=== PATIENT | male | born 1940 | race Caucasian/White ===

== ENCOUNTER 2024-04-17 13:11 | Outpatient (AMB) | payer MEDICARE, SELFPAY ==
[2024-04-17 13:20] VITALS: BP 118/68; PULSE 78; O2SAT 97; BMI 22.2
--- NOTE | 2024-04-17 13:20 | MHC.OFFVIS ---
Vital Signs 04/17/24 13:20 Height 5 ft 9 in Weight 150 lb 9.211 oz BMI 22.2 BP 118/68 Blood Pressure Location Rt brachial Position Sitting Pulse 78 Pulse Source Pulse Oximeter Pulse Oximetry (%) 97 Oxygen Delivery Method Room Air Intake Visit Reasons: Pneumonia Torch Shearer Required: No Allergies No Known Allergies Allergy (Verified 04/17/24 13:23) HPI Comments Details: The patient is here for pulmonary evaluation. The patient is an 83-year-old gentleman with a known history of atrial fibrillation on anticoagulation. She has been complaining of worsening respiratory symptoms since the summer. Apparently per the family he has been coughing now for the last month. He has also had some weight loss. The summertime he is having issues with shortness of breath cough and he went to the ER. He was initially evaluated in March. He was initially diagnosed with whooping cough. He was treated with azithromycin. The patient is no better develop worsening respiratory symptoms he went back to the hospital on March 18. Then he had a CTA which ruled out PE but the patient did have underlying is airspace disease in the lower lung zones in addition to the right upper lobe. The patient also has some bronchiectatic looking airways. He was placed on amoxicillin and then subsequently the patient was no better and he was subsequently placed on doxycycline. He was also started on cough syrup which helped him settle down the cough some degree. The patient has not significantly improved. He does throat area. He had a repeat CT scan on April 09 as a follow-up scan. This was done at [facility]. It appeared that the airspace disease improved although now he has a 1.5 nodular density in the right lower lobe. Did not clear if this is related to residual from an infection or if this is concerning process. [facility] Medical History (Updated 04/19/24 @ 21:56 by Everardo Hendrickson MD) Pertussis pneumonia Cough due to TANYA inhibitor Vasomotor rhinitis Bronchopneumonia Social History (Updated 04/17/24 @ 13:27 by DANILO Morocho) Patient Tobacco Use Status: Former Tobacco user Tobacco use type: Cigarette Years Smoked: 20+ Years Review of Systems Const Reports weight loss Eyes Reports no additional complaints ENT Reports hearing loss, Reports post nasal drip and Reports throat swelling Card Denies chest pain Resp Reports chest congestion, Reports cough, Denies hemoptysis and Denies wheezing GI Reports no additional complaints Musc Reports no additional complaints Skin/Breast Denies rash Sebastian/Lymph Reports no additional complaints Aller/Immun Reports throat swelling and Denies wheezing Physical Exam Vital Signs: Last Vital Signs Pulse 78 04/17/24 13:20 BP 118/68 04/17/24 13:20 Pulse Ox 97 04/17/24 13:20 Oxygen Delivery Method Room Air 04/17/24 13:20 BMI result Body Mass Index 22.2 Const General: comfortable HEENT Head: Yes normocephalic Throat: No cobblestoning Neck Neck: Yes supple Chest Chest palpation & inspection: normal inspection of the chest Resp Auscultation: diminished lung sounds Skin General skin exam: no rashes or lesions noted Extrem General: Yes no clubbing, cyanosis or edema Assessment & Plan Assessment & Plan (1) Bronchopneumonia: Code(s): J18.0 - Bronchopneumonia, unspecified organism Category: Medical (2) 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 Category: Medical (3) Cough due to TANYA inhibitor: Code(s): R05.8 - Other specified cough; T46.4X5A - Adverse effect of hfhasueshrh-zxhqvefxlo-vrnykc inhibitors, initial encounter Category: Medical (4) Pertussis pneumonia: Code(s): A37.91 - Whooping cough, unspecified species with pneumonia Category: Medical Plan start Asmanex daily *rinse* to help with airway inflammation caused by pertusis ipratropium nasal spray as needed Sputum culture Need to review the images, particularly the irregular density in the RLL. May need a PET scan, otherwise plan to repeat the CT chest in a short interval change TANYA to ARB cough medicine holding on further antibiotics at this time F/U 4-6 weeke Orders: Orders Sputum Cult + Gram stain 04/17/24 J18.0 - Bronchopneumonia, unspecified organism Medications: New mometasone 200 mcg/actuation (Asmanex HFA) 2 puffs inhalation BID 30 days 13 grams 1RF ipratropium bromide administer into each nostril 2 sprays intranasal TID PRN 15 mL 6RF allergy symptoms codeine-guaifenesin 10-100 mg/5 mL 10 mL PO Q6H 10 days PRN 300 mL 0RF cough Coding Level of Care Code New Pt Level 4 (11745) Diagnoses Bronchopneumonia J18.0 Vasomotor rhinitis J30.0 Cough due to TANYA inhibitor R05.8; T46.4X5A Pertussis pneumonia A37.91 Time Spent (min) 45
== END 2024-04-17 14:17 | disposition home or self-care (01) ==
PROVIDERS: PCP Physician Assistant Medical; Referring Provider Physician Assistant Medical; Visit Provider Hospitalist
DX: J18.0 Bronchopneumonia, unspecified organism (principal); J30.0 Vasomotor rhinitis; R05.8 Other specified cough; T46.4X5A Adverse effect of angiotensin-converting-enzyme inhibitors, initial encounter; A37.91 Whooping cough, unspecified species with pneumonia
CPT/HCPCS: 99204

== ENCOUNTER → 2024-04-17 13:11 | Outpatient (BNVA) | payer MEDICARE, SELFPAY | PROVIDERS: PCP Physician Assistant Medical; Referring Provider Physician Assistant Medical; Visit Provider Hospitalist | DX: J18.0 Bronchopneumonia, unspecified organism (principal); A37.91 Whooping cough, unspecified species with pneumonia; T46.4X5A Adverse effect of angiotensin-converting-enzyme inhibitors, initial encounter; J30.0 Vasomotor rhinitis; R05.8 Other specified cough | CPT/HCPCS: 99202 ==

== ENCOUNTER 2024-04-20 13:01 | Outpatient (REF) | payer MEDICARE, SELFPAY | END 2024-04-20 13:02 | disposition home or self-care (01) | LOC: HO.LNP 13:01 | PROVIDERS: Visit Provider Hospitalist | DX: J18.0 Bronchopneumonia, unspecified organism (principal) | CPT/HCPCS: 87070; 87205 ==

== ENCOUNTER 2024-05-21 10:29 | Outpatient (AMB) | payer MEDICARE, SELFPAY ==
[2024-05-21 10:40] VITALS: BP 140/86; PULSE 93; O2SAT 98; BMI 22.9
--- NOTE | 2024-05-21 10:40 | A.OFFVIS_ITS ---
Vital Signs 05/21/24 10:40 Height 5 ft 9 in Weight 155 lb 6.814 oz BMI 22.9 BP 140/86 H Blood Pressure Location Rt brachial Position Sitting Pulse 93 Pulse Source Pulse Oximeter Pulse Oximetry (%) 98 Oxygen Delivery Method Room Air Intake Visit Reasons: Pneumonia Allergies No Known Allergies Allergy (Verified 05/21/24 10:43) HPI Comments Details: The patient is an 83-year-old gentleman with a known history of atrial fibrillation on anticoagulation. She has been complaining of worsening respiratory symptoms since the summer. Apparently per the family he has been coughing now for the last month. He has also had some weight loss. The summertime he is having issues with shortness of breath cough and he went to the ER. He was initially evaluated in March. He was initially diagnosed with whooping cough. He was treated with azithromycin. The patient is no better develop worsening respiratory symptoms he went back to the hospital on March 18. Then he had a CTA which ruled out PE but the patient did have underlying is airspace disease in the lower lung zones in addition to the right upper lobe. The patient also has some bronchiectatic looking airways. He was placed on amoxicillin and then subsequently the patient was no better and he was subsequently placed on doxycycline. He was also started on cough syrup which helped him settle down the cough some degree. The patient has not significantly improved. He does throat area. He had a repeat CT scan on April 09 as a follow-up scan. This was done at [facility]. It appeared that the airspace disease improved although now he has a 1.5 nodular density in the right lower lobe. Did not clear if this is related to residual from an infection or if this is concerning process. 05/21/2024 the patient is here for a pulmonary follow-up visit. Overall the patient has been doing okay. His cough is better. He stopped taking the Asmane x since he felt that he did not need it anymore. Also was feel like it was developing some irritation from it. In addition to that he does complaint about his postnasal drip and nasal congestion. He has been using the Atrovent nasal spray. I had sent him the higher dose and then he had some issues with epistaxis and therefore he got a lower dose minutes primary care which is perfectly fine. Although he still having issues. He is taking it 4 times a day. Will see about back in weight to 2 times a day will add Astelin to the regimen. Will avoid nasal steroids because of bleeding. The patient is CT scans were also reviewed by me. I did get a copy of them. I can appreciate the nodular densities in the lower lung areas. There is some degree of inflammation and likely related to his previous infectious lower respiratory process. Therefore plan to repeat the CT scan sometime in early 2024 and will follow-up with the results. She continues to have the nodular densities and at that point he may need additional imaging or semi-invasive diagnostic interventions. Will follow-up then. [facility] Medical History (Updated 05/21/24 @ 19:43 by Everardo Hendrickson MD) Pulmonary nodule 1 cm or greater in diameter Pertussis pneumonia Cough due to TANYA inhibitor Vasomotor rhinitis Bronchopneumonia Social History Patient Tobacco Use Status: Former Tobacco user Tobacco use type: Cigarette Years Smoked: 20+ Years Review of Systems Const Reports weight loss Eyes Reports no additional complaints ENT Reports hearing loss, Reports post nasal drip and Reports throat swelling Card Denies chest pain Resp Denies chest congestion, Reports cough, Denies hemoptysis and Denies wheezing GI Reports no additional complaints Musc Reports no additional complaints Skin/Breast Denies rash Sebastian/Lymph Reports no additional complaints Aller/Immun Reports throat swelling and Denies wheezing Physical Exam Vital Signs: Last Vital Signs Pulse 93 05/21/24 10:40 BP 140/86 H 05/21/24 10:40 Pulse Ox 98 05/21/24 10:40 Oxygen Delivery Method Room Air 05/21/24 10:40 BMI result Body Mass Index 22.9 Const General: comfortable HEENT Head: Yes normocephalic Throat: No cobblestoning Neck Neck: Yes supple Chest Chest palpation & inspection: normal inspection of the chest Resp Auscultation: diminished lung sounds Skin General skin exam: no rashes or lesions noted Extrem General: Yes no clubbing, cyanosis or edema Assessment & Plan Assessment & Plan (1) Bronchopneumonia: Comment: better Code(s): J18.0 - Bronchopneumonia, unspecified organism Category: Medical (2) 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 Category: Medical (3) Cough due to TANYA inhibitor: Code(s): R05.8 - Other specified cough; T46.4X5A - Adverse effect of nxmgvoojzpi-nethsmmbyh-akowbm inhibitors, initial encounter Category: Medical (4) Pertussis pneumonia: Code(s): A37.91 - Whooping cough, unspecified species with pneumonia Category: Medical (5) Pulmonary nodule 1 cm or greater in diameter: Code(s): R91.1 - Solitary pulmonary nodule Category: Medical Plan stop Asmanex daily *rinse* to help with airway inflammation caused by pertusis ipratropium nasal spray as needed start astelin nasal spray BID start kati med sinus rinse PM Repeat CT chest inJanuary 2024 cough medicine F/U 2-3 months Orders: Orders CT chest wo IV con 07/06/24 R91.1 - Solitary pulmonary nodule Medications: New azelastine administer into each nostril 2 sprays intranasal BID 30 days 30 mL 6RF Coding Level of Care Code Est Pt Level 4 (35579) Diagnoses Bronchopneumonia J18.0 Vasomotor rhinitis J30.0 Cough due to TANYA inhibitor R05.8; T46.4X5A Pertussis pneumonia A37.91 Pulmonary nodule 1 cm or greater in diameter R91.1 Time Spent (min) 17
== END 2024-05-21 11:51 | disposition home or self-care (01) ==
PROVIDERS: PCP Physician Assistant Medical; Visit Provider Hospitalist
DX: J18.0 Bronchopneumonia, unspecified organism (principal); J30.0 Vasomotor rhinitis; R05.8 Other specified cough; T46.4X5A Adverse effect of angiotensin-converting-enzyme inhibitors, initial encounter; A37.91 Whooping cough, unspecified species with pneumonia; R91.1 Solitary pulmonary nodule
CPT/HCPCS: 99214

== ENCOUNTER → 2024-05-21 10:29 | Outpatient (BNVA) | payer MEDICARE, SELFPAY | PROVIDERS: PCP Physician Assistant Medical; Visit Provider Hospitalist | DX: A37.91 Whooping cough, unspecified species with pneumonia (principal); J18.0 Bronchopneumonia, unspecified organism; J30.0 Vasomotor rhinitis; R91.1 Solitary pulmonary nodule; R05.8 Other specified cough; T46.4X5A Adverse effect of angiotensin-converting-enzyme inhibitors, initial encounter | CPT/HCPCS: 99212 ==

== ENCOUNTER 2024-07-08 09:34 | Outpatient (REF) | payer MEDICARE, SELFPAY ==
--- NOTE | ~2024-07-08 | CT_ITS ---
EXAMINATION: CT CHEST WITHOUT IV CONTRAST INDICATION: R91.1 - Solitary pulmonary nodule COMPARISON: Comparison is made with the prior outside examination dated 04/09/2024. TECHNIQUE: Helical CT scan of the chest was performed without intravenous contrast. Coronal and sagittal reformatted images were generated and reviewed. This CT exam was performed with one or more of the following dose reduction techniques: automated exposure control, adjustment of the mA and/or kV according to patient size, use of iterative reconstruction technique. DLP: 142 mGy-cm CHEST: THYROID: The thyroid is unremarkable. LUNGS:There has been near complete clearing of the previously seen nodular opacities in the right upper lobe (series 5, images 285-303). Minimal residual groundglass opacities remain. No new pulmonary nodules or airspace opacities are identified. MEDIASTINUM: Again seen is a 10 mm anterior mediastinal lymph node. DINH: Evaluation of the hilar regions is limited by lack of intravenous contrast material. CARDIOVASCULATURE: The heart is normal in size. There is no pericardial effusion. There is dilatation of the ascending thoracic aorta measuring 4.0 cm in diameter. DEGREE OF CORONARY CALCIFICATION: severe PLEURA: There is no pleural effusion. No pneumothorax. MAIN AIRWAYS: The mainstem bronchi and proximal branches are patent. AXILLA: There is no axillary lymphadenopathy. BONES AND SOFT TISSUES: Unremarkable UPPER ABDOMEN: The visualized portions of the liver, spleen, and adrenals have an unremarkable appearance. CT/CT chest wo IV con IMPRESSION: 1. Near complete clearing of the previously seen nodular opacities in the right upper lobe with minimal residual groundglass opacities remaining. 2. Dilatation of the ascending thoracic aorta measuring 4.0 cm in diameter. Electronically signed by: Roebrt More MD 07/10/2024 09:[address] [facility]
--- OUTSIDE RECORDS SUMMARY | 2024-07-08 09:37 | XMS_ITS ---
Author Organization [email or web address] [facility] Address [address] [place] [address] Care Team Providers Care Account Development Representative Name Role Phone MOSES ROJO Unavailable [phone] REASON FOR VISIT CCM Encounters Encounter Location Date Provider Diagnosis [address] [address] 06/03/2024 MOSES ROJO PLAN OF TREATMENT Next Appt Details Provider Name:MOSES ROJO, 08/25/2024 08:45:00 AM, [address], [facility] [place], [address], Progress Notes * Tae JARADOB: [birth year] (84 yo M)Acc No.[id number]:06/03/2024 Patient:??Tae JARA :1940?Age:83 Y?Sex:Winston crabtree Address:[address] [place] [address] * true * Date:??
--- OUTSIDE RECORDS SUMMARY | 2024-07-08 09:37 | XMS_ITS ---
Author Organization [facility] Address [address] [place] [address] Care Team Providers Care Overnight Houseperson Name Role Phone MOSES ROJO Unavailable [phone] CONYGABY Unavailable [phone] REASON FOR VISIT pos covid yesterday MEDICATIONS Medication SIG (Take, Route, Frequency, Duration) Notes Start Date End Date Status Losartan Potassium 25 MG TAKE 1 TABLET B Y MOUTH EVERY DAY FOR 30 DAYS for 90 Not-Taking Eliquis 5 MG TAKE 1 TABLET BY SHAZIA TH TWICE A DAY for 90 Active Ipratropium Cruger 0.03 % 1 spray in each nostril Nasally twice daily for 30 days 05/07/2024 Active Azelastine HCl 137 MCG/SPRAY Nasal for 30 Days Active Lisinopril 5 MG TAKE 1 TABLET BY SHAZIA TH EVERY DAY for 30 Active Lisinopril 30 MG TAKE 1 TABLET BY SHAZIA TH EVERY DAY for 90 days Active Qvar RediHaler 80 MCG/ACT Inhalation for 30 Days Active Ipratropium Cruger 0.06 % PLEASE SEE ATTACHED FOR DETAILED DIRECTIONS Nasal for 30 Days Active Multivitamin Adult - as directed Orally Active Metoprolol Succinate ER 25 MG TAKE 1 TABLET BY MOUTH EVERY DAY for 90 Active guaiFENesin ER 600 MG 1 tablet as needed Orally every 12 hrs for 20 days 05/26/2024 Active Atorvastatin Calcium 40 MG 1 tablet Orally Once a day Active Nirmatrelvir&Ritonavir 300/100 20 x 150 MG & 10 x 100MG 3 tablets Orally Twice a day for 5 days 06/18/2024 Active Calcium 600 MG 1 tablet with meals Orally Twice a day Active Encounters Encounter Location Date Provider Diagnosis [facility] [address] [place] [address] 06/18/2024 GABY DONNELLY Acute COVID-19 U07.1 ; Post-nasal drip R09.82 ; Chronic cough R05.3 ; Hyperlipidemia, unspecified E78.5 ; Essential hypertension I10 and Atrial fibrillation, unspecified type I48.91 ASSESSMENTS Encounter Date Diagnosis Assessment Notes Treatment Notes Treatment Clinical Notes Section Notes 06/18/2024 Acute COVID-19 (ICD-10 - U07.1) Tae is a pleasant 84-year-old male who presents via telehealth for an urgent visit. #Positive COVID-19: Paxlovid sent to the pharmacy today, patient educated on the side effects that include but not limited to metallic taste in the mouth and GI upset. Patient educated to eat on the medication. Patient is to call the office if he develops a cough, or feels worse. #Essential hypertension: Continue lisinopril 30 mg tablets, lisinopril 5 mg tablets #Hyperlipidemia: Continue atorvastatin 40 mg tablets #Chronic atrial fibrillation: Patient anticoagulated with Eliquis 5 mg tablets, on rate control with metoprolol 25 mg tablets. All questions have been answered to patient's satisfaction. Patient verbalized understanding of diagnosis and treatments explained. Advised to call sooner prior to next visit it any questions/concerns arise. Case discussed with Taylor SALEH who reviewed the assessment and plan. Chart, medications, labs, vital signs reviewed. Dictation was accomplished with the use of [employer] voice recognition software, which is prone to medical misidentifications and grammatical errors. This are unintentional and the practitioner does try to identify and correct these, but some could still be present. Please do not hesitate to contact practitioner for clarification. 06/18/2024 Post-nasal drip (ICD-10 - R09.82) Tae is a pleasant 84-year-old male who presents via telehealth for an urgent visit. #Positive COVID-19: Paxlovid sent to the pharmacy today, patient educated on the side effects that include but not limited to metallic taste in the mouth and GI upset. Patient educated to eat on the medication. Patient is to call the office if he develops a cough, or feels worse. #Essential hypertension: Continue lisinopril 30 mg tablets, lisinopril 5 mg tablets #Hyperlipidemia: Continue atorvastatin 40 mg tablets #Chronic atrial fibrillation: Patient anticoagulated with Eliquis 5 mg tablets, on rate control with metoprolol 25 mg tablets. All questions have been answered to patient's satisfaction. Patient verbalized understanding of diagnosis and treatments explained. Advised to call sooner prior to next visit it any questions/concerns arise. Case discussed with Taylor SALEH who reviewed the assessment and plan. Chart, medications, labs, vital signs reviewed. Dictation was accomplished with the use of [employer] voice recognition software, which is prone to medical misidentifications and grammatical errors. This are unintentional and the practitioner does try to identify and correct these, but some could still be present. Please do not hesitate to contact practitioner for clarification. 06/18/2024 Chronic cough (ICD-10 - R05.3) Tae is a pleasant 84-year-old male who presents via telehealth for an urgent visit. #Positive COVID-19: Paxlovid sent to the pharmacy today, patient educated on the side effects that include but not limited to metallic taste in the mouth and GI upset. Patient educated to eat on the medication. Patient is to call the office if he develops a cough, or feels worse. #Essential hypertension: Continue lisinopril 30 mg tablets, lisinopril 5 mg tablets #Hyperlipidemia: Continue atorvastatin 40 mg tablets #Chronic atrial fibrillation: Patient anticoagulated with Eliquis 5 mg tablets, on rate control with metoprolol 25 mg tablets. All questions have been answered to patient's satisfaction. Patient verbalized understanding of diagnosis and treatments explained. Advised to call sooner prior to next visit it any questions/concerns arise. Case discussed with Taylor SALEH who reviewed the assessment and plan. Chart, medications, labs, vital signs reviewed. Dictation was accomplished with the use of [employer] voice recognition software, which is prone to medical misidentifications and grammatical errors. This are unintentional and the practitioner does try to identify and correct these, but some could still be present. Please do not hesitate to contact practitioner for clarification. 06/18/2024 Hyperlipidemia, unspecified (ICD-10 - E78.5) Tae is a pleasant 84-year-old male who presents via telehealth for an urgent visit. #Positive COVID-19: Paxlovid sent to the pharmacy today, patient educated on the side effects that include but not limited to metallic taste in the mouth and GI upset. Patient educated to eat on the medication. Patient is to call the office if he develops a cough, or feels worse. #Essential hypertension: Continue lisinopril 30 mg tablets, lisinopril 5 mg tablets #Hyperlipidemia: Continue atorvastatin 40 mg tablets #Chronic atrial fibrillation: Patient anticoagulated with Eliquis 5 mg tablets, on rate control with metoprolol 25 mg tablets. All questions have been answered to patient's satisfaction. Patient verbalized understanding of diagnosis and treatments explained. Advised to call sooner prior to next visit it any questions/concerns arise. Case discussed with Taylor SALEH who reviewed the assessment and plan. Chart, medications, labs, vital signs reviewed. Dictation was accomplished with the use of [employer] voice recognition software, which is prone to medical misidentifications and grammatical errors. This are unintentional and the practitioner does try to identify and correct these, but some could still be present. Please do not hesitate to contact practitioner for clarification. 06/18/2024 Essential hypertension (ICD-10 - I10) Tae is a pleasant 84-year-old male who presents via telehealth for an urgent visit. #Positive COVID-19: Paxlovid sent to the pharmacy today, patient educated on the side effects that include but not limited to metallic taste in the mouth and GI upset. Patient educated to eat on the medication. Patient is to call the office if he develops a cough, or feels worse. #Essential hypertension: Continue lisinopril 30 mg tablets, lisinopril 5 mg tablets #Hyperlipidemia: Continue atorvastatin 40 mg tablets #Chronic atrial fibrillation: Patient anticoagulated with Eliquis 5 mg tablets, on rate control with metoprolol 25 mg tablets. All questions have been answered to patient's satisfaction. Patient verbalized understanding of diagnosis and treatments explained. Advised to call sooner prior to next visit it any questions/concerns arise. Case discussed with Taylor SALEH who reviewed the assessment and plan. Chart, medications, labs, vital signs reviewed. Dictation was accomplished with the use of [employer] voice recognition software, which is prone to medical misidentifications and grammatical errors. This are unintentional and the practitioner does try to identify and correct these, but some could still be present. Please do not hesitate to contact practitioner for clarification. 06/18/2024 Atrial fibrillation, unspecified type (ICD-10 - I48.91) Tae is a pleasant 84-year-old male who presents via telehealth for an urgent visit. #Positive COVID-19: Paxlovid sent to the pharmacy today, patient educated on the side effects that include but not limited to metallic taste in the mouth and GI upset. Patient educated to eat on the medication. Patient is to call the office if he develops a cough, or feels worse. #Essential hypertension: Continue lisinopril 30 mg tablets, lisinopril 5 mg tablets #Hyperlipidemia: Continue atorvastatin 40 mg tablets #Chronic atrial fibrillation: Patient anticoagulated with Eliquis 5 mg tablets, on rate control with metoprolol 25 mg tablets. All questions have been answered to patient's satisfaction. Patient verbalized understanding of diagnosis and treatments explained. Advised to call sooner prior to next visit it any questions/concerns arise. Case discussed with Taylor SALEH who reviewed the assessment and plan. Chart, medications, labs, vital signs reviewed. Dictation was accomplished with the use of [employer] voice recognition software, which is prone to medical misidentifications and grammatical errors. This are unintentional and the practitioner does try to identify and correct these, but some could still be present. Please do not hesitate to contact practitioner for clarification. PLAN OF TREATMENT Medication Medication Name Sig Start Date Stop Date Notes Nirmatrelvir&Ritonavir 300/1 00 20 x 150 MG & 10 x 100MG 3 tablets Orally Twice a day for 5 days 06/18/2024 Next Appt Details Provider Name:MOSES ROJO, 08/25/2024 08:45:00 AM, [address] [facility], [place], [address], Progress Notes * Tae JARADOB: [birth year] (84 yo M)Acc No.[id number]:06/18/2024 Patient:??Tae JARA Provider:??GABY DONNELLY PA-C :1940?Age:84 Y?Sex:Ma le Date:06/18/2024 Address:[address] [place] [address], [place], [id number] Subjective: * Chief Complaints: * ?1. Pos covid yesterday . * HPI: ?Constitutional:? Tae is a pleasant 84-year-old male with a past medical history significant for hypertension, iron deficiency anemia, hyperlipidemia, chronic A- fib, hematuria, history of CVA, chronic cough, postnasal drip and history of prostate cancer who presents via telehealth for an urgent visit. The patient states that he tested positive last night around 9 PM with a at home COVID test. The patient states that his symptoms include cold-like symptoms, sinus pressure and sore throat. Denies any shortness of breath, headaches, chest pain or coughing at this time. * ROS:?Constitutional: Patient denies any excessive fatigue with exercise, no weight loss, no fever and no night sweats ???Eyes: No eye discharge, no itching, no redness. Advised the significance of regular eye exams to screen for glaucoma and other eye problems ???Ear nose throat: +sore throat,+ postnasal drip, +runny nose, +sinus pressure, Sneezing ???Cardiovascular: No chest pain, no shortness of breath, no dyspnea on exertion, no PND, no orthopnea, no irregular pulse ???Respiratory: No chronic cough, no hemoptysis, no sputum, no wheezing ???GI, no diarrhea, no constipation no blood in the stools, no pain associated with eating, no indigestion ???Genitourinary: No painful urination no hesitancy no blood in the urine ???Musculoskeletal, no limitations to walking and running, no joint deformity, no joint stiffness, no chronic back pain, no noise with joint movement ???Integumentary, no new skin rash. No new changes in skin moles ???Neurological: No history of seizures, memory loss, No language dysfunction, No inability to concentrate, no localized weakness, no sensation loss, no confusion ???Psychiatric: No depression, no suicidal thoughts, no anxiety ???Endocrine: No polyuria no polyphagia or polydipsia, no heat intolerance no cold intolerance ???Hematological: No easy bruising or Lymph node swelling. * Medical History:??Essential (primary) hypertension, Iron deficiency anemia, unspecified, Hyperlipidemia, mild, Chronic atrial fibrillation, History of prostate cancer, Hematuria, gross, History of CVA (cerebrovascular accident), Chronic cough, Post-nasal drip. * Medications:??Taking guaiFEN esin ER 600 MG Tablet Extended Release 12 Hour 1 tablet as needed Orally every 12 hrs , Taking Atorvastatin Calcium 40 MG Tablet 1 tablet Orally Once a day , Taking Calcium 600 MG Tablet 1 tablet with meals Orally Twice a day , Taking Multivitamin Adult - Tablet as directed Orally , Taking Metoprolol Succinate ER 25 MG Tablet Extended Release 24 Hour TAKE 1 TABLET BY MOUTH EVERY DAY , Taking Lisinopril 30 MG Tablet TAKE 1 TABLET BY MOUTH EVERY DAY , Taking Qvar RediHaler 80 MCG/ACT Aerosol Breath Activated Inhalation , Taking Ipratropium Cruger 0.06 % Solution PLEASE SEE ATTACHED FOR DETAILED DIRECTIONS Nasal , Taking Ipratropium Cruger 0.03 % Solution 1 spray in each nostril Nasally twice daily , Taking Azelastine HCl 137 MCG/SPRAY Solution Nasal , Taking Eliquis 5 MG Tablet TAKE 1 TABLET BY MOUTH TWICE A DAY , Taking Lisinopril 5 MG Tablet TAKE 1 TABLET BY MOUTH EVERY DAY , Not-Taking Losartan Potassium 25 MG Tablet TAKE 1 TABLET BY MOUTH EVERY DAY FOR 30 DAYS Objective: * Examination: ?General Examination: ?Not able to obtain. Assessment: * Assessment: 1.??Acute COVID-19 - U07.1 ( Primary)??2.??Post-nasal drip - R09.82??3.??Chronic cough - R05.3??4.??Hyperlipidemia, unspecified - E78.5??5.??Essential hypertension - I10??6.??Atrial fibrillation, unspecified type - I48.91?? Tae is a pleasant 84-yea r-old male who presents via telehealth for an urgent visit. #Positive COVID-19: Paxlovid sent to the pharmacy today, patient educated on the side effects that include but not limited to metallic taste in the mouth and GI upset. Patient educated to eat on the medication. Patient is to call the office if he develops a cough, or feels worse. #Essential hypertension: Continue lisinopril 30 mg tablets, lisinopril 5 mg tablets #Hyperlipidemia: Continue atorvastatin 40 mg tablets #Chronic atrial fibrillation: Patient anticoagulated with Eliquis 5 mg tablets, on rate control with metoprolol 25 mg tablets. All questions have been answered to patient's satisfaction. Patient verbalized understanding of diagnosis and treatments explained. Advised to call sooner prior to next visit it any questions/concerns arise. Case discussed with Taylor SALEH who reviewed the assessment and plan. Chart, medications, labs, vital signs reviewed. Dictation was accomplished with the use of [employer] voice recognition software, which is prone to medical misidentifications and grammatical errors. This are unintentional and the practitioner does try to identify and correct these, but some could still be present. Please do not hesitate to contact practitioner for clarification. Plan: * Treatment: * Images: Billing Information: * Visit Code:?? 64601 Office Visit, Est Pt., Level 4. Modifiers: GT * Procedure Codes:?? * Sign off status: Completed true * Provider:??GABY DONNELLY PA-C Date:??06/18 History and Physical Notes * HPI (History of Present Illness) Category Sub-Category Detail Notes Category Not es Constitutional Tae is a pleasant 84-year-old male with a past medical history significant for hypertension, iron deficiency anemia, hyperlipidemia, chronic A-fib, hematuria, history of CVA, chronic cough, postnasal drip and history of prostate cancer who presents via telehealth for an urgent visit. The patient states that he tested positive last night around 9 PM with a at home COVID test. The patient states that his symptoms include cold-like symptoms, sinus pressure and sore throat. Denies any shortness of breath, headaches, chest pain or coughing at this time. Examination Category Sub-Category Detail Notes Category Not es General Examination Not able to obtain
--- OUTSIDE RECORDS SUMMARY | 2024-07-08 09:37 | XMS_ITS ---
Author Organization [facility] Address [address] [place] [address] Care Team Providers Care Doughnut Machine Operator Helper Name Role Phone MOSES ROJO Unavailable [phone] REASON FOR VISIT covid positive Encounters Encounter Location Date Provider Diagnosis [address] [address] 06/18/2024 MOSES ROJO PLAN OF TREATMENT Next Appt Details Provider Name:MOSES ROJO, 08/25/2024 08:45:00 AM, [address], [place], [address], Progress Notes * Tae JARADOB: [birth year] (84 yo M)Acc No.[id number]:06/18/2024 Patient:??ESTEFANI Tae :1940?Age:84 Y?Sex:Winston elyda Address:[address] [place] [address] * true * Date:??
--- OUTSIDE RECORDS SUMMARY | 2024-07-08 09:38 | XMS_ITS | Patient Health Record ---
Author Organization [facility] [facility] Address [address] [place] [address] Care Team Providers Care Green Chain Offbearer Name Role Phone ALIA, MOSES Unavailable [phone] ASHLYN FERNÁNDEZ Unavailable [phone] GHISLAINE FERNÁNDEZ Unavailable [phone] Angel Stephy Unavailable [phone] KELBY MCKEON Unavailable [phone] JAKE MARIN Unavailable [phone] GABY DONNELLY Unavailable [phone] ALLERGIES No Known Allergies RESULTS Component Value Reference Range Notes CBC (INCLUDES DIFF/PLT) Reviewed date:07/12/2023 08:31:13 AM Interpretation: Performing Lab:NL2, [facility] [address] Aria Stinson Notes/Report: 0 FASTING:YES FASTING: YES WHITE BLOOD CELL COUNT 6.6 3.8-10.8 Thousand/uL RED BLOOD CELL COUNT 4.07 4.20-5.80 Million/uL HEMOGLOBIN 12.2 13.2-17.1 g/dL HEMATOCRIT 36.8 38.5-50.0 % MCV 90.4 80.0-100.0 fL MCH 30.0 27.0-33.0 pg MCHC 33.2 32.0-36.0 g/dL RDW 12.3 11.0-15.0 % PLATELET COUNT 256 140-400 Thousand/uL MPV 10.6 7.5-12.5 fL ABSOLUTE NEUTROPHILS [phone] cells/uL ABSOLUTE LYMPHOCYTES 5118 469-6496 cells/uL ABSOLUTE MONOCYTES 455 200-950 cells/uL ABSOLUTE EOSINOPHILS 59 15-500 cells/uL ABSOLUTE BASOPHILS 59 0-200 cells/uL NEUTROPHILS 63.7 LYMPHOCYTES 27.6 MONOCYTES 6.9 EOSINOPHILS 0.9 BASOPHILS 0.9 COMPREHENSIVE METABOLIC PANE L Reviewed date:08/30/2023 11:18:27 AM Interpretation: Performing Lab:RAMBO2, [facility] Aria Stinson Notes/Report: GLUCOSE 101 65-99 mg/dL Fasting reference interval For someone without known diabetes, a glucose value between 100 and 125 mg/dL is consistent with prediabetes and should be confirmed with a follow-up test. UREA NITROGEN (BUN) 20 7-25 mg/dL CREATININE 1.09 0.70-1.22 mg/dL EGFR 68 > OR = 60 mL/min/1.73m2 BUN/CREATININE RATIO SEE NOTE: 6-22 (calc) Not Reported: BUN and Creatinine are within reference range. SODIUM 140 135-146 mmol/L POTASSIUM 5.2 3.5-5.3 mmol/L CHLORIDE 105 98-110 mmol/L CARBON DIOXIDE 27 20-32 mmol/L CALCIUM 9.5 8.6-10.3 mg/dL PROTEIN, TOTAL 7.3 6.1-8.1 g/dL ALBUMIN 4.1 3.6-5.1 g/dL GLOBULIN 3.2 1.9-3.7 g/dL (calc) ALBUMIN/GLOBULIN RATIO 1.3 1.0-2.5 (calc) BILIRUBIN, TOTAL 0.7 0.2-1.2 mg/dL ALKALINE PHOSPHATASE 72 35-144 U/L AST 23 10-35 U/L ALT 15 9-46 U/L CBC (INCLUDES DIFF/PLT) Reviewed date:08/30/2023 11:18:18 AM Interpretation: Performing Lab:RAMBO2, [facility] [address] Aria Stinson Notes/Report: WHITE BLOOD CELL COUNT 6.7 3.8-10.8 Thousand/uL RED BLOOD CELL COUNT 4.00 4.20-5.80 Million/uL HEMOGLOBIN 12.3 13.2-17.1 g/dL HEMATOCRIT 35.9 38.5-50.0 % MCV 89.8 80.0-100.0 fL MCH 30.8 27.0-33.0 pg MCHC 34.3 32.0-36.0 g/dL RDW 12.1 11.0-15.0 % PLATELET COUNT 205 140-400 Thousand/uL MPV 10.2 7.5-12.5 fL ABSOLUTE NEUTROPHILS 4167 1673-2734 cells/uL ABSOLUTE LYMPHOCYTES 5362 833-6429 cells/uL ABSOLUTE MONOCYTES 456 200-950 cells/uL ABSOLUTE EOSINOPHILS 34 15-500 cells/uL ABSOLUTE BASOPHILS 74 0-200 cells/uL NEUTROPHILS 62.2 LYMPHOCYTES 29.4 MONOCYTES 6.8 EOSINOPHILS 0.5 BASOPHILS 1.1 URINALYSIS, COMPLETE Reviewed date:09/02/2023 03:41:09 PM Interpretation: Performing Lab:Roe, [facility] [address] Aria Stinson Notes/Report: COLOR YELLOW YELLOW APPEARANCE CLEAR CLEAR SPECIFIC GRAVITY 1.011 1.001-1.035 PH 6.5 5.0-8.0 GLUCOSE NEGATIVE NEGATIVE BILIRUBIN NEGATIVE NEGATIVE KETONES NEGATIVE NEGATIVE OCCULT BLOOD 3+ NEGATIVE PROTEIN NEGATIVE NEGATIVE NITRITE NEGATIVE NEGATIVE LEUKOCYTE ESTERASE NEGATIVE NEGATIVE WBC NONE SEEN < OR = 5 /HPF RBC 3-10 < OR = 2 /HPF SQUAMOUS EPITHELIAL CELLS NONE SEEN < OR = 5 /HPF BACTERIA NONE SEEN NONE SEEN /HPF HYALINE CAST NONE SEEN NONE SEEN /LPF NOTE This urine was analyzed for the presence of WBC, RBC, bacteria, casts, and other formed elements. Only those elements seen were reported. PSA (FREE AND TOTAL) Reviewed date:09/02/2023 03:41:38 PM Interpretation: Performing Lab:JACKY, [facility] [address] Aria Stinson Notes/Report: PSA, TOTAL <0.1 < OR = 4.0 ng/mL PSA, FREE <0.1 PSA, % FREE UNABLE TO CALCULATE >25 % (calc) The free PSA level is below detectable limits. We are unable to calculate a % free PSA. PSA(ng/mL) Free PSA(%) Estimated(x) Probability of Cancer(as%) 0-2.5 (*) Approx. 1 2.6-4.0(1) 0-27(2) 24(3) 4.1-10(4) 0-10 56 11-15 28 16-20 20 21-25 16 >or =26 8 >10(+) N/A >50 References:(1)Warren et al.:Urology 60: 469-474 (2001) (2)Warren et al.:J.Urol 168: 922-925 (2001) Free PSA(%) Sensitivity(%) Specificity(%) < or = 25 85 19 < or = 30 93 9 (3)Catalona et al.:LUIS 277: 5988-6025 (1996) (4)Catalona et al.:LUIS 279: 9046-3108 (1997) (x)These estimates vary with age, ethnicity, family history and JOSE MARIA results. (*)The diagnostic usefulness of % Free PSA has not been established in patients with total PSA below 2.6 ng/mL (+)In men with PSA above 10 ng/mL, prostate cancer risk is determined by total PSA alone. The Total PSA value from this assay system is standardized against the equimolar PSA standard. The test result will be approximately 20% higher when compared to the WHO-standardized Total PSA (Siemens assay). Comparison of serial PSA results should be interpreted with this fact in mind. PSA was performed using the Bertram Toby Immunoassay method. Values obtained from different assay methods cannot be used interchangeably. PSA levels, regardless of value, should not be interpreted as absolute evidence of the presence or absence of disease. LIPID PANEL, STANDARD Reviewed date:01/16/2024 07:57:50 AM Interpretation: Performing Lab:NL2, [facility] [address] Aria Stinson Notes/Report: 0; 0; 0; 0; 0; 0; 0; 0 FASTING:YES FASTING: YES CHOLESTEROL, TOTAL 143 <200 mg/dL HDL CHOLESTEROL 65 > OR = 40 mg/dL TRIGLYCERIDES 78 <150 mg/dL LDL-CHOLESTEROL 62 Reference range: <100 Desirable range <100 mg/dL for primary prevention; <70 mg/dL for patients with CHD or diabetic patients with > or = 2 CHD risk factors. LDL-C is now calculated using the Adelso-Brooke calculation, which is a validated novel method providing better accuracy than the Friedewald equation in the estimation of LDL-C. Adelso RESENDEZ et al. LUIS. 2013;310(19): 6614-6643 (http://education.Ybrain.Field Nation/faq/JWN911) CHOL/HDLC RATIO 2.2 <5.0 (calc) NON HDL CHOLESTEROL 78 <130 mg/dL (calc) For patients with diabetes plus 1 major ASCVD risk factor, treating to a non-HDL-C goal of <100 mg/dL (LDL-C of <70 mg/dL) is considered a therapeutic option. COMPREHENSIVE METABOLIC PANE L Reviewed date:01/16/2024 07:57:50 AM Interpretation: Performing Lab:NL2, [facility] [address] Aria Stinson Notes/Report: 0; 0; 0; 0; 0; 0; 0; 0 FASTING:YES FASTING: YES GLUCOSE 106 65-99 mg/dL Fasting reference interval For someone without known diabetes, a glucose value between 100 and 125 mg/dL is consistent with prediabetes and should be confirmed with a follow-up test. UREA NITROGEN (BUN) 17 7-25 mg/dL CREATININE 1.08 0.70-1.22 mg/dL EGFR 69 > OR = 60 mL/min/1.73m2 BUN/CREATININE RATIO SEE NOTE: 6-22 (calc) Not Reported: BUN and Creatinine are within reference range. SODIUM 140 135-146 mmol/L POTASSIUM 4.9 3.5-5.3 mmol/L CHLORIDE 106 98-110 mmol/L CARBON DIOXIDE 28 20-32 mmol/L CALCIUM 9.4 8.6-10.3 mg/dL PROTEIN, TOTAL 7.1 6.1-8.1 g/dL ALBUMIN 3.5 3.6-5.1 g/dL GLOBULIN 3.6 1.9-3.7 g/dL (calc) ALBUMIN/GLOBULIN RATIO 1.0 1.0-2.5 (calc) BILIRUBIN, TOTAL 0.6 0.2-1.2 mg/dL ALKALINE PHOSPHATASE 65 35-144 U/L AST 20 10-35 U/L ALT 14 9-46 U/L CBC (INCLUDES DIFF/PLT) Reviewed date:01/16/2024 07:57:50 AM Interpretation: Performing Lab:NL2, [facility] [address] Aria Stinson Notes/Report: 0; 0; 0; 0; 0; 0; 0; 0 FASTING:YES FASTING: YES WHITE BLOOD CELL COUNT 6.2 3.8-10.8 Thousand/uL RED BLOOD CELL COUNT 3.95 4.20-5.80 Million/uL HEMOGLOBIN 11.9 13.2-17.1 g/dL HEMATOCRIT 37.3 38.5-50.0 % MCV 94.4 80.0-100.0 fL MCH 30.1 27.0-33.0 pg MCHC 31.9 32.0-36.0 g/dL RDW 12.3 11.0-15.0 % PLATELET COUNT 213 140-400 Thousand/uL MPV 10.2 7.5-12.5 fL ABSOLUTE NEUTROPHILS 3354 5558-2697 cells/uL ABSOLUTE LYMPHOCYTES 2089 850-3900 cells/uL ABSOLUTE MONOCYTES 515 200-950 cells/uL ABSOLUTE EOSINOPHILS 211 15-500 cells/uL ABSOLUTE BASOPHILS 31 0-200 cells/uL NEUTROPHILS 54.1 LYMPHOCYTES 33.7 MONOCYTES 8.3 EOSINOPHILS 3.4 BASOPHILS 0.5 URINALYSIS, COMPLETE Reviewed date:01/16/2024 08:12:48 AM Interpretation: Performing Lab:NL2, [facility] [address] Aria Stinson Notes/Report: 0; 0; 0; 0; 0; 0; 0; 0 FASTING:YES FASTING: YES COLOR DARK YELLOW YELLOW APPEARANCE CLEAR CLEAR SPECIFIC GRAVITY 1.018 1.001-1.035 PH 5.5 5.0-8.0 GLUCOSE NEGATIVE NEGATIVE BILIRUBIN NEGATIVE NEGATIVE KETONES NEGATIVE NEGATIVE OCCULT BLOOD NEGATIVE NEGATIVE PROTEIN NEGATIVE NEGATIVE NITRITE NEGATIVE NEGATIVE LEUKOCYTE ESTERASE NEGATIVE NEGATIVE WBC NONE SEEN < OR = 5 /HPF RBC 3-10 < OR = 2 /HPF SQUAMOUS EPITHELIAL CELLS NONE SEEN < OR = 5 /HPF BACTERIA NONE SEEN NONE SEEN /HPF CALCIUM OXALATE CRYSTALS FEW NONE OR FEW /HPF HYALINE CAST NONE SEEN NONE SEEN /LPF NOTE This urine was analyzed for the presence of WBC, RBC, bacteria, casts, and other formed elements. Only those elements seen were reported. VITAMIN B12 Reviewed date:01/16/2024 07:57:50 AM Interpretation: Performing Lab:NLGamzee, [facility] [address] [facility] Notes/Report: 0; 0; 0; 0; 0; 0; 0; 0 FASTING:YES FASTING: YES VITAMIN B12 613 947-0194 pg/mL Please Note: Although the reference range for vitamin B12 is 200-1100 pg/mL, it has been reported that between 5 and 10% of patients with values between 200 and 400 pg/mL may experience neuropsychiatric and hematologic abnormalities due to occult B12 deficiency; less than 1% of patients with values above 400 pg/mL will have symptoms. T4, FREE Reviewed date:01/16/2024 07:57:50 AM Interpretation: Performing Lab:RAMBOGamzee, [facility] [employer] [address] [facility] Notes/Report: 0; 0; 0; 0; 0; 0; 0; 0 FASTING:YES FASTING: YES T4, FREE 1.0 0.8-1.8 ng/dL TSH Reviewed date:01/16/2024 07:57:50 AM Interpretation: Performing Lab:RAMBOGamzee, [facility] [facility] Notes/Report: 0; 0; 0; 0; 0; 0; 0; 0 FASTING:YES FASTING: YES TSH 1.81 0.40-4.50 mIU/L T3, FREE Reviewed date:01/16/2024 07:57:50 AM Interpretation: Performing Lab:RAMBOGamzee, [place] [address] [facility] Notes/Report: 0; 0; 0; 0; 0; 0; 0; 0 FASTING:YES FASTING: YES T3, FREE 2.8 2.3-4.2 pg/mL VITAMIN D,25-OH,TOTAL,IA Reviewed date:01/16/2024 07:57:50 AM Interpretation: Performing Lab:RAMBO2, [place] [facility] [id number] [place] [address] [facility] Notes/Report: 0; 0; 0; 0; 0; 0; 0; 0 FASTING:YES FASTING: YES VITAMIN D,25-OH,TOTAL,IA 36 30-100 ng/mL Vitamin D Status 25-OH Vitamin D: Deficiency: <20 ng/mL Insufficiency: 20 - 29 ng/mL Optimal: > or = 30 ng/mL For 25-OH Vitamin D testing on patients on D2-supplementation and patients for whom quantitation of D2 and D3 fractions is required, the QuestAssureD(TM) 25-OH VIT D, (D2,D3), LC/MS/MS is recommended: order code [id number] (patients >2yrs). See Note 1 Note 1 For additional information, please refer to http://education.Coalfire/faq/BTB540 (This link is being provided for informational/ educational purposes only.) EKG (Not yet reviewed by pro vider) Interpretation: Performing Lab: Notes/Report: ECGDiastolicBP 98 ECGHr 68 ECGPRInterval 190 ECGPWaveAxis 90 ECGQRSDuration 89 ECGQrsWaveAxis 12 ECGQTcInterval 414 ECGQTInterval 400 ECGSystolicBP 142 ECGTWaveAxis -1 RR_DiastolicBP 0 RR_MaxRRInterval 0 RR_MeanHR 0 RR_MeanRRInterval 0 RR_MinRRInterval 0 RR_NumBeats 0 RR_NumNormalBeats 0 RR_SystolicBP 0 Chest Routine 2 Views Reviewed date:03/12/2024 10:26:34 AM Interpretation: Performing Lab: Notes/Report: Original Ordering Provider: GHISLAINE FERNÁNDEZ MD [facility] CBC Reviewed date:04/09/2024 04:18:44 PM Interpretation: Performing Lab: Notes/Report: Note Original Ordering Provider: KELBY [employer], [place] [address] [employer] [address] MD WBC 7.5 4.8-10.8 x10-3/uL RBC 3.9 4.5-5.5 x10-6/uL HEMOGLOBIN 11.6 13.5-17.5 g/dL HEMATOCRIT 35.9 42-54 % MCV 92.5 79-98 fL MCH 29.9 27-32 pg MCHC 32.3 32-37 g/dL RDW 12.5 11-15 % PLT COUNT 215 130-400 x10-3/uL MEAN PLATELET VOLUME 9.9 7-11 fL NRBC % AUTO 0.0 <1 % NRBC # AUTO 0.00 <0.1 x10-3/uL Note Original Ordering Provider: KELBY [employer], a member of [address] [address] [employer] - [address] MD COMPREHENSIVE METABOLIC PANE L Reviewed date:04/08/2024 04:07:47 PM Interpretation: Performing Lab: Notes/Report: Note Original Ordering Provider: KELBY [employer], a member of [address] [address] [employer] - [address] MD GLUCOSE 101 70-100 mg/dL Reference range applicable to fasting specimens only BUN 15 5-25 mg/dL CREAT 1.17 0.7-1.3 mg/dL GLOMERULAR FILTRATION RATE 63 >60 This eGFR result was calculated using the CKD-EPI 2020 Creatinine Equation SODIUM 139 135-145 mEq/L POTASSIUM 4.6 3.5-5.5 mmol/L CHLORIDE 107 96-110 mmol/L CO2 25 21-32 mmol/L ANION GAP 7 3-11 CALCIUM 9.7 8.5-10.5 mg/dL TOTAL PROTEIN 7.0 6.0-8.0 G/dL ALBUMIN 3.3 3.2-5.0 G/dL BILI,TOTAL 0.8 0.0-1.4 mg/dL SGOT 16 10-42 U/L SGPT 19 10-60 U/L ALK PHOS 75 42-121 U/L Note Original Ordering Provider: KELBY [employer], a member of [address] [address] Professional Model - MD DR Francheska Gillis Routine 2 Views Reviewed date:04/08/2024 01:11:33 PM Interpretation: Performing Lab: Notes/Report: Original Ordering Provider: [facility] CT Chest WO Reviewed date:04/10/2024 11:04:37 AM Interpretation: Performing Lab: Notes/Report: Original Ordering Provider: [facility] CBC With Differential/Platel et-[id number] Reviewed date:05/19/2024 08:00:44 AM Interpretation: Performing Lab:[facility], [address] [facility], Phone - [phone], Director - LARonald Notes/Report: WBC 7.4 3.4-10.8 x10E3/uL RBC 4.06 4.14-5.80 x10E6/uL Hemoglobin 12.6 13.0-17.7 g/dL Hematocrit 37.8 37.5-51.0 % MCV 93 79-97 fL MCH 31.0 26.6-33.0 pg MCHC 33.3 31.5-35.7 g/dL RDW 12.2 11.6-15.4 % Platelets 218 150-450 x10E3/uL Neutrophils 60 Not Estab. % Lymphs 29 Not Estab. % Monocytes 8 Not Estab. % Eos 2 Not Estab. % Basos 1 Not Estab. % Immature Cells Neutrophils (Absolute) 4.5 1.4-7.0 x10E3/uL Lymphs (Absolute) 2.1 0.7-3.1 x10E3/uL Monocytes(Absolute) 0.6 0.1-0.9 x10E3/uL Eos (Absolute) 0.1 0.0-0.4 x10E3/uL Baso (Absolute) 0.1 0.0-0.2 x10E3/uL Immature Granulocytes 0 Not Estab. % Immature Grans (Abs) 0.0 0.0-0.1 x10E3/uL NR Hematology Comments: Comp. Metabolic Panel ([phone] [id number] Reviewed date:05/19/2024 08:01:29 AM Interpretation: Performing Lab:[facility], [address] [facility], Phone - [phone], Director - Milly Notes/Report: Glucose 101 70-99 mg/dL BUN 14 8-27 mg/dL Creatinine 1.12 0.76-1.27 mg/dL eGFR 66 >59 mL/min/1.73 BUN/Creatinine Ratio 13 10-24 Sodium 140 134-144 mmol/L Potassium 4.8 3.5-5.2 mmol/L Chloride 103 96-106 mmol/L Carbon Dioxide, Total 24 20-29 mmol/L Calcium 9.6 8.6-10.2 mg/dL Protein, Total 7.0 6.0-8.5 g/dL Albumin 3.9 3.7-4.7 g/dL Globulin, Total 3.1 1.5-4.5 g/dL Bilirubin, Total 0.3 0.0-1.2 mg/dL Alkaline Phosphatase 91 44-121 IU/L AST (SGOT) 22 0-40 IU/L REASON FOR REFERRAL [facility] Diagnosis 1 Gross hematuria (R31 .0) Referral Organization [facility] Referring Provider First Name ASHLYN Referring Provider Last Name FERNÁNDEZ Referring Provider Speciality Internal edicine Referred Provider Specialty Urology General Notes Bertha Sullivan 2023 02:31:45 PM > faxed to [facility] urology with most recent office note [phone], Dustin Kapadia 01/22/2024 04:16:44 PM > The patient was seen on 10/18/2023 for his annual check up Referral Priority Routine Reason Dr broussard Diagnosis 1 Cough, unspecified t ype (R05.9) Diagnosis 2 SOB (shortness of br eath) (R06.02) Diagnosis 3 Pneumonia due to inf ectious organism, unspecified laterality, unspecified part of lung (J18.9) Referral Organization [facility] Referring Provider First Name MOSES Referring Provider Last Name ALIA Referring Provider Speciality Internal edicine Referred Provider Specialty Pulmonology General Notes RACHEL HORN 0 03/19/2024 03:25:11 PM >info sent over to dr berta broussard Clinical Notes Valeriy Diaz 08:15:38 AM > Rachel Crisostomo! Asking pls for the phone and fax number of the office so that I could make an update. Thank you!, RACHEL HORN 03/23/2024 08:36:41 AM > [phone], [phone], Valeriy Diaz 03/23/2024 08:49:07 AM > refaxedJoe Earl Adam 03/24/2024 09:57:01 AM > Confirmed receipt. Still under review and will call patient once all set. - Kang Parekh Dustin 03/24/2024 10:12:26 AM > They need the discharge summaries from [facility] and a copy of his chest xray, RACHEL HORN 03/25/2024 08:59:38 AM >faxed yesterday all discharge summaries and chest xrKang johns Redena 03/25/2024 01:08:49 PM > The patient is scheduled for an appointment on 04/28/2024 at 3 pm. Pt is aware Referral Priority Routine MEDICATIONS Medication SIG (Take, Route, Frequency, Duration) Notes Start Date End Date Status Ipratropium [place] 0.06 % PLEASE SEE ATTACHED FOR DETAILED DIRECTIONS Nasal for 30 Days Active Losartan Potassium 25 MG TAKE 1 TABLET B Y MOUTH EVERY DAY FOR 30 DAYS for 90 Not-Taking guaiFENesin ER 600 MG 1 tablet as needed Orally every 12 hrs for 20 days 05/26/2024 Active Eliquis 5 MG TAKE 1 TABLET BY SHAZIA TH TWICE A DAY for 90 Active Ipratropium [place] 0.03 % 1 spray in each nostril Nasally twice daily for 30 days 05/07/2024 Active Azelastine HCl 137 MCG/SPRAY Nasal for 30 Days Active Multivitamin Adult - as directed Orally Active Metoprolol Succinate ER 25 MG TAKE 1 TABLET BY MOUTH EVERY DAY for 90 Active Atorvastatin Calcium 40 MG 1 tablet Orally Once a day Active Nirmatrelvir&Ritonavir 300/100 20 x 150 MG & 10 x 100MG 3 tablets Orally Twice a day for 5 days 06/18/2024 Active Calcium 600 MG 1 tablet with meals Orally Twice a day Active Lisinopril 30 MG TAKE 1 TABLET BY SHAZIA TH EVERY DAY for 90 days Active Qvar RediHaler 80 MCG/ACT Inhalation for 30 Days Active Lisinopril 5 MG TAKE 1 TABLET BY SHAZIA TH EVERY DAY for 90 Active IMMUNIZATIONS Vaccine Route Administration Date Status Comme nts influenza IM Intramuscular 04/07/2019 Administered influenza IM Intramuscular 04/21/2021 Administered influenza IM Intramuscular 03/30/2022 Administered Influenza, high dose seasonal IM Intramuscular 03/21/2023 Administered Td (adult) preservative free IM Intramuscular 03/21/2023 Administered Zoster Unknown 01/25/2024 Administered SOCIAL HISTORY Tobacco Use: Social History Observation Description Date Details (start date - stop date) Former Smoker NA - NA Sex Assigned At : Social History Observation Description Sex Assigned At Unknown Tobacco Use/Smoking Question Answer Notes Are you a former smoker Section Notes: quit 45 years ago smoked for 20 years 1 pack 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 45 years ago smoked for 20 years 1 pack quit 45 years ago smoked for 20 years 1 pack quit 45 years ago smoked for 20 years 1 pack quit 45 years ago smoked for 20 years 1 pack quit 45 years ago smoked for 20 years 1 pack quit 45 years ago smoked for 20 years 1 pack quit 45 years ago smoked for 20 years 1 pack quit 45 years ago smoked for 20 years 1 pack quit 45 years ago smoked for 20 years 1 pack quit 45 years ago smoked for 20 years 1 pack quit 45 years ago smoked for 20 years 1 pack quit 45 years ago smoked for 20 years 1 pack quit 45 years ago smoked for 20 years 1 pack quit 45 years ago smoked for 20 years 1 pack quit 45 years ago smoked for 20 years 1 pack quit 45 years ago smoked for 20 years 1 pack quit 45 years ago smoked for 20 years 1 pack quit 45 years ago smoked for 20 years 1 pack quit 45 years ago smoked for 20 years 1 pack PROBLEMS Problem Type ICD Code Onset Dates Problem Status W/U Status Risk SNOMED Code Notes Problem Coagulation defect, unspecified (D68.9) Active confirmed 81970476 Problem Vitamin D deficiency, unspecified (E55.9) Active confirmed [id number] Problem Hyperlipidemia, unspecified (E78.5) Active confirmed Hyperlipidemia (85213784) Problem Postprocedural hypertension (I97.3) Active confirmed Postoperative hypertension (8301769378961) Problem Functional urinary incontinence (R39.81) Active confirmed Functional urinary incontinence (674413023) Problem Encounter for general adult medical examination without abnormal findings (Z00.00) Active confirmed 177533875 Problem Encounter for screening for malignant neoplasm of prostate (Z12.5) Active confirmed 760792903 Problem Essential hypertension (I10) Active confirmed Essential hypertension (64572761) Problem Unsteady gait (R26.81) Active confirmed Unsteady gait (59632501) Problem Other iron deficiency anemia (D50.8) Active confirmed 65194723 Problem Urinary tract infection without hematuria, site unspecified (N39.0) Active confirmed 45114972 Problem Hyperlipidemia, unspecified hyperlipidemia type (E78.5) Active confirmed 85101592 Problem Atrial fibrillation, unspecified type (I48.91) Active confirmed Atrial fibrillation (12120311) Problem Prostate cancer (C61) Active confirmed 621706534 Problem Sinusitis, unspecified chronicity, unspecified location (J32.9) Active confirmed Chronic sin usitis (30526906) Problem Vitamin D deficiency (E55.9) Active confirmed Vitamin D deficiency (39087921) Problem Pulmonary nodule (R91.1) Active confirmed 728862496 Problem Cerebrovascular accident (CVA), unspecified mechanism (I63.9) Active confirmed Cerebrovas cular accident (171121277) Problem Chronic anticoagulation (Z79.01) Active confirmed Use of anticoagulation (544473653) Problem History of CVA (cerebrovascular accident) (Z86.73) Active confirmed 017822259 Problem Frequency of urination (R35.0) Active confirmed Frequency of urination (345914818) Problem Chronic iron deficiency anemia (D50.9) Active confirmed Iron deficiency anemia (71337183) Problem History of prostate cancer (Z85.46) Active confirmed 239892070 Problem Advance care planning (Z71.89) Active confirmed 825935898 Problem Post-nasal drip (R09.82) Active confirmed Posterior rhinorrhea (92433684) Problem Chronic cough (R05.3) Active confirmed Chronic cough (53409503) Problem Anticoagulated (Z79.01) Active confirmed Long-term curre nt use of anticoagulant (003747530) Problem Pneumonia of right upper lobe due to infectious organism (J18.9) Active confirmed 987814742 Problem Elevated lipids (E78.5) Active confirmed Elevated fastin g lipid profile (873490094677) Problem Persistent cough (R05.3) Active confirmed 744067293 Problem 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) Active confirmed 76774861 Problem History of recent pneumonia (Z87.01) Active confirmed 663524846 VITAL SIGNS Heart Rate 90 /min 05/26/2024 Oximetry 98 % 05/26/2024 Blood pressure diastolic 98 mm Hg 05/26/2024 Height 69 in 05/26/2024 Blood pressure systolic 140 mm Hg 05/26/2024 Weight 155.4 lbs 05/26/2024 BMI 22.95 kg/m2 05/26/2024 Encounters Encounter Location Date Provider Diagnosis [facility] [address] [place] [address] 10/23/2023 ASHLYN FERNÁNDEZ [facility] [address] [place] [address] 03/20/2024 MOSES ROJO [facility] [address] [place] [address] 07/11/2023 MOSES MAJORA BRBPR (bright red bl ood per rectum) K62.5 ; Atrial fibrillation, unspecified type I48.91 and Anticoagulated Z79.01 [facility] [address] [place] [address] 07/18/2023 Stephy Ortiz BRBPR (bright red bl ood per rectum) K62.5 ; Atrial fibrillation, unspecified type I48.91 and Anticoagulated Z79.01 [facility] [address] [place] [address] 08/29/2023 TALALEJO FERNÁNDEZ Gross hematuria R31. 0 ; Anticoagulated Z79.01 ; History of prostate cancer Z85.46 ; Annual physical exam Z00.00 ; Prostate cancer C61 and Encounter for screening for malignant neoplasm of prostate Z12.5 [facility] [address] [place] [address] 09/04/2023 TALALEJO FERNÁNDEZ Gross hematuria R31. 0 ; Anticoagulated Z79.01 ; History of prostate cancer Z85.46 ; Hyperlipidemia, unspecified E78.5 and Cerebrovascular accident (CVA), unspecified mechanism I63.9 [facility] [address] [place] [address] 09/19/2023 MOSES ROJO Atrial fibrillation, unspecified type I48.91 ; Essential hypertension I10 ; Cerebrovascular accident (CVA), unspecified mechanism I63.9 ; Anemia D64.9 ; Elevated lipids E78.5 ; Vitamin D deficiency E55.9 ; Hypothyroid E03.9 ; Vitamin B12 deficiency anemia, unspecified D51.9 and Chronic anticoagulation Z79.01 [facility] [address] [place] [address] 10/25/2023 MOSES ROJO Atrial fibrillation, unspecified type I48.91 ; Essential hypertension I10 ; Cerebrovascular accident (CVA), unspecified mechanism I63.9 ; Anemia D64.9 ; Elevated lipids E78.5 ; Vitamin D deficiency E55.9 ; Hypothyroid E03.9 ; Vitamin B12 deficiency anemia, unspecified D51.9 and Chronic anticoagulation Z79.01 [facility] [address] [place] [address] 01/21/2024 MOSES ROJO Atrial fibrillation, unspecified type I48.91 ; Medicare annual wellness visit, subsequent Z00.00 ; Essential hypertension I10 ; Cerebrovascular accident (CVA), unspecified mechanism I63.9 ; Anemia D64.9 ; Elevated lipids E78.5 ; Vitamin B12 deficiency anemia, unspecified D51.9 ; Chronic anticoagulation Z79.01 ; Depression screening Z13.31 ; Encounter for screening for other disorder Z13.89 and Advanced care planning/counseling discussion Z71.89 [facility] [address] [place] [address] 03/05/2024 JAKE MARIN Close exposure to 2019-nCoV Z20.822 ; Cough R05.9 and Sore throat J02.9 [address] [address] 03/09/2024 JAKE MARIN Essential hypertensi on I10 and Acute cough R05.1 [facility] [address] [place] [address] 03/11/2024 JAKE MARIN SOB (shortness of breath) R06.02 and Acute cough R05.[address] [address] 03/25/2024 KELBY MCKEON Pneumonia of right upper lobe due to infectious organism J18.9 ; Bordetella pertussis A37.00 ; Pulmonary nodule R91.1 ; Atrial fibrillation, unspecified type I48.91 ; Essential hypertension I10 ; History of CVA (cerebrovascular accident) Z86.73 ; Other iron deficiency anemia D50.8 and Advance care planning Z71.89 [address] [address] 03/27/2024 KELBY MCKEON Bordetella pertussis A37.00 ; Pneumonia of right upper lobe due to infectious organism J18.9 ; Pulmonary nodule R91.1 ; Atrial fibrillation, unspecified type I48.91 ; Essential hypertension I10 ; History of CVA (cerebrovascular accident) Z86.73 and Other iron deficiency anemia D50.8 [address] [facility] [address] [address] 04/06/2024 KELBY MIKE Bordetella pertussis A37.00 ; Pneumonia of right upper lobe due to infectious organism J18.9 ; Persistent cough R05.3 ; Pulmonary nodule R91.1 ; Atrial fibrillation, unspecified type I48.91 ; Essential hypertension I10 ; History of CVA (cerebrovascular accident) Z86.73 and Other iron deficiency anemia D50.8 [address] [facility] [address] 05/07/2024 KELBY MIKE Persistent cough R05 .3 ; Post-nasal drip R09.82 ; History of recent pneumonia Z87.01 ; Pulmonary nodule R91.1 ; Atrial fibrillation, unspecified type I48.91 ; Essential hypertension I10 ; History of CVA (cerebrovascular accident) Z86.73 and Other iron deficiency anemia D50.8 [facility] [address] [place] [address] 05/26/2024 MOSES ROJO Atrial fibrillation, unspecified type I48.91 ; Hyperlipidemia, unspecified E78.5 ; Cough R05.9 and Postnasal discharge R09.82 [facility] [address] [place] [address] 06/18/2024 GABY CONY Acute COVID-19 U07.1 ; Post-nasal drip R09.82 ; Chronic cough R05.3 ; Hyperlipidemia, unspecified E78.5 ; Essential hypertension I10 and Atrial fibrillation, unspecified type I48.91 [facility] [address] [address] 07/10/2023 [facility] [address] [place] [address] 07/16/2023 MOSES ROJO [facility] [address] [address] 08/29/2023 GHISLAINE FERNÁNDEZ [facility] [address] [place] [address] 09/05/2023 [facility] [address] [address] 10/22/2023 MOSES ROJO [facility] [address] [address] 02/26/2024 MOSES ALIA [address] [facility] [address] [place] [address] 03/05/[address] [facility] [address] [facility] [address] [place] [address] 03/05/[address] [facility] [address] [facility] [address] [place] [address] 03/07/2024 BIPINLILA FERNÁNDEZ Cough R05 and Cough R05.[address] [facility] [address] [place] [address] 03/09/[address] [facility] [address] [place] [address] 03/10/[address] [facility] [address] [place] [address] 03/16/2024 BIPINAH FERNÁNDEZ [address] [facility] [address] [place], [place] 03/19/[address] [facility] [address] [place] [address] 03/19/2024 MOSES ALIA [address] [facility] [address] [place] [address] 03/23/2024 MOSES ALIA [address] [facility] [address] [place], [place] 03/23/[address] [facility] [address] [facility] [address] [place] [address] 03/24/2024 MOSES ALIA [address] [facility] [address] [place] [address] 03/24/[address] [facility] [address] [facility] [address] [place] [address] 03/24/2024 MOSES ALIA [address] [facility] [address] [place] [address] 03/24/[address] [facility] [address] [facility] [address] [place] [address] 03/25/2024 MOSES ALIA [address] [facility] [address] [place] [address] 03/25/[address] [facility] [address] [facility] [address] [place] [address] 03/27/2024 MOESS ROJO [address] [facility] [address] [place] [address] 04/02/2024 KELBY MCKEON [address] [facility] [address] [place] [address] 04/07/[address] [facility] [address] [facility] [address] [place] [address] 04/10/[address] [facility] [address] [facility] [address] [place] [address] 04/10/2024 KELBY IBARRAHAM [address] [facility] [address] [place] [address] 04/14/[address] [facility] [address] [facility] [address] [place] [address] 04/14/[address] [facility] [address] [facility] [address] [place] [address] 04/17/[address] [facility] [address] [facility] [address] [place] [address] 05/12/[address] [facility] [address] [facility] [address] [place] [address] 05/20/2024 MOSES ROJO [address] [facility] [address] [place] [address] 06/03/2024 MOSES ROJO [address] [facility] [address] [place] [address] 06/18/2024 MOSSE ROJO ASSESSMENTS Encounter Date Diagnosis Assessment Notes Treatment Notes Treatment Clinical Notes Section Notes 07/11/2023 Atrial fibrillation, unspecified type (ICD-10 - I48.91) #BRBPR- Patient with 2 days of bright red blood with bowel movement in the morning. He is currently on Eliquis. Normal exam in the office today including normal rectal exam. Symptoms are resolving. No obvious source of rectal bleeding however I do suspect this is local irritation at the rectum. Advised to hold Eliquis dose tonight and tomorrow. Will check CBC today. Discussed ED precautions. Advised to go to the ED with any increase or persistent symptoms of bright red blood per rectum or black dark stool as well as abdominal pain vomiting dizziness chest pain or shortness of breath. Will follow-up with patient pending lab results. He is comfortable with plan. #Atrial fibrillation- Currently on Eliquis and appears to be in normal sinus rhythm on exam today. Normal blood pressure and pulse. As above we are can have him hold Eliquis this evening and tomorrow. If symptoms have resolved may resume. Case discussed with collaborating physician Sourav Fernández who reviewed the assessment and plan. Chart, medications, labs, vital signs reviewed. Dictation was accomplished with the use of [employer] voice recognition software, prone to medical misidentifications and grammatical errors. This is unintentional and the practitioner does try to identify and correct these, but some could still be present. Please do not hesitate to contact practitioner for clarification. All questions answered to patients satisfaction. Patient verbalized understanding of diagnosis and treatments explained. To call sooner prior to next visit it any questions/concerns arise. 07/11/2023 BRBPR (bright red blood per rectum) (ICD-10 - K62.5) #BRBPR- Patient with 2 days of bright red blood with bowel movement in the morning. He is currently on Eliquis. Normal exam in the office today including normal rectal exam. Symptoms are resolving. No obvious source of rectal bleeding however I do suspect this is local irritation at the rectum. Advised to hold Eliquis dose tonight and tomorrow. Will check CBC today. Discussed ED precautions. Advised to go to the ED with any increase or persistent symptoms of bright red blood per rectum or black dark stool as well as abdominal pain vomiting dizziness chest pain or shortness of breath. Will follow-up with patient pending lab results. He is comfortable with plan. #Atrial fibrillation- Currently on Eliquis and appears to be in normal sinus rhythm on exam today. Normal blood pressure and pulse. As above we are can have him hold Eliquis this evening and tomorrow. If symptoms have resolved may resume. Case discussed with collaborating physician Sourav Fernández who reviewed the assessment and plan. Chart, medications, labs, vital signs reviewed. Dictation was accomplished with the use of [employer] voice recognition software, prone to medical misidentifications and grammatical errors. This is unintentional and the practitioner does try to identify and correct these, but some could still be present. Please do not hesitate to contact practitioner for clarification. All questions answered to patients satisfaction. Patient verbalized understanding of diagnosis and treatments explained. To call sooner prior to next visit it any questions/concerns arise. 07/18/2023 Atrial fibrillation, unspecified type (ICD-10 - I48.91) #BRBPR- Symptoms have resolved, however he has been off eliquis. Normal exam. Heme occult negative on exam and no visible or palpable hemorrhoids/fissures /masses. Case reviewed with Moses. Will restart eliquis today- discussed importance of being on full dose eliquis. If he notices any blood with BMs again, advised he needs to go to ED for work up. Patient is in agreement with plan. Follow up with any cocerns. #AFib- NSR on exam. Denies any symptoms. Discussed importance of restarting eliquis- will do so this morning. #Anticoagulated- As above, restart eliquis. Monitor for any bleeding. Case discussed with collaborating physician Sourav Fernández who reviewed the assessment and plan. Chart, medications, labs, vital signs reviewed. Dictation was accomplished with the use of [employer] voice recognition software, prone to medical misidentifications and grammatical errors. This is unintentional and the practitioner does try to identify and correct these, but some could still be present. Please do not hesitate to contact practitioner for clarification. All questions answered to patients satisfaction. Patient verbalized understanding of diagnosis and treatments explained. To call sooner prior to next visit it any questions/concerns arise. 07/18/2023 BRBPR (bright red blood per rectum) (ICD-10 - K62.5) #BRBPR- Symptoms have resolved, however he has been off eliquis. Normal exam. Heme occult negative on exam and no visible or palpable hemorrhoids/fissures /masses. Case reviewed with Moses. Will restart eliquis today- discussed importance of being on full dose eliquis. If he notices any blood with BMs again, advised he needs to go to ED for work up. Patient is in agreement with plan. Follow up with any cocerns. #AFib- NSR on exam. Denies any symptoms. Discussed importance of restarting eliquis- will do so this morning. #Anticoagulated- As above, restart eliquis. Monitor for any bleeding. Case discussed with collaborating physician Sourav Fernández who reviewed the assessment and plan. Chart, medications, labs, vital signs reviewed. Dictation was accomplished with the use of [employer] voice recognition software, prone to medical misidentifications and grammatical errors. This is unintentional and the practitioner does try to identify and correct these, but some could still be present. Please do not hesitate to contact practitioner for clarification. All questions answered to patients satisfaction. Patient verbalized understanding of diagnosis and treatments explained. To call sooner prior to next visit it any questions/concerns arise. 08/29/2023 Gross hematuria (ICD-10 - R31.0) Plan for hematuria: Obtain UA for anaylsis and culture to assess for urinary infection. Less likely UTI in the absence of fevers/chills/discom fort Obtain routine bloodwork today in the office. Discontinue Eliquis completely for one week. It is possible that his current Eliquis dose is too high for him. Follow-up in one week for reassessment of symptoms & to revisit plan for Eliquis. Place referral for urology for work-up in the setting of history of prostate cancer and smoking history. 08/29/2023 Anticoagulated (ICD-10 - Z79.01) Plan for hematuria: Obtain UA for anaylsis and culture to assess for urinary infection. Less likely UTI in the absence of fevers/chills/discom fort Obtain routine bloodwork today in the office. Discontinue Eliquis completely for one week. It is possible that his current Eliquis dose is too high for him. Follow-up in one week for reassessment of symptoms & to revisit plan for Eliquis. Place referral for urology for work-up in the setting of history of prostate cancer and smoking history. 09/04/2023 Gross hematuria (ICD-10 - R31.0) Hematuria has resolved since discontinuation of Eliquis one week ago. Reviewed blood work with Tae, noting that the UA had gross blood, and CBC showed normocytic anemia Tae will likely benefit better from Xarelto instead of Eliquis Teddy to start Xarelto once a day. He will let me know if insurance does not cover the medication Discussed in detail the risks of starting a new anticoagulating medication, which includes but is not limited to bleeding. He has urology appt on September 22 & I recommend he consult with them. Follow up with me in 1 month. 09/04/2023 Anticoagulated (ICD-10 - Z79.01) Hematuria has resolved since discontinuation of Eliquis one week ago. Reviewed blood work with Tae, noting that the UA had gross blood, and CBC showed normocytic anemia Tae will likely benefit better from Xarelto instead of Eliquis Teddy to start Xarelto once a day. He will let me know if insurance does not cover the medication Discussed in detail the risks of starting a new anticoagulating medication, which includes but is not limited to bleeding. He has urology appt on September 22 & I recommend he consult with them. Follow up with me in 1 month. 09/19/2023 Essential hypertension (ICD-10 - I10) # AFib. Followed by Dr. Hunter. Saw last Fall 2022. Sees yearly. No SOB/dizziness. Eliquis changed to Xarelto due to singular episode of BRBPR and hematuria # Hematuria, gross. Occured one time. Hx of prostate ca. PSA neg. Following up urology 09/23/23 # HTN. Increased Lisinopril from 20 mg to 30 mg po daily. Continue Metoprolol 25 mg po daily. # Rectal bleeding:Resolved. # CVA. Hx of. No residual deficits. On statin/ASA # Mild anemia. ? due to mild stool. Stool occult blood will be checked. Last colonscopy 2016- normal Case discussed with collaborating physician Sourav Fernández who reviewed the assessment and plan. Chart, medications, labs, vital signs reviewed. Dictation was accomplished with the use of [employer] voice recognition software, prone to medical misidentifications and grammatical errors. This is unintentional and the practitioner does try to identify and correct these, but some could still be present. Please do not hesitate to contact practitioner for clarification. All quetsions answered to patients satisfaction. Patient verbalized understanding of diagnosis and treatments explained. To call sooner prior to next visit it any questions/concerns arise. 09/19/2023 Atrial fibrillation, unspecified type (ICD-10 - I48.91) # AFib. Followed by Dr. Hunter. Saw last Fall 2022. Sees yearly. No SOB/dizziness. Eliquis changed to Xarelto due to singular episode of BRBPR and hematuria # Hematuria, gross. Occured one time. Hx of prostate ca. PSA neg. Following up urology 09/23/23 # HTN. Increased Lisinopril from 20 mg to 30 mg po daily. Continue Metoprolol 25 mg po daily. # Rectal bleeding:Resolved. # CVA. Hx of. No residual deficits. On statin/ASA # Mild anemia. ? due to mild stool. Stool occult blood will be checked. Last colonscopy 2017- normal Case discussed with collaborating physician Sourav Fernández who reviewed the assessment and plan. Chart, medications, labs, vital signs reviewed. Dictation was accomplished with the use of [employer] voice recognition software, prone to medical misidentifications and grammatical errors. This is unintentional and the practitioner does try to identify and correct these, but some could still be present. Please do not hesitate to contact practitioner for clarification. All quetsions answered to patients satisfaction. Patient verbalized understanding of diagnosis and treatments explained. To call sooner prior to next visit it any questions/concerns arise. 10/25/2023 Essential hypertension (ICD-10 - I10) # AFib. Followed by Dr. Hunter. Saw last Fall 2022. Sees yearly. No SOB/dizziness. Will change back to Eliquis, lower dose to 2.5 mg BID to decrease bleeding risk. # Hematuria, gross. Occured one time. Hx of prostate ca. PSA neg. Followed up urology 09/23/23 # HTN. Increased Lisinopril from 20 mg to 30 mg po daily. Continue Metoprolol 25 mg po daily. # Rectal bleeding:Resolved. # CVA. Hx of. No residual deficits. On statin/ASA # Mild anemia. ? due to mild stool. Stool occult blood will be checked. Last colonscopy 2017- normal Case discussed with collaborating physician Sourav Fernández who reviewed the assessment and plan. Chart, medications, labs, vital signs reviewed. Dictation was accomplished with the use of [employer] voice recognition software, prone to medical misidentifications and grammatical errors. This is unintentional and the practitioner does try to identify and correct these, but some could still be present. Please do not hesitate to contact practitioner for clarification. All quetsions answered to patients satisfaction. Patient verbalized understanding of diagnosis and treatments explained. To call sooner prior to next visit it any questions/concerns arise. 10/25/2023 Atrial fibrillation, unspecified type (ICD-10 - I48.91) # AFib. Followed by Dr. Hunter. Saw last Fall 2022. Sees yearly. No SOB/dizziness. Will change back to Eliquis, lower dose to 2.5 mg BID to decrease bleeding risk. # Hematuria, gross. Occured one time. Hx of prostate ca. PSA neg. Followed up urology 09/23/23 # HTN. Increased Lisinopril from 20 mg to 30 mg po daily. Continue Metoprolol 25 mg po daily. # Rectal bleeding:Resolved. # CVA. Hx of. No residual deficits. On statin/ASA # Mild anemia. ? due to mild stool. Stool occult blood will be checked. Last colonscopy 2016- normal Case discussed with collaborating physician Sourav Fernández who reviewed the assessment and plan. Chart, medications, labs, vital signs reviewed. Dictation was accomplished with the use of [employer] voice recognition software, prone to medical misidentifications and grammatical errors. This is unintentional and the practitioner does try to identify and correct these, but some could still be present. Please do not hesitate to contact practitioner for clarification. All quetsions answered to patients satisfaction. Patient verbalized understanding of diagnosis and treatments explained. To call sooner prior to next visit it any questions/concerns arise. 01/21/2024 Atrial fibrillation, unspecified type (ICD-10 - I48.91) # AFib. Followed by Dr. Hunter. Saw last Fall 2022. Sees yearly. No SOB/dizziness. Hx of prostate ca. PSA neg. Followed up urology 09/23/23 # HTN. Increased Lisinopril from 20 mg to 30 mg po daily. Continue Metoprolol 25 mg po daily. # Rectal bleeding:Resolved. # CVA. Hx of. No residual deficits. On statin/ASA # Mild anemia. ? due to mild stool. Stool occult blood will be checked. Last colonscopy 2017- normal # Vaccines: Getting second shingles Fall 2023 # Screenings: UTD Physical Men Patient seen and examined. Comprehensive discussion was done on the following. 1. Nutrition: It is important to follow a healthy diet based on lots of vegetables and legumes and good fat. Avoid processed food and processed carbohydrates. Learn to prepare your own meals. Learn to read labels and avoid high fructose corn syrup, processed chemicals added to increase shelf life and preprepared meals. Avoid fast foods. Learn to eat slowly and plan meals for a week. Try to count calories and be mindful off daily calorie intake. Get into the habit of keeping an eye on your weight by using an appropriate scale. Learn to log exercise and discussed fitness Apps like [employer] which can help keep log off calories taken versus calories burned. Local food should be preferred. Discussed Dirty Dozen Versus Clean Fifteen. Discussed healthy supplements like fish oil, Tumeric, Curcumin, Melatonin, Resveratrol, Probiotics, Vitamin-D, Alpha-Lipoic acid, Vitamin-D and coconut oil. 2. It is important to exercise regularly. Is a good habit to walk at least 30-45 minutes a day. Gentle weightlifting with standard precautions to protect the back. Finding activity like cycling or hiking and get into the habit of engaging in it. Stretching before and after the exercises important. It is also important to contact me if there are any problems like shortness of breath, chest pain, back pain and joint or muscle pain associated with the exercise. 3. Discussed age appropriate screening guidelines. Colonoscopy needs to start at age 50 with stool for occult blood as appropriate. There is a new test that can test for genetic abnormalities in the stool sample. This would not replace a colonoscopy but could be used as a screening tool for patients who do not want a colonoscopy. We discussed the importance of early detection of colon cancer. 4. Discussed current PSA screening. PSA screening can be done in most patients between age 50 and 65. However early detection of prostate cancer needs to carefully be balanced with complications with treatment. These include incontinence, impotence etc. Each patient should decide if they would like to have this test. 5. Discussed safe driving and no use of smart phone while driving 6. Age-appropriate immunizations were discussed. A tetanus booster is needed every 10 years. Flu vaccine is recommended every year just before the start of the flu season. Shingles vaccine is recommended after age 50 but not all insurances cover it. Pneumonia vaccine is given after age 65 unless there are certain comorbidities for which it is started earlier. 7. Diagnostic labs were discussed. These could include CBC CMP and lipids with fasting blood glucose and insulin levels. Vitamin D and hemoglobin A1c testing might be appropriate. Case discussed with collaborating physician Sourav Fernández who reviewed the assessment and plan. Chart, medications, labs, vital signs reviewed. Dictation was accomplished with the use of [employer] voice recognition software, prone to medical misidentifications and grammatical errors. This is unintentional and the practitioner does try to identify and correct these, but some could still be present. Please do not hesitate to contact practitioner for clarification. All quetsions answered to patients satisfaction. Patient verbalized understanding of diagnosis and treatments explained. To call sooner prior to next visit it any questions/concerns arise. 01/21/2024 Medicare annual wellness visit, subsequent (ICD-10 - Z00.00) # AFib. Followed by Dr. Hunter. Saw last Fall 2022. Sees yearly. No SOB/dizziness. Hx of prostate ca. PSA neg. Followed up urology 09/23/23 # HTN. Increased Lisinopril from 20 mg to 30 mg po daily. Continue Metoprolol 25 mg po daily. # Rectal bleeding:Resolved. # CVA. Hx of. No residual deficits. On statin/ASA # Mild anemia. ? due to mild stool. Stool occult blood will be checked. Last colonscopy 2016- normal # Vaccines: Getting second shingles Fall 2023 # Screenings: UTD Physical Men Patient seen and examined. Comprehensive discussion was done on the following. 1. Nutrition: It is important to follow a healthy diet based on lots of vegetables and legumes and good fat. Avoid processed food and processed carbohydrates. Learn to prepare your own meals. Learn to read labels and avoid high fructose corn syrup, processed chemicals added to increase shelf life and preprepared meals. Avoid fast foods. Learn to eat slowly and plan meals for a week. Try to count calories and be mindful off daily calorie intake. Get into the habit of keeping an eye on your weight by using an appropriate scale. Learn to log exercise and discussed fitness Apps like [employer] which can help keep log off calories taken versus calories burned. Local food should be preferred. Discussed Dirty Dozen Versus [employer] Fifteen. Discussed healthy supplements like fish oil, Tumeric, Curcumin, Melatonin, Resveratrol, Probiotics, Vitamin-D, Alpha-Lipoic acid, Vitamin-D and coconut oil. 2. It is important to exercise regularly. Is a good habit to walk at least 30-45 minutes a day. Gentle weightlifting with standard precautions to protect the back. Finding activity like cycling or hiking and get into the habit of engaging in it. Stretching before and after the exercises important. It is also important to contact me if there are any problems like shortness of breath, chest pain, back pain and joint or muscle pain associated with the exercise. 3. Discussed age appropriate screening guidelines. Colonoscopy needs to start at age 50 with stool for occult blood as appropriate. There is a new test that can test for genetic abnormalities in the stool sample. This would not replace a colonoscopy but could be used as a screening tool for patients who do not want a colonoscopy. We discussed the importance of early detection of colon cancer. 4. Discussed current PSA screening. PSA screening can be done in most patients between age 50 and 65. However early detection of prostate cancer needs to carefully be balanced with complications with treatment. These include incontinence, impotence etc. Each patient should decide if they would like to have this test. 5. Discussed safe driving and no use of smart phone while driving 6. Age-appropriate immunizations were discussed. A tetanus booster is needed every 10 years. Flu vaccine is recommended every year just before the start of the flu season. Shingles vaccine is recommended after age 50 but not all insurances cover it. Pneumonia vaccine is given after age 65 unless there are certain comorbidities for which it is started earlier. 7. Diagnostic labs were discussed. These could include CBC CMP and lipids with fasting blood glucose and insulin levels. Vitamin D and hemoglobin A1c testing might be appropriate. Case discussed with collaborating physician Sourav Fernández who reviewed the assessment and plan. Chart, medications, labs, vital signs reviewed. Dictation was accomplished with the use of [employer] voice recognition software, prone to medical misidentifications and grammatical errors. This is unintentional and the practitioner does try to identify and correct these, but some could still be present. Please do not hesitate to contact practitioner for clarification. All quetsions answered to patients satisfaction. Patient verbalized understanding of diagnosis and treatments explained. To call sooner prior to next visit it any questions/concerns arise. 03/05/2024 Cough (ICD-10 - R05.9) Tae is an 83-year-old male with a past medical history of hyperlipidemia, hypertension, and history of sinusitis present for cough x 10 days. #Cough: Patient has a productive cough and symptoms of head fullness. Patient reports similar cough in the past that responded well to prednisone. Vitals are stable and patient denies fever. On exam, patient lung sounds are clear but educated to call the office if cough worsens or has shortness of breath. Patient tested for covid and strep and results were negative. Plan to begin prednisone 20 mg 2 tablets once a day x 5 days for symptom management. Patient verbalized understanding of diagnosis and treatments explained. To call sooner prior to next visit it any questions/concerns arise. Case discussed with collaborating physician Dr. Fernández who reviewed the assessment and plan. Chart, medications, labs, vital signs reviewed. Dictation was accomplished with the use of [employer] voice recognition software, prone to medical misidentifications and grammatical errors. This is unintentional and the practitioner does try to identify and correct these, but some could still be present. Please do not hesitate to contact practitioner for clarification. 03/05/2024 Close exposure to 2019-nCoV (ICD-10 - Z20.822) Tae is an 83-year-old male with a past medical history of hyperlipidemia, hypertension, and history of sinusitis present for cough x 10 days. #Cough: Patient has a productive cough and symptoms of head fullness. Patient reports similar cough in the past that responded well to prednisone. Vitals are stable and patient denies fever. On exam, patient lung sounds are clear but educated to call the office if cough worsens or has shortness of breath. Patient tested for covid and strep and results were negative. Plan to begin prednisone 20 mg 2 tablets once a day x 5 days for symptom management. Patient verbalized understanding of diagnosis and treatments explained. To call sooner prior to next visit it any questions/concerns arise. Case discussed with collaborating physician Dr. Fernández who reviewed the assessment and plan. Chart, medications, labs, vital signs reviewed. Dictation was accomplished with the use of [employer] voice recognition software, prone to medical misidentifications and grammatical errors. This is unintentional and the practitioner does try to identify and correct these, but some could still be present. Please do not hesitate to contact practitioner for clarification. 03/07/2024 Cough (ICD-10 - R05) 03/09/2024 Essential hypertension (ICD-10 - I10) #Cough: Patient's cough has not improved since last urgent visit 4 days prior. Patient reports prednisone has not provided. Cough has not worsened but also has not improved. Patient is afebrile, without tachycardia or breathless at rest. Plan to send patient for chest x-ray at this time due to duration of symptoms.. Will consider antibiotic after receiving xray report. Will also consider prescribing guaifenesin for cough. #Hypertension: Systolic blood pressure elevated at 180 on arrival. Patient took daily medication prior to arrival including blood pressure medication of Lisinopril 30 mg p.o. daily and metoprolol extended release 25 mg p.o. daily. Blood pressure was reassessed at the end of the visit and was 142/98. EKG was obtained which showed normal sinus rhythm with occasional ectopic ventricular beat within normal limits. Heart rate: 68, regular rate and ischemic changes noted. All questions answered to patients satisfaction. Patient verbalized understanding of diagnosis and treatments explained. To call sooner prior to next visit it any questions/concerns arise. Case discussed with collaborating physician Dr. Fernández who reviewed the assessment and plan. Chart, medications, labs, vital signs reviewed. Dictation was accomplished with the use of [employer] voice recognition software, prone to medical misidentifications and grammatical errors. This is unintentional and the practitioner does try to identify and correct these, but some could still be present. Please do not hesitate to contact practitioner for clarification. 03/09/2024 Acute cough (ICD-10 - R05.1) #Cough: Patient's cough has not improved since last urgent visit 4 days prior. Patient reports prednisone has not provided. Cough has not worsened but also has not improved. Patient is afebrile, without tachycardia or breathless at rest. Plan to send patient for chest x-ray at this time due to duration of symptoms.. Will consider antibiotic after receiving xray report. Will also consider prescribing guaifenesin for cough. #Hypertension: Systolic blood pressure elevated at 180 on arrival. Patient took daily medication prior to arrival including blood pressure medication of Lisinopril 30 mg p.o. daily and metoprolol extended release 25 mg p.o. daily. Blood pressure was reassessed at the end of the visit and was 142/98. EKG was obtained which showed normal sinus rhythm with occasional ectopic ventricular beat within normal limits. Heart rate: 68, regular rate and ischemic changes noted. All questions answered to patients satisfaction. Patient verbalized understanding of diagnosis and treatments explained. To call sooner prior to next visit it any questions/concerns arise. Case discussed with collaborating physician Dr. Fernández who reviewed the assessment and plan. Chart, medications, labs, vital signs reviewed. Dictation was accomplished with the use of [employer] voice recognition software, prone to medical misidentifications and grammatical errors. This is unintentional and the practitioner does try to identify and correct these, but some could still be present. Please do not hesitate to contact practitioner for clarification. 03/11/2024 SOB (shortness of breath) (ICD-10 - R06.02) Tae is an 83-year-old male with past medical history of hyperlipidemia, hypertension, atrial fibrillation on history of sinuses presents for urgent visit for cough with large production of plegm. #Cough #Shortness of breath: Patient first presented on 03/05 for cough x 10 days, negative for COVID, RSV, flu and strep, and prescribed prednisone 40 mg po x 5 days with supportive care. I called patient on 03/09 to see how he was doing and reports cough and a raspy voice. Patient was seen same day - vitals were unremarkable, oxygen saturation at 97%, and lungs clear to auscultation. Sent patient for chest x-ray, which was clear besides evidence of COPD (no acute pulmonary disease no change since 10/03/2020). Patient prescribed azithromycin, Robitussin, albuterol. Today patient's cough has improved but still has production of phlegm and some airway compromise due to laryngeal spasms. Patient has clear signs of dehydration and admits to lack of appetite. Plan to perform albuterol nebulizer treatment in office to look for signs of improvement. Plan to send patient to the ER or further management, recommending IV antibiotics and IV fluids. Time spent with patient is 60 minutes with greater than 50% on patient education and care cordination. All questions answered to patients satisfaction. Patient verbalized understanding of diagnosis and treatments explained. To call sooner prior to next visit it any questions/concerns arise. Case discussed with collaborating physician Dr. Fernández who reviewed the assessment and plan. Chart, medications, labs, vital signs reviewed. Dictation was accomplished with the use of [employer] voice recognition software, prone to medical misidentifications and grammatical errors. This is unintentional and the practitioner does try to identify and correct these, but some could still be present. Please do not hesitate to contact practitioner for clarification. 03/11/2024 Acute cough (ICD-10 - R05.1) Tae is an 83-year-old male with past medical history of hyperlipidemia, hypertension, atrial fibrillation on history of sinuses presents for urgent visit for cough with large production of plegm. #Cough #Shortness of breath: Patient first presented on 03/05 for cough x 10 days, negative for COVID, RSV, flu and strep, and prescribed prednisone 40 mg po x 5 days with supportive care. I called patient on 03/09 to see how he was doing and reports cough and a raspy voice. Patient was seen same day - vitals were unremarkable, oxygen saturation at 97%, and lungs clear to auscultation. Sent patient for chest x-ray, which was clear besides evidence of COPD (no acute pulmonary disease no change since 10/03/2020). Patient prescribed azithromycin, Robitussin, albuterol. Today patient's cough has improved but still has production of phlegm and some airway compromise due to laryngeal spasms. Patient has clear signs of dehydration and admits to lack of appetite. Plan to perform albuterol nebulizer treatment in office to look for signs of improvement. Plan to send patient to the ER or further management, recommending IV antibiotics and IV fluids. Time spent with patient is 60 minutes with greater than 50% on patient education and care cordination. All questions answered to patients satisfaction. Patient verbalized understanding of diagnosis and treatments explained. To call sooner prior to next visit it any questions/concerns arise. Case discussed with collaborating physician Dr. Fernández who reviewed the assessment and plan. Chart, medications, labs, vital signs reviewed. Dictation was accomplished with the use of [employer] voice recognition software, prone to medical misidentifications and grammatical errors. This is unintentional and the practitioner does try to identify and correct these, but some could still be present. Please do not hesitate to contact practitioner for clarification. 03/25/2024 Pneumonia of right upper lobe due to infectious organism (ICD-10 - J18.9) Tae is an 83-year-old male with a PMH of A-fib on Eliquis, CVA, HTN, HLD that presents accompanied by his daughter Crystal for hospital follow-up. Patient struggling with productive cough over the last month or so. Presented to the emergency department 03/11 at which time PCR was positive for Bordetella pertussis and lab work was significant for mild leukocytosis and SAUL. The patient was admitted treated with azithromycin and IV fluids with resultant discharge 03/13. The patient again presented to [facility] ED 03/18 for worsening of symptoms. At which time he was found to have right upper lobe pneumonia. #Right upper lobe pneumonia: Patient with [facility] admission 03/11 to 03/13 at which time he was found to have infection with Bordetella pertussis and mild SAUL. Treated with IV fluids and azithromycin. Patient presented again to [facility] ED for worsening symptoms at which time CT revealed minimal pulmonary nodule or infiltrate at the base of the right upper lobe suggesting infectious process. The patient was discharged with a 10-day course of Augmentin and Tessalon Perles as needed for cough. The patient presents today with continued symptoms, although improved. He continues to cough frequently which is making sleep difficult. His most bothersome symptom is mucus production. The patient is educated to finish complete course of antibiotics. Will send burst of prednisone with goal of helping suppress cough. Will also send guaifenesin 600 mg twice daily. Patient is educated on proper use and side effects of medications. Reviewed return to office/ED protocol. #Pulmonary nodule CT scan obtained 03/18 reveals 5 mm pulmonary nodule at the posterior RLL. Recommending repeat imaging in 6 months to ensure stability. Patient's daughter Crystal accompanied him to visit today reports they are working to establish with operating room tech Dr. Hendrickson. #A-fib: Taking Eliquis 5 mg twice daily with compliance. Follows with Dr. Hunter annually. #HTN: Taking lisinopril 30 mg and metoprolol 25 mg daily with compliance. #History of CVA: No residual deficits. Continue atorvastatin 40 mg daily. #Mild anemia: Patient with history of mild anemia blood work obtained at time of ED visit 03/18/2024 reveals RBC 3.7, Hgb 11.1, Hct 33.8 - consistent with patient's baseline. #HCP: Reviewed healthcare proxy form, which is on file. The patient's daughter Crystal is the designated healthcare proxy and the preferred phone number for which she can be reached is [phone]. All questions answered to the patients satisfaction. Patient demonstrates understanding of diagnosis and treatments discussed. Follow-up at next scheduled appointment, sooner should any questions/concerns arise. Case discussed with collaborating physician Taylor Fernández who has reviewed the assessment/plan. Chart, medications, labs, and vital signs reviewed. Dictation completed with the use of [employer] voice recognition software, prone to medical misidentifications and grammatical errors. All errors are unintentional. Although the practitioner does try to identify and correct errors, some may be present. Please do not hesitate to contact the practitioner for clarification. 03/25/2024 Bordetella pertussis (ICD-10 - A37.00) Tae is an 83-year-old male with a PMH of A-fib on Eliquis, CVA, HTN, HLD that presents accompanied by his daughter Crystal for hospital follow-up. Patient struggling with productive cough over the last month or so. Presented to the emergency department 03/11 at which time PCR was positive for Bordetella pertussis and lab work was significant for mild leukocytosis and SAUL. The patient was admitted treated with azithromycin and IV fluids with resultant discharge 03/13. The patient again presented to [facility] ED 03/18 for worsening of symptoms. At which time he was found to have right upper lobe pneumonia. #Right upper lobe pneumonia: Patient with [facility] admission 03/11 to 03/13 at which time he was found to have infection with Bordetella pertussis and mild SAUL. Treated with IV fluids and azithromycin. Patient presented again to [facility] ED for worsening symptoms at which time CT revealed minimal pulmonary nodule or infiltrate at the base of the right upper lobe suggesting infectious process. The patient was discharged with a 10-day course of Augmentin and Tessalon Perles as needed for cough. The patient presents today with continued symptoms, although improved. He continues to cough frequently which is making sleep difficult. His most bothersome symptom is mucus production. The patient is educated to finish complete course of antibiotics. Will send burst of prednisone with goal of helping suppress cough. Will also send guaifenesin 600 mg twice daily. Patient is educated on proper use and side effects of medications. Reviewed return to office/ED protocol. #Pulmonary nodule CT scan obtained 03/18 reveals 5 mm pulmonary nodule at the posterior RLL. Recommending repeat imaging in 6 months to ensure stability. Patient's daughter Crystal accompanied him to visit today reports they are working to establish with operating room tech Dr. Hendrickson. #A-fib: Taking Eliquis 5 mg twice daily with compliance. Follows with Dr. Hunter annually. #HTN: Taking lisinopril 30 mg and metoprolol 25 mg daily with compliance. #History of CVA: No residual deficits. Continue atorvastatin 40 mg daily. #Mild anemia: Patient with history of mild anemia blood work obtained at time of ED visit 03/18/2024 reveals RBC 3.7, Hgb 11.1, Hct 33.8 - consistent with patient's baseline. #HCP: Reviewed healthcare proxy form, which is on file. The patient's daughter Crystal is the designated healthcare proxy and the preferred phone number for which she can be reached is [phone]. All questions answered to the patients satisfaction. Patient demonstrates understanding of diagnosis and treatments discussed. Follow-up at next scheduled appointment, sooner should any questions/concerns arise. Case discussed with collaborating physician Taylor Fernández who has reviewed the assessment/plan. Chart, medications, labs, and vital signs reviewed. Dictation completed with the use of [employer] voice recognition software, prone to medical misidentifications and grammatical errors. All errors are unintentional. Although the practitioner does try to identify and correct errors, some may be present. Please do not hesitate to contact the practitioner for clarification. 03/27/2024 Bordetella pertussis (ICD-10 - A37.00) Tae is an 83-year-old male with a PMH of A-fib on Eliquis, CVA, HTN, HLD that presents for new rash. Patient with recent admission for Bordetella pertussis 03/11-03/13 with subsequent hospitalization at which time he was found to have right upper lobe pneumonia - discharged with 10-day course of Augmentin. #RUL PNA: Patient seen in office 03/25/2024 at which time he continued to struggle with symptoms of cough and mucus production. At that time, 6-day burst of prednisone and guaifenesin ER twice daily was added to the patient's regimen. The patient presents today having taking his first dose of prednisone yesterday with subsequent development of bright red rash on bilateral cheeks. On exam there is erythema of the bilateral cheeks. No edema of the face, lips, or mouth noted. Respiratory rate is normal and there is no visible increased work of breathing. Exam/vitals otherwise WNL. Recommended discontinuation of prednisone, patient is agreeable. Will also discontinue oral guaifenesin. Instead will try guaifenesin with codeine. Patient is educated on proper use/dosage and side effects including but not limited to respiratory depression, hypotension, and dizziness. As the patient's RUL pneumonia was not initially seen on XR and was isntead visible on CT -plan to repeat CT in 2 weeks to ensure resolution of pneumonia. Reviewed return to office/ED protocol. #Pulmonary nodule CT scan obtained 03/18 reveals 5 mm pulmonary nodule at the posterior RLL. Recommending repeat imaging in 6 months to ensure stability. #A-fib: Taking Eliquis 5 mg twice daily with compliance. Follows with Dr. Hunter annually. #HTN: Taking lisinopril 30 mg and metoprolol 25 mg daily with compliance. #History of CVA: No residual deficits. Continue atorvastatin 40 mg daily. #Mild anemia: Patient with history of mild anemia blood work obtained at time of ED visit 03/18/2024 reveals RBC 3.7, Hgb 11.1, Hct 33.8 - consistent with patient's baseline. All questions answered to the patient's satisfaction. Patient demonstrates understanding of diagnosis and treatments discussed. Follow-up at next scheduled appointment, sooner should any questions/concerns arise. Case discussed with collaborating physician Taylor Fernández who has reviewed the assessment/plan. Chart, medications, labs, and vital signs reviewed. Dictation completed with the use of [employer] voice recognition software, prone to medical misidentifications and grammatical errors. All errors are unintentional. Although the practitioner does try to identify and correct errors, some may be present. Please do not hesitate to contact the practitioner for clarification. 04/06/2024 Bordetella pertussis (ICD-10 - A37.00) Tae is an 83-year-old male with a PMH of A-fib on Eliquis, CVA, HTN, HLD that presents for continued cough. Patient with recent admission for Bordetella pertussis 03/11-03/13 with subsequent hospitalization at which time he was found to have right upper lobe pneumonia - discharged with 10-day course of Augmentin. #RUL PNA: Patient seen in office 03/25/2024 at which time he continued to struggle with symptoms of cough and mucus production. At that time, 6-day burst of prednisone and guaifenesin ER twice daily was added to the patient's regimen. The patient presents today having taking his first dose of prednisone yesterday with subsequent development of bright red rash on bilateral cheeks. At that time prednisone was discontinued and an Rx for guaifenesin with codeine was sent. Patient states he took this as prescribed x5 days and felt his symptoms were improving. Upon discontinuation of the medication he felt symptoms of productive cough and congestion worsened. Continues to experience persistent, intermittent cough productive of clear sputum. Also experiencing fatigue and loss of appetite. Weight down 6 pounds since time of hospital follow-up 03/25. On exam the patient is afebrile, O2 sat 97%. Patient coughs occasionally throughout exam. Lungs CTA bilaterally, no visible increased work of breathing. Plan to proceed with CMP, CBC, and chest x-ray for continued evaluation. Patient scheduled for CT of the chest to ensure resolution of pneumonia, however has not yet set an appointment. Will also send for guaifenesin with codeine 5 mL every 6 hours as needed for cough. Patient is educated on importance of proper dosing and side effects including but not limited to respiratory depression, hypotension, and dizziness. Considered alternative inhaler for persistent cough such as Trelegy, Spiriva, or Anoro Patient recently tried albuterol inhaler after which he developed an uncomfortable sensation in his throat. Patient hesitant to try alternative inhaler as he is concerned he may have an allergy. Per his daughter, scheduled to see pulmonology 04/17 for continued evaluation. Called and spoke with patient's HCP Crystal (daughter) recommending the patient go for chest x-ray and blood work. Given recent weight loss and decreased appetite recommending that the patient go to the emergency room for continued evaluation should he not be able to tolerate any food or water. #Pulmonary nodule CT scan obtained 03/18 reveals 5 mm pulmonary nodule at the posterior RLL. Recommending repeat imaging in 6 months to ensure stability. Patient establishing with pulmonology 04/17. #A-fib: Taking Eliquis 5 mg twice daily with compliance. Follows with Dr. Hunter annually. #HTN: Taking lisinopril 30 mg and metoprolol 25 mg daily with compliance. #History of CVA: No residual deficits. Continue atorvastatin 40 mg daily. #Mild anemia: Patient with history of mild anemia blood work obtained at time of ED visit 03/18/2024 reveals RBC 3.7, Hgb 11.1, Hct 33.8 - consistent with patient's baseline. Repeat CBC ordered. All questions answered to the patient's satisfaction. Patient demonstrates understanding of diagnosis and treatments discussed. Follow-up at next scheduled appointment, sooner should any questions/concerns arise. Case discussed with collaborating physician Taylor Fernández who has reviewed the assessment/plan. Chart, medications, labs, and vital signs reviewed. Dictation completed with the use of [employer] voice recognition software, prone to medical misidentifications and grammatical errors. All errors are unintentional. Although the practitioner does try to identify and correct errors, some may be present. Please do not hesitate to contact the practitioner for clarification. 05/26/2024 Hyperlipidemia, unspecified (ICD-10 - E78.5) Tae is an 83-year-old male with a past medical history of recent bordetella pertussis with subseuqent hospitalization (03/2024) for right upper lobe pneumonia with resultant chronic cough, atrial fibrillation, on Eliquis, Cerebrovascular accident, hypertension, and hyperlipidemia presenting to the clinic for follow-up. #Recent RUL PNA/Chronic Cough: Patient admitted in March for Bordetella pertussis with subsequent hospitalization for RUL pneumonia. The patient was initially treated with azithromycin followed by a 10-day course of Augmentin without resolution of cough/symptoms. The patient tried and failed additional symptomatic treatments for persistent cough including benzonatate as needed, steroid burst, inhalers, and cough syrup with codeine. As his initial pneumonia could only be visualized on a CT, a repeat CT chest was ordered 04/09/24 which revealed persistent irregular densities that could represent persistent infection. The patient was started on a 10-day course of doxycycline 100 mg twice daily at that time with moderate improvement. Furthermore the patient was seen by pulmonology 04/17 at which time it was recommended that his lisinopril be switched to losartan due to concern for TANYA induced cough. Pulmonology also initiated therapy with ipratropium nasal spray and a Qvar RediHaler to treat symptoms of cough/postnasal drip. The patient used ipratropium nasal spray twice before throwing it away due to a nosebleed. He uses the inhaler as prescribed with resolution of SOB. Will send additional Rx for ipratropium nasal spray. Recommending use in conjunction saline nasal spray, additionally recommending a mist humidifier to prevent nasal dryness. Patient due to follow-up with pulmonology in the next week, next office visit 05/26. On 05/26/2024, the patient continues to use ipratropium nasal spray, isalastine nasal spray, and Qvar RediHaler, but endorses continued sputum production, described as clear. Discussed trialing guaifenesin 600 mg to help with symptom of sputum production. Patient agreed trialing medication. Also discussed the idea of trialing allergy medications as on physical exam, it appears that he is experiencing post-nasal drip and sputum being clear. Will follow up in 3 months. #Pulmonary nodule CT scan obtained 03/18 reveals 5 mm pulmonary nodule at the posterior RLL. Recommending repeat imaging in 6 months to ensure stability. Patient establishing with pulmonology 04/17. #A-fib: Taking Eliquis 5 mg twice daily with compliance. Follows with Dr. Hunter annually. Endorses that he has had episode of a-fib, lasting about 8 hours, about 1 week ago. 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 #HTN: Patient recently switched from lisinopril to losartan due to concern for TANYA induced cough. BP controlled at 140/70. Continue losartan 25 mg daily and metoprolol 25 mg daily. #History of CVA: No residual deficits. Continue atorvastatin 40 mg daily. #Mild anemia: Patient with history of mild anemia blood work obtained at time of ED visit 03/18/2024 reveals RBC 3.7, Hgb 11.1, Hct 33.8 - consistent with patient's baseline. Repeat CBC shows mild improvement with RBC at 3.9, hemoglobin/hematocri t 11.6/35.9. All questions answered to the patient's satisfaction. Patient demonstrates understanding of diagnosis and treatments discussed. Follow-up at next scheduled appointment, sooner should any questions/concerns arise. Case discussed with collaborating physician Leilani Fernández who has reviewed the assessment/plan. Chart, medications, labs, and vital signs reviewed. Dictation completed with the use of [employer] voice recognition software, prone to medical misidentifications and grammatical errors. All errors are unintentional. Although the practitioner does try to identify and correct errors, some may be present. Please do not hesitate to contact the practitioner for clarification. 05/26/2024 Atrial fibrillation, unspecified type (ICD-10 - I48.91Gustavo Strong is an 83-year-old male with a past medical history of recent bordetella pertussis with subseuqent hospitalization (03/2024) for right upper lobe pneumonia with resultant chronic cough, atrial fibrillation, on Eliquis, Cerebrovascular accident, hypertension, and hyperlipidemia presenting to the clinic for follow-up. #Recent RUL PNA/Chronic Cough: Patient admitted in March for Bordetella pertussis with subsequent hospitalization for RUL pneumonia. The patient was initially treated with azithromycin followed by a 10-day course of Augmentin without resolution of cough/symptoms. The patient tried and failed additional symptomatic treatments for persistent cough including benzonatate as needed, steroid burst, inhalers, and cough syrup with codeine. As his initial pneumonia could only be visualized on a CT, a repeat CT chest was ordered 04/09/24 which revealed persistent irregular densities that could represent persistent infection. The patient was started on a 10-day course of doxycycline 100 mg twice daily at that time with moderate improvement. Furthermore the patient was seen by pulmonology 04/17 at which time it was recommended that his lisinopril be switched to losartan due to concern for TANYA induced cough. Pulmonology also initiated therapy with ipratropium nasal spray and a Qvar RediHaler to treat symptoms of cough/postnasal drip. The patient used ipratropium nasal spray twice before throwing it away due to a nosebleed. He uses the inhaler as prescribed with resolution of SOB. Will send additional Rx for ipratropium nasal spray. Recommending use in conjunction saline nasal spray, additionally recommending a mist humidifier to prevent nasal dryness. Patient due to follow-up with pulmonology in the next week, next office visit 05/26. On 05/26/2024, the patient continues to use ipratropium nasal spray, isalastine nasal spray, and Qvar RediHaler, but endorses continued sputum production, described as clear. Discussed trialing guaifenesin 600 mg to help with symptom of sputum production. Patient agreed trialing medication. Also discussed the idea of trialing allergy medications as on physical exam, it appears that he is experiencing post-nasal drip and sputum being clear. Will follow up in 3 months. #Pulmonary nodule CT scan obtained 03/18 reveals 5 mm pulmonary nodule at the posterior RLL. Recommending repeat imaging in 6 months to ensure stability. Patient establishing with pulmonology 04/17. #A-fib: Taking Eliquis 5 mg twice daily with compliance. Follows with Dr. Hunter annually. Endorses that he has had episode of a-fib, lasting about 8 hours, about 1 week ago. 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 #HTN: Patient recently switched from lisinopril to losartan due to concern for TANYA induced cough. BP controlled at 140/70. Continue losartan 25 mg daily and metoprolol 25 mg daily. #History of CVA: No residual deficits. Continue atorvastatin 40 mg daily. #Mild anemia: Patient with history of mild anemia blood work obtained at time of ED visit 03/18/2024 reveals RBC 3.7, Hgb 11.1, Hct 33.8 - consistent with patient's baseline. Repeat CBC shows mild improvement with RBC at 3.9, hemoglobin/hematocri t 11.6/35.9. All questions answered to the patient's satisfaction. Patient demonstrates understanding of diagnosis and treatments discussed. Follow-up at next scheduled appointment, sooner should any questions/concerns arise. Case discussed with collaborating physician Leilani Fernández who has reviewed the assessment/plan. Chart, medications, labs, and vital signs reviewed. Dictation completed with the use of [employer] voice recognition software, prone to medical misidentifications and grammatical errors. All errors are unintentional. Although the practitioner does try to identify and correct errors, some may be present. Please do not hesitate to contact the practitioner for clarification. 05/07/2024 Post-nasal drip (ICD-10 - R09.82) Tae is an 83-year-old male with a PMH of A-fib on Eliquis, CVA, HTN, HLD that presents for follow-up. Patient with history of recent Bordetella pneumonia with resultant chronic cough. #Recent RUL PNA/Chronic Cough: Patient admitted in March for Bordetella pertussis with subsequent hospitalization for RUL pneumonia. The patient was initially treated with azithromycin followed by a 10-day course of Augmentin without resolution of cough/symptoms. The patient tried and failed additional symptomatic treatments for persistent cough including benzonatate as needed, steroid burst, inhalers, and cough syrup with codeine. As his initial pneumonia could only be visualized on a CT, a repeat CT chest was ordered 04/09/24 which revealed persistent irregular densities that could represent persistent infection. The patient was started on a 10-day course of doxycycline 100 mg twice daily at that time with moderate improvement. Furthermore the patient was seen by pulmonology 04/17 at which time it was recommended that his lisinopril be switched to losartan due to concern for TANYA induced cough. Pulmonology also initiated therapy with ipratropium nasal spray and a Qvar RediHaler to treat symptoms of cough/postnasal drip. The patient used ipratropium nasal spray twice before throwing it away due to a nosebleed. He uses the inhaler as prescribed with resolution of SOB. Will send additional Rx for ipratropium nasal spray. Recommending use in conjunction saline nasal spray, additionally recommending a mist humidifier to prevent nasal dryness. Patient due to follow-up with pulmonology in the next week, next office visit 05/26. #Pulmonary nodule CT scan obtained 03/18 reveals 5 mm pulmonary nodule at the posterior RLL. Recommending repeat imaging in 6 months to ensure stability. Patient establishing with pulmonology 04/17. #A-fib: Taking Eliquis 5 mg twice daily with compliance. Follows with Dr. Hunter annually. #HTN: Patient recently switched from lisinopril to losartan due to concern for TANYA induced cough. BP controlled at 140/70. Continue losartan 25 mg daily and metoprolol 25 mg daily. #History of CVA: No residual deficits. Continue atorvastatin 40 mg daily. #Mild anemia: Patient with history of mild anemia blood work obtained at time of ED visit 03/18/2024 reveals RBC 3.7, Hgb 11.1, Hct 33.8 - consistent with patient's baseline. Repeat CBC shows mild improvement with RBC at 3.9, hemoglobin/hematocri t 11.6/35.9. All questions answered to the patient's satisfaction. Patient demonstrates understanding of diagnosis and treatments discussed. Follow-up at next scheduled appointment, sooner should any questions/concerns arise. Case discussed with collaborating physician Leilani Fernández who has reviewed the assessment/plan. Chart, medications, labs, and vital signs reviewed. Dictation completed with the use of [employer] voice recognition software, prone to medical misidentifications and grammatical errors. All errors are unintentional. Although the practitioner does try to identify and correct errors, some may be present. Please do not hesitate to contact the practitioner for clarification. 05/07/2024 Persistent cough (ICD-10 - R05.3) Tae is an 83-year-old male with a PMH of A-fib on Eliquis, CVA, HTN, HLD that presents for follow-up. Patient with history of recent Bordetella pneumonia with resultant chronic cough. #Recent RUL PNA/Chronic Cough: Patient admitted in March for Bordetella pertussis with subsequent hospitalization for RUL pneumonia. The patient was initially treated with azithromycin followed by a 10-day course of Augmentin without resolution of cough/symptoms. The patient tried and failed additional symptomatic treatments for persistent cough including benzonatate as needed, steroid burst, inhalers, and cough syrup with codeine. As his initial pneumonia could only be visualized on a CT, a repeat CT chest was ordered 04/09/24 which revealed persistent irregular densities that could represent persistent infection. The patient was started on a 10-day course of doxycycline 100 mg twice daily at that time with moderate improvement. Furthermore the patient was seen by pulmonology 04/17 at which time it was recommended that his lisinopril be switched to losartan due to concern for TANYA induced cough. Pulmonology also initiated therapy with ipratropium nasal spray and a Qvar RediHaler to treat symptoms of cough/postnasal drip. The patient used ipratropium nasal spray twice before throwing it away due to a nosebleed. He uses the inhaler as prescribed with resolution of SOB. Will send additional Rx for ipratropium nasal spray. Recommending use in conjunction saline nasal spray, additionally recommending a mist humidifier to prevent nasal dryness. Patient due to follow-up with pulmonology in the next week, next office visit 05/26. #Pulmonary nodule CT scan obtained 03/18 reveals 5 mm pulmonary nodule at the posterior RLL. Recommending repeat imaging in 6 months to ensure stability. Patient establishing with pulmonology 04/17. #A-fib: Taking Eliquis 5 mg twice daily with compliance. Follows with Dr. Hunter annually. #HTN: Patient recently switched from lisinopril to losartan due to concern for TANYA induced cough. BP controlled at 140/70. Continue losartan 25 mg daily and metoprolol 25 mg daily. #History of CVA: No residual deficits. Continue atorvastatin 40 mg daily. #Mild anemia: Patient with history of mild anemia blood work obtained at time of ED visit 03/18/2024 reveals RBC 3.7, Hgb 11.1, Hct 33.8 - consistent with patient's baseline. Repeat CBC shows mild improvement with RBC at 3.9, hemoglobin/hematocri t 11.6/35.9. All questions answered to the patient's satisfaction. Patient demonstrates understanding of diagnosis and treatments discussed. Follow-up at next scheduled appointment, sooner should any questions/concerns arise. Case discussed with collaborating physician Leilani Fernández who has reviewed the assessment/plan. Chart, medications, labs, and vital signs reviewed. Dictation completed with the use of [employer] voice recognition software, prone to medical misidentifications and grammatical errors. All errors are unintentional. Although the practitioner does try to identify and correct errors, some may be present. Please do not hesitate to contact the practitioner for clarification. 06/18/2024 Post-nasal drip (ICD-10 [...] Dictation was accomplished with the use of [employer] voice recognition software, which is prone to medical misidentifications and grammatical errors. This are unintentional and the practitioner does try to identify and correct these, but some could still be present. Please do not hesitate to contact practitioner for clarification. 06/18/2024 Acute COVID-19 (ICD-10 - U07.1) Tae [...] Dictation was accomplished with the use of [employer] voice recognition software, which is prone to [...] Dictation was accomplished with the use of [employer] voice recognition software, which is prone to medical misidentifications and grammatical errors. This are unintentional and the practitioner does try to identify and correct these, but some could still be present. Please do not hesitate to contact practitioner for clarification. 05/07/2024 History of recent pneumonia (ICD-10 - Z87.01) Tae is an 83-year-old male with a PMH of A-fib on Eliquis, CVA, HTN, HLD that presents for follow-up. Patient with history of recent Bordetella pneumonia with resultant chronic cough. #Recent RUL PNA/Chronic Cough: Patient admitted in March for Bordetella pertussis with subsequent hospitalization for RUL pneumonia. The patient was initially treated with azithromycin followed by a 10-day course of Augmentin without resolution of cough/symptoms. The patient tried and failed additional symptomatic treatments for persistent cough including benzonatate as needed, steroid burst, inhalers, and cough syrup with codeine. As his initial pneumonia could only be visualized on a CT, a repeat CT chest was ordered 04/09/24 which revealed persistent irregular densities that could represent persistent infection. The patient was started on a 10-day course of doxycycline 100 mg twice daily at that time with moderate improvement. Furthermore the patient was seen by pulmonology 04/17 at which time it was recommended that his lisinopril be switched to losartan due to concern for TANYA induced cough. Pulmonology also initiated therapy with ipratropium nasal spray and a Qvar RediHaler to treat symptoms of cough/postnasal drip. The patient used ipratropium nasal spray twice before throwing it away due to a nosebleed. He uses the inhaler as prescribed with resolution of SOB. Will send additional Rx for ipratropium nasal spray. Recommending use in conjunction saline nasal spray, additionally recommending a mist humidifier to prevent nasal dryness. Patient due to follow-up with pulmonology in the next week, next office visit 05/26. #Pulmonary nodule CT scan obtained 03/18 reveals 5 mm pulmonary nodule at the posterior RLL. Recommending repeat imaging in 6 months to ensure stability. Patient establishing with pulmonology 04/17. #A-fib: Taking Eliquis 5 mg twice daily with compliance. Follows with Dr. Hunter annually. #HTN: Patient recently switched from lisinopril to losartan due to concern for TANYA induced cough. BP controlled at 140/70. Continue losartan 25 mg daily and metoprolol 25 mg daily. #History of CVA: No residual deficits. Continue atorvastatin 40 mg daily. #Mild anemia: Patient with history of mild anemia blood work obtained at time of ED visit 03/18/2024 reveals RBC 3.7, Hgb 11.1, Hct 33.8 - consistent with patient's baseline. Repeat CBC shows mild improvement with RBC at 3.9, hemoglobin/hematocri t 11.6/35.9. All questions answered to the patient's satisfaction. Patient demonstrates understanding of diagnosis and treatments discussed. Follow-up at next scheduled appointment, sooner should any questions/concerns arise. Case discussed with collaborating physician Leilani Fernández who has reviewed the assessment/plan. Chart, medications, labs, and vital signs reviewed. Dictation completed with the use of [employer] voice recognition software, prone to medical misidentifications and grammatical errors. All errors are unintentional. Although the practitioner does try to identify and correct errors, some may be present. Please do not hesitate to contact the practitioner for clarification. 05/26/2024 Cough (ICD-10 - R05.9) Tae is an 83-year-old male with a past medical history of recent bordetella pertussis with subseuqent hospitalization (03/2024) for right upper lobe pneumonia with resultant chronic cough, atrial fibrillation, on Eliquis, Cerebrovascular accident, hypertension, and hyperlipidemia presenting to the clinic for follow-up. #Recent RUL PNA/Chronic Cough: Patient admitted in March for Bordetella pertussis with subsequent hospitalization for RUL pneumonia. The patient was initially treated with azithromycin followed by a 10-day course of Augmentin without resolution of cough/symptoms. The patient tried and failed additional symptomatic treatments for persistent cough including benzonatate as needed, steroid burst, inhalers, and cough syrup with codeine. As his initial pneumonia could only be visualized on a CT, a repeat CT chest was ordered 04/09/24 which revealed persistent irregular densities that could represent persistent infection. The patient was started on a 10-day course of doxycycline 100 mg twice daily at that time with moderate improvement. Furthermore the patient was seen by pulmonology 04/17 at which time it was recommended that his lisinopril be switched to losartan due to concern for TANYA induced cough. Pulmonology also initiated therapy with ipratropium nasal spray and a Qvar RediHaler to treat symptoms of cough/postnasal drip. The patient used ipratropium nasal spray twice before throwing it away due to a nosebleed. He uses the inhaler as prescribed with resolution of SOB. Will send additional Rx for ipratropium nasal spray. Recommending use in conjunction saline nasal spray, additionally recommending a mist humidifier to prevent nasal dryness. Patient due to follow-up with pulmonology in the next week, next office visit 05/26. On 05/26/2024, the patient continues to use ipratropium nasal spray, isalastine nasal spray, and Qvar RediHaler, but endorses continued sputum production, described as clear. Discussed trialing guaifenesin 600 mg to help with symptom of sputum production. Patient agreed trialing medication. Also discussed the idea of trialing allergy medications as on physical exam, it appears that he is experiencing post-nasal drip and sputum being clear. Will follow up in 3 months. #Pulmonary nodule CT scan obtained 03/18 reveals 5 mm pulmonary nodule at the posterior RLL. Recommending repeat imaging in 6 months to ensure stability. Patient establishing with pulmonology 04/17. #A-fib: Taking Eliquis 5 mg twice daily with compliance. Follows with Dr. Hunter annually. Endorses that he has had episode of a-fib, lasting about 8 hours, about 1 week ago. 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 #HTN: Patient recently switched from lisinopril to losartan due to concern for TANYA induced cough. BP controlled at 140/70. Continue losartan 25 mg daily and metoprolol 25 mg daily. #History of CVA: No residual deficits. Continue atorvastatin 40 mg daily. #Mild anemia: Patient with history of mild anemia blood work obtained at time of ED visit 03/18/2024 reveals RBC 3.7, Hgb 11.1, Hct 33.8 - consistent with patient's baseline. Repeat CBC shows mild improvement with RBC at 3.9, hemoglobin/hematocri t 11.6/35.9. All questions answered to the patient's satisfaction. Patient demonstrates understanding of diagnosis and treatments discussed. Follow-up at next scheduled appointment, sooner should any questions/concerns arise. Case discussed with collaborating physician Leilani Fernández who has reviewed the assessment/plan. Chart, medications, labs, and vital signs reviewed. Dictation completed with the use of [employer] voice recognition software, prone to medical misidentifications and grammatical errors. All errors are unintentional. Although the practitioner does try to identify and correct errors, some may be present. Please do not hesitate to contact the practitioner for clarification. 03/27/2024 Pneumonia of right upper lobe due to infectious organism (ICD-10 - J18.9) Tae is an 83-year-old male with a PMH of A-fib on Eliquis, CVA, HTN, HLD that presents for new rash. Patient with recent admission for Bordetella pertussis 03/11-03/13 with subsequent hospitalization at which time he was found to have right upper lobe pneumonia - discharged with 10-day course of Augmentin. #RUL PNA: Patient seen in office 03/25/2024 at which time he continued to struggle with symptoms of cough and mucus production. At that time, 6-day burst of prednisone and guaifenesin ER twice daily was added to the patient's regimen. The patient presents today having taking his first dose of prednisone yesterday with subsequent development of bright red rash on bilateral cheeks. On exam there is erythema of the bilateral cheeks. No edema of the face, lips, or mouth noted. Respiratory rate is normal and there is no visible increased work of breathing. Exam/vitals otherwise WNL. Recommended discontinuation of prednisone, patient is agreeable. Will also discontinue oral guaifenesin. Instead will try guaifenesin with codeine. Patient is educated on proper use/dosage and side effects including but not limited to respiratory depression, hypotension, and dizziness. As the patient's RUL pneumonia was not initially seen on XR and was isntead visible on CT -plan to repeat CT in 2 weeks to ensure resolution of pneumonia. Reviewed return to office/ED protocol. #Pulmonary nodule CT scan obtained 03/18 reveals 5 mm pulmonary nodule at the posterior RLL. Recommending repeat imaging in 6 months to ensure stability. #A-fib: Taking Eliquis 5 mg twice daily with compliance. Follows with Dr. Hunter annually. #HTN: Taking lisinopril 30 mg and metoprolol 25 mg daily with compliance. #History of CVA: No residual deficits. Continue atorvastatin 40 mg daily. #Mild anemia: Patient with history of mild anemia blood work obtained at time of ED visit 03/18/2024 reveals RBC 3.7, Hgb 11.1, Hct 33.8 - consistent with patient's baseline. All questions answered to the patient's satisfaction. Patient demonstrates understanding of diagnosis and treatments discussed. Follow-up at next scheduled appointment, sooner should any questions/concerns arise. Case discussed with collaborating physician Taylor Fernández who has reviewed the assessment/plan. Chart, medications, labs, and vital signs reviewed. Dictation completed with the use of [employer] voice recognition software, prone to medical misidentifications and grammatical errors. All errors are unintentional. Although the practitioner does try to identify and correct errors, some may be present. Please do not hesitate to contact the practitioner for clarification. 04/06/2024 Pneumonia of right upper lobe due to infectious organism (ICD-10 - J18.9) Tae is an 83-year-old male with a PMH of A-fib on Eliquis, CVA, HTN, HLD that presents for continued cough. Patient with recent admission for Bordetella pertussis 03/11-03/13 with subsequent hospitalization at which time he was found to have right upper lobe pneumonia - discharged with 10-day course of Augmentin. #RUL PNA: Patient seen in office 03/25/2024 at which time he continued to struggle with symptoms of cough and mucus production. At that time, 6-day burst of prednisone and guaifenesin ER twice daily was added to the patient's regimen. The patient presents today having taking his first dose of prednisone yesterday with subsequent development of bright red rash on bilateral cheeks. At that time prednisone was discontinued and an Rx for guaifenesin with codeine was sent. Patient states he took this as prescribed x5 days and felt his symptoms were improving. Upon discontinuation of the medication he felt symptoms of productive cough and congestion worsened. Continues to experience persistent, intermittent cough productive of clear sputum. Also experiencing fatigue and loss of appetite. Weight down 6 pounds since time of hospital follow-up 03/25. On exam the patient is afebrile, O2 sat 97%. Patient coughs occasionally throughout exam. Lungs CTA bilaterally, no visible increased work of breathing. Plan to proceed with CMP, CBC, and chest x-ray for continued evaluation. Patient scheduled for CT of the chest to ensure resolution of pneumonia, however has not yet set an appointment. Will also send for guaifenesin with codeine 5 mL every 6 hours as needed for cough. Patient is educated on importance of proper dosing and side effects including but not limited to respiratory depression, hypotension, and dizziness. Considered alternative inhaler for persistent cough such as Trelegy, Spiriva, or Anoro Patient recently tried albuterol inhaler after which he developed an uncomfortable sensation in his throat. Patient hesitant to try alternative inhaler as he is concerned he may have an allergy. Per his daughter, scheduled to see pulmonology 04/17 for continued evaluation. Called and spoke with patient's HCP Crystal (daughter) recommending the patient go for chest x-ray and blood work. Given recent weight loss and decreased appetite recommending that the patient go to the emergency room for continued evaluation should he not be able to tolerate any food or water. #Pulmonary nodule CT scan obtained 03/18 reveals 5 mm pulmonary nodule at the posterior RLL. Recommending repeat imaging in 6 months to ensure stability. Patient establishing with pulmonology 04/17. #A-fib: Taking Eliquis 5 mg twice daily with compliance. Follows with Dr. Hunter annually. #HTN: Taking lisinopril 30 mg and metoprolol 25 mg daily with compliance. #History of CVA: No residual deficits. Continue atorvastatin 40 mg daily. #Mild anemia: Patient with history of mild anemia blood work obtained at time of ED visit 03/18/2024 reveals RBC 3.7, Hgb 11.1, Hct 33.8 - consistent with patient's baseline. Repeat CBC ordered. All questions answered to the patient's satisfaction. Patient demonstrates understanding of diagnosis and treatments discussed. Follow-up at next scheduled appointment, sooner should any questions/concerns arise. Case discussed with collaborating physician Taylor Fernández who has reviewed the assessment/plan. Chart, medications, labs, and vital signs reviewed. Dictation completed with the use of [employer] voice recognition software, prone to medical misidentifications and grammatical errors. All errors are unintentional. Although the practitioner does try to identify and correct errors, some may be present. Please do not hesitate to contact the practitioner for clarification. 04/06/2024 Persistent cough (ICD-10 - R05.3) Tae is an 83-year-old male with a PMH of A-fib on Eliquis, CVA, HTN, HLD that presents for continued cough. Patient with recent admission for Bordetella pertussis 03/11-03/13 with subsequent hospitalization at which time he was found to have right upper lobe pneumonia - discharged with 10-day course of Augmentin. #RUL PNA: Patient seen in office 03/25/2024 at which time he continued to struggle with symptoms of cough and mucus production. At that time, 6-day burst of prednisone and guaifenesin ER twice daily was added to the patient's regimen. The patient presents today having taking his first dose of prednisone yesterday with subsequent development of bright red rash on bilateral cheeks. At that time prednisone was discontinued and an Rx for guaifenesin with codeine was sent. Patient states he took this as prescribed x5 days and felt his symptoms were improving. Upon discontinuation of the medication he felt symptoms of productive cough and congestion worsened. Continues to experience persistent, intermittent cough productive of clear sputum. Also experiencing fatigue and loss of appetite. Weight down 6 pounds since time of hospital follow-up 03/25. On exam the patient is afebrile, O2 sat 97%. Patient coughs occasionally throughout exam. Lungs CTA bilaterally, no visible increased work of breathing. Plan to proceed with CMP, CBC, and chest x-ray for continued evaluation. Patient scheduled for CT of the chest to ensure resolution of pneumonia, however has not yet set an appointment. Will also send for guaifenesin with codeine 5 mL every 6 hours as needed for cough. Patient is educated on importance of proper dosing and side effects including but not limited to respiratory depression, hypotension, and dizziness. Considered alternative inhaler for persistent cough such as Trelegy, Spiriva, or Anoro Patient recently tried albuterol inhaler after which he developed an uncomfortable sensation in his throat. Patient hesitant to try alternative inhaler as he is concerned he may have an allergy. Per his daughter, scheduled to see pulmonology 04/17 for continued evaluation. Called and spoke with patient's HCP Crystal (daughter) recommending the patient go for chest x-ray and blood work. Given recent weight loss and decreased appetite recommending that the patient go to the emergency room for continued evaluation should he not be able to tolerate any food or water. #Pulmonary nodule CT scan obtained 03/18 reveals 5 mm pulmonary nodule at the posterior RLL. Recommending repeat imaging in 6 months to ensure stability. Patient establishing with pulmonology 04/17. #A-fib: Taking Eliquis 5 mg twice daily with compliance. Follows with Dr. Hunter annually. #HTN: Taking lisinopril 30 mg and metoprolol 25 mg daily with compliance. #History of CVA: No residual deficits. Continue atorvastatin 40 mg daily. #Mild anemia: Patient with history of mild anemia blood work obtained at time of ED visit 03/18/2024 reveals RBC 3.7, Hgb 11.1, Hct 33.8 - consistent with patient's baseline. Repeat CBC ordered. All questions answered to the patient's satisfaction. Patient demonstrates understanding of diagnosis and treatments discussed. Follow-up at next scheduled appointment, sooner should any questions/concerns arise. Case discussed with collaborating physician Taylor Fernández who has reviewed the assessment/plan. Chart, medications, labs, and vital signs reviewed. Dictation completed with the use of [employer] voice recognition software, prone to medical misidentifications and grammatical errors. All errors are unintentional. Although the practitioner does try to identify and correct errors, some may be present. Please do not hesitate to contact the practitioner for clarification. 03/25/2024 Pulmonary nodule (ICD-10 - R91.1) Tae is an 83-year-old male with a PMH of A-fib on Eliquis, CVA, HTN, HLD that presents accompanied by his daughter Crystal for hospital follow-up. Patient struggling with productive cough over the last month or so. Presented to the emergency department 03/11 at which time PCR was positive for Bordetella pertussis and lab work was significant for mild leukocytosis and SAUL. The patient was admitted treated with azithromycin and IV fluids with resultant discharge 03/13. The patient again presented to [facility] ED 03/18 for worsening of symptoms. At which time he was found to have right upper lobe pneumonia. #Right upper lobe pneumonia: Patient with [facility] admission 03/11 to 03/13 at which time he was found to have infection with Bordetella pertussis and mild SAUL. Treated with IV fluids and azithromycin. Patient presented again to [facility] ED for worsening symptoms at which time CT revealed minimal pulmonary nodule or infiltrate at the base of the right upper lobe suggesting infectious process. The patient was discharged with a 10-day course of Augmentin and Tessalon Perles as needed for cough. The patient presents today with continued symptoms, although improved. He continues to cough frequently which is making sleep difficult. His most bothersome symptom is mucus production. The patient is educated to finish complete course of antibiotics. Will send burst of prednisone with goal of helping suppress cough. Will also send guaifenesin 600 mg twice daily. Patient is educated on proper use and side effects of medications. Reviewed return to office/ED protocol. #Pulmonary nodule CT scan obtained 03/18 reveals 5 mm pulmonary nodule at the posterior RLL. Recommending repeat imaging in 6 months to ensure stability. Patient's daughter Crystal accompanied him to visit today reports they are working to establish with operating room tech Dr. Hendrickson. #A-fib: Taking Eliquis 5 mg twice daily with compliance. Follows with Dr. Hunter annually. #HTN: Taking lisinopril 30 mg and metoprolol 25 mg daily with compliance. #History of CVA: No residual deficits. Continue atorvastatin 40 mg daily. #Mild anemia: Patient with history of mild anemia blood work obtained at time of ED visit 03/18/2024 reveals RBC 3.7, Hgb 11.1, Hct 33.8 - consistent with patient's baseline. #HCP: Reviewed healthcare proxy form, which is on file. The patient's daughter Crystal is the designated healthcare proxy and the preferred phone number for which she can be reached is [phone]. All questions answered to the patients satisfaction. Patient demonstrates understanding of diagnosis and treatments discussed. Follow-up at next scheduled appointment, sooner should any questions/concerns arise. Case discussed with collaborating physician Taylor Fernández who has reviewed the assessment/plan. Chart, medications, labs, and vital signs reviewed. Dictation completed with the use of [employer] voice recognition software, prone to medical misidentifications and grammatical errors. All errors are unintentional. Although the practitioner does try to identify and correct errors, some may be present. Please do not hesitate to contact the practitioner for clarification. 03/27/2024 Pulmonary nodule (ICD-10 - R91.1) Tae is an 83-year-old male with a PMH of A-fib on Eliquis, CVA, HTN, HLD that presents for new rash. Patient with recent admission for Bordetella pertussis 03/11-03/13 with subsequent hospitalization at which time he was found to have right upper lobe pneumonia - discharged with 10-day course of Augmentin. #RUL PNA: Patient seen in office 03/25/2024 at which time he continued to struggle with symptoms of cough and mucus production. At that time, 6-day burst of prednisone and guaifenesin ER twice daily was added to the patient's regimen. The patient presents today having taking his first dose of prednisone yesterday with subsequent development of bright red rash on bilateral cheeks. On exam there is erythema of the bilateral cheeks. No edema of the face, lips, or mouth noted. Respiratory rate is normal and there is no visible increased work of breathing. Exam/vitals otherwise WNL. Recommended discontinuation of prednisone, patient is agreeable. Will also discontinue oral guaifenesin. Instead will try guaifenesin with codeine. Patient is educated on proper use/dosage and side effects including but not limited to respiratory depression, hypotension, and dizziness. As the patient's RUL pneumonia was not initially seen on XR and was isntead visible on CT -plan to repeat CT in 2 weeks to ensure resolution of pneumonia. Reviewed return to office/ED protocol. #Pulmonary nodule CT scan obtained 03/18 reveals 5 mm pulmonary nodule at the posterior RLL. Recommending repeat imaging in 6 months to ensure stability. #A-fib: Taking Eliquis 5 mg twice daily with compliance. Follows with Dr. Hunter annually. #HTN: Taking lisinopril 30 mg and metoprolol 25 mg daily with compliance. #History of CVA: No residual deficits. Continue atorvastatin 40 mg daily. #Mild anemia: Patient with history of mild anemia blood work obtained at time of ED visit 03/18/2024 reveals RBC 3.7, Hgb 11.1, Hct 33.8 - consistent with patient's baseline. All questions answered to the patient's satisfaction. Patient demonstrates understanding of diagnosis and treatments discussed. Follow-up at next scheduled appointment, sooner should any questions/concerns arise. Case discussed with collaborating physician Taylor Fernández who has reviewed the assessment/plan. Chart, medications, labs, and vital signs reviewed. Dictation completed with the use of [employer] voice recognition software, prone to medical misidentifications and grammatical errors. All errors are unintentional. Although the practitioner does try to identify and correct errors, some may be present. Please do not hesitate to contact the practitioner for clarification. 01/21/2024 Essential hypertension (ICD-10 - I10) # AFib. Followed by Dr. Hunter. Saw last Fall 2022. Sees yearly. No SOB/dizziness. Hx of prostate ca. PSA neg. Followed up urology 09/23/23 # HTN. Increased Lisinopril from 20 mg to 30 mg po daily. Continue Metoprolol 25 mg po daily. # Rectal bleeding:Resolved. # CVA. Hx of. No residual deficits. On statin/ASA # Mild anemia. ? due to mild stool. Stool occult blood will be checked. Last colonscopy 2016- normal # Vaccines: Getting second shingles Fall 2023 # Screenings: UTD Physical Men Patient seen and examined. Comprehensive discussion was done on the following. 1. Nutrition: It is important to follow a healthy diet based on lots of vegetables and legumes and good fat. Avoid processed food and processed carbohydrates. Learn to prepare your own meals. Learn to read labels and avoid high fructose corn syrup, processed chemicals added to increase shelf life and preprepared meals. Avoid fast foods. Learn to eat slowly and plan meals for a week. Try to count calories and be mindful off daily calorie intake. Get into the habit of keeping an eye on your weight by using an appropriate scale. Learn to log exercise and discussed fitness Apps like [employer] which can help keep log off calories taken versus calories burned. Local food should be preferred. Discussed [employer] Versus [employer] Fifteen. Discussed healthy supplements like fish oil, Tumeric, Curcumin, Melatonin, Resveratrol, Probiotics, Vitamin-D, Alpha-Lipoic acid, Vitamin-D and coconut oil. 2. It is important to exercise regularly. Is a good habit to walk at least 30-45 minutes a day. Gentle weightlifting with standard precautions to protect the back. Finding activity like cycling or hiking and get into the habit of engaging in it. Stretching before and after the exercises important. It is also important to contact me if there are any problems like shortness of breath, chest pain, back pain and joint or muscle pain associated with the exercise. 3. Discussed age appropriate screening guidelines. Colonoscopy needs to start at age 50 with stool for occult blood as appropriate. There is a new test that can test for genetic abnormalities in the stool sample. This would not replace a colonoscopy but could be used as a screening tool for patients who do not want a colonoscopy. We discussed the importance of early detection of colon cancer. 4. Discussed current PSA screening. PSA screening can be done in most patients between age 50 and 65. However early detection of prostate cancer needs to carefully be balanced with complications with treatment. These include incontinence, impotence etc. Each patient should decide if they would like to have this test. 5. Discussed safe driving and no use of smart phone while driving 6. Age-appropriate immunizations were discussed. A tetanus booster is needed every 10 years. Flu vaccine is recommended every year just before the start of the flu season. Shingles vaccine is recommended after age 50 but not all insurances cover it. Pneumonia vaccine is given after age 65 unless there are certain comorbidities for which it is started earlier. 7. Diagnostic labs were discussed. These could include CBC CMP and lipids with fasting blood glucose and insulin levels. Vitamin D and hemoglobin A1c testing might be appropriate. Case discussed with collaborating physician Sourav Fernández who reviewed the assessment and plan. Chart, medications, labs, vital signs reviewed. Dictation was accomplished with the use of [employer] voice recognition software, prone to medical misidentifications and grammatical errors. This is unintentional and the practitioner does try to identify and correct these, but some could still be present. Please do not hesitate to contact practitioner for clarification. All quetsions answered to patients satisfaction. Patient verbalized understanding of diagnosis and treatments explained. To call sooner prior to next visit it any questions/concerns arise. 03/05/2024 Sore throat (ICD-10 - J02.9) Tae is an 83-year-old male with a past medical history of hyperlipidemia, hypertension, and history of sinusitis present for cough x 10 days. #Cough: Patient has a productive cough and symptoms of head fullness. Patient reports similar cough in the past that responded well to prednisone. Vitals are stable and patient denies fever. On exam, patient lung sounds are clear but educated to call the office if cough worsens or has shortness of breath. Patient tested for covid and strep and results were negative. Plan to begin prednisone 20 mg 2 tablets once a day x 5 days for symptom management. Patient verbalized understanding of diagnosis and treatments explained. To call sooner prior to next visit it any questions/concerns arise. Case discussed with collaborating physician Dr. Fernández who reviewed the assessment and plan. Chart, medications, labs, vital signs reviewed. Dictation was accomplished with the use of [employer] voice recognition software, prone to medical misidentifications and grammatical errors. This is unintentional and the practitioner does try to identify and correct these, but some could still be present. Please do not hesitate to contact practitioner for clarification. 03/07/2024 Cough (ICD-10 - R05.9) 10/25/2023 Cerebrovascular accident (CVA), unspecified mechanism (ICD-10 - I63.9) # AFib. Followed by Dr. Hunter. Saw last Fall 2022. Sees yearly. No SOB/dizziness. Will change back to Eliquis, lower dose to 2.5 mg BID to decrease bleeding risk. # Hematuria, gross. Occured one time. Hx of prostate ca. PSA neg. Followed up urology 09/23/23 # HTN. Increased Lisinopril from 20 mg to 30 mg po daily. Continue Metoprolol 25 mg po daily. # Rectal bleeding:Resolved. # CVA. Hx of. No residual deficits. On statin/ASA # Mild anemia. ? due to mild stool. Stool occult blood will be checked. Last colonscopy 2016- normal Case discussed with collaborating physician Sourav Fernández who reviewed the assessment and plan. Chart, medications, labs, vital signs reviewed. Dictation was accomplished with the use of [employer] voice recognition software, prone to medical misidentifications and grammatical errors. This is unintentional and the practitioner does try to identify and correct these, but some could still be present. Please do not hesitate to contact practitioner for clarification. All quetsions answered to patients satisfaction. Patient verbalized understanding of diagnosis and treatments explained. To call sooner prior to next visit it any questions/concerns arise. 09/19/2023 Cerebrovascular accident (CVA), unspecified mechanism (ICD-10 - I63.9) # AFib. Followed by Dr. Hunter. Saw last Fall 2022. Sees yearly. No SOB/dizziness. Eliquis changed to Xarelto due to singular episode of BRBPR and hematuria # Hematuria, gross. Occured one time. Hx of prostate ca. PSA neg. Following up urology 09/23/23 # HTN. Increased Lisinopril from 20 mg to 30 mg po daily. Continue Metoprolol 25 mg po daily. # Rectal bleeding:Resolved. # CVA. Hx of. No residual deficits. On statin/ASA # Mild anemia. ? due to mild stool. Stool occult blood will be checked. Last colonscopy 2016- normal Case discussed with collaborating physician Sourav Fernández who reviewed the assessment and plan. Chart, medications, labs, vital signs reviewed. Dictation was accomplished with the use of [employer] voice recognition software, prone to medical misidentifications and grammatical errors. This is unintentional and the practitioner does try to identify and correct these, but some could still be present. Please do not hesitate to contact practitioner for clarification. All quetsions answered to patients satisfaction. Patient verbalized understanding of diagnosis and treatments explained. To call sooner prior to next visit it any questions/concerns arise. 08/29/2023 History of prostate cancer (ICD-10 - Z85.46) Plan for hematuria: Obtain UA for anaylsis and culture to assess for urinary infection. Less likely UTI in the absence of fevers/chills/discom fort Obtain routine bloodwork today in the office. Discontinue Eliquis completely for one week. It is possible that his current Eliquis dose is too high for him. Follow-up in one week for reassessment of symptoms & to revisit plan for Eliquis. Place referral for urology for work-up in the setting of history of prostate cancer and smoking history. 09/04/2023 History of prostate cancer (ICD-10 - Z85.46) Hematuria has resolved since discontinuation of Eliquis one week ago. Reviewed blood work with Tae, noting that the UA had gross blood, and CBC showed normocytic anemia Tae will likely benefit better from Xarelto instead of Eliquis Plam to start Xarelto once a day. He will let me know if insurance does not cover the medication Discussed in detail the risks of starting a new anticoagulating medication, which includes but is not limited to bleeding. He has urology appt on September 22 & I recommend he consult with them. Follow up with me in 1 month. 07/18/2023 Anticoagulated (ICD-10 - Z79.01) #BRBPR- Symptoms have resolved, however he has been off eliquis. Normal exam. Heme occult negative on exam and no visible or palpable hemorrhoids/fissures /masses. Case reviewed with Moses. Will restart eliquis today- discussed importance of being on full dose eliquis. If he notices any blood with BMs again, advised he needs to go to ED for work up. Patient is in agreement with plan. Follow up with any cocerns. #AFib- NSR on exam. Denies any symptoms. Discussed importance of restarting eliquis- will do so this morning. #Anticoagulated- As above, restart eliquis. Monitor for any bleeding. Case discussed with collaborating physician Sourav Fernández who reviewed the assessment and plan. Chart, medications, labs, vital signs reviewed. Dictation was accomplished with the use of [employer] voice recognition software, prone to medical misidentifications and grammatical errors. This is unintentional and the practitioner does try to identify and correct these, but some could still be present. Please do not hesitate to contact practitioner for clarification. All questions answered to patients satisfaction. Patient verbalized understanding of diagnosis and treatments explained. To call sooner prior to next visit it any questions/concerns arise. 07/11/2023 Anticoagulated (ICD-10 - Z79.01) #BRBPR- Patient with 2 days of bright red blood with bowel movement in the morning. He is currently on Eliquis. Normal exam in the office today including normal rectal exam. Symptoms are resolving. No obvious source of rectal bleeding however I do suspect this is local irritation at the rectum. Advised to hold Eliquis dose tonight and tomorrow. Will check CBC today. Discussed ED precautions. Advised to go to the ED with any increase or persistent symptoms of bright red blood per rectum or black dark stool as well as abdominal pain vomiting dizziness chest pain or shortness of breath. Will follow-up with patient pending lab results. He is comfortable with plan. #Atrial fibrillation- Currently on Eliquis and appears to be in normal sinus rhythm on exam today. Normal blood pressure and pulse. As above we are can have him hold Eliquis this evening and tomorrow. If symptoms have resolved may resume. Case discussed with collaborating physician Sourav Fernández who reviewed the assessment and plan. Chart, medications, labs, vital signs reviewed. Dictation was accomplished with the use of [employer] voice recognition software, prone to medical misidentifications and grammatical errors. This is unintentional and the practitioner does try to identify and correct these, but some could still be present. Please do not hesitate to contact practitioner for clarification. All questions answered to patients satisfaction. Patient verbalized understanding of diagnosis and treatments explained. To call sooner prior to next visit it any questions/concerns arise. 09/04/2023 Hyperlipidemia, unspecified (ICD-10 - E78.5) Hematuria has resolved since discontinuation of Eliquis one week ago. Reviewed blood work with Tae, noting that the UA had gross blood, and CBC showed normocytic anemia Tae will likely benefit better from Xarelto instead of Eliquis Plam to start Xarelto once a day. He will let me know if insurance does not cover the medication Discussed in detail the risks of starting a new anticoagulating medication, which includes but is not limited to bleeding. He has urology appt on September 22 & I recommend he consult with them. Follow up with me in 1 month. 09/19/2023 Anemia (ICD-10 - D64.9) # AFib. Followed by Dr. Hunter. Saw last Fall 2022. Sees yearly. No SOB/dizziness. Eliquis changed to Xarelto due to singular episode of BRBPR and hematuria # Hematuria, gross. Occured one time. Hx of prostate ca. PSA neg. Following up urology 09/23/23 # HTN. Increased Lisinopril from 20 mg to 30 mg po daily. Continue Metoprolol 25 mg po daily. # Rectal bleeding:Resolved. # CVA. Hx of. No residual deficits. On statin/ASA # Mild anemia. ? due to mild stool. Stool occult blood will be checked. Last colonscopy 2016- normal Case discussed with collaborating physician Sourav Fernández who reviewed the assessment and plan. Chart, medications, labs, vital signs reviewed. Dictation was accomplished with the use of [employer] voice recognition software, prone to medical misidentifications and grammatical errors. This is unintentional and the practitioner does try to identify and correct these, but some could still be present. Please do not hesitate to contact practitioner for clarification. All quetsions answered to patients satisfaction. Patient verbalized understanding of diagnosis and treatments explained. To call sooner prior to next visit it any questions/concerns arise. 01/21/2024 Cerebrovascular accident (CVA), unspecified mechanism (ICD-10 - I63.9) # AFib. Followed by Dr. Hunter. Saw last Fall 2022. Sees yearly. No SOB/dizziness. Hx of prostate ca. PSA neg. Followed up urology 09/23/23 # HTN. Increased Lisinopril from 20 mg to 30 mg po daily. Continue Metoprolol 25 mg po daily. # Rectal bleeding:Resolved. # CVA. Hx of. No residual deficits. On statin/ASA # Mild anemia. ? due to mild stool. Stool occult blood will be checked. Last colonscopy 2016- normal # Vaccines: Getting second shingles Fall 2023 # Screenings: UTD Physical Men Patient seen and examined. Comprehensive discussion was done on the following. 1. Nutrition: It is important to follow a healthy diet based on lots of vegetables and legumes and good fat. Avoid processed food and processed carbohydrates. Learn to prepare your own meals. Learn to read labels and avoid high fructose corn syrup, processed chemicals added to increase shelf life and preprepared meals. Avoid fast foods. Learn to eat slowly and plan meals for a week. Try to count calories and be mindful off daily calorie intake. Get into the habit of keeping an eye on your weight by using an appropriate scale. Learn to log exercise and discussed fitness Apps like [employer] which can help keep log off calories taken versus calories burned. Local food should be preferred. Discussed [employer] Versus [employer] Fifteen. Discussed healthy supplements like fish oil, Tumeric, Curcumin, Melatonin, Resveratrol, Probiotics, Vitamin-D, Alpha-Lipoic acid, Vitamin-D and coconut oil. 2. It is important to exercise regularly. Is a good habit to walk at least 30-45 minutes a day. Gentle weightlifting with standard precautions to protect the back. Finding activity like cycling or hiking and get into the habit of engaging in it. Stretching before and after the exercises important. It is also important to contact me if there are any problems like shortness of breath, chest pain, back pain and joint or muscle pain associated with the exercise. 3. Discussed age appropriate screening guidelines. Colonoscopy needs to start at age 50 with stool for occult blood as appropriate. There is a new test that can test for genetic abnormalities in the stool sample. This would not replace a colonoscopy but could be used as a screening tool for patients who do not want a colonoscopy. We discussed the importance of early detection of colon cancer. 4. Discussed current PSA screening. PSA screening can be done in most patients between age 50 and 65. However early detection of prostate cancer needs to carefully be balanced with complications with treatment. These include incontinence, impotence etc. Each patient should decide if they would like to have this test. 5. Discussed safe driving and no use of smart phone while driving 6. Age-appropriate immunizations were discussed. A tetanus booster is needed every 10 years. Flu vaccine is recommended every year just before the start of the flu season. Shingles vaccine is recommended after age 50 but not all insurances cover it. Pneumonia vaccine is given after age 65 unless there are certain comorbidities for which it is started earlier. 7. Diagnostic labs were discussed. These could include CBC CMP and lipids with fasting blood glucose and insulin levels. Vitamin D and hemoglobin A1c testing might be appropriate. Case discussed with collaborating physician Sourav Fernández who reviewed the assessment and plan. Chart, medications, labs, vital signs reviewed. Dictation was accomplished with the use of [employer] voice recognition software, prone to medical misidentifications and grammatical errors. This is unintentional and the practitioner does try to identify and correct these, but some could still be present. Please do not hesitate to contact practitioner for clarification. All quetsions answered to patients satisfaction. Patient verbalized understanding of diagnosis and treatments explained. To call sooner prior to next visit it any questions/concerns arise. 10/25/2023 Anemia (ICD-10 - D64.9) # AFib. Followed by Dr. Hunter. Saw last Fall 2022. Sees yearly. No SOB/dizziness. Will change back to Eliquis, lower dose to 2.5 mg BID to decrease bleeding risk. # Hematuria, gross. Occured one time. Hx of prostate ca. PSA neg. Followed up urology 09/23/23 # HTN. Increased Lisinopril from 20 mg to 30 mg po daily. Continue Metoprolol 25 mg po daily. # Rectal bleeding:Resolved. # CVA. Hx of. No residual deficits. On statin/ASA # Mild anemia. ? due to mild stool. Stool occult blood will be checked. Last colonscopy 2017- normal Case discussed with collaborating physician Sourav Fernández who reviewed the assessment and plan. Chart, medications, labs, vital signs reviewed. Dictation was accomplished with the use of [employer] voice recognition software, prone to medical misidentifications and grammatical errors. This is unintentional and the practitioner does try to identify and correct these, but some could still be present. Please do not hesitate to contact practitioner for clarification. All quetsions answered to patients satisfaction. Patient verbalized understanding of diagnosis and treatments explained. To call sooner prior to next visit it any questions/concerns arise. 03/25/2024 Atrial fibrillation, unspecified type (ICD-10 - I48.91) Tae is an 83-year-old male with a PMH of A-fib on Eliquis, CVA, HTN, HLD that presents accompanied by his daughter Crystal for hospital follow-up. Patient struggling with productive cough over the last month or so. Presented to the emergency department 03/11 at which time PCR was positive for Bordetella pertussis and lab work was significant for mild leukocytosis and SAUL. The patient was admitted treated with azithromycin and IV fluids with resultant discharge 03/13. The patient again presented to [facility] ED 03/18 for worsening of symptoms. At which time he was found to have right upper lobe pneumonia. #Right upper lobe pneumonia: Patient with [facility] admission 03/11 to 03/13 at which time he was found to have infection with Bordetella pertussis and mild SAUL. Treated with IV fluids and azithromycin. Patient presented again to [facility] ED for worsening symptoms at which time CT revealed minimal pulmonary nodule or infiltrate at the base of the right upper lobe suggesting infectious process. The patient was discharged with a 10-day course of Augmentin and Tessalon Perles as needed for cough. The patient presents today with continued symptoms, although improved. He continues to cough frequently which is making sleep difficult. His most bothersome symptom is mucus production. The patient is educated to finish complete course of antibiotics. Will send burst of prednisone with goal of helping suppress cough. Will also send guaifenesin 600 mg twice daily. Patient is educated on proper use and side effects of medications. Reviewed return to office/ED protocol. #Pulmonary nodule CT scan obtained 03/18 reveals 5 mm pulmonary nodule at the posterior RLL. Recommending repeat imaging in 6 months to ensure stability. Patient's daughter Crystal accompanied him to visit today reports they are working to establish with operating room tech Dr. Hendrickson. #A-fib: Taking Eliquis 5 mg twice daily with compliance. Follows with Dr. Hunter annually. #HTN: Taking lisinopril 30 mg and metoprolol 25 mg daily with compliance. #History of CVA: No residual deficits. Continue atorvastatin 40 mg daily. #Mild anemia: Patient with history of mild anemia blood work obtained at time of ED visit 03/18/2024 reveals RBC 3.7, Hgb 11.1, Hct 33.8 - consistent with patient's baseline. #HCP: Reviewed healthcare proxy form, which is on file. The patient's daughter Crystal is the designated healthcare proxy and the preferred phone number for which she can be reached is [phone]. All questions answered to the patients satisfaction. Patient demonstrates understanding of diagnosis and treatments discussed. Follow-up at next scheduled appointment, sooner should any questions/concerns arise. Case discussed with collaborating physician Taylor Fernández who has reviewed the assessment/plan. Chart, medications, labs, and vital signs reviewed. Dictation completed with the use of [employer] voice recognition software, prone to medical misidentifications and grammatical errors. All errors are unintentional. Although the practitioner does try to identify and correct errors, some may be present. Please do not hesitate to contact the practitioner for clarification. 04/06/2024 Pulmonary nodule (ICD-10 - R91.1) Tae is an 83-year-old male with a PMH of A-fib on Eliquis, CVA, HTN, HLD that presents for continued cough. Patient with recent admission for Bordetella pertussis 03/11-03/13 with subsequent hospitalization at which time he was found to have right upper lobe pneumonia - discharged with 10-day course of Augmentin. #RUL PNA: Patient seen in office 03/25/2024 at which time he continued to struggle with symptoms of cough and mucus production. At that time, 6-day burst of prednisone and guaifenesin ER twice daily was added to the patient's regimen. The patient presents today having taking his first dose of prednisone yesterday with subsequent development of bright red rash on bilateral cheeks. At that time prednisone was discontinued and an Rx for guaifenesin with codeine was sent. Patient states he took this as prescribed x5 days and felt his symptoms were improving. Upon discontinuation of the medication he felt symptoms of productive cough and congestion worsened. Continues to experience persistent, intermittent cough productive of clear sputum. Also experiencing fatigue and loss of appetite. Weight down 6 pounds since time of hospital follow-up 03/25. On exam the patient is afebrile, O2 sat 97%. Patient coughs occasionally throughout exam. Lungs CTA bilaterally, no visible increased work of breathing. Plan to proceed with CMP, CBC, and chest x-ray for continued evaluation. Patient scheduled for CT of the chest to ensure resolution of pneumonia, however has not yet set an appointment. Will also send for guaifenesin with codeine 5 mL every 6 hours as needed for cough. Patient is educated on importance of proper dosing and side effects including but not limited to respiratory depression, hypotension, and dizziness. Considered alternative inhaler for persistent cough such as Trelegy, Spiriva, or Anoro Patient recently tried albuterol inhaler after which he developed an uncomfortable sensation in his throat. Patient hesitant to try alternative inhaler as he is concerned he may have an allergy. Per his daughter, scheduled to see pulmonology 04/17 for continued evaluation. Called and spoke with patient's HCP Crystal (daughter) recommending the patient go for chest x-ray and blood work. Given recent weight loss and decreased appetite recommending that the patient go to the emergency room for continued evaluation should he not be able to tolerate any food or water. #Pulmonary nodule CT scan obtained 03/18 reveals 5 mm pulmonary nodule at the posterior RLL. Recommending repeat imaging in 6 months to ensure stability. Patient establishing with pulmonology 04/17. #A-fib: Taking Eliquis 5 mg twice daily with compliance. Follows with Dr. Hunter annually. #HTN: Taking lisinopril 30 mg and metoprolol 25 mg daily with compliance. #History of CVA: No residual deficits. Continue atorvastatin 40 mg daily. #Mild anemia: Patient with history of mild anemia blood work obtained at time of ED visit 03/18/2024 reveals RBC 3.7, Hgb 11.1, Hct 33.8 - consistent with patient's baseline. Repeat CBC ordered. All questions answered to the patient's satisfaction. Patient demonstrates understanding of diagnosis and treatments discussed. Follow-up at next scheduled appointment, sooner should any questions/concerns arise. Case discussed with collaborating physician Taylor Fernández who has reviewed the assessment/plan. Chart, medications, labs, and vital signs reviewed. Dictation completed with the use of [employer] voice recognition software, prone to medical misidentifications and grammatical errors. All errors are unintentional. Although the practitioner does try to identify and correct errors, some may be present. Please do not hesitate to contact the practitioner for clarification. 03/27/2024 Atrial fibrillation, unspecified type (ICD-10 - I48.91) Tae is an 83-year-old male with a PMH of A-fib on Eliquis, CVA, HTN, HLD that presents for new rash. Patient with recent admission for Bordetella pertussis 03/11-03/13 with subsequent hospitalization at which time he was found to have right upper lobe pneumonia - discharged with 10-day course of Augmentin. #RUL PNA: Patient seen in office 03/25/2024 at which time he continued to struggle with symptoms of cough and mucus production. At that time, 6-day burst of prednisone and guaifenesin ER twice daily was added to the patient's regimen. The patient presents today having taking his first dose of prednisone yesterday with subsequent development of bright red rash on bilateral cheeks. On exam there is erythema of the bilateral cheeks. No edema of the face, lips, or mouth noted. Respiratory rate is normal and there is no visible increased work of breathing. Exam/vitals otherwise WNL. Recommended discontinuation of prednisone, patient is agreeable. Will also discontinue oral guaifenesin. Instead will try guaifenesin with codeine. Patient is educated on proper use/dosage and side effects including but not limited to respiratory depression, hypotension, and dizziness. As the patient's RUL pneumonia was not initially seen on XR and was isntead visible on CT -plan to repeat CT in 2 weeks to ensure resolution of pneumonia. Reviewed return to office/ED protocol. #Pulmonary nodule CT scan obtained 03/18 reveals 5 mm pulmonary nodule at the posterior RLL. Recommending repeat imaging in 6 months to ensure stability. #A-fib: Taking Eliquis 5 mg twice daily with compliance. Follows with Dr. Hunter annually. #HTN: Taking lisinopril 30 mg and metoprolol 25 mg daily with compliance. #History of CVA: No residual deficits. Continue atorvastatin 40 mg daily. #Mild anemia: Patient with history of mild anemia blood work obtained at time of ED visit 03/18/2024 reveals RBC 3.7, Hgb 11.1, Hct 33.8 - consistent with patient's baseline. All questions answered to the patient's satisfaction. Patient demonstrates understanding of diagnosis and treatments discussed. Follow-up at next scheduled appointment, sooner should any questions/concerns arise. Case discussed with collaborating physician Taylor Fernández who has reviewed the assessment/plan. Chart, medications, labs, and vital signs reviewed. Dictation completed with the use of [employer] voice recognition software, prone to medical misidentifications and grammatical errors. All errors are unintentional. Although the practitioner does try to identify and correct errors, some may be present. Please do not hesitate to contact the practitioner for clarification. 05/26/2024 Postnasal discharge (ICD-10 - R09.82) Tae is an 83-year-old male with a past medical history of recent bordetella pertussis with subseuqent hospitalization (03/2024) for right upper lobe pneumonia with resultant chronic cough, atrial fibrillation, on Eliquis, Cerebrovascular accident, hypertension, and hyperlipidemia presenting to the clinic for follow-up. #Recent RUL PNA/Chronic Cough: Patient admitted in March for Bordetella pertussis with subsequent hospitalization for RUL pneumonia. The patient was initially treated with azithromycin followed by a 10-day course of Augmentin without resolution of cough/symptoms. The patient tried and failed additional symptomatic treatments for persistent cough including benzonatate as needed, steroid burst, inhalers, and cough syrup with codeine. As his initial pneumonia could only be visualized on a CT, a repeat CT chest was ordered 04/09/24 which revealed persistent irregular densities that could represent persistent infection. The patient was started on a 10-day course of doxycycline 100 mg twice daily at that time with moderate improvement. Furthermore the patient was seen by pulmonology 04/17 at which time it was recommended that his lisinopril be switched to losartan due to concern for TANYA induced cough. Pulmonology also initiated therapy with ipratropium nasal spray and a Qvar RediHaler to treat symptoms of cough/postnasal drip. The patient used ipratropium nasal spray twice before throwing it away due to a nosebleed. He uses the inhaler as prescribed with resolution of SOB. Will send additional Rx for ipratropium nasal spray. Recommending use in conjunction saline nasal spray, additionally recommending a mist humidifier to prevent nasal dryness. Patient due to follow-up with pulmonology in the next week, next office visit 05/26. On 05/26/2024, the patient continues to use ipratropium nasal spray, isalastine nasal spray, and Qvar RediHaler, but endorses continued sputum production, described as clear. Discussed trialing guaifenesin 600 mg to help with symptom of sputum production. Patient agreed trialing medication. Also discussed the idea of trialing allergy medications as on physical exam, it appears that he is experiencing post-nasal drip and sputum being clear. Will follow up in 3 months. #Pulmonary nodule CT scan obtained 03/18 reveals 5 mm pulmonary nodule at the posterior RLL. Recommending repeat imaging in 6 months to ensure stability. Patient establishing with pulmonology 04/17. #A-fib: Taking Eliquis 5 mg twice daily with compliance. Follows with Dr. Hunter annually. Endorses that he has had episode of a-fib, lasting about 8 hours, about 1 week ago. 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 #HTN: Patient recently switched from lisinopril to losartan due to concern for TANYA induced cough. BP controlled at 140/70. Continue losartan 25 mg daily and metoprolol 25 mg daily. #History of CVA: No residual deficits. Continue atorvastatin 40 mg daily. #Mild anemia: Patient with history of mild anemia blood work obtained at time of ED visit 03/18/2024 reveals RBC 3.7, Hgb 11.1, Hct 33.8 - consistent with patient's baseline. Repeat CBC shows mild improvement with RBC at 3.9, hemoglobin/hematocri t 11.6/35.9. All questions answered to the patient's satisfaction. Patient demonstrates understanding of diagnosis and treatments discussed. Follow-up at next scheduled appointment, sooner should any questions/concerns arise. Case discussed with collaborating physician Leilani Fernández who has reviewed the assessment/plan. Chart, medications, labs, and vital signs reviewed. Dictation completed with the use of [employer] voice recognition software, prone to medical misidentifications and grammatical errors. All errors are unintentional. Although the practitioner does try to identify and correct errors, some may be present. Please do not hesitate to contact the practitioner for clarification. 06/18/2024 Hyperlipidemia, unspecified (ICD-10 [...] Dictation was accomplished with the use of [employer] voice recognition software, which is prone to medical misidentifications and grammatical errors. This are unintentional and the practitioner does try to identify and correct these, but some could still be present. Please do not hesitate to contact practitioner for clarification. 05/07/2024 Pulmonary nodule (ICD-10 - R91.1) Tae is an 83-year-old male with a PMH of A-fib on Eliquis, CVA, HTN, HLD that presents for follow-up. Patient with history of recent Bordetella pneumonia with resultant chronic cough. #Recent RUL PNA/Chronic Cough: Patient admitted in March for Bordetella pertussis with subsequent hospitalization for RUL pneumonia. The patient was initially treated with azithromycin followed by a 10-day course of Augmentin without resolution of cough/symptoms. The patient tried and failed additional symptomatic treatments for persistent cough including benzonatate as needed, steroid burst, inhalers, and cough syrup with codeine. As his initial pneumonia could only be visualized on a CT, a repeat CT chest was ordered 04/09/24 which revealed persistent irregular densities that could represent persistent infection. The patient was started on a 10-day course of doxycycline 100 mg twice daily at that time with moderate improvement. Furthermore the patient was seen by pulmonology 04/17 at which time it was recommended that his lisinopril be switched to losartan due to concern for TANYA induced cough. Pulmonology also initiated therapy with ipratropium nasal spray and a Qvar RediHaler to treat symptoms of cough/postnasal drip. The patient used ipratropium nasal spray twice before throwing it away due to a nosebleed. He uses the inhaler as prescribed with resolution of SOB. Will send additional Rx for ipratropium nasal spray. Recommending use in conjunction saline nasal spray, additionally recommending a mist humidifier to prevent nasal dryness. Patient due to follow-up with pulmonology in the next week, next office visit 05/26. #Pulmonary nodule CT scan obtained 03/18 reveals 5 mm pulmonary nodule at the posterior RLL. Recommending repeat imaging in 6 months to ensure stability. Patient establishing with pulmonology 04/17. #A-fib: Taking Eliquis 5 mg twice daily with compliance. Follows with Dr. Hunter annually. #HTN: Patient recently switched from lisinopril to losartan due to concern for TANYA induced cough. BP controlled at 140/70. Continue losartan 25 mg daily and metoprolol 25 mg daily. #History of CVA: No residual deficits. Continue atorvastatin 40 mg daily. #Mild anemia: Patient with history of mild anemia blood work obtained at time of ED visit 03/18/2024 reveals RBC 3.7, Hgb 11.1, Hct 33.8 - consistent with patient's baseline. Repeat CBC shows mild improvement with RBC at 3.9, hemoglobin/hematocri t 11.6/35.9. All questions answered to the patient's satisfaction. Patient demonstrates understanding of diagnosis and treatments discussed. Follow-up at next scheduled appointment, sooner should any questions/concerns arise. Case discussed with collaborating physician Leilani Fernández who has reviewed the assessment/plan. Chart, medications, labs, and vital signs reviewed. Dictation completed with the use of [employer] voice recognition software, prone to medical misidentifications and grammatical errors. All errors are unintentional. Although the practitioner does try to identify and correct errors, some may be present. Please do not hesitate to contact the practitioner for clarification. 06/18/2024 Essential hypertension (ICD-10 [...] Dictation was accomplished with the use of [employer] voice recognition software, which is prone to medical misidentifications and grammatical errors. This are unintentional and the practitioner does try to identify and correct these, but some could still be present. Please do not hesitate to contact practitioner for clarification. 05/07/2024 Atrial fibrillation, unspecified type (ICD-10 - I48.91) Tae is an 83-year-old male with a PMH of A-fib on Eliquis, CVA, HTN, HLD that presents for follow-up. Patient with history of recent Bordetella pneumonia with resultant chronic cough. #Recent RUL PNA/Chronic Cough: Patient admitted in March for Bordetella pertussis with subsequent hospitalization for RUL pneumonia. The patient was initially treated with azithromycin followed by a 10-day course of Augmentin without resolution of cough/symptoms. The patient tried and failed additional symptomatic treatments for persistent cough including benzonatate as needed, steroid burst, inhalers, and cough syrup with codeine. As his initial pneumonia could only be visualized on a CT, a repeat CT chest was ordered 04/09/24 which revealed persistent irregular densities that could represent persistent infection. The patient was started on a 10-day course of doxycycline 100 mg twice daily at that time with moderate improvement. Furthermore the patient was seen by pulmonology 04/17 at which time it was recommended that his lisinopril be switched to losartan due to concern for TANYA induced cough. Pulmonology also initiated therapy with ipratropium nasal spray and a Qvar RediHaler to treat symptoms of cough/postnasal drip. The patient used ipratropium nasal spray twice before throwing it away due to a nosebleed. He uses the inhaler as prescribed with resolution of SOB. Will send additional Rx for ipratropium nasal spray. Recommending use in conjunction saline nasal spray, additionally recommending a mist humidifier to prevent nasal dryness. Patient due to follow-up with pulmonology in the next week, next office visit 05/26. #Pulmonary nodule CT scan obtained 03/18 reveals 5 mm pulmonary nodule at the posterior RLL. Recommending repeat imaging in 6 months to ensure stability. Patient establishing with pulmonology 04/17. #A-fib: Taking Eliquis 5 mg twice daily with compliance. Follows with Dr. Hunter annually. #HTN: Patient recently switched from lisinopril to losartan due to concern for TANYA induced cough. BP controlled at 140/70. Continue losartan 25 mg daily and metoprolol 25 mg daily. #History of CVA: No residual deficits. Continue atorvastatin 40 mg daily. #Mild anemia: Patient with history of mild anemia blood work obtained at time of ED visit 03/18/2024 reveals RBC 3.7, Hgb 11.1, Hct 33.8 - consistent with patient's baseline. Repeat CBC shows mild improvement with RBC at 3.9, hemoglobin/hematocri t 11.6/35.9. All questions answered to the patient's satisfaction. Patient demonstrates understanding of diagnosis and treatments discussed. Follow-up at next scheduled appointment, sooner should any questions/concerns arise. Case discussed with collaborating physician Leilani Fernández who has reviewed the assessment/plan. Chart, medications, labs, and vital signs reviewed. Dictation completed with the use of [employer] voice recognition software, prone to medical misidentifications and grammatical errors. All errors are unintentional. Although the practitioner does try to identify and correct errors, some may be present. Please do not hesitate to contact the practitioner for clarification. 04/06/2024 Atrial fibrillation, unspecified type (ICD-10 - I48.91) Tae is an 83-year-old male with a PMH of A-fib on Eliquis, CVA, HTN, HLD that presents for continued cough. Patient with recent admission for Bordetella pertussis 03/11-03/13 with subsequent hospitalization at which time he was found to have right upper lobe pneumonia - discharged with 10-day course of Augmentin. #RUL PNA: Patient seen in office 03/25/2024 at which time he continued to struggle with symptoms of cough and mucus production. At that time, 6-day burst of prednisone and guaifenesin ER twice daily was added to the patient's regimen. The patient presents today having taking his first dose of prednisone yesterday with subsequent development of bright red rash on bilateral cheeks. At that time prednisone was discontinued and an Rx for guaifenesin with codeine was sent. Patient states he took this as prescribed x5 days and felt his symptoms were improving. Upon discontinuation of the medication he felt symptoms of productive cough and congestion worsened. Continues to experience persistent, intermittent cough productive of clear sputum. Also experiencing fatigue and loss of appetite. Weight down 6 pounds since time of hospital follow-up 03/25. On exam the patient is afebrile, O2 sat 97%. Patient coughs occasionally throughout exam. Lungs CTA bilaterally, no visible increased work of breathing. Plan to proceed with CMP, CBC, and chest x-ray for continued evaluation. Patient scheduled for CT of the chest to ensure resolution of pneumonia, however has not yet set an appointment. Will also send for guaifenesin with codeine 5 mL every 6 hours as needed for cough. Patient is educated on importance of proper dosing and side effects including but not limited to respiratory depression, hypotension, and dizziness. Considered alternative inhaler for persistent cough such as Trelegy, Spiriva, or Anoro Patient recently tried albuterol inhaler after which he developed an uncomfortable sensation in his throat. Patient hesitant to try alternative inhaler as he is concerned he may have an allergy. Per his daughter, scheduled to see pulmonology 04/17 for continued evaluation. Called and spoke with patient's HCP Crystal (daughter) recommending the patient go for chest x-ray and blood work. Given recent weight loss and decreased appetite recommending that the patient go to the emergency room for continued evaluation should he not be able to tolerate any food or water. #Pulmonary nodule CT scan obtained 03/18 reveals 5 mm pulmonary nodule at the posterior RLL. Recommending repeat imaging in 6 months to ensure stability. Patient establishing with pulmonology 04/17. #A-fib: Taking Eliquis 5 mg twice daily with compliance. Follows with Dr. Hunter annually. #HTN: Taking lisinopril 30 mg and metoprolol 25 mg daily with compliance. #History of CVA: No residual deficits. Continue atorvastatin 40 mg daily. #Mild anemia: Patient with history of mild anemia blood work obtained at time of ED visit 03/18/2024 reveals RBC 3.7, Hgb 11.1, Hct 33.8 - consistent with patient's baseline. Repeat CBC ordered. All questions answered to the patient's satisfaction. Patient demonstrates understanding of diagnosis and treatments discussed. Follow-up at next scheduled appointment, sooner should any questions/concerns arise. Case discussed with collaborating physician Taylor Fernández who has reviewed the assessment/plan. Chart, medications, labs, and vital signs reviewed. Dictation completed with the use of [employer] voice recognition software, prone to medical misidentifications and grammatical errors. All errors are unintentional. Although the practitioner does try to identify and correct errors, some may be present. Please do not hesitate to contact the practitioner for clarification. 03/27/2024 Essential hypertension (ICD-10 - I10) Tae is an 83-year-old male with a PMH of A-fib on Eliquis, CVA, HTN, HLD that presents for new rash. Patient with recent admission for Bordetella pertussis 03/11-03/13 with subsequent hospitalization at which time he was found to have right upper lobe pneumonia - discharged with 10-day course of Augmentin. #RUL PNA: Patient seen in office 03/25/2024 at which time he continued to struggle with symptoms of cough and mucus production. At that time, 6-day burst of prednisone and guaifenesin ER twice daily was added to the patient's regimen. The patient presents today having taking his first dose of prednisone yesterday with subsequent development of bright red rash on bilateral cheeks. On exam there is erythema of the bilateral cheeks. No edema of the face, lips, or mouth noted. Respiratory rate is normal and there is no visible increased work of breathing. Exam/vitals otherwise WNL. Recommended discontinuation of prednisone, patient is agreeable. Will also discontinue oral guaifenesin. Instead will try guaifenesin with codeine. Patient is educated on proper use/dosage and side effects including but not limited to respiratory depression, hypotension, and dizziness. As the patient's RUL pneumonia was not initially seen on XR and was isntead visible on CT -plan to repeat CT in 2 weeks to ensure resolution of pneumonia. Reviewed return to office/ED protocol. #Pulmonary nodule CT scan obtained 03/18 reveals 5 mm pulmonary nodule at the posterior RLL. Recommending repeat imaging in 6 months to ensure stability. #A-fib: Taking Eliquis 5 mg twice daily with compliance. Follows with Dr. Hunter annually. #HTN: Taking lisinopril 30 mg and metoprolol 25 mg daily with compliance. #History of CVA: No residual deficits. Continue atorvastatin 40 mg daily. #Mild anemia: Patient with history of mild anemia blood work obtained at time of ED visit 03/18/2024 reveals RBC 3.7, Hgb 11.1, Hct 33.8 - consistent with patient's baseline. All questions answered to the patient's satisfaction. Patient demonstrates understanding of diagnosis and treatments discussed. Follow-up at next scheduled appointment, sooner should any questions/concerns arise. Case discussed with collaborating physician Taylor Fernández who has reviewed the assessment/plan. Chart, medications, labs, and vital signs reviewed. Dictation completed with the use of [employer] voice recognition software, prone to medical misidentifications and grammatical errors. All errors are unintentional. Although the practitioner does try to identify and correct errors, some may be present. Please do not hesitate to contact the practitioner for clarification. 01/21/2024 Anemia (ICD-10 - D64.9) # AFib. Followed by Dr. Hunter. Saw last Fall 2022. Sees yearly. No SOB/dizziness. Hx of prostate ca. PSA neg. Followed up urology 09/23/23 # HTN. Increased Lisinopril from 20 mg to 30 mg po daily. Continue Metoprolol 25 mg po daily. # Rectal bleeding:Resolved. # CVA. Hx of. No residual deficits. On statin/ASA # Mild anemia. ? due to mild stool. Stool occult blood will be checked. Last colonscopy 2017- normal # Vaccines: Getting second shingles Fall 2023 # Screenings: UTD Physical Men Patient seen and examined. Comprehensive discussion was done on the following. 1. Nutrition: It is important to follow a healthy diet based on lots of vegetables and legumes and good fat. Avoid processed food and processed carbohydrates. Learn to prepare your own meals. Learn to read labels and avoid high fructose corn syrup, processed chemicals added to increase shelf life and preprepared meals. Avoid fast foods. Learn to eat slowly and plan meals for a week. Try to count calories and be mindful off daily calorie intake. Get into the habit of keeping an eye on your weight by using an appropriate scale. Learn to log exercise and discussed fitness Apps like [employer] which can help keep log off calories taken versus calories burned. Local food should be preferred. Discussed [employer] Vers[employer]. Discussed healthy supplements like fish oil, Tumeric, Curcumin, Melatonin, Resveratrol, Probiotics, Vitamin-D, Alpha-Lipoic acid, Vitamin-D and coconut oil. 2. It is important to exercise regularly. Is a good habit to walk at least 30-45 minutes a day. Gentle weightlifting with standard precautions to protect the back. Finding activity like cycling or hiking and get into the habit of engaging in it. Stretching before and after the exercises important. It is also important to contact me if there are any problems like shortness of breath, chest pain, back pain and joint or muscle pain associated with the exercise. 3. Discussed age appropriate screening guidelines. Colonoscopy needs to start at age 50 with stool for occult blood as appropriate. There is a new test that can test for genetic abnormalities in the stool sample. This would not replace a colonoscopy but could be used as a screening tool for patients who do not want a colonoscopy. We discussed the importance of early detection of colon cancer. 4. Discussed current PSA screening. PSA screening can be done in most patients between age 50 and 65. However early detection of prostate cancer needs to carefully be balanced with complications with treatment. These include incontinence, impotence etc. Each patient should decide if they would like to have this test. 5. Discussed safe driving and no use of smart phone while driving 6. Age-appropriate immunizations were discussed. A tetanus booster is needed every 10 years. Flu vaccine is recommended every year just before the start of the flu season. Shingles vaccine is recommended after age 50 but not all insurances cover it. Pneumonia vaccine is given after age 65 unless there are certain comorbidities for which it is started earlier. 7. Diagnostic labs were discussed. These could include CBC CMP and lipids with fasting blood glucose and insulin levels. Vitamin D and hemoglobin A1c testing might be appropriate. Case discussed with collaborating physician Sourav Fernández who reviewed the assessment and plan. Chart, medications, labs, vital signs reviewed. Dictation was accomplished with the use of [employer] voice recognition software, prone to medical misidentifications and grammatical errors. This is unintentional and the practitioner does try to identify and correct these, but some could still be present. Please do not hesitate to contact practitioner for clarification. All quetsions answered to patients satisfaction. Patient verbalized understanding of diagnosis and treatments explained. To call sooner prior to next visit it any questions/concerns arise. 03/25/2024 Essential hypertension (ICD-10 - I10) Tae is an 83-year-old male with a PMH of A-fib on Eliquis, CVA, HTN, HLD that presents accompanied by his daughter Crystal for hospital follow-up. Patient struggling with productive cough over the last month or so. Presented to the emergency department 03/11 at which time PCR was positive for Bordetella pertussis and lab work was significant for mild leukocytosis and SAUL. The patient was admitted treated with azithromycin and IV fluids with resultant discharge 03/13. The patient again presented to [facility] ED 03/18 for worsening of symptoms. At which time he was found to have right upper lobe pneumonia. #Right upper lobe pneumonia: Patient with [facility] admission 03/11 to 03/13 at which time he was found to have infection with Bordetella pertussis and mild SAUL. Treated with IV fluids and azithromycin. Patient presented again to [facility] ED for worsening symptoms at which time CT revealed minimal pulmonary nodule or infiltrate at the base of the right upper lobe suggesting infectious process. The patient was discharged with a 10-day course of Augmentin and Tessalon Perles as needed for cough. The patient presents today with continued symptoms, although improved. He continues to cough frequently which is making sleep difficult. His most bothersome symptom is mucus production. The patient is educated to finish complete course of antibiotics. Will send burst of prednisone with goal of helping suppress cough. Will also send guaifenesin 600 mg twice daily. Patient is educated on proper use and side effects of medications. Reviewed return to office/ED protocol. #Pulmonary nodule CT scan obtained 03/18 reveals 5 mm pulmonary nodule at the posterior RLL. Recommending repeat imaging in 6 months to ensure stability. Patient's daughter Crystal accompanied him to visit today reports they are working to establish with operating room tech Dr. Hendrickson. #A-fib: Taking Eliquis 5 mg twice daily with compliance. Follows with Dr. Hunter annually. #HTN: Taking lisinopril 30 mg and metoprolol 25 mg daily with compliance. #History of CVA: No residual deficits. Continue atorvastatin 40 mg daily. #Mild anemia: Patient with history of mild anemia blood work obtained at time of ED visit 03/18/2024 reveals RBC 3.7, Hgb 11.1, Hct 33.8 - consistent with patient's baseline. #HCP: Reviewed healthcare proxy form, which is on file. The patient's daughter Crystal is the designated healthcare proxy and the preferred phone number for which she can be reached is [phone]. All questions answered to the patients satisfaction. Patient demonstrates understanding of diagnosis and treatments discussed. Follow-up at next scheduled appointment, sooner should any questions/concerns arise. Case discussed with collaborating physician Taylor Fernández who has reviewed the assessment/plan. Chart, medications, labs, and vital signs reviewed. Dictation completed with the use of [employer] voice recognition software, prone to medical misidentifications and grammatical errors. All errors are unintentional. Although the practitioner does try to identify and correct errors, some may be present. Please do not hesitate to contact the practitioner for clarification. 09/19/2023 Elevated lipids (ICD-10 - E78.5) # AFib. Followed by Dr. Hunter. Saw last Fall 2022. Sees yearly. No SOB/dizziness. Eliquis changed to Xarelto due to singular episode of BRBPR and hematuria # Hematuria, gross. Occured one time. Hx of prostate ca. PSA neg. Following up urology 09/23/23 # HTN. Increased Lisinopril from 20 mg to 30 mg po daily. Continue Metoprolol 25 mg po daily. # Rectal bleeding:Resolved. # CVA. Hx of. No residual deficits. On statin/ASA # Mild anemia. ? due to mild stool. Stool occult blood will be checked. Last colonscopy 2017- normal Case discussed with collaborating physician Sourav Fernández who reviewed the assessment and plan. Chart, medications, labs, vital signs reviewed. Dictation was accomplished with the use of [employer] voice recognition software, prone to medical misidentifications and grammatical errors. This is unintentional and the practitioner does try to identify and correct these, but some could still be present. Please do not hesitate to contact practitioner for clarification. All quetsions answered to patients satisfaction. Patient verbalized understanding of diagnosis and treatments explained. To call sooner prior to next visit it any questions/concerns arise. 10/25/2023 Elevated lipids (ICD-10 - E78.5) # AFib. Followed by Dr. Hunter. Saw last Fall 2022. Sees yearly. No SOB/dizziness. Will change back to Eliquis, lower dose to 2.5 mg BID to decrease bleeding risk. # Hematuria, gross. Occured one time. Hx of prostate ca. PSA neg. Followed up urology 09/23/23 # HTN. Increased Lisinopril from 20 mg to 30 mg po daily. Continue Metoprolol 25 mg po daily. # Rectal bleeding:Resolved. # CVA. Hx of. No residual deficits. On statin/ASA # Mild anemia. ? due to mild stool. Stool occult blood will be checked. Last colonscopy 2017- normal Case discussed with collaborating physician Sourav Fernández who reviewed the assessment and plan. Chart, medications, labs, vital signs reviewed. Dictation was accomplished with the use of [employer] voice recognition software, prone to medical misidentifications and grammatical errors. This is unintentional and the practitioner does try to identify and correct these, but some could still be present. Please do not hesitate to contact practitioner for clarification. All quetsions answered to patients satisfaction. Patient verbalized understanding of diagnosis and treatments explained. To call sooner prior to next visit it any questions/concerns arise. 08/29/2023 Annual physical exam (ICD-10 - Z00.00) Plan for hematuria: Obtain UA for anaylsis and culture to assess for urinary infection. Less likely UTI in the absence of fevers/chills/discom fort Obtain routine bloodwork today in the office. Discontinue Eliquis completely for one week. It is possible that his current Eliquis dose is too high for him. Follow-up in one week for reassessment of symptoms & to revisit plan for Eliquis. Place referral for urology for work-up in the setting of history of prostate cancer and smoking history. 09/04/2023 Cerebrovascular accident (CVA), unspecified mechanism (ICD-10 - I63.9) Hematuria has resolved since discontinuation of Eliquis one week ago. Reviewed blood work with Tae, noting that the UA had gross blood, and CBC showed normocytic anemia Tae will likely benefit better from Xarelto instead of Eliquis Plam to start Xarelto once a day. He will let me know if insurance does not cover the medication Discussed in detail the risks of starting a new anticoagulating medication, which includes but is not limited to bleeding. He has urology appt on September 22 & I recommend he consult with them. Follow up with me in 1 month. 09/19/2023 Vitamin D deficiency (ICD-10 - E55.9) # AFib. Followed by Dr. Hunter. Saw last Fall 2022. Sees yearly. No SOB/dizziness. Eliquis changed to Xarelto due to singular episode of BRBPR and hematuria # Hematuria, gross. Occured one time. Hx of prostate ca. PSA neg. Following up urology 09/23/23 # HTN. Increased Lisinopril from 20 mg to 30 mg po daily. Continue Metoprolol 25 mg po daily. # Rectal bleeding:Resolved. # CVA. Hx of. No residual deficits. On statin/ASA # Mild anemia. ? due to mild stool. Stool occult blood will be checked. Last colonscopy 2017- normal Case discussed with collaborating physician Sourav Fernández who reviewed the assessment and plan. Chart, medications, labs, vital signs reviewed. Dictation was accomplished with the use of [employer] voice recognition software, prone to medical misidentifications and grammatical errors. This is unintentional and the practitioner does try to identify and correct these, but some could still be present. Please do not hesitate to contact practitioner for clarification. All quetsions answered to patients satisfaction. Patient verbalized understanding of diagnosis and treatments explained. To call sooner prior to next visit it any questions/concerns arise. 08/29/2023 Prostate cancer (ICD-10 - C61) Plan for hematuria: Obtain UA for anaylsis and culture to assess for urinary infection. Less likely UTI in the absence of fevers/chills/discom fort Obtain routine bloodwork today in the office. Discontinue Eliquis completely for one week. It is possible that his current Eliquis dose is too high for him. Follow-up in one week for reassessment of symptoms & to revisit plan for Eliquis. Place referral for urology for work-up in the setting of history of prostate cancer and smoking history. 10/25/2023 Vitamin D deficiency (ICD-10 - E55.9) # AFib. Followed by Dr. Hunter. Saw last Fall 2022. Sees yearly. No SOB/dizziness. Will change back to Eliquis, lower dose to 2.5 mg BID to decrease bleeding risk. # Hematuria, gross. Occured one time. Hx of prostate ca. PSA neg. Followed up urology 09/23/23 # HTN. Increased Lisinopril from 20 mg to 30 mg po daily. Continue Metoprolol 25 mg po daily. # Rectal bleeding:Resolved. # CVA. Hx of. No residual deficits. On statin/ASA # Mild anemia. ? due to mild stool. Stool occult blood will be checked. Last colonscopy 2016- normal Case discussed with collaborating physician Sourav Fernández who reviewed the assessment and plan. Chart, medications, labs, vital signs reviewed. Dictation was accomplished with the use of [employer] voice recognition software, prone to medical misidentifications and grammatical errors. This is unintentional and the practitioner does try to identify and correct these, but some could still be present. Please do not hesitate to contact practitioner for clarification. All quetsions answered to patients satisfaction. Patient verbalized understanding of diagnosis and treatments explained. To call sooner prior to next visit it any questions/concerns arise. 01/21/2024 Elevated lipids (ICD-10 - E78.5) # AFib. Followed by Dr. Hunter. Saw last Fall 2022. Sees yearly. No SOB/dizziness. Hx of prostate ca. PSA neg. Followed up urology 09/23/23 # HTN. Increased Lisinopril from 20 mg to 30 mg po daily. Continue Metoprolol 25 mg po daily. # Rectal bleeding:Resolved. # CVA. Hx of. No residual deficits. On statin/ASA # Mild anemia. ? due to mild stool. Stool occult blood will be checked. Last colonscopy 2017- normal # Vaccines: Getting second shingles Fall 2023 # Screenings: UTD Physical Men Patient seen and examined. Comprehensive discussion was done on the following. 1. Nutrition: It is important to follow a healthy diet based on lots of vegetables and legumes and good fat. Avoid processed food and processed carbohydrates. Learn to prepare your own meals. Learn to read labels and avoid high fructose corn syrup, processed chemicals added to increase shelf life and preprepared meals. Avoid fast foods. Learn to eat slowly and plan meals for a week. Try to count calories and be mindful off daily calorie intake. Get into the habit of keeping an eye on your weight by using an appropriate scale. Learn to log exercise and discussed fitness Apps like [employer] which can help keep log off calories taken versus calories burned. Local food should be preferred. Discussed [employer] Versus [employer] Fifteen. Discussed healthy supplements like fish oil, Tumeric, Curcumin, Melatonin, Resveratrol, Probiotics, Vitamin-D, Alpha-Lipoic acid, Vitamin-D and coconut oil. 2. It is important to exercise regularly. Is a good habit to walk at least 30-45 minutes a day. Gentle weightlifting with standard precautions to protect the back. Finding activity like cycling or hiking and get into the habit of engaging in it. Stretching before and after the exercises important. It is also important to contact me if there are any problems like shortness of breath, chest pain, back pain and joint or muscle pain associated with the exercise. 3. Discussed age appropriate screening guidelines. Colonoscopy needs to start at age 50 with stool for occult blood as appropriate. There is a new test that can test for genetic abnormalities in the stool sample. This would not replace a colonoscopy but could be used as a screening tool for patients who do not want a colonoscopy. We discussed the importance of early detection of colon cancer. 4. Discussed current PSA screening. PSA screening can be done in most patients between age 50 and 65. However early detection of prostate cancer needs to carefully be balanced with complications with treatment. These include incontinence, impotence etc. Each patient should decide if they would like to have this test. 5. Discussed safe driving and no use of smart phone while driving 6. Age-appropriate immunizations were discussed. A tetanus booster is needed every 10 years. Flu vaccine is recommended every year just before the start of the flu season. Shingles vaccine is recommended after age 50 but not all insurances cover it. Pneumonia vaccine is given after age 65 unless there are certain comorbidities for which it is started earlier. 7. Diagnostic labs were discussed. These could include CBC CMP and lipids with fasting blood glucose and insulin levels. Vitamin D and hemoglobin A1c testing might be appropriate. Case discussed with collaborating physician Sourav Fernández who reviewed the assessment and plan. Chart, medications, labs, vital signs reviewed. Dictation was accomplished with the use of [employer] voice recognition software, prone to medical misidentifications and grammatical errors. This is unintentional and the practitioner does try to identify and correct these, but some could still be present. Please do not hesitate to contact practitioner for clarification. All quetsions answered to patients satisfaction. Patient verbalized understanding of diagnosis and treatments explained. To call sooner prior to next visit it any questions/concerns arise. 03/27/2024 History of CVA (cerebrovascular accident) (ICD-10 - Z86.73) Tae is an 83-year-old male with a PMH of A-fib on Eliquis, CVA, HTN, HLD that presents for new rash. Patient with recent admission for Bordetella pertussis 03/11-03/13 with subsequent hospitalization at which time he was found to have right upper lobe pneumonia - discharged with 10-day course of Augmentin. #RUL PNA: Patient seen in office 03/25/2024 at which time he continued to struggle with symptoms of cough and mucus production. At that time, 6-day burst of prednisone and guaifenesin ER twice daily was added to the patient's regimen. The patient presents today having taking his first dose of prednisone yesterday with subsequent development of bright red rash on bilateral cheeks. On exam there is erythema of the bilateral cheeks. No edema of the face, lips, or mouth noted. Respiratory rate is normal and there is no visible increased work of breathing. Exam/vitals otherwise WNL. Recommended discontinuation of prednisone, patient is agreeable. Will also discontinue oral guaifenesin. Instead will try guaifenesin with codeine. Patient is educated on proper use/dosage and side effects including but not limited to respiratory depression, hypotension, and dizziness. As the patient's RUL pneumonia was not initially seen on XR and was isntead visible on CT -plan to repeat CT in 2 weeks to ensure resolution of pneumonia. Reviewed return to office/ED protocol. #Pulmonary nodule CT scan obtained 03/18 reveals 5 mm pulmonary nodule at the posterior RLL. Recommending repeat imaging in 6 months to ensure stability. #A-fib: Taking Eliquis 5 mg twice daily with compliance. Follows with Dr. Hunter annually. #HTN: Taking lisinopril 30 mg and metoprolol 25 mg daily with compliance. #History of CVA: No residual deficits. Continue atorvastatin 40 mg daily. #Mild anemia: Patient with history of mild anemia blood work obtained at time of ED visit 03/18/2024 reveals RBC 3.7, Hgb 11.1, Hct 33.8 - consistent with patient's baseline. All questions answered to the patient's satisfaction. Patient demonstrates understanding of diagnosis and treatments discussed. Follow-up at next scheduled appointment, sooner should any questions/concerns arise. Case discussed with collaborating physician Taylor Fernández who has reviewed the assessment/plan. Chart, medications, labs, and vital signs reviewed. Dictation completed with the use of [employer] voice recognition software, prone to medical misidentifications and grammatical errors. All errors are unintentional. Although the practitioner does try to identify and correct errors, some may be present. Please do not hesitate to contact the practitioner for clarification. 03/25/2024 History of CVA (cerebrovascular accident) (ICD-10 - Z86.73) Tae is an 83-year-old male with a PMH of A-fib on Eliquis, CVA, HTN, HLD that presents accompanied by his daughter Crystal for hospital follow-up. Patient struggling with productive cough over the last month or so. Presented to the emergency department 03/11 at which time PCR was positive for Bordetella pertussis and lab work was significant for mild leukocytosis and SAUL. The patient was admitted treated with azithromycin and IV fluids with resultant discharge 03/13. The patient again presented to [facility] ED 03/18 for worsening of symptoms. At which time he was found to have right upper lobe pneumonia. #Right upper lobe pneumonia: Patient with [facility] admission 03/11 to 03/13 at which time he was found to have infection with Bordetella pertussis and mild SAUL. Treated with IV fluids and azithromycin. Patient presented again to [facility] ED for worsening symptoms at which time CT revealed minimal pulmonary nodule or infiltrate at the base of the right upper lobe suggesting infectious process. The patient was discharged with a 10-day course of Augmentin and Tessalon Perles as needed for cough. The patient presents today with continued symptoms, although improved. He continues to cough frequently which is making sleep difficult. His most bothersome symptom is mucus production. The patient is educated to finish complete course of antibiotics. Will send burst of prednisone with goal of helping suppress cough. Will also send guaifenesin 600 mg twice daily. Patient is educated on proper use and side effects of medications. Reviewed return to office/ED protocol. #Pulmonary nodule CT scan obtained 03/18 reveals 5 mm pulmonary nodule at the posterior RLL. Recommending repeat imaging in 6 months to ensure stability. Patient's daughter Crystal accompanied him to visit today reports they are working to establish with operating room tech Dr. Hendrickson. #A-fib: Taking Eliquis 5 mg twice daily with compliance. Follows with Dr. Hunter annually. #HTN: Taking lisinopril 30 mg and metoprolol 25 mg daily with compliance. #History of CVA: No residual deficits. Continue atorvastatin 40 mg daily. #Mild anemia: Patient with history of mild anemia blood work obtained at time of ED visit 03/18/2024 reveals RBC 3.7, Hgb 11.1, Hct 33.8 - consistent with patient's baseline. #HCP: Reviewed healthcare proxy form, which is on file. The patient's daughter Crystal is the designated healthcare proxy and the preferred phone number for which she can be reached is [phone]. All questions answered to the patients satisfaction. Patient demonstrates understanding of diagnosis and treatments discussed. Follow-up at next scheduled appointment, sooner should any questions/concerns arise. Case discussed with collaborating physician Taylor Fernández who has reviewed the assessment/plan. Chart, medications, labs, and vital signs reviewed. Dictation completed with the use of [employer] voice recognition software, prone to medical misidentifications and grammatical errors. All errors are unintentional. Although the practitioner does try to identify and correct errors, some may be present. Please do not hesitate to contact the practitioner for clarification. 04/06/2024 Essential hypertension (ICD-10 - I10) Tae is an 83-year-old male with a PMH of A-fib on Eliquis, CVA, HTN, HLD that presents for continued cough. Patient with recent admission for Bordetella pertussis 03/11-03/13 with subsequent hospitalization at which time he was found to have right upper lobe pneumonia - discharged with 10-day course of Augmentin. #RUL PNA: Patient seen in office 03/25/2024 at which time he continued to struggle with symptoms of cough and mucus production. At that time, 6-day burst of prednisone and guaifenesin ER twice daily was added to the patient's regimen. The patient presents today having taking his first dose of prednisone yesterday with subsequent development of bright red rash on bilateral cheeks. At that time prednisone was discontinued and an Rx for guaifenesin with codeine was sent. Patient states he took this as prescribed x5 days and felt his symptoms were improving. Upon discontinuation of the medication he felt symptoms of productive cough and congestion worsened. Continues to experience persistent, intermittent cough productive of clear sputum. Also experiencing fatigue and loss of appetite. Weight down 6 pounds since time of hospital follow-up 03/25. On exam the patient is afebrile, O2 sat 97%. Patient coughs occasionally throughout exam. Lungs CTA bilaterally, no visible increased work of breathing. Plan to proceed with CMP, CBC, and chest x-ray for continued evaluation. Patient scheduled for CT of the chest to ensure resolution of pneumonia, however has not yet set an appointment. Will also send for guaifenesin with codeine 5 mL every 6 hours as needed for cough. Patient is educated on importance of proper dosing and side effects including but not limited to respiratory depression, hypotension, and dizziness. Considered alternative inhaler for persistent cough such as Trelegy, Spiriva, or Anoro Patient recently tried albuterol inhaler after which he developed an uncomfortable sensation in his throat. Patient hesitant to try alternative inhaler as he is concerned he may have an allergy. Per his daughter, scheduled to see pulmonology 04/17 for continued evaluation. Called and spoke with patient's HCP Crystal (daughter) recommending the patient go for chest x-ray and blood work. Given recent weight loss and decreased appetite recommending that the patient go to the emergency room for continued evaluation should he not be able to tolerate any food or water. #Pulmonary nodule CT scan obtained 03/18 reveals 5 mm pulmonary nodule at the posterior RLL. Recommending repeat imaging in 6 months to ensure stability. Patient establishing with pulmonology 04/17. #A-fib: Taking Eliquis 5 mg twice daily with compliance. Follows with Dr. Hunter annually. #HTN: Taking lisinopril 30 mg and metoprolol 25 mg daily with compliance. #History of CVA: No residual deficits. Continue atorvastatin 40 mg daily. #Mild anemia: Patient with history of mild anemia blood work obtained at time of ED visit 03/18/2024 reveals RBC 3.7, Hgb 11.1, Hct 33.8 - consistent with patient's baseline. Repeat CBC ordered. All questions answered to the patient's satisfaction. Patient demonstrates understanding of diagnosis and treatments discussed. Follow-up at next scheduled appointment, sooner should any questions/concerns arise. Case discussed with collaborating physician Taylor Fernández who has reviewed the assessment/plan. Chart, medications, labs, and vital signs reviewed. Dictation completed with the use of [employer] voice recognition software, prone to medical misidentifications and grammatical errors. All errors are unintentional. Although the practitioner does try to identify and correct errors, some may be present. Please do not hesitate to contact the practitioner for clarification. 06/18/2024 Atrial fibrillation, unspecified [...] Dictation was accomplished with the use of [employer] voice recognition software, which is prone to medical misidentifications and grammatical errors. This are unintentional and the practitioner does try to identify and correct these, but some could still be present. Please do not hesitate to contact practitioner for clarification. 05/07/2024 Essential hypertension (ICD-10 - I10) Tae is an 83-year-old male with a PMH of A-fib on Eliquis, CVA, HTN, HLD that presents for follow-up. Patient with history of recent Bordetella pneumonia with resultant chronic cough. #Recent RUL PNA/Chronic Cough: Patient admitted in March for Bordetella pertussis with subsequent hospitalization for RUL pneumonia. The patient was initially treated with azithromycin followed by a 10-day course of Augmentin without resolution of cough/symptoms. The patient tried and failed additional symptomatic treatments for persistent cough including benzonatate as needed, steroid burst, inhalers, and cough syrup with codeine. As his initial pneumonia could only be visualized on a CT, a repeat CT chest was ordered 04/09/24 which revealed persistent irregular densities that could represent persistent infection. The patient was started on a 10-day course of doxycycline 100 mg twice daily at that time with moderate improvement. Furthermore the patient was seen by pulmonology 04/17 at which time it was recommended that his lisinopril be switched to losartan due to concern for TANYA induced cough. Pulmonology also initiated therapy with ipratropium nasal spray and a Qvar RediHaler to treat symptoms of cough/postnasal drip. The patient used ipratropium nasal spray twice before throwing it away due to a nosebleed. He uses the inhaler as prescribed with resolution of SOB. Will send additional Rx for ipratropium nasal spray. Recommending use in conjunction saline nasal spray, additionally recommending a mist humidifier to prevent nasal dryness. Patient due to follow-up with pulmonology in the next week, next office visit 05/26. #Pulmonary nodule CT scan obtained 03/18 reveals 5 mm pulmonary nodule at the posterior RLL. Recommending repeat imaging in 6 months to ensure stability. Patient establishing with pulmonology 04/17. #A-fib: Taking Eliquis 5 mg twice daily with compliance. Follows with Dr. Hunter annually. #HTN: Patient recently switched from lisinopril to losartan due to concern for TANYA induced cough. BP controlled at 140/70. Continue losartan 25 mg daily and metoprolol 25 mg daily. #History of CVA: No residual deficits. Continue atorvastatin 40 mg daily. #Mild anemia: Patient with history of mild anemia blood work obtained at time of ED visit 03/18/2024 reveals RBC 3.7, Hgb 11.1, Hct 33.8 - consistent with patient's baseline. Repeat CBC shows mild improvement with RBC at 3.9, hemoglobin/hematocri t 11.6/35.9. All questions answered to the patient's satisfaction. Patient demonstrates understanding of diagnosis and treatments discussed. Follow-up at next scheduled appointment, sooner should any questions/concerns arise. Case discussed with collaborating physician Leilani Fernández who has reviewed the assessment/plan. Chart, medications, labs, and vital signs reviewed. Dictation completed with the use of [employer] voice recognition software, prone to medical misidentifications and grammatical errors. All errors are unintentional. Although the practitioner does try to identify and correct errors, some may be present. Please do not hesitate to contact the practitioner for clarification. 05/07/2024 History of CVA (cerebrovascular accident) (ICD-10 - Z86.73) Tae is an 83-year-old male with a PMH of A-fib on Eliquis, CVA, HTN, HLD that presents for follow-up. Patient with history of recent Bordetella pneumonia with resultant chronic cough. #Recent RUL PNA/Chronic Cough: Patient admitted in March for Bordetella pertussis with subsequent hospitalization for RUL pneumonia. The patient was initially treated with azithromycin followed by a 10-day course of Augmentin without resolution of cough/symptoms. The patient tried and failed additional symptomatic treatments for persistent cough including benzonatate as needed, steroid burst, inhalers, and cough syrup with codeine. As his initial pneumonia could only be visualized on a CT, a repeat CT chest was ordered 04/09/24 which revealed persistent irregular densities that could represent persistent infection. The patient was started on a 10-day course of doxycycline 100 mg twice daily at that time with moderate improvement. Furthermore the patient was seen by pulmonology 04/17 at which time it was recommended that his lisinopril be switched to losartan due to concern for TANYA induced cough. Pulmonology also initiated therapy with ipratropium nasal spray and a Qvar RediHaler to treat symptoms of cough/postnasal drip. The patient used ipratropium nasal spray twice before throwing it away due to a nosebleed. He uses the inhaler as prescribed with resolution of SOB. Will send additional Rx for ipratropium nasal spray. Recommending use in conjunction saline nasal spray, additionally recommending a mist humidifier to prevent nasal dryness. Patient due to follow-up with pulmonology in the next week, next office visit 05/26. #Pulmonary nodule CT scan obtained 03/18 reveals 5 mm pulmonary nodule at the posterior RLL. Recommending repeat imaging in 6 months to ensure stability. Patient establishing with pulmonology 04/17. #A-fib: Taking Eliquis 5 mg twice daily with compliance. Follows with Dr. Hunter annually. #HTN: Patient recently switched from lisinopril to losartan due to concern for TANYA induced cough. BP controlled at 140/70. Continue losartan 25 mg daily and metoprolol 25 mg daily. #History of CVA: No residual deficits. Continue atorvastatin 40 mg daily. #Mild anemia: Patient with history of mild anemia blood work obtained at time of ED visit 03/18/2024 reveals RBC 3.7, Hgb 11.1, Hct 33.8 - consistent with patient's baseline. Repeat CBC shows mild improvement with RBC at 3.9, hemoglobin/hematocri t 11.6/35.9. All questions answered to the patient's satisfaction. Patient demonstrates understanding of diagnosis and treatments discussed. Follow-up at next scheduled appointment, sooner should any questions/concerns arise. Case discussed with collaborating physician Leilani Fernández who has reviewed the assessment/plan. Chart, medications, labs, and vital signs reviewed. Dictation completed with the use of [employer] voice recognition software, prone to medical misidentifications and grammatical errors. All errors are unintentional. Although the practitioner does try to identify and correct errors, some may be present. Please do not hesitate to contact the practitioner for clarification. 04/06/2024 History of CVA (cerebrovascular accident) (ICD-10 - Z86.73) Tae is an 83-year-old male with a PMH of A-fib on Eliquis, CVA, HTN, HLD that presents for continued cough. Patient with recent admission for Bordetella pertussis 03/11-03/13 with subsequent hospitalization at which time he was found to have right upper lobe pneumonia - discharged with 10-day course of Augmentin. #RUL PNA: Patient seen in office 03/25/2024 at which time he continued to struggle with symptoms of cough and mucus production. At that time, 6-day burst of prednisone and guaifenesin ER twice daily was added to the patient's regimen. The patient presents today having taking his first dose of prednisone yesterday with subsequent development of bright red rash on bilateral cheeks. At that time prednisone was discontinued and an Rx for guaifenesin with codeine was sent. Patient states he took this as prescribed x5 days and felt his symptoms were improving. Upon discontinuation of the medication he felt symptoms of productive cough and congestion worsened. Continues to experience persistent, intermittent cough productive of clear sputum. Also experiencing fatigue and loss of appetite. Weight down 6 pounds since time of hospital follow-up 03/25. On exam the patient is afebrile, O2 sat 97%. Patient coughs occasionally throughout exam. Lungs CTA bilaterally, no visible increased work of breathing. Plan to proceed with CMP, CBC, and chest x-ray for continued evaluation. Patient scheduled for CT of the chest to ensure resolution of pneumonia, however has not yet set an appointment. Will also send for guaifenesin with codeine 5 mL every 6 hours as needed for cough. Patient is educated on importance of proper dosing and side effects including but not limited to respiratory depression, hypotension, and dizziness. Considered alternative inhaler for persistent cough such as Trelegy, Spiriva, or Anoro Patient recently tried albuterol inhaler after which he developed an uncomfortable sensation in his throat. Patient hesitant to try alternative inhaler as he is concerned he may have an allergy. Per his daughter, scheduled to see pulmonology 04/17 for continued evaluation. Called and spoke with patient's HCP Crystal (daughter) recommending the patient go for chest x-ray and blood work. Given recent weight loss and decreased appetite recommending that the patient go to the emergency room for continued evaluation should he not be able to tolerate any food or water. #Pulmonary nodule CT scan obtained 03/18 reveals 5 mm pulmonary nodule at the posterior RLL. Recommending repeat imaging in 6 months to ensure stability. Patient establishing with pulmonology 04/17. #A-fib: Taking Eliquis 5 mg twice daily with compliance. Follows with Dr. Hunter annually. #HTN: Taking lisinopril 30 mg and metoprolol 25 mg daily with compliance. #History of CVA: No residual deficits. Continue atorvastatin 40 mg daily. #Mild anemia: Patient with history of mild anemia blood work obtained at time of ED visit 03/18/2024 reveals RBC 3.7, Hgb 11.1, Hct 33.8 - consistent with patient's baseline. Repeat CBC ordered. All questions answered to the patient's satisfaction. Patient demonstrates understanding of diagnosis and treatments discussed. Follow-up at next scheduled appointment, sooner should any questions/concerns arise. Case discussed with collaborating physician Taylor Fernández who has reviewed the assessment/plan. Chart, medications, labs, and vital signs reviewed. Dictation completed with the use of [employer] voice recognition software, prone to medical misidentifications and grammatical errors. All errors are unintentional. Although the practitioner does try to identify and correct errors, some may be present. Please do not hesitate to contact the practitioner for clarification. 03/27/2024 Other iron deficiency anemia (ICD-10 - D50.8) Tae is an 83-year-old male with a PMH of A-fib on Eliquis, CVA, HTN, HLD that presents for new rash. Patient with recent admission for Bordetella pertussis 03/11-03/13 with subsequent hospitalization at which time he was found to have right upper lobe pneumonia - discharged with 10-day course of Augmentin. #RUL PNA: Patient seen in office 03/25/2024 at which time he continued to struggle with symptoms of cough and mucus production. At that time, 6-day burst of prednisone and guaifenesin ER twice daily was added to the patient's regimen. The patient presents today having taking his first dose of prednisone yesterday with subsequent development of bright red rash on bilateral cheeks. On exam there is erythema of the bilateral cheeks. No edema of the face, lips, or mouth noted. Respiratory rate is normal and there is no visible increased work of breathing. Exam/vitals otherwise WNL. Recommended discontinuation of prednisone, patient is agreeable. Will also discontinue oral guaifenesin. Instead will try guaifenesin with codeine. Patient is educated on proper use/dosage and side effects including but not limited to respiratory depression, hypotension, and dizziness. As the patient's RUL pneumonia was not initially seen on XR and was isntead visible on CT -plan to repeat CT in 2 weeks to ensure resolution of pneumonia. Reviewed return to office/ED protocol. #Pulmonary nodule CT scan obtained 03/18 reveals 5 mm pulmonary nodule at the posterior RLL. Recommending repeat imaging in 6 months to ensure stability. #A-fib: Taking Eliquis 5 mg twice daily with compliance. Follows with Dr. Hunter annually. #HTN: Taking lisinopril 30 mg and metoprolol 25 mg daily with compliance. #History of CVA: No residual deficits. Continue atorvastatin 40 mg daily. #Mild anemia: Patient with history of mild anemia blood work obtained at time of ED visit 03/18/2024 reveals RBC 3.7, Hgb 11.1, Hct 33.8 - consistent with patient's baseline. All questions answered to the patient's satisfaction. Patient demonstrates understanding of diagnosis and treatments discussed. Follow-up at next scheduled appointment, sooner should any questions/concerns arise. Case discussed with collaborating physician Taylor Fernández who has reviewed the assessment/plan. Chart, medications, labs, and vital signs reviewed. Dictation completed with the use of [employer] voice recognition software, prone to medical misidentifications and grammatical errors. All errors are unintentional. Although the practitioner does try to identify and correct errors, some may be present. Please do not hesitate to contact the practitioner for clarification. 03/25/2024 Other iron deficiency anemia (ICD-10 - D50.8) Tae is an 83-year-old male with a PMH of A-fib on Eliquis, CVA, HTN, HLD that presents accompanied by his daughter Crystal for hospital follow-up. Patient struggling with productive cough over the last month or so. Presented to the emergency department 03/11 at which time PCR was positive for Bordetella pertussis and lab work was significant for mild leukocytosis and SAUL. The patient was admitted treated with azithromycin and IV fluids with resultant discharge 03/13. The patient again presented to [facility] ED 03/18 for worsening of symptoms. At which time he was found to have right upper lobe pneumonia. #Right upper lobe pneumonia: Patient with [facility] admission 03/11 to 03/13 at which time he was found to have infection with Bordetella pertussis and mild SAUL. Treated with IV fluids and azithromycin. Patient presented again to [facility] ED for worsening symptoms at which time CT revealed minimal pulmonary nodule or infiltrate at the base of the right upper lobe suggesting infectious process. The patient was discharged with a 10-day course of Augmentin and Tessalon Perles as needed for cough. The patient presents today with continued symptoms, although improved. He continues to cough frequently which is making sleep difficult. His most bothersome symptom is mucus production. The patient is educated to finish complete course of antibiotics. Will send burst of prednisone with goal of helping suppress cough. Will also send guaifenesin 600 mg twice daily. Patient is educated on proper use and side effects of medications. Reviewed return to office/ED protocol. #Pulmonary nodule CT scan obtained 03/18 reveals 5 mm pulmonary nodule at the posterior RLL. Recommending repeat imaging in 6 months to ensure stability. Patient's daughter Crystal accompanied him to visit today reports they are working to establish with operating room tech Dr. Hendrickson. #A-fib: Taking Eliquis 5 mg twice daily with compliance. Follows with Dr. Hunter annually. #HTN: Taking lisinopril 30 mg and metoprolol 25 mg daily with compliance. #History of CVA: No residual deficits. Continue atorvastatin 40 mg daily. #Mild anemia: Patient with history of mild anemia blood work obtained at time of ED visit 03/18/2024 reveals RBC 3.7, Hgb 11.1, Hct 33.8 - consistent with patient's baseline. #HCP: Reviewed healthcare proxy form, which is on file. The patient's daughter Crystal is the designated healthcare proxy and the preferred phone number for which she can be reached is [phone]. All questions answered to the patients satisfaction. Patient demonstrates understanding of diagnosis and treatments discussed. Follow-up at next scheduled appointment, sooner should any questions/concerns arise. Case discussed with collaborating physician Taylor Fernández who has reviewed the assessment/plan. Chart, medications, labs, and vital signs reviewed. Dictation completed with the use of [employer] voice recognition software, prone to medical misidentifications and grammatical errors. All errors are unintentional. Although the practitioner does try to identify and correct errors, some may be present. Please do not hesitate to contact the practitioner for clarification. 09/19/2023 Hypothyroid (ICD-10 - E03.9) # AFib. Followed by Dr. Hunter. Saw last Fall 2022. Sees yearly. No SOB/dizziness. Eliquis changed to Xarelto due to singular episode of BRBPR and hematuria # Hematuria, gross. Occured one time. Hx of prostate ca. PSA neg. Following up urology 09/23/23 # HTN. Increased Lisinopril from 20 mg to 30 mg po daily. Continue Metoprolol 25 mg po daily. # Rectal bleeding:Resolved. # CVA. Hx of. No residual deficits. On statin/ASA # Mild anemia. ? due to mild stool. Stool occult blood will be checked. Last colonscopy 2016- normal Case discussed with collaborating physician Sourav Fernández who reviewed the assessment and plan. Chart, medications, labs, vital signs reviewed. Dictation was accomplished with the use of [employer] voice recognition software, prone to medical misidentifications and grammatical errors. This is unintentional and the practitioner does try to identify and correct these, but some could still be present. Please do not hesitate to contact practitioner for clarification. All quetsions answered to patients satisfaction. Patient verbalized understanding of diagnosis and treatments explained. To call sooner prior to next visit it any questions/concerns arise. 10/25/2023 Hypothyroid (ICD-10 - E03.9) # AFib. Followed by Dr. Hunter. Saw last Fall 2022. Sees yearly. No SOB/dizziness. Will change back to Eliquis, lower dose to 2.5 mg BID to decrease bleeding risk. # Hematuria, gross. Occured one time. Hx of prostate ca. PSA neg. Followed up urology 09/23/23 # HTN. Increased Lisinopril from 20 mg to 30 mg po daily. Continue Metoprolol 25 mg po daily. # Rectal bleeding:Resolved. # CVA. Hx of. No residual deficits. On statin/ASA # Mild anemia. ? due to mild stool. Stool occult blood will be checked. Last colonscopy 2016- normal Case discussed with collaborating physician Sourav Fernández who reviewed the assessment and plan. Chart, medications, labs, vital signs reviewed. Dictation was accomplished with the use of [employer] voice recognition software, prone to medical misidentifications and grammatical errors. This is unintentional and the practitioner does try to identify and correct these, but some could still be present. Please do not hesitate to contact practitioner for clarification. All quetsions answered to patients satisfaction. Patient verbalized understanding of diagnosis and treatments explained. To call sooner prior to next visit it any questions/concerns arise. 01/21/2024 Vitamin B12 deficiency anemia, unspecified (ICD-10 - D51.9) # AFib. Followed by Dr. Hunter. Saw last Fall 2022. Sees yearly. No SOB/dizziness. Hx of prostate ca. PSA neg. Followed up urology 09/23/23 # HTN. Increased Lisinopril from 20 mg to 30 mg po daily. Continue Metoprolol 25 mg po daily. # Rectal bleeding:Resolved. # CVA. Hx of. No residual deficits. On statin/ASA # Mild anemia. ? due to mild stool. Stool occult blood will be checked. Last colonscopy 2017- normal # Vaccines: Getting second shingles Fall 2023 # Screenings: UTD Physical Men Patient seen and examined. Comprehensive discussion was done on the following. 1. Nutrition: It is important to follow a healthy diet based on lots of vegetables and legumes and good fat. Avoid processed food and processed carbohydrates. Learn to prepare your own meals. Learn to read labels and avoid high fructose corn syrup, processed chemicals added to increase shelf life and preprepared meals. Avoid fast foods. Learn to eat slowly and plan meals for a week. Try to count calories and be mindful off daily calorie intake. Get into the habit of keeping an eye on your weight by using an appropriate scale. Learn to log exercise and discussed fitness Apps like [employer] which can help keep log off calories taken versus calories burned. Local food should be preferred. Discussed [employer] Versus [employer] Fifteen. Discussed healthy supplements like fish oil, Tumeric, Curcumin, Melatonin, Resveratrol, Probiotics, Vitamin-D, Alpha-Lipoic acid, Vitamin-D and coconut oil. 2. It is important to exercise regularly. Is a good habit to walk at least 30-45 minutes a day. Gentle weightlifting with standard precautions to protect the back. Finding activity like cycling or hiking and get into the habit of engaging in it. Stretching before and after the exercises important. It is also important to contact me if there are any problems like shortness of breath, chest pain, back pain and joint or muscle pain associated with the exercise. 3. Discussed age appropriate screening guidelines. Colonoscopy needs to start at age 50 with stool for occult blood as appropriate. There is a new test that can test for genetic abnormalities in the stool sample. This would not replace a colonoscopy but could be used as a screening tool for patients who do not want a colonoscopy. We discussed the importance of early detection of colon cancer. 4. Discussed current PSA screening. PSA screening can be done in most patients between age 50 and 65. However early detection of prostate cancer needs to carefully be balanced with complications with treatment. These include incontinence, impotence etc. Each patient should decide if they would like to have this test. 5. Discussed safe driving and no use of smart phone while driving 6. Age-appropriate immunizations were discussed. A tetanus booster is needed every 10 years. Flu vaccine is recommended every year just before the start of the flu season. Shingles vaccine is recommended after age 50 but not all insurances cover it. Pneumonia vaccine is given after age 65 unless there are certain comorbidities for which it is started earlier. 7. Diagnostic labs were discussed. These could include CBC CMP and lipids with fasting blood glucose and insulin levels. Vitamin D and hemoglobin A1c testing might be appropriate. Case discussed with collaborating physician Sourav Fernández who reviewed the assessment and plan. Chart, medications, labs, vital signs reviewed. Dictation was accomplished with the use of [employer] voice recognition software, prone to medical misidentifications and grammatical errors. This is unintentional and the practitioner does try to identify and correct these, but some could still be present. Please do not hesitate to contact practitioner for clarification. All quetsions answered to patients satisfaction. Patient verbalized understanding of diagnosis and treatments explained. To call sooner prior to next visit it any questions/concerns arise. 08/29/2023 Encounter for screening for malignant neoplasm of prostate (ICD-10 - Z12.5) Plan for hematuria: Obtain UA for anaylsis and culture to assess for urinary infection. Less likely UTI in the absence of fevers/chills/discom fort Obtain routine bloodwork today in the office. Discontinue Eliquis completely for one week. It is possible that his current Eliquis dose is too high for him. Follow-up in one week for reassessment of symptoms & to revisit plan for Eliquis. Place referral for urology for work-up in the setting of history of prostate cancer and smoking history. 09/19/2023 Vitamin B12 deficiency anemia, unspecified (ICD-10 - D51.9) # AFib. Followed by Dr. Hunter. Saw last Fall 2022. Sees yearly. No SOB/dizziness. Eliquis changed to Xarelto due to singular episode of BRBPR and hematuria # Hematuria, gross. Occured one time. Hx of prostate ca. PSA neg. Following up urology 09/23/23 # HTN. Increased Lisinopril from 20 mg to 30 mg po daily. Continue Metoprolol 25 mg po daily. # Rectal bleeding:Resolved. # CVA. Hx of. No residual deficits. On statin/ASA # Mild anemia. ? due to mild stool. Stool occult blood will be checked. Last colonscopy 2016- normal Case discussed with collaborating physician Sourav Fernández who reviewed the assessment and plan. Chart, medications, labs, vital signs reviewed. Dictation was accomplished with the use of [employer] voice recognition software, prone to medical misidentifications and grammatical errors. This is unintentional and the practitioner does try to identify and correct these, but some could still be present. Please do not hesitate to contact practitioner for clarification. All quetsions answered to patients satisfaction. Patient verbalized understanding of diagnosis and treatments explained. To call sooner prior to next visit it any questions/concerns arise. 01/21/2024 Chronic anticoagulation (ICD-10 - Z79.01) # AFib. Followed by Dr. Hunter. Saw last Fall 2022. Sees yearly. No SOB/dizziness. Hx of prostate ca. PSA neg. Followed up urology 09/23/23 # HTN. Increased Lisinopril from 20 mg to 30 mg po daily. Continue Metoprolol 25 mg po daily. # Rectal bleeding:Resolved. # CVA. Hx of. No residual deficits. On statin/ASA # Mild anemia. ? due to mild stool. Stool occult blood will be checked. Last colonscopy 2017- normal # Vaccines: Getting second shingles Fall 2023 # Screenings: UTD Physical Men Patient seen and examined. Comprehensive discussion was done on the following. 1. Nutrition: It is important to follow a healthy diet based on lots of vegetables and legumes and good fat. Avoid processed food and processed carbohydrates. Learn to prepare your own meals. Learn to read labels and avoid high fructose corn syrup, processed chemicals added to increase shelf life and preprepared meals. Avoid fast foods. Learn to eat slowly and plan meals for a week. Try to count calories and be mindful off daily calorie intake. Get into the habit of keeping an eye on your weight by using an appropriate scale. Learn to log exercise and discussed fitness Apps like [employer] which can help keep log off calories taken versus calories burned. Local food should be preferred. Discussed Dirty Dozen Versus Clean Fifteen. Discussed healthy supplements like fish oil, Tumeric, Curcumin, Melatonin, Resveratrol, Probiotics, Vitamin-D, Alpha-Lipoic acid, Vitamin-D and coconut oil. 2. It is important to exercise regularly. Is a good habit to walk at least 30-45 minutes a day. Gentle weightlifting with standard precautions to protect the back. Finding activity like cycling or hiking and get into the habit of engaging in it. Stretching before and after the exercises important. It is also important to contact me if there are any problems like shortness of breath, chest pain, back pain and joint or muscle pain associated with the exercise. 3. Discussed age appropriate screening guidelines. Colonoscopy needs to start at age 50 with stool for occult blood as appropriate. There is a new test that can test for genetic abnormalities in the stool sample. This would not replace a colonoscopy but could be used as a screening tool for patients who do not want a colonoscopy. We discussed the importance of early detection of colon cancer. 4. Discussed current PSA screening. PSA screening can be done in most patients between age 50 and 65. However early detection of prostate cancer needs to carefully be balanced with complications with treatment. These include incontinence, impotence etc. Each patient should decide if they would like to have this test. 5. Discussed safe driving and no use of smart phone while driving 6. Age-appropriate immunizations were discussed. A tetanus booster is needed every 10 years. Flu vaccine is recommended every year just before the start of the flu season. Shingles vaccine is recommended after age 50 but not all insurances cover it. Pneumonia vaccine is given after age 65 unless there are certain comorbidities for which it is started earlier. 7. Diagnostic labs were discussed. These could include CBC CMP and lipids with fasting blood glucose and insulin levels. Vitamin D and hemoglobin A1c testing might be appropriate. Case discussed with collaborating physician Sourav Fernández who reviewed the assessment and plan. Chart, medications, labs, vital signs reviewed. Dictation was accomplished with the use of [employer] voice recognition software, prone to medical misidentifications and grammatical errors. This is unintentional and the practitioner does try to identify and correct these, but some could still be present. Please do not hesitate to contact practitioner for clarification. All quetsions answered to patients satisfaction. Patient verbalized understanding of diagnosis and treatments explained. To call sooner prior to next visit it any questions/concerns arise. 10/25/2023 Vitamin B12 deficiency anemia, unspecified (ICD-10 - D51.9) # AFib. Followed by Dr. Hunter. Saw last Fall 2022. Sees yearly. No SOB/dizziness. Will change back to Eliquis, lower dose to 2.5 mg BID to decrease bleeding risk. # Hematuria, gross. Occured one time. Hx of prostate ca. PSA neg. Followed up urology 09/23/23 # HTN. Increased Lisinopril from 20 mg to 30 mg po daily. Continue Metoprolol 25 mg po daily. # Rectal bleeding:Resolved. # CVA. Hx of. No residual deficits. On statin/ASA # Mild anemia. ? due to mild stool. Stool occult blood will be checked. Last colonscopy 2016- normal Case discussed with collaborating physician Sourav Fernández who reviewed the assessment and plan. Chart, medications, labs, vital signs reviewed. Dictation was accomplished with the use of [employer] voice recognition software, prone to medical misidentifications and grammatical errors. This is unintentional and the practitioner does try to identify and correct these, but some could still be present. Please do not hesitate to contact practitioner for clarification. All quetsions answered to patients satisfaction. Patient verbalized understanding of diagnosis and treatments explained. To call sooner prior to next visit it any questions/concerns arise. 03/25/2024 Advance care planning (ICD-10 - Z71.89) Tae is an 83-year-old male with a PMH of A-fib on Eliquis, CVA, HTN, HLD that presents accompanied by his daughter Crystal for hospital follow-up. Patient struggling with productive cough over the last month or so. Presented to the emergency department 03/11 at which time PCR was positive for Bordetella pertussis and lab work was significant for mild leukocytosis and SAUL. The patient was admitted treated with azithromycin and IV fluids with resultant discharge 03/13. The patient again presented to [facility] ED 03/18 for worsening of symptoms. At which time he was found to have right upper lobe pneumonia. #Right upper lobe pneumonia: Patient with [facility] admission 03/11 to 03/13 at which time he was found to have infection with Bordetella pertussis and mild SAUL. Treated with IV fluids and azithromycin. Patient presented again to [facility] ED for worsening symptoms at which time CT revealed minimal pulmonary nodule or infiltrate at the base of the right upper lobe suggesting infectious process. The patient was discharged with a 10-day course of Augmentin and Tessalon Perles as needed for cough. The patient presents today with continued symptoms, although improved. He continues to cough frequently which is making sleep difficult. His most bothersome symptom is mucus production. The patient is educated to finish complete course of antibiotics. Will send burst of prednisone with goal of helping suppress cough. Will also send guaifenesin 600 mg twice daily. Patient is educated on proper use and side effects of medications. Reviewed return to office/ED protocol. #Pulmonary nodule CT scan obtained 03/18 reveals 5 mm pulmonary nodule at the posterior RLL. Recommending repeat imaging in 6 months to ensure stability. Patient's daughter Crystal accompanied him to visit today reports they are working to establish with operating room tech Dr. Hendrickson. #A-fib: Taking Eliquis 5 mg twice daily with compliance. Follows with Dr. Hunter annually. #HTN: Taking lisinopril 30 mg and metoprolol 25 mg daily with compliance. #History of CVA: No residual deficits. Continue atorvastatin 40 mg daily. #Mild anemia: Patient with history of mild anemia blood work obtained at time of ED visit 03/18/2024 reveals RBC 3.7, Hgb 11.1, Hct 33.8 - consistent with patient's baseline. #HCP: Reviewed healthcare proxy form, which is on file. The patient's daughter Crystal is the designated healthcare proxy and the preferred phone number for which she can be reached is [phone]. All questions answered to the patients satisfaction. Patient demonstrates understanding of diagnosis and treatments discussed. Follow-up at next scheduled appointment, sooner should any questions/concerns arise. Case discussed with collaborating physician Taylor Fernández who has reviewed the assessment/plan. Chart, medications, labs, and vital signs reviewed. Dictation completed with the use of [employer] voice recognition software, prone to medical misidentifications and grammatical errors. All errors are unintentional. Although the practitioner does try to identify and correct errors, some may be present. Please do not hesitate to contact the practitioner for clarification. 04/06/2024 Other iron deficiency anemia (ICD-10 - D50.8) Tae is an 83-year-old male with a PMH of A-fib on Eliquis, CVA, HTN, HLD that presents for continued cough. Patient with recent admission for Bordetella pertussis 03/11-03/13 with subsequent hospitalization at which time he was found to have right upper lobe pneumonia - discharged with 10-day course of Augmentin. #RUL PNA: Patient seen in office 03/25/2024 at which time he continued to struggle with symptoms of cough and mucus production. At that time, 6-day burst of prednisone and guaifenesin ER twice daily was added to the patient's regimen. The patient presents today having taking his first dose of prednisone yesterday with subsequent development of bright red rash on bilateral cheeks. At that time prednisone was discontinued and an Rx for guaifenesin with codeine was sent. Patient states he took this as prescribed x5 days and felt his symptoms were improving. Upon discontinuation of the medication he felt symptoms of productive cough and congestion worsened. Continues to experience persistent, intermittent cough productive of clear sputum. Also experiencing fatigue and loss of appetite. Weight down 6 pounds since time of hospital follow-up 03/25. On exam the patient is afebrile, O2 sat 97%. Patient coughs occasionally throughout exam. Lungs CTA bilaterally, no visible increased work of breathing. Plan to proceed with CMP, CBC, and chest x-ray for continued evaluation. Patient scheduled for CT of the chest to ensure resolution of pneumonia, however has not yet set an appointment. Will also send for guaifenesin with codeine 5 mL every 6 hours as needed for cough. Patient is educated on importance of proper dosing and side effects including but not limited to respiratory depression, hypotension, and dizziness. Considered alternative inhaler for persistent cough such as Trelegy, Spiriva, or Anoro Patient recently tried albuterol inhaler after which he developed an uncomfortable sensation in his throat. Patient hesitant to try alternative inhaler as he is concerned he may have an allergy. Per his daughter, scheduled to see pulmonology 04/17 for continued evaluation. Called and spoke with patient's HCP Crystal (daughter) recommending the patient go for chest x-ray and blood work. Given recent weight loss and decreased appetite recommending that the patient go to the emergency room for continued evaluation should he not be able to tolerate any food or water. #Pulmonary nodule CT scan obtained 03/18 reveals 5 mm pulmonary nodule at the posterior RLL. Recommending repeat imaging in 6 months to ensure stability. Patient establishing with pulmonology 04/17. #A-fib: Taking Eliquis 5 mg twice daily with compliance. Follows with Dr. Hunter annually. #HTN: Taking lisinopril 30 mg and metoprolol 25 mg daily with compliance. #History of CVA: No residual deficits. Continue atorvastatin 40 mg daily. #Mild anemia: Patient with history of mild anemia blood work obtained at time of ED visit 03/18/2024 reveals RBC 3.7, Hgb 11.1, Hct 33.8 - consistent with patient's baseline. Repeat CBC ordered. All questions answered to the patient's satisfaction. Patient demonstrates understanding of diagnosis and treatments discussed. Follow-up at next scheduled appointment, sooner should any questions/concerns arise. Case discussed with collaborating physician Taylor Fernández who has reviewed the assessment/plan. Chart, medications, labs, and vital signs reviewed. Dictation completed with the use of [employer] voice recognition software, prone to medical misidentifications and grammatical errors. All errors are unintentional. Although the practitioner does try to identify and correct errors, some may be present. Please do not hesitate to contact the practitioner for clarification. 05/07/2024 Other iron deficiency anemia (ICD-10 - D50.8) Tae is an 83-year-old male with a PMH of A-fib on Eliquis, CVA, HTN, HLD that presents for follow-up. Patient with history of recent Bordetella pneumonia with resultant chronic cough. #Recent RUL PNA/Chronic Cough: Patient admitted in March for Bordetella pertussis with subsequent hospitalization for RUL pneumonia. The patient was initially treated with azithromycin followed by a 10-day course of Augmentin without resolution of cough/symptoms. The patient tried and failed additional symptomatic treatments for persistent cough including benzonatate as needed, steroid burst, inhalers, and cough syrup with codeine. As his initial pneumonia could only be visualized on a CT, a repeat CT chest was ordered 04/09/24 which revealed persistent irregular densities that could represent persistent infection. The patient was started on a 10-day course of doxycycline 100 mg twice daily at that time with moderate improvement. Furthermore the patient was seen by pulmonology 04/17 at which time it was recommended that his lisinopril be switched to losartan due to concern for TANYA induced cough. Pulmonology also initiated therapy with ipratropium nasal spray and a Qvar RediHaler to treat symptoms of cough/postnasal drip. The patient used ipratropium nasal spray twice before throwing it away due to a nosebleed. He uses the inhaler as prescribed with resolution of SOB. Will send additional Rx for ipratropium nasal spray. Recommending use in conjunction saline nasal spray, additionally recommending a mist humidifier to prevent nasal dryness. Patient due to follow-up with pulmonology in the next week, next office visit 05/26. #Pulmonary nodule CT scan obtained 03/18 reveals 5 mm pulmonary nodule at the posterior RLL. Recommending repeat imaging in 6 months to ensure stability. Patient establishing with pulmonology 04/17. #A-fib: Taking Eliquis 5 mg twice daily with compliance. Follows with Dr. Hunter annually. #HTN: Patient recently switched from lisinopril to losartan due to concern for TANYA induced cough. BP controlled at 140/70. Continue losartan 25 mg daily and metoprolol 25 mg daily. #History of CVA: No residual deficits. Continue atorvastatin 40 mg daily. #Mild anemia: Patient with history of mild anemia blood work obtained at time of ED visit 03/18/2024 reveals RBC 3.7, Hgb 11.1, Hct 33.8 - consistent with patient's baseline. Repeat CBC shows mild improvement with RBC at 3.9, hemoglobin/hematocri t 11.6/35.9. All questions answered to the patient's satisfaction. Patient demonstrates understanding of diagnosis and treatments discussed. Follow-up at next scheduled appointment, sooner should any questions/concerns arise. Case discussed with collaborating physician Leilani Fernández who has reviewed the assessment/plan. Chart, medications, labs, and vital signs reviewed. Dictation completed with the use of [employer] voice recognition software, prone to medical misidentifications and grammatical errors. All errors are unintentional. Although the practitioner does try to identify and correct errors, some may be present. Please do not hesitate to contact the practitioner for clarification. 01/21/2024 Depression screening (ICD-10 - Z13.31) # AFib. Followed by Dr. Hunter. Saw last Fall 2022. Sees yearly. No SOB/dizziness. Hx of prostate ca. PSA neg. Followed up urology 09/23/23 # HTN. Increased Lisinopril from 20 mg to 30 mg po daily. Continue Metoprolol 25 mg po daily. # Rectal bleeding:Resolved. # CVA. Hx of. No residual deficits. On statin/ASA # Mild anemia. ? due to mild stool. Stool occult blood will be checked. Last colonscopy 2016- normal # Vaccines: Getting second shingles Fall 2023 # Screenings: UTD Physical Men Patient seen and examined. Comprehensive discussion was done on the following. 1. Nutrition: It is important to follow a healthy diet based on lots of vegetables and legumes and good fat. Avoid processed food and processed carbohydrates. Learn to prepare your own meals. Learn to read labels and avoid high fructose corn syrup, processed chemicals added to increase shelf life and preprepared meals. Avoid fast foods. Learn to eat slowly and plan meals for a week. Try to count calories and be mindful off daily calorie intake. Get into the habit of keeping an eye on your weight by using an appropriate scale. Learn to log exercise and discussed fitness Apps like [employer] which can help keep log off calories taken versus calories burned. Local food should be preferred. Discussed Dirty Dozen Versus Clean Fifteen. Discussed healthy supplements like fish oil, Tumeric, Curcumin, Melatonin, Resveratrol, Probiotics, Vitamin-D, Alpha-Lipoic acid, Vitamin-D and coconut oil. 2. It is important to exercise regularly. Is a good habit to walk at least 30-45 minutes a day. Gentle weightlifting with standard precautions to protect the back. Finding activity like cycling or hiking and get into the habit of engaging in it. Stretching before and after the exercises important. It is also important to contact me if there are any problems like shortness of breath, chest pain, back pain and joint or muscle pain associated with the exercise. 3. Discussed age appropriate screening guidelines. Colonoscopy needs to start at age 50 with stool for occult blood as appropriate. There is a new test that can test for genetic abnormalities in the stool sample. This would not replace a colonoscopy but could be used as a screening tool for patients who do not want a colonoscopy. We discussed the importance of early detection of colon cancer. 4. Discussed current PSA screening. PSA screening can be done in most patients between age 50 and 65. However early detection of prostate cancer needs to carefully be balanced with complications with treatment. These include incontinence, impotence etc. Each patient should decide if they would like to have this test. 5. Discussed safe driving and no use of smart phone while driving 6. Age-appropriate immunizations were discussed. A tetanus booster is needed every 10 years. Flu vaccine is recommended every year just before the start of the flu season. Shingles vaccine is recommended after age 50 but not all insurances cover it. Pneumonia vaccine is given after age 65 unless there are certain comorbidities for which it is started earlier. 7. Diagnostic labs were discussed. These could include CBC CMP and lipids with fasting blood glucose and insulin levels. Vitamin D and hemoglobin A1c testing might be appropriate. Case discussed with collaborating physician Sourav Fernández who reviewed the assessment and plan. Chart, medications, labs, vital signs reviewed. Dictation was accomplished with the use of [employer] voice recognition software, prone to medical misidentifications and grammatical errors. This is unintentional and the practitioner does try to identify and correct these, but some could still be present. Please do not hesitate to contact practitioner for clarification. All quetsions answered to patients satisfaction. Patient verbalized understanding of diagnosis and treatments explained. To call sooner prior to next visit it any questions/concerns arise. 09/19/2023 Chronic anticoagulation (ICD-10 - Z79.01) # AFib. Followed by Dr. Hunter. Saw last Fall 2022. Sees yearly. No SOB/dizziness. Eliquis changed to Xarelto due to singular episode of BRBPR and hematuria # Hematuria, gross. Occured one time. Hx of prostate ca. PSA neg. Following up urology 09/23/23 # HTN. Increased Lisinopril from 20 mg to 30 mg po daily. Continue Metoprolol 25 mg po daily. # Rectal bleeding:Resolved. # CVA. Hx of. No residual deficits. On statin/ASA # Mild anemia. ? due to mild stool. Stool occult blood will be checked. Last colonscopy 2016- normal Case discussed with collaborating physician Sourav Fernández who reviewed the assessment and plan. Chart, medications, labs, vital signs reviewed. Dictation was accomplished with the use of [employer] voice recognition software, prone to medical misidentifications and grammatical errors. This is unintentional and the practitioner does try to identify and correct these, but some could still be present. Please do not hesitate to contact practitioner for clarification. All quetsions answered to patients satisfaction. Patient verbalized understanding of diagnosis and treatments explained. To call sooner prior to next visit it any questions/concerns arise. 10/25/2023 Chronic anticoagulation (ICD-10 - Z79.01) # AFib. Followed by Dr. Hunter. Saw last Fall 2022. Sees yearly. No SOB/dizziness. Will change back to Eliquis, lower dose to 2.5 mg BID to decrease bleeding risk. # Hematuria, gross. Occured one time. Hx of prostate ca. PSA neg. Followed up urology 09/23/23 # HTN. Increased Lisinopril from 20 mg to 30 mg po daily. Continue Metoprolol 25 mg po daily. # Rectal bleeding:Resolved. # CVA. Hx of. No residual deficits. On statin/ASA # Mild anemia. ? due to mild stool. Stool occult blood will be checked. Last colonscopy 2016- normal Case discussed with collaborating physician Sourav Fernández who reviewed the assessment and plan. Chart, medications, labs, vital signs reviewed. Dictation was accomplished with the use of [employer] voice recognition software, prone to medical misidentifications and grammatical errors. This is unintentional and the practitioner does try to identify and correct these, but some could still be present. Please do not hesitate to contact practitioner for clarification. All quetsions answered to patients satisfaction. Patient verbalized understanding of diagnosis and treatments explained. To call sooner prior to next visit it any questions/concerns arise. 01/21/2024 Encounter for screening for other disorder (ICD-10 - Z13.89) # AFib. Followed by Dr. Hunter. Saw last Fall 2022. Sees yearly. No SOB/dizziness. Hx of prostate ca. PSA neg. Followed up urology 09/23/23 # HTN. Increased Lisinopril from 20 mg to 30 mg po daily. Continue Metoprolol 25 mg po daily. # Rectal bleeding:Resolved. # CVA. Hx of. No residual deficits. On statin/ASA # Mild anemia. ? due to mild stool. Stool occult blood will be checked. Last colonscopy 2016- normal # Vaccines: Getting second shingles Fall 2023 # Screenings: UTD Physical Men Patient seen and examined. Comprehensive discussion was done on the following. 1. Nutrition: It is important to follow a healthy diet based on lots of vegetables and legumes and good fat. Avoid processed food and processed carbohydrates. Learn to prepare your own meals. Learn to read labels and avoid high fructose corn syrup, processed chemicals added to increase shelf life and preprepared meals. Avoid fast foods. Learn to eat slowly and plan meals for a week. Try to count calories and be mindful off daily calorie intake. Get into the habit of keeping an eye on your weight by using an appropriate scale. Learn to log exercise and discussed fitness Apps like [employer] which can help keep log off calories taken versus calories burned. Local food should be preferred. Discussed Dirty Dozen Versus Clean Fifteen. Discussed healthy supplements like fish oil, Tumeric, Curcumin, Melatonin, Resveratrol, Probiotics, Vitamin-D, Alpha-Lipoic acid, Vitamin-D and coconut oil. 2. It is important to exercise regularly. Is a good habit to walk at least 30-45 minutes a day. Gentle weightlifting with standard precautions to protect the back. Finding activity like cycling or hiking and get into the habit of engaging in it. Stretching before and after the exercises important. It is also important to contact me if there are any problems like shortness of breath, chest pain, back pain and joint or muscle pain associated with the exercise. 3. Discussed age appropriate screening guidelines. Colonoscopy needs to start at age 50 with stool for occult blood as appropriate. There is a new test that can test for genetic abnormalities in the stool sample. This would not replace a colonoscopy but could be used as a screening tool for patients who do not want a colonoscopy. We discussed the importance of early detection of colon cancer. 4. Discussed current PSA screening. PSA screening can be done in most patients between age 50 and 65. However early detection of prostate cancer needs to carefully be balanced with complications with treatment. These include incontinence, impotence etc. Each patient should decide if they would like to have this test. 5. Discussed safe driving and no use of smart phone while driving 6. Age-appropriate immunizations were discussed. A tetanus booster is needed every 10 years. Flu vaccine is recommended every year just before the start of the flu season. Shingles vaccine is recommended after age 50 but not all insurances cover it. Pneumonia vaccine is given after age 65 unless there are certain comorbidities for which it is started earlier. 7. Diagnostic labs were discussed. These could include CBC CMP and lipids with fasting blood glucose and insulin levels. Vitamin D and hemoglobin A1c testing might be appropriate. Case discussed with collaborating physician Sourav Fernández who reviewed the assessment and plan. Chart, medications, labs, vital signs reviewed. Dictation was accomplished with the use of [employer] voice recognition software, prone to medical misidentifications and grammatical errors. This is unintentional and the practitioner does try to identify and correct these, but some could still be present. Please do not hesitate to contact practitioner for clarification. All quetsions answered to patients satisfaction. Patient verbalized understanding of diagnosis and treatments explained. To call sooner prior to next visit it any questions/concerns arise. 01/21/2024 Advanced care planning/counselin g discussion (ICD-10 - Z71.89) # AFib. Followed by Dr. Hunter. Saw last Fall 2022. Sees yearly. No SOB/dizziness. Hx of prostate ca. PSA neg. Followed up urology 09/23/23 # HTN. Increased Lisinopril from 20 mg to 30 mg po daily. Continue Metoprolol 25 mg po daily. # Rectal bleeding:Resolved. # CVA. Hx of. No residual deficits. On statin/ASA # Mild anemia. ? due to mild stool. Stool occult blood will be checked. Last colonscopy 2016- normal # Vaccines: Getting second shingles Fall 2023 # Screenings: UTD Physical Men Patient seen and examined. Comprehensive discussion was done on the following. 1. Nutrition: It is important to follow a healthy diet based on lots of vegetables and legumes and good fat. Avoid processed food and processed carbohydrates. Learn to prepare your own meals. Learn to read labels and avoid high fructose corn syrup, processed chemicals added to increase shelf life and preprepared meals. Avoid fast foods. Learn to eat slowly and plan meals for a week. Try to count calories and be mindful off daily calorie intake. Get into the habit of keeping an eye on your weight by using an appropriate scale. Learn to log exercise and discussed fitness Apps like [employer] which can help keep log off calories taken versus calories burned. Local food should be preferred. Discussed Dirty Dozen Versus Clean Fifteen. Discussed healthy supplements like fish oil, Tumeric, Curcumin, Melatonin, Resveratrol, Probiotics, Vitamin-D, Alpha-Lipoic acid, Vitamin-D and coconut oil. 2. It is important to exercise regularly. Is a good habit to walk at least 30-45 minutes a day. Gentle weightlifting with standard precautions to protect the back. Finding activity like cycling or hiking and get into the habit of engaging in it. Stretching before and after the exercises important. It is also important to contact me if there are any problems like shortness of breath, chest pain, back pain and joint or muscle pain associated with the exercise. 3. Discussed age appropriate screening guidelines. Colonoscopy needs to start at age 50 with stool for occult blood as appropriate. There is a new test that can test for genetic abnormalities in the stool sample. This would not replace a colonoscopy but could be used as a screening tool for patients who do not want a colonoscopy. We discussed the importance of early detection of colon cancer. 4. Discussed current PSA screening. PSA screening can be done in most patients between age 50 and 65. However early detection of prostate cancer needs to carefully be balanced with complications with treatment. These include incontinence, impotence etc. Each patient should decide if they would like to have this test. 5. Discussed safe driving and no use of smart phone while driving 6. Age-appropriate immunizations were discussed. A tetanus booster is needed every 10 years. Flu vaccine is recommended every year just before the start of the flu season. Shingles vaccine is recommended after age 50 but not all insurances cover it. Pneumonia vaccine is given after age 65 unless there are certain comorbidities for which it is started earlier. 7. Diagnostic labs were discussed. These could include CBC CMP and lipids with fasting blood glucose and insulin levels. Vitamin D and hemoglobin A1c testing might be appropriate. Case discussed with collaborating physician Sourav Fernández who reviewed the assessment and plan. Chart, medications, labs, vital signs reviewed. Dictation was accomplished with the use of [employer] voice recognition software, prone to medical misidentifications and grammatical errors. This is unintentional and the practitioner does try to identify and correct these, but some could still be present. Please do not hesitate to contact practitioner for clarification. All quetsions answered to patients satisfaction. Patient verbalized understanding of diagnosis and treatments explained. To call sooner prior to next visit it any questions/concerns arise. PLAN OF TREATMENT Pending Test Test Name Order Date Hematocrit 04/21/2021 Lipid Panel 07/26/2020 Comp. Metabolic Panel (14) 09/12/2020 Basic Metabolic Panel (8) 07/26/2020 CBC 07/26/2020 Urine Culture and Sensitivity 10/17/2020 EKG 03/09/2024 ALBUMIN 06/26/2022 BASIC METABOLIC PANEL 07/10/2018 CBC (COMPLETE BLOOD COUNT) 07/10/2018 CBC (COMPLETE BLOOD COUNT) 04/06/2024 COMPREHENSIVE METABOLIC PANEL 04/06/2024 FECAL OCCULT BLOOD, IMMUNOCHEMICAL 04/21 LIPID PANEL 07/10/2018 LYME DISEASE WESTERN BLOT 12/28/2021 PSA, SCREEN 07/10/2018 TRANSFERRIN 11/12/2022 URINALYSIS, COMPLETE 01/20/2019 Chest 2 Views Frontal and Lat 04/06/2024 Magnesium Level 04/25/2020 Culture Urine 10/21/2020 CT Chest w/o Contrast 03/27/2024 XR Chest 2 Views 03/07/2024 XR Chest 2 Views 07/25/2018 PT/INR 03/21/2023 LIPID PANEL, STANDARD 03/21/2023 LIPID PANEL, STANDARD 11/17/2021 COMPREHENSIVE METABOLIC PANEL 11/17/2021 COMPREHENSIVE METABOLIC PANEL 06/16/2021 COMPREHENSIVE METABOLIC PANEL 01/21/2024 COMPREHENSIVE METABOLIC PANEL 03/21/2023 BUN/CREATININE RATIO 06/26/2022 CBC (INCLUDES DIFF/PLT) 01/21/2024 CBC (INCLUDES DIFF/PLT) 06/16/2021 CBC (INCLUDES DIFF/PLT) 03/21/2023 CBC (INCLUDES DIFF/PLT) 11/17/2021 HEMOGLOBIN 04/21/2021 URINALYSIS, COMPLETE 03/21/2023 HEMOGLOBIN A1c 03/21/2023 PSA, TOTAL 03/21/2023 TSH 03/21/2023 VITAMIN D,25-OH,TOTAL,IA 03/21/2023 VITAMIN D,25-OH,TOTAL,IA 06/16/2021 Next Appt Details Provider Name:MOSES ROJO, 08/25/2024 08:45:00 AM, [address], [place], [address], Insurance Providers Payer Name Payer Address Payer Phone Subscriber Number Group Number Insured Name Patient Relationship to Insured Coverage Start Date Coverage End Date [employer] Preferred [id number] [place] [address] [id number] Tae Jara Self - patient is the insured 8 MEDICAL (GENERAL) HISTORY Medical History History ICD Code Essential (primary) hypertension I10 Iron deficiency anemia, unspecified D50. 9 Hyperlipidemia, mild E78.5 Chronic atrial fibrillation I48.2 History of prostate cancer Z85.46 Hematuria, gross R31.0 History of CVA (cerebrovascular accident ) Z86.73 Chronic cough R05.3 Post-nasal drip R09.82 Surgical History Surgery Date(Month/Year) Prostate surgery colonoscopy 3 years (2023) Cardiac Ablation (endorses this was done a few years ago Hospitalization History Reason Date(Month/Year) right upper lobe pneumonia 03/18/2024 Bordetella pertussis 03/11/2024
== END 2024-07-08 09:35 | disposition home or self-care (01) ==
LOC: HO.CT 09:34
PROVIDERS: PCP Physician Assistant Medical; Visit Provider Hospitalist
DX: R91.1 Solitary pulmonary nodule (principal)
CPT/HCPCS: 71250

== ENCOUNTER → 2024-07-08 09:36 | Outpatient (BNV) | payer MEDICARE, SELFPAY | PROVIDERS: PCP Physician Assistant Medical; Visit Provider Radiology Diagnostic Radiology | DX: R91.1 Solitary pulmonary nodule (principal) | CPT/HCPCS: 71250 ==

== ENCOUNTER 2024-07-20 10:08 | Outpatient (AMB) | payer MEDICARE, SELFPAY ==
[2024-07-20 10:17] VITALS: BP 132/80; PULSE 69; O2SAT 98; BMI 23.6
--- NOTE | 2024-07-20 10:17 | A.OFFVIS_ITS ---
Vital Signs 07/20/24 10:17 Height 5 ft 9 in Weight 159 lb 13.362 oz BMI 23.6 BP 132/80 Blood Pressure Location Rt brachial Position Sitting Pulse 69 Pulse Source Pulse Oximeter Pulse Oximetry (%) 98 Oxygen Delivery Method Room Air Intake Visit Reasons: Pneumonia Allergies No Known Allergies Allergy (Verified 07/20/24 10:20) HPI Comments Details: The patient is an 84-year-old gentleman with a known history of atrial fibrillation on anticoagulation. She has been complaining of worsening respiratory symptoms since the summer. Apparently per the family he has been coughing now for the last month. He has also had some weight loss. The summertime he is having issues with shortness of breath cough and he went to the ER. He was initially evaluated in March. He was initially diagnosed with whooping cough. He was treated with azithromycin. The patient is no better develop worsening respiratory symptoms he went back to the hospital on March 18. Then he had a CTA which ruled out PE but the patient did have underlying is airspace disease in the lower lung zones in addition to the right upper lobe. The patient also has some bronchiectatic looking airways. He was placed on amoxicillin and then subsequently the patient was no better and he was subsequently placed on doxycycline. He was also started on cough syrup which helped him settle down the cough some degree. The patient has not significantly improved. He does throat area. He had a repeat CT scan on April 09 as a follow-up scan. This was done at [facility]. It appeared that the airspace disease improved although now he has a 1.5 nodular density in the right lower lobe. Did not clear if this is related to residual from an infection or if this is concerning process. 05/21/2024 the patient is here for a pulmonary follow-up visit. Overall the patient has been doing okay. His cough is better. He stopped taking the Asmanex since he felt that he did not need it anymore. Also was feel like it was developing some irritation from it. In addition to that he does complaint about his postnasal drip and nasal congestion. He has been using the Atrovent nasal spray. I had sent him the higher dose and then he had some issues with epistaxis and therefore he got a lower dose minutes primary care which is perfectly fine. Although he still having issues. He is taking it 4 times a day. Will see about back in weight to 2 times a day will add Astelin to the regimen. Will avoid nasal steroids because of bleeding. The patient is CT scans were also reviewed by me. I did get a copy of them. I can appreciate the nodular densities in the lower lung areas. There is some degree of inflammation and likely related to his previous infectious lower respiratory process. Therefore plan to repeat the CT scan sometime in early 2024 and will follow-up with the results. She continues to have the nodular densities and at that point he may need additional imaging or semi-invasive diagnostic interventions. Will follow-up then. 07/20/2024 the patient is here for a pulmonary follow-up visit. Overall he is better from the cough standpoint. After he recovered from pertussis and pneumonia he did develop COVID. The COVID fortunately did not affect his lungs. He denies any significant coughing although he does have still a postnasal drip and nasal congestion that bothers him regularly. On a daily basis. He is using the nasal rinse on a nightly basis with some partial improvement and does have the Astelin nasal spray. He also has a ipratropium nasal spray but does not use it as regularly. The patient did have a CT scan of the chest which we personally reviewed. Seems like the pulmonary nodules have completely subsided except for slight remnant likely some microscopic residual changes from the inflammatory effect. The consolidations have resolved. Otherwise no evidence of any parenchymal lung disease. Does have some chronic rhinitis issues and postnasal drip therefore will going to focus on treating that. Breathing das he is doing well no significant wheezing or rhonchi. He did have a reaction to the inhalers will hold off at this time. Will have him come back in around 6 months with PFTs. If he has any issues prior to that he will call for an earlier assessment. REPLACED BY [facility] Medical History (Updated 07/20/24 @ 14:21 by Everardo Hendrickson MD) Chronic cough Pulmonary nodule 1 cm or greater in diameter Pertussis pneumonia Cough due to TANYA inhibitor Vasomotor rhinitis Bronchopneumonia Social History Patient Tobacco Use Status: Former Tobacco user Tobacco use type: Cigarette Years Smoked: 20+ Years Review of Systems Const Reports weight loss Eyes Reports no additional complaints ENT Reports hearing loss, Reports post nasal drip and Denies throat swelling Card Denies chest pain Resp Denies chest congestion, Reports cough, Denies hemoptysis and Denies wheezing GI Reports no additional complaints Musc Reports no additional complaints Skin/Breast Denies rash Sebastian/Lymph Reports no additional complaints Aller/Immun Denies throat swelling and Denies wheezing Physical Exam Vital Signs: Last Vital Signs Pulse 69 07/20/24 10:17 BP 132/80 07/20/24 10:17 Pulse Ox 98 07/20/24 10:17 Oxygen Delivery Method Room Air 07/20/24 10:17 BMI result Body Mass Index 23.6 Const General: comfortable HEENT General nose exam: Abnormal mucous membranes and turbinates present erythematous Throat: Yes cobblestoning Neck Neck: Yes supple Chest Chest palpation & inspection: normal inspection of the chest Resp Effort & Inspection: normal respiratory effort Auscultation: clear to auscultation bilaterally Skin General skin exam: no rashes or lesions noted Extrem General: Yes no clubbing, cyanosis or edema Assessment & Plan Assessment & Plan (1) 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 Category: Medical (2) Pertussis pneumonia: Comment: resolved Code(s): A37.91 - Whooping cough, unspecified species with pneumonia Category: Medical (3) Pulmonary nodule 1 cm or greater in diameter: Code(s): R91.1 - Solitary pulmonary nodule Category: Medical (4) Chronic cough: Code(s): R05.3 - Chronic cough Category: Medical Plan ipratropium nasal spray BID stop astelin nasal spray BID start Dymista BID Graeme med sinus rinse PM PFTs cough medicine F/U 6 months Orders: Orders PFT pulmonary function test Today R05.3 - Chronic cough Medications: New azelastine-fluticasone 137-50 mcg/spray (Dymista) administer into each nostril 1 spray intranasal BID 23 grams 6RF Coding Level of Care Code Est Pt Level 4 (15201) Diagnoses Vasomotor rhinitis J30.0 Pertussis pneumonia A37.91 Pulmonary nodule 1 cm or greater in diameter R91.1 Chronic cough R05.3 Time Spent (min) 17
== END 2024-07-20 10:47 | disposition home or self-care (01) ==
PROVIDERS: PCP Physician Assistant Medical; Visit Provider Hospitalist
DX: J30.0 Vasomotor rhinitis (principal); A37.91 Whooping cough, unspecified species with pneumonia; R91.1 Solitary pulmonary nodule; R05.3 Chronic cough
CPT/HCPCS: 99214

== ENCOUNTER → 2024-07-20 10:08 | Outpatient (BNVA) | payer MEDICARE, SELFPAY | PROVIDERS: PCP Physician Assistant Medical; Visit Provider Hospitalist | DX: J30.0 Vasomotor rhinitis (principal); A37.91 Whooping cough, unspecified species with pneumonia; R91.1 Solitary pulmonary nodule; R05.3 Chronic cough; Z87.891 Personal history of nicotine dependence | CPT/HCPCS: 99212 ==

== ENCOUNTER 2024-07-29 09:50 | Emergency (ER) | payer MEDICARE, SELFPAY ==
--- NOTE | ~2024-07-29 | XR_ITS ---
EXAMINATION: XR CHEST CLINICAL INFORMATION: SOB, cough COMPARISON: None available. TECHNIQUE: 2 views of the chest were obtained. FINDINGS: The cardiac, hilar, and mediastinal contours are normal. Cardiac monitoring device overlying the left mid mediastinum. Lungs appear zone hyperaerated and hyperlucent. There is linear scarring or atelectasis in the left base. Lungs otherwise clear There is no pneumothorax or pleural effusion. There is no focal osseous or soft tissue abnormality. XR/XR chest 2V IMPRESSION: No active pulmonary disease. Electronically signed by: Shamar Wright MD 07/29/2024 10:59 AM ELLEN
[2024-07-29 10:17] VITALS: BP 123/78; PULSE 95; O2SAT 95; BMI 19.9
--- NOTE | 2024-07-29 10:25 | PC.NURSE ---
Pt comes to ED today, BIBA, with c/o diarrhea, weakness, and cold like sxs since 07/24/24. Denies any sick contacts. A&Ox3 Skin is warm and dry Breaths and speech are unlabored. Facial symmetry noted. 18g by EMS Blood draw pending. Awaiting provider.
[2024-07-29 10:31] LABS: MANUAL DIFF FLAG NO
[2024-07-29 10:32] LABS: Basophils Percent Auto 0.3 % (0-2); Hematocrit 32.9 % (42.0-52.0); Hemoglobin 11.3 g/dl (14.0-18.0); Imm Gran Abs Auto 0.01 X10*3/uL (0.00-0.03); Imm Gran Pct Auto 0.3 % (0.0-0.4); Lymphocytes Absolute Auto 1.2 X10*3/uL (1.2-4.9); Lymphocytes Percent Auto 32.8 % (20-40); Mean Corpuscular HGB Conc 34.3 g/dl (31.0-36.0); Mean Corpuscular Hemoglobin 30.2 pg (27.0-33.0); Mean Platelet Volume 9.7 fL (9.4-12.4); Monocytes Absolute Auto 0.4 X10*3/uL (0.1-1.2); Monocytes Percent Auto 9.9 % (2-11); Neutrophils Percent Auto 56.7 % (45-73); Platelet Count 154 X10*3/uL (160-400); Red Blood Count 3.74 X10*6/uL (4.60-5.80); Red Cell Distribution Width 12.8 % (11.0-16.0); White Blood Count 3.5 X10*3/uL (4.8-10.8)
[2024-07-29 10:57] LABS: Alanine Aminotransferase 22 U/L (0-40); Albumin Level 3.1 g/dL (3.5-5.0); Anion Gap 12 (12-20); Aspartate Amino Transferase 48 U/L (5-37); Bilirubin Total 0.4 mg/dL (0.0-1.0); Blood Urea Nitrogen 15 mg/dL (9-16); Calcium 8.5 mg/dL (8.4-10.2); Carbon Dioxide 23 mmol/L (22-29); Chloride 107 mmol/L (96-108); Creatinine Clr Calc Pharmacy 53.9; Estimated Glomerular Filt Rate > 60; Glucose Random 101 mg/dL (60-115); Potassium 3.6 mmol/L (3.3-5.1); Sodium 138 mmol/L (135-145); Total Protein 6.9 g/dL (6.5-8.0)
[2024-07-29 11:01] LABS: Alkaline Phosphatase 48 U/L (39-117)
[2024-07-29 11:45] VITALS: BP 117/71; PULSE 113; RESP 16; TEMP 36.7; O2SAT 93
--- NOTE | 2024-07-29 12:03 | ED.GENADULT ---
[facility] - General Adult General Chief complaint: Weakness Stated complaint: DIARRHEA SINCE SATURDAY Time Seen by Provider: 07/29/24 09:56 Source: patient Mode of arrival: ambulatory History of Present Illness ED Provider: Juliocesar JACKSON narrative: 84-year-old male who presents with multiple episodes of diarrhea since Saturday and states that over the past 24 hours that has gradually improved and that he has started to feel better, he denies any recent travel, denies any use of antibiotics within the past 3 months, he denies any changes in medications or changes in doses. Patient states he was feeling well but then took a nap this morning and when he got up felt very sweaty, denies any abdominal pain and does report 1 episode of diarrhea that was nonbloody. Reports that he has been on blood thinners for occasional atrial fibrillation. Related Data Home Medications ?Medication ?Instructions ?Recorded ?Confirmed apixaban 5 mg tablet (Eliquis) 5 mg PO BID 04/17/24 atorvastatin 20 mg tablet 20 mg PO BEDTIME 04/17/24 doxycycline monohydrate 50 mg 50 mg PO BID 04/17/24 capsule Previous Rx's ?Medication ?Instructions ?Recorded codeine 10 mg-guaifenesin 100 mg/5 10 ml PO Q6H PRN cough 10 days 04/17/24 mL oral liquid #300 mL mometasone 200 mcg/actuation HFA 2 puff inhalation BID 30 days #13 04/17/24 aerosol inhaler (Asmanex HFA) grams beclomethasone dipropionate 80 2 inh inhalation BID 30 days #10.6 04/21/24 mcg/actuation HFA breath activated grams aerosol (Qvar RediHaler) lisinopril 5 mg tablet 5 mg PO DAILY 30 days #30 tabs 05/14/24 fluticasone propionate 50 2 spray intranasal DAILY 30 days 07/21/24 mcg/actuation nasal #15.8 mL spray,suspension ipratropium bromide 42 mcg (0.06 2 spray intranasal TID PRN allergy 07/23/24 %) nasal spray symptoms #15 mL Allergies Allergy/AdvReac Type Severity Reaction Status Date / Time No Known Allergies Allergy Verified 07/29/24 10:21 Review of Systems Review of Systems: Pertinent positives and negatives as stated in [facility] Past Medical History Source: nursing notes reviewed Medical History Chronic cough Pulmonary nodule 1 cm or greater in diameter Pertussis pneumonia Cough due to TANYA inhibitor Vasomotor rhinitis Bronchopneumonia Social History Social History Patient Tobacco Use Status: Former Tobacco user Tobacco use type: Cigarette Years Smoked: 20+ Years Smoked in Last 30 Days: No Use of substances other than those prescribed or required for medical reasons: No Advance Directives: No Advance Directives Information Provided: Yes Do you have a plan to hurt others: No Plan Physical Exam ED Vital Signs: Vital Signs - 24 hr 07/29/24 11:45 Temperature 98.0 F Pulse Rate 113 H Respiratory Rate 16 Blood Pressure 117/71 Pulse Oximetry 93 Oxygen Delivery Method Room Air BMI result Body Mass Index 19.9 VITAL SIGNS: Reviewed. GENERAL: Well developed, well nourished, in no acute distress. HEAD: Normocephalic/atraumatic EYES: PERRLA, EOMI EARS: Ext canals without abnormality NOSE: Nares patent bilateral OROPHARYNX: no oral lesions noted, posterior pharynx clear NECK: Supple, no adenopathy LUNGS: Normal breath sounds. No adventitious sounds or accessory muscle use. SpO2<93> CARDIOVASCULAR: Regular rate and rhythm without noted murmurs ABDOMEN: Soft, non-tender, non-distended with bowel sounds. MUSCULOSKELETAL: No tenderness, deformities, or effusions noted on gross inspection. EXTREMITIES: No cyanosis, clubbing or edema. SKIN: Inspection of the skin reveals no rashes NEUROLOGIC: Alert and oriented x 4. Strength and sensation to light touch were grossly intact x 4. Medications Administered Generic Name Dose Route Start Last Admin Trade Name Freq PRN Reason Stop Dose Admin Sodium Chloride 1,000 mls @ 999 mls/hr 07/29/24 12:15 07/29/24 12:29 Ns IV 07/29/24 13:15 999 mls/hr .Q1H1M ORALIA Administration Discontinued Medications Generic Name Dose Route Start Last Admin Trade Name Freq PRN Reason Stop Dose Admin Acetaminophen 1,000 mg in 100 mls @ 400 mls/hr 07/29/24 12:04 07/29/24 12:29 Ofirmev IV 07/29/24 12:18 400 mls/hr ONCE ONE Administration Medical Decision Making Medical Decision Making MDM Narrative: 84-year-old male with history and clinical presentation, DD DX: Gastroenteritis, there is no intra-abdominal pain or discomfort, no reports of rectal bleeding, will rule out pneumonia as well. EKG: Sinus rhythm, HR-89, no STEMI, MS/QRS/QTC/QTC are within normal limits. INTERVENTION: IVF, IV Tylenol I reviewed and interpreted all investigations and there is no evidence of infectious leukocytosis, stable anemia and thrombocytopenia. There is no demonstrated SAUL/electrolyte or liver enzyme derangements. Chest x-ray on my interpretation is negative for infiltrate or interstitial edema and otherwise in agreement with radiology's impression. High sensitivity troponin although detectable is not associated with any ischemic changes. Viral testing is positive for influenza A He has had no further diarrheal symptoms since arrival, after rehydrating will ambulate and then discharged home. He is outside the window for treatment with Tamiflu and is strongly encouraged to follow-up with his primary care doctor. Differential Diagnosis Differential Diagnoses: The differential diagnosis associated with the presentation includes See above Admission/Observation Consideration of admission/observation: Escalation of care including admission/observation considered See above, does not meet inpatient level of care. Lab Data MDM Lab Attestation statement: I reviewed the patient's lab results. See above 07/29/24 10:25 07/29/24 10:25 Labs: Lab Results 07/29/24 07/29/24 Range/Units 10:25 11:24 WBC 3.5 L (4.8-10.8) X10*3/uL RBC 3.74 L (4.60-5.80) X10*6/uL Hgb 11.3 L (14.0-18.0) g/dl Hct 32.9 L (42.0-52.0) % MCV 88.0 (80.0-98.0) fL MCH 30.2 (27.0-33.0) pg MCHC 34.3 (31.0-36.0) g/dl RDW 12.8 (11.0-16.0) % Plt Count 154 L (160-400) X10*3/uL MPV 9.7 (9.4-12.4) fL Immature Gran % (Auto) 0.3 (0.0-0.4) % Neut % (Auto) 56.7 (45-73) % Lymph % (Auto) 32.8 (20-40) % Travis % (Auto) 9.9 (2-11) % Eos % (Auto) 0.0 (0-4) % Baso % (Auto) 0.3 (0-2) % Lymph # (Auto) 1.2 (1.2-4.9) X10*3/uL Travis # (Auto) 0.4 (0.1-1.2) X10*3/uL Eos # (Auto) 0.0 (0.0-0.4) X10*3/uL Baso # (Auto) 0.0 (0.0-0.2) X10*3/uL Abs Immat Gran (auto) 0.01 (0.00-0.03) X10*3/uL Absolute Neuts (auto) 2.0 (2.0-8.3) x10*3/uL Absolute Nucleated RBC 0.000 (0.0-0.012) X10*3/uL Nucleated RBC % (auto) 0.0 (0.0-0.2) /100WBC Sodium 138 (135-145) mmol/L Potassium 3.6 (3.3-5.1) mmol/L Chloride 107 (96-108) mmol/L Carbon Dioxide 23 (22-29) mmol/L Anion Gap 12 (12-20) BUN 15 (9-16) mg/dL Creatinine 1.05 (0.5-1.4) mg/dL Estim Creat Clear Calc 53.9 Estimated GFR > 60 Random Glucose 101 (60-115) mg/dL Calcium 8.5 (8.4-10.2) mg/dL Total Bilirubin 0.4 (0.0-1.0) mg/dL AST 48 H (5-37) U/L ALT 22 (0-40) U/L Alkaline Phosphatase 48 (39-117) U/L Troponin I High Sens 26.4 (<3.5-35.0) ng/L Total Protein 6.9 (6.5-8.0) g/dL Albumin 3.1 L (3.5-5.0) g/dL Influenza Type A (PCR) POSITIVE A (Negative) Influenza Type B (PCR) NEGATIVE (Negative) RSV RNA Qual (PCR) NEGATIVE (Negative) SARS-CoV-2 RNA (RT-PCR) NEGATIVE (Negative) Independent Interpretation I performed an independent interpretation of an: EKG and Plain X-Ray Interpretation: See above Radiology Impression Discussion of test interpretation with radiology: I have reviewed the radiologist's reading. Radiologist Impression: See above External Record Review External record reviewed: Prior outpatient labs and Prior outpatient radiology Chronic Conditions Patient?s care impacted by: Hypertension Critical Care Time Critical Care Time Critical Care Time: Yes Total Critical Care Time: 30 Attestation: I personally attest to this time spent taking care of the patient. Discharge Plan Discharge Clinical Impression: Viral syndrome, Dehydration, Influenza A Patient Disposition: Home, Self-Care Instructions: Dehydration (ED), Influenza (ED), Viral Syndrome (ED), Nutrition Tips for Relief of Diarrhea (ED) Additional Instructions: Continue to rehydrate with Pedialyte and water, review the dietary recommendations for diarrhea relief. Unfortunately, your outside the window to treat with Tamiflu for your influenza diagnosis. Follow-up with your primary care doctor within the next week for re-evaluation and do not hesitate to return to the emergency room for any acute worsening of your symptoms. Prescriptions: No Action Qvar RediHaler 80 mcg/actuation HFA aerosol breath activated 2 inh inhalation BID 30 Days Qty: 10.6 11RF lisinopril 5 mg tablet 5 mg PO DAILY 30 Days Qty: 30 0RF fluticasone propionate 50 mcg/actuation spray,suspension 2 spray intranasal DAILY 30 Days Qty: 15.8 11RF ipratropium bromide 42 mcg (0.06 %) spray,non-aerosol 2 spray intranasal TID PRN (Reason: allergy symptoms) Qty: 15 6RF Rx Instructions: administer into each nostril doxycycline monohydrate 50 mg capsule 50 mg PO BID Eliquis 5 mg tablet 5 mg PO BID atorvastatin 20 mg tablet 20 mg PO BEDTIME Asmanex HFA 200 mcg/actuation HFA aerosol inhaler 2 puff inhalation BID 30 Days Qty: 13 1RF codeine-guaifenesin 10-100 mg/5 mL liquid 10 ml PO Q6H PRN (Reason: cough) 10 Days Qty: 300 0RF Referrals: Radha Fernández MD [Primary Care Provider] - Print Language: Mohawk
--- NOTE | 2024-07-29 12:07 | ECG_ITS ---
Test Reason : WEAKNESS Blood Pressure : */* mmHG Vent. Rate : 89 BPM Atrial Rate : 89 BPM P-R Int : 176 ms QRS Dur : 80 ms QT Int : 380 ms P-R-T Axes : 100 -11 22 degrees QTcB Int : 462 ms Sinus rhythm with Premature supraventricular complexes Otherwise normal ECG No previous ECGs available Referred By: Gretta Gandara Electronically Signed By: JENNIFER SHER
[2024-07-29 12:08] LABS: Influenza A PCR POSITIVE (Negative); Influenza B PCR NEGATIVE (Negative); Resp Syncy Virus RNA Qual PCR NEGATIVE (Negative); SARS COV2 PCR INHOUSE NEGATIVE (Negative)
[2024-07-29] MEDS: 0.9 % Sodium Chloride 1,000 ML 999 ML IV (12:29)
[2024-07-29] MEDS: Acetaminophen 1,000 MG/100 ML PIGGYBACK 400 MG IV (12:29)
[2024-07-29 12:31] LABS: Troponin-I High Sensitivity 26.4 ng/L (<3.5-35.0)
--- OUTSIDE RECORDS SUMMARY | 2024-07-29 12:36 | XMS_ITS ---
Author Organization [facility] Address [address] [place] [address] Care Team Providers Care Customer Service Leader Name Role Phone MOSES ROJO Unavailable [phone] REASON FOR VISIT covid positive Encounters Encounter Location Date Provider Diagnosis [address] [address] 06/18/2024 MOSES ROJO PLAN OF TREATMENT Next Appt Details Provider Name:MOSES ROJO, 08/25/2024 08:45:00 AM, [address], [place], [address], Progress Notes * Tae JARADOB: [birth year] (84 yo M)Acc No.[id number]:06/18/2024 Patient:??ESTEFANI Tae :1940?Age:84 Y?Sex:Winston leyda Address:[address] [place] [address] * true * Date:??
--- OUTSIDE RECORDS SUMMARY | 2024-07-29 12:36 | XMS_ITS ---
Author Organization [facility] Address [address] [address] Care Team Providers Care Donor Support Technician Name Role Phone MOSES ROJO Unavailable [phone] REASON FOR VISIT Refill - Metoprolol MEDICATIONS Medication SIG (Take, Route, Frequency, Duration) Notes Start Date End Date Status Metoprolol Succinate ER 25 MG 1 tablet Orally Once a day for 90 days Active Encounters Encounter Location Date Provider Diagnosis [facility] [address] [place] [phone] 07/15/2024 MOSES ROJO PLAN OF TREATMENT Medication Medication Name Sig Start Date Stop Date Notes Metoprolol Succinate ER 25 MG 1 tablet O rally Once a day for 90 days Next Appt Details Provider Name:MOSES ROJO, 08/25/2024 08:45:00 AM, [address], [place], [address], Progress Notes * Tae JARADOB: [birth year] (84 yo M)Acc No.[id number]:07/15/2024 Patient:??ESTEFANI Tae :1940?Age:84 Y?Sex:Winston leyda Address[address] [place] [address] * Refills?? Refill Metoprolol Succinate ER Tablet Extended Release 24 Hour, 25 MG, Orally, 90 Tablet, 1 tablet, Once a day, 90 days, Refills=0 * true * Date:??
--- OUTSIDE RECORDS SUMMARY | 2024-07-29 12:36 | XMS_ITS | Encounter Summary ---
Author Organization [facility] Address [address] [place] [address] Care Team Providers Care Head Of Housekeeping Name Role Phone Sam Fernández MD Primary Care Provider [phone] Encounter Details Date Type Department Care Team (Latest Contact Info) Description 04/08/2024 11:33 AM EDT Hospital Encounter TH HISTORIC ENCOUNTERS [facility] ONLY Kelby Hurst PA [address] [place] [phone] Chronic obstructive pulmonary disease, unspecified (CMS/HCC) Social History Tobacco Use Types Packs/Day Years Used Date Smoking Tobacco: Former Cigarettes Q uit: 08/24/1970 Smokeless Tobacco: Never Alcohol Use Standard Drinks/Week Comments No 0 (1 standard drink = 0.6 oz pur e alcohol) Sex and Gender Information Value Date Recorded Sex Assigned at Not on file Gender Identity Not on file Sexual Orientation Not on file documented as of this encounter Plan of Treatment Not on file documented as of this encounter Procedures Procedure Name Priority Date/Time Associated Diagnosis Comments CHEST ROUTINE 2 VIEWS Routine 04/08/2024 12:12 PM EDT Chronic obstructive pulmonary disease, unspecified (CMS/HCC) documented in this encounter Results * DR WHITTEN ROUTINE 2 VIEWS (04/08/2024 12:12 PM EDT) Anatomical Region Laterality Modality Radiographic Alexandra ging 04/08/2024 11:3 8 AM EDT Narrative 04/08/2024 12:12 PM EDT [facility] Diagnostic Imaging Department [address] [place] [address] [id number] Patient: ??BRENDA JARA ?/Age/Sex: 1940 - 83 - M Unit#: ??[id number] ? Location/Status: ??SPDIGEN/REG CLI ? Mnemonic/Ordering Site: ??CHESTXR/SPDI Ordering Physician: ??KELBY HURST DR Chest Routine 2 Views - [...] diaphragm consistent with chronic obstructive pulmonary disease. ??There is no consolidation, mass, pulmonary vascular congestion, [...] Findings as above consistent with COPD. Code 43385 Dictating Physician: ??ASH BOBBY MD Electronically Signed by: ??ASH BOBBY MD Dic Date/Time: ??04/08/24 1208 Sign date/Time: ??04/08/24 1212 Procedure Note Ash Bobby MD - 04/28/2024 [facility] Diagnostic Imaging Department [address] [place] [id number] Patient: ESTEFANIBERNDA./Age/Sex: 1940 - 83 - M Unit#: [id number] Location/Status: SPDIGEN/REG CLI Mnemonic/Ordering Site: CHESTXR/SPDI Ordering [...] Findings as above consistent with COPD. Code 11161 Dictating Physician: ASH BOBBY MD Electronically Signed by: ASH BOBBY MD Dic Date/Time: 04/08/24 1208 Sign date/Time: 04/08/24 1212 Kelby WOOD IMG XR PROCEDURE S documented in this encounter Visit Diagnoses Diagnosis Chronic obstructive pulmonary disease, unspecified (CMS/HCC) documented in this encounter Care Teams Head Of Housekeeping Relationship Specialty Start Date End Date Sam Fernández MD PCP - General Internal Medicine 02/16/19 documented as of this encounter
--- OUTSIDE RECORDS SUMMARY | 2024-07-29 12:36 | XMS_ITS | Clinical Summary ---
Author Organization [facility] Address [address] [place] [address] Care Team Providers Care Slitter Processed Film Name Role Phone Sam Fernández MD Primary Care Provider [phone] Medications Medication Sig Dispensed Refills Start Date End Date Status atorvastatin (LIPITOR) 40 mg tablet TAKE 1 TABLET BY MOUTH EVERYDAY AT BEDTIME 90 tablet 3 07/28/2024 Active atorvastatin (LIPITOR) 40 mg tablet Take 1 tablet (40 mg total) by mouth at bedtime. 07/28/2024 Discontinued (Duplicate order) Surgical History Surgery Date Site/Laterality Comments OTHER SURGICAL HISTORY 12/2014 PROCEDURE: HISTORY OTHER; COMMENT: Seeds for prostate cancer OTHER SURGICAL HISTORY 1991 PROCEDURE: HISTORY OTHER; COMMENT: hernia repair COLONOSCOPY 03/19/2017 PROCEDURE: HISTORICAL COLONOSCOPY; COMMENT: normal; repeat in 5 yrs COLONOSCOPY 11/20/2010 PROCEDURE: HISTORICAL COLONOSCOPY; COMMENT: no findings listed; fair prep Medical History Medical History Date Comments History of prostate cancer 04/23/2019 DX:Hi story of prostate cancer; COMMENT: 12/2014 Treated w/Seeds Hyperlipidemia 04/23/2019 DX:Hyperlipidemi a Atrial fibrillation (CMS/HCC) 04/23/2019 DX :Atrial fibrillation (HCC) Hypertension 04/23/2019 DX:Hypertension Colon polyps 04/23/2019 DX:Colon polyps Rectal bleeding DX:Rectal bleedi ng CVA (cerebral vascular accid ent) (CMS/HCC) DX:CVA (cerebral vascular ac cident) (HCC) Family History Medical History Relation Name Comments Coronary artery disease Father Heart attack Father Other: Other, in her sleep Mother Relation Name Status Comments Father Mother Social History Tobacco Use Types Packs/Day Years Used Date Smoking Tobacco: Former Cigarettes Q uit: 08/24/1970 Smokeless Tobacco: Never Alcohol Use Standard Drinks/Week Comments No 0 (1 standard drink = 0.6 oz pur e alcohol) Sex and Gender Information Value Date Recorded Sex Assigned at Not on file Gender Identity Not on file Sexual Orientation Not on file Obstetrics History Last Filed Vital Signs Vital Sign Reading Time Taken Comments Blood Pressure 140/80 04/25/2023 10:05 AM EDT Si tting L Arm Pulse 65 04/25/2023 10:05 AM EDT Temperature - - Respiratory Rate - - Oxygen Saturation - - Inhaled Oxygen Concentration - - Weight 73 kg (161 lb) 04/25/2023 10:05 AM EDT Height 177.8 cm (5' 10 ) 08/20/2022 1:21 PM EST Body Mass Index 23.1 08/20/2022 1:21 PM EST Plan of Treatment Health Maintenance Due Date Last Done Comments Pneumococcal Vaccine: 65+ Ye ars (1 of 2 - PCV) 1948 DTaP,Tdap,and Td Vaccines (1 - Tdap) 1961 Zoster Vaccines (1 of 2) 1992 RSV Immunization Patients 60 + Years Old (1 - 1-dose 75+ series) 2017 Cholesterol Screening (Lipid Panel) 06/05/2022 Colorectal Cancer Screening: Colonoscopy 06/05/2022 Depression Screening 06/05/2022 Falls Risk Assessment 06/05/2022 Social Influencers of Health Screening 06/05/2022 Hypertension/CHF/CAD Annual BMP Blood Test 06/10/2022 COVID-19 Vaccine ( - 2023-2 5 season) 2024 Influenza Vaccine (#1) 2024 HIB Vaccines Aged Out No longer eligi ble based on patient's age to complete this topic HPV Vaccines Aged Out No longer eligi ble based on patient's age to complete this topic Hepatitis A Vaccines Aged Out No long er eligible based on patient's age to complete this topic Hepatitis B Vaccines Aged Out No long er eligible based on patient's age to complete this topic IPV Vaccines Aged Out No longer eligi ble based on patient's age to complete this topic MMR Vaccines Aged Out No longer eligi ble based on patient's age to complete this topic Meningococcal ACWY Vaccine Aged Out N o longer eligible based on patient's age to complete this topic RSV Immunization Patients Un nagi 20 months Aged Out No longer eligible b ased on patient's age to complete this topic Varicella Vaccines Aged Out No longer eligible based on patient's age to complete this topic Procedures Procedure Name Priority Date/Time Associated Diagnosis Comments CMP, CBC DIFF WITH ADDITIONAL CHEMISTRIES Routine 05/19/2024 11:00 AM EST from Last 3 Months Results * CMP, CBC DIFF with additional chemistries (05/19/2024 11:00 AM EST) Blood Venous blood specimen / Unknown Sam Fernández MD LAB BLOOD ORDERABLES from Last 3 Months Care Teams Slitter Processed Film Relationship Specialty Start Date End Date Sam Fernández MD PCP - General Internal Medicine 02/16/19
--- OUTSIDE RECORDS SUMMARY | 2024-07-29 12:37 | XMS_ITS ---
Author Organization [facility] Address [address] [place] [address] Care Team Providers Care Oliver Filter Operator Name Role Phone MOSES ROJO Unavailable [phone] CONYGABY Unavailable [phone] REASON FOR VISIT pos covid yesterday MEDICATIONS Medication SIG (Take, Route, Frequency, Duration) Notes Start Date End Date Status Losartan Potassium 25 MG TAKE 1 TABLET B Y MOUTH EVERY DAY FOR 30 DAYS for 90 Not-Taking Eliquis 5 MG TAKE 1 TABLET BY SHAZIA TH TWICE A DAY for 90 Active Ipratropium Kerman 0.03 % 1 spray in each nostril Nasally twice daily for 30 days 05/07/2024 Active Azelastine HCl 137 MCG/SPRAY Nasal for 30 Days Active Lisinopril 5 MG TAKE 1 TABLET BY SHAZIA TH EVERY DAY for 30 Active Lisinopril 30 MG TAKE 1 TABLET BY SHAZIA TH EVERY DAY for 90 days Active Qvar RediHaler 80 MCG/ACT Inhalation for 30 Days Active Ipratropium Kerman 0.06 % PLEASE SEE ATTACHED FOR DETAILED [...] Active Encounters Encounter Location Date Provider Diagnosis [facility] [address] [place] [address] 06/18/2024 GABY DONNELLY Acute COVID-19 U07.1 ; [...] Dictation was accomplished with the use of [email or web address] voice recognition software, which is prone to [...] Dictation was accomplished with the use of [email or web address] voice recognition software, which is prone to [...] Dictation was accomplished with the use of [email or web address] voice recognition software, which is prone to [...] Dictation was accomplished with the use of [email or web address] voice recognition software, which is prone to [...] Dictation was accomplished with the use of [email or web address] voice recognition software, which is prone to [...] Dictation was accomplished with the use of [email or web address] voice recognition software, which is prone to [...] Provider Name:MOSES ROJO, 08/25/2024 08:45:00 AM, [address] [facility], [place], [address], Progress Notes * Tae JARADOB: [birth year] (84 yo M)Acc No.[id number]:06/18/2024 Patient:??Tae JARA Provider:??GABY DONNELLY PA-C :1940?Age:84 Y?Sex:Ma le Date:06/18/2024 Address:[address] [place] [address], [place], [id number] Subjective: * Chief Complaints: * ?1. Pos [...] Aerosol Breath Activated Inhalation , Taking Ipratropium Kerman 0.06 % Solution PLEASE SEE ATTACHED FOR DETAILED DIRECTIONS Nasal , Taking Ipratropium Kerman 0.03 % Solution 1 spray in each [...] Dictation was accomplished with the use of [email or web address] voice recognition software, which is prone to medical misidentifications and grammatical errors. This are unintentional and the practitioner does try to identify and correct these, but some could still be present. Please do not hesitate to contact practitioner for clarification. Plan: * Treatment: * Images: Billing Information: * Visit Code:?? 75762 Office Visit, Est Pt., Level 4. Modifiers: [...]
[2024-07-29 13:33] VITALS: BP 104/61; PULSE 79; RESP 18; O2SAT 94
[2024-07-29 14:12] VITALS: BP 125/71; PULSE 74; RESP 18; TEMP 36.6; O2SAT 94
== END 2024-07-29 14:13 | disposition home or self-care (01) ==
PROVIDERS: Emergency Provider Student in an Organized Health Care Education/Training Program; PCP Student in an Organized Health Care Education/Training Program
DX: J10.1 Influenza due to other identified influenza virus with other respiratory manifestations (principal); B34.9 Viral infection, unspecified; E86.0 Dehydration; R94.31 Abnormal electrocardiogram [ECG] [EKG]; I48.91 Unspecified atrial fibrillation; R11.0 Nausea; Z03.818 Encounter for observation for suspected exposure to other biological agents ruled out; Z79.01 Long term (current) use of anticoagulants; Z79.899 Other long term (current) drug therapy; Z87.891 Personal history of nicotine dependence
CPT/HCPCS: 0241U; 36415; 71046; 80053; 84484; 85025; 93005; 96361; 96374; 99284; 99285; J0131

== ENCOUNTER → 2024-07-29 10:41 | Outpatient (BNV) | payer MEDICARE, SELFPAY | PROVIDERS: Emergency Provider Student in an Organized Health Care Education/Training Program; PCP Student in an Organized Health Care Education/Training Program; Visit Provider Radiology Diagnostic Radiology | DX: R06.02 Shortness of breath (principal); R05.9 Cough, unspecified | CPT/HCPCS: 71046 ==

== ENCOUNTER → 2024-07-29 12:07 | Outpatient (BNV) | payer MEDICARE, SELFPAY | PROVIDERS: Emergency Provider Student in an Organized Health Care Education/Training Program; PCP Student in an Organized Health Care Education/Training Program; Visit Provider Internal Medicine | DX: R53.1 Weakness (principal) | CPT/HCPCS: 93010 ==

== ENCOUNTER 2024-08-21 15:38 | Outpatient (REF) | payer MEDICARE, SELFPAY ==
[2024-08-21 10:25] VITALS: PULSE 80; O2SAT 98
--- OUTSIDE RECORDS SUMMARY | 2024-08-21 15:41 | XMS_ITS ---
Author Organization [facility] Address [address] [place] [address] [facility] [place] [address] Care Team Providers Care Meters Superintendent Name Role Phone MOSES ROJO Unavailable [phone] TANIAJAKE Fleming Unavailable [phone] ALLERGIES No Known Allergies REASON FOR VISIT pt here for cold sx 1wk MEDICATIONS Medication SIG (Take, Route, Frequency, Duration) Notes Start Date End Date Status Lisinopril 30 MG TAKE 1 TABLET BY SHAZIA TH EVERY DAY for 90 days Active Lisinopril 5 MG TAKE 1 TABLET BY SHAZIA TH EVERY DAY for 90 Active Ipratropium [place] 0.03 % USE 1 SPRAY I N EACH NOSTRIL TWICE DAILY for 90 Active Metoprolol Succinate ER 25 MG 1 tablet Orally Once a day for 90 days Active Azelastine HCl 137 MCG/SPRAY Nasal for 30 Days Active Eliquis 5 MG TAKE 1 TABLET BY SHAZIA TH TWICE A DAY for 90 Active Ipratropium [place] 0.06 % PLEASE SEE AT TACHED FOR DETAILED DIRECTIONS Nasal for 30 Days Active guaiFENesin ER 600 MG 1 tablet as needed Orally every 12 hrs for 20 days 05/26/2024 Active Nirmatrelvir&Ritonavir 300/100 20 x 150 MG & 10 x 100MG 3 tablets Orally Twice a day for 5 days 06/18/2024 Active Qvar RediHaler 80 MCG/ACT Inhalation for 30 Days Active Calcium 600 MG 1 tablet with meals Orally Twice a day Active Multivitamin Adult - as directed Orally Active Atorvastatin Calcium 40 MG 1 tablet Oral ly Once a day Active SOCIAL HISTORY Tobacco Use: Social History Observation [...] horses. Health Care Proxy: Rehana Barnett - [phone] VITAL SIGNS Heart Rate 79 /min 08/05/2024 Blood pressure systolic 130 mm Hg 08/05/19 25 Blood pressure diastolic 80 mm Hg 025 Weight 155.2 lbs 08/05/2024 BMI 22.92 kg/m2 08/05/2024 Height 69 in 08/05/2024 Oximetry 96 % 08/05/2024 Encounters Encounter Location Date Provider Diagnosis [facility] [address] [place] [address] 08/05/2024 JAKE MARIN Acute cough R05.1 ; Essential hypertension I10 ; Atrial fibrillation, unspecified type I48.91 ; Cerebrovascular accident (CVA), unspecified mechanism I63.9 and History of chronic cough Z87.898 ASSESSMENTS Encounter Date Diagnosis Assessment Notes Treatment Notes Treatment Clinical Notes Section Notes 08/05/2024 Acute cough (ICD-10 - R05.1) Tae is an 84-year-old male present today for hospital follow-up /urgent visit. # On 07/29/2024 patient was seen at [facility] ER and diagnosed with dehydration secondary to influenza A. Received IV fluids and was discharged to continue with supportive care. Not able to prescribe Tamiflu due to patient presenting out of the treatment window. # Today patient reports productive cough, postnasal drip and generalized malaise. Denies any other symptoms as stated in HPI. Patient states he is able to hydrate well, denies any vision changes, dizziness or lightheadedness. States he has decreased appetite, but still eating appropriately. States he has been taking an cpqe-ktt-fnlhwpr cough syrup of unknown name, purchased by daughter. States he overall feels the same, has not worsened or improved. Patient's lungs sound clear on auscultation. HEENT and abdominal exam unremarkable. Pulse ox in office of 96%, other vitals unremarkable. Patient not hypertensive or tachycardic. Patient viral swab in office today for COVID, RSV and flu. Will call regarding results. Plan to prescribe guaifenesin to use as needed as a mucolytic and continue with supportive care. Advised patient that coughing should not be suppressed as this will help eliminate mucus in lungs. Plan to order chest x-ray for further evaluation rule out pneumonia. Given recent diagnosis of influenza, most likely a viral infection and will defer antibiotic therapy at this time. Plan to continue monitor. Discussed ER protocol and if symptoms worsen or develops concern for dehydration to return to ER. # Chronic cough: Patient has been seen and evaluated by pulmonology. Pulmonology also initiated therapy with ipratropium nasal spray and a Qvar RediHaler to treat symptoms of cough/postnasal drip. The patient used ipratropium nasal spray twice before throwing it away due to a nosebleed. He uses the inhaler as prescribed. #Hypertension: Blood pressure stable. Patient recently switched from lisinopril to losartan due to concern for TANYA induced cough. Patient today reports he has not been taking losartan and has been taking lisinopril as prescribed. Patient has follow-up on 08/25 and will further discuss hypertension management as blood pressure is stable in office today. #A-fib: Continue metoprolol extended release 25 mg p.o. once daily. Continue Eliquis 5 mg twice daily. # History of CVA: continue atorvastatin 40 mg p.o. once daily. All questions answered to patients satisfaction. Patient verbalized understanding of diagnosis and treatments explained. To call sooner prior to next visit it any questions/concerns arise. Case discussed with collaborating physician Dr. Fernández who reviewed the assessment and plan. Chart, medications, labs, vital signs reviewed. Dictation was accomplished with the use of [email or web address] voice recognition software, prone to medical misidentifications and grammatical errors. This is unintentional and the practitioner does try to identify and correct these, but some could still be present. Please do not hesitate to contact practitioner for clarification. 08/05/2024 Essential hypertension (ICD-10 - I10) Tae is an 84-year-old male present today for hospital follow-up /urgent visit. # On 07/29/2024 patient was seen at [facility] ER and diagnosed with dehydration secondary to influenza A. Received IV fluids and was discharged to continue with supportive care. Not able to prescribe Tamiflu due to patient presenting out of the treatment window. # Today patient reports productive cough, postnasal drip and generalized malaise. Denies any other symptoms as stated in HPI. Patient states he is able to hydrate well, denies any vision changes, dizziness or lightheadedness. States he has decreased appetite, but still eating appropriately. States he has been taking an ltzf-cxk-msniqld cough syrup of unknown name, purchased by daughter. States he overall feels the same, has not worsened or improved. Patient's lungs sound clear on auscultation. HEENT and abdominal exam unremarkable. Pulse ox in office of 96%, other vitals unremarkable. Patient not hypertensive or tachycardic. Patient viral swab in office today for COVID, RSV and flu. Will call regarding results. Plan to prescribe guaifenesin to use as needed as a mucolytic and continue with supportive care. Advised patient that coughing should not be suppressed as this will help eliminate mucus in lungs. Plan to order chest x-ray for further evaluation rule out pneumonia. Given recent diagnosis of influenza, most likely a viral infection and will defer antibiotic therapy at this time. Plan to continue monitor. Discussed ER protocol and if symptoms worsen or develops concern for dehydration to return to ER. # Chronic cough: Patient has been seen and evaluated by pulmonology. Pulmonology also initiated therapy with ipratropium nasal spray and a Qvar RediHaler to treat symptoms of cough/postnasal drip. The patient used ipratropium nasal spray twice before throwing it away due to a nosebleed. He uses the inhaler as prescribed. #Hypertension: Blood pressure stable. Patient recently switched from lisinopril to losartan due to concern for TANYA induced cough. Patient today reports he has not been taking losartan and has been taking lisinopril as prescribed. Patient has follow-up on 08/25 and will further discuss hypertension management as blood pressure is stable in office today. #A-fib: Continue metoprolol extended release 25 mg p.o. once daily. Continue Eliquis 5 mg twice daily. # History of CVA: continue atorvastatin 40 mg p.o. once daily. All questions answered to patients satisfaction. Patient verbalized understanding of diagnosis and treatments explained. To call sooner prior to next visit it any questions/concerns arise. Case discussed with collaborating physician Dr. Fernández who reviewed the assessment and plan. Chart, medications, labs, vital signs reviewed. Dictation was accomplished with the use of [email or web address] voice recognition software, prone to medical misidentifications and grammatical errors. This is unintentional and the practitioner does try to identify and correct these, but some could still be present. Please do not hesitate to contact practitioner for clarification. 08/05/2024 Atrial fibrillation, unspecified type (ICD-10 - I48.91) Tae is an 84-year-old male present today for hospital follow-up /urgent visit. # On 07/29/2024 patient was seen at [facility] ER and diagnosed with dehydration secondary to influenza A. Received IV fluids and was discharged to continue with supportive care. Not able to prescribe Tamiflu due to patient presenting out of the treatment window. # Today patient reports productive cough, postnasal drip and generalized malaise. Denies any other symptoms as stated in HPI. Patient states he is able to hydrate well, denies any vision changes, dizziness or lightheadedness. States he has decreased appetite, but still eating appropriately. States he has been taking an yvzy-otx-ludniwb cough syrup of unknown name, purchased by daughter. States he overall feels the same, has not worsened or improved. Patient's lungs sound clear on auscultation. HEENT and abdominal exam unremarkable. Pulse ox in office of 96%, other vitals unremarkable. Patient not hypertensive or tachycardic. Patient viral swab in office today for COVID, RSV and flu. Will call regarding results. Plan to prescribe guaifenesin to use as needed as a mucolytic and continue with supportive care. Advised patient that coughing should not be suppressed as this will help eliminate mucus in lungs. Plan to order chest x-ray for further evaluation rule out pneumonia. Given recent diagnosis of influenza, most likely a viral infection and will defer antibiotic therapy at this time. Plan to continue monitor. Discussed ER protocol and if symptoms worsen or develops concern for dehydration to return to ER. # Chronic cough: Patient has been seen and evaluated by pulmonology. Pulmonology also initiated therapy with ipratropium nasal spray and a Qvar RediHaler to treat symptoms of cough/postnasal drip. The patient used ipratropium nasal spray twice before throwing it away due to a nosebleed. He uses the inhaler as prescribed. #Hypertension: Blood pressure stable. Patient recently switched from lisinopril to losartan due to concern for TANYA induced cough. Patient today reports he has not been taking losartan and has been taking lisinopril as prescribed. Patient has follow-up on 08/25 and will further discuss hypertension management as blood pressure is stable in office today. #A-fib: Continue metoprolol extended release 25 mg p.o. once daily. Continue Eliquis 5 mg twice daily. # History of CVA: continue atorvastatin 40 mg p.o. once daily. All questions answered to patients satisfaction. Patient verbalized understanding of diagnosis and treatments explained. To call sooner prior to next visit it any questions/concerns arise. Case discussed with collaborating physician Dr. Fernández who reviewed the assessment and plan. Chart, medications, labs, vital signs reviewed. Dictation was accomplished with the use of [email or web address] voice recognition software, prone to medical misidentifications and grammatical errors. This is unintentional and the practitioner does try to identify and correct these, but some could still be present. Please do not hesitate to contact practitioner for clarification. 08/05/2024 Cerebrovascular accident (CVA), unspecified mechanism (ICD-10 - I63.9) Tae is an 84-year-old male present today for hospital follow-up /urgent visit. # On 07/29/2024 patient was seen at [facility] ER and diagnosed with dehydration secondary to influenza A. Received IV fluids and was discharged to continue with supportive care. Not able to prescribe Tamiflu due to patient presenting out of the treatment window. # Today patient reports productive cough, postnasal drip and generalized malaise. Denies any other symptoms as stated in HPI. Patient states he is able to hydrate well, denies any vision changes, dizziness or lightheadedness. States he has decreased appetite, but still eating appropriately. States he has been taking an ctwl-ofv-dffjblx cough syrup of unknown name, purchased by daughter. States he overall feels the same, has not worsened or improved. Patient's lungs sound clear on auscultation. HEENT and abdominal exam unremarkable. Pulse ox in office of 96%, other vitals unremarkable. Patient not hypertensive or tachycardic. Patient viral swab in office today for COVID, RSV and flu. Will call regarding results. Plan to prescribe guaifenesin to use as needed as a mucolytic and continue with supportive care. Advised patient that coughing should not be suppressed as this will help eliminate mucus in lungs. Plan to order chest x-ray for further evaluation rule out pneumonia. Given recent diagnosis of influenza, most likely a viral infection and will defer antibiotic therapy at this time. Plan to continue monitor. Discussed ER protocol and if symptoms worsen or develops concern for dehydration to return to ER. # Chronic cough: Patient has been seen and evaluated by pulmonology. Pulmonology also initiated therapy with ipratropium nasal spray and a Qvar RediHaler to treat symptoms of cough/postnasal drip. The patient used ipratropium nasal spray twice before throwing it away due to a nosebleed. He uses the inhaler as prescribed. #Hypertension: Blood pressure stable. Patient recently switched from lisinopril to losartan due to concern for TANYA induced cough. Patient today reports he has not been taking losartan and has been taking lisinopril as prescribed. Patient has follow-up on 08/25 and will further discuss hypertension management as blood pressure is stable in office today. #A-fib: Continue metoprolol extended release 25 mg p.o. once daily. Continue Eliquis 5 mg twice daily. # History of CVA: continue atorvastatin 40 mg p.o. once daily. All questions answered to patients satisfaction. Patient verbalized understanding of diagnosis and treatments explained. To call sooner prior to next visit it any questions/concerns arise. Case discussed with collaborating physician Dr. Fernández who reviewed the assessment and plan. Chart, medications, labs, vital signs reviewed. Dictation was accomplished with the use of [email or web address] voice recognition software, prone to medical misidentifications and grammatical errors. This is unintentional and the practitioner does try to identify and correct these, but some could still be present. Please do not hesitate to contact practitioner for clarification. 08/05/2024 History of chronic cough (ICD-10 - Z87.898) Tae is an 84-year-old male present today for hospital follow-up /urgent visit. # On 07/29/2024 patient was seen at [facility] ER and diagnosed with dehydration secondary to influenza A. Received IV fluids and was discharged to continue with supportive care. Not able to prescribe Tamiflu due to patient presenting out of the treatment window. # Today patient reports productive cough, postnasal drip and generalized malaise. Denies any other symptoms as stated in HPI. Patient states he is able to hydrate well, denies any vision changes, dizziness or lightheadedness. States he has decreased appetite, but still eating appropriately. States he has been taking an mudf-apo-saknxid cough syrup of unknown name, purchased by daughter. States he overall feels the same, has not worsened or improved. Patient's lungs sound clear on auscultation. HEENT and abdominal exam unremarkable. Pulse ox in office of 96%, other vitals unremarkable. Patient not hypertensive or tachycardic. Patient viral swab in office today for COVID, RSV and flu. Will call regarding results. Plan to prescribe guaifenesin to use as needed as a mucolytic and continue with supportive care. Advised patient that coughing should not be suppressed as this will help eliminate mucus in lungs. Plan to order chest x-ray for further evaluation rule out pneumonia. Given recent diagnosis of influenza, most likely a viral infection and will defer antibiotic therapy at this time. Plan to continue monitor. Discussed ER protocol and if symptoms worsen or develops concern for dehydration to return to ER. # Chronic cough: Patient has been seen and evaluated by pulmonology. Pulmonology also initiated therapy with ipratropium nasal spray and a Qvar RediHaler to treat symptoms of cough/postnasal drip. The patient used ipratropium nasal spray twice before throwing it away due to a nosebleed. He uses the inhaler as prescribed. #Hypertension: Blood pressure stable. Patient recently switched from lisinopril to losartan due to concern for TANYA induced cough. Patient today reports he has not been taking losartan and has been taking lisinopril as prescribed. Patient has follow-up on 08/25 and will further discuss hypertension management as blood pressure is stable in office today. #A-fib: Continue metoprolol extended release 25 mg p.o. once daily. Continue Eliquis 5 mg twice daily. # History of CVA: continue atorvastatin 40 mg p.o. once daily. All questions answered to patients satisfaction. Patient verbalized understanding of diagnosis and treatments explained. To call sooner prior to next visit it any questions/concerns arise. Case discussed with collaborating physician Dr. Fernández who reviewed the assessment and plan. Chart, medications, labs, vital signs reviewed. Dictation was accomplished with the use of [email or web address] voice recognition software, prone to medical misidentifications and grammatical errors. This is unintentional and the practitioner does try to identify and correct these, but some could still be present. Please do not hesitate to contact practitioner for clarification. PLAN OF TREATMENT Medication Medication Name Sig Start Date Stop Date Notes guaiFENesin ER 600 MG 1 tablet as needed Orally every 12 hrs for 20 days 05/26/2024 Pending Test Test Name Order Date X ray : Chest with 2 views 08/05/2024 Next Appt Details Provider Name:MOSES ROJO, 08/25/2024 08:45:00 AM, [address] [facility], [place], [address], Progress Notes * Tae VELÁSQUEZDOB: [birth year] (84 yo M)Acc No.[id number]:08/05/2024 Patient:??Tae VELÁSQUEZ Provider:??JAKE MARIN PA-C :1940?Age:84 Y?Sex:Ma le Date:08/05/2024 Address:[address] [place] [address], [facility], [id number] Subjective: * Chief Complaints: * ?1. Pt here for cold sx 1wk. * HPI: ?Constitutional:? Tae is a 84-year-old male present today for urgent visit/ hospital follow up. Past medical history includes hypertension, iron deficiency anemia, hyperlipidemia, chronic A-fib, history of prostate cancer, gross hematuria, history of CVA, chronic cough, postnasal drip. ?Of note patient has had multiple upper respiratory infections in the past few months with last testing positive for COVID and seen via telehealth on 06/18 and prescribed Paxlovid. ?Patient was seen at [facility] ER on 07/29/2024, diagnosed with influenza A and dehydration. Patient received IV fluids and discharged with recommendations to continue supportive care. Patient today reports productive cough, postnasal drip and generalized malaise. Denies headache, fever, body aches, chills, sinus pressure, ear pain, sore throat, shortness of breath, trouble breathing, dizziness, lightheadedness, nausea, vomiting or abdominal pain. States at home he is taking a cough syrup, unknown name, purchased by daughter. States he is hydrating well. States he has a decreased appetite, but still eating appropriately. Overall patient states he feels the same since discharge, has not worsened or improved. ?Viral swab today in office for COVID, RSV and flu. * ROS:?All Other Systems:?Review of Systems (ROS)??All others negative except those mentioned in HPI.? * Medical History:??Essential (primary) hypertension, Iron deficiency anemia, unspecified, Hyperlipidemia, mild, Chronic atrial fibrillation, History of prostate cancer, Hematuria, gross, History of CVA (cerebrovascular accident), Chronic cough, Post-nasal drip. * Surgical History:??Prostate surgery , colonoscopy 3 years (2023) , Cardiac Ablation (endorses this was done a few years ago . * Hospitalization/Major Diagno stic Procedure:??Bordetella pertussis 03/11/2024, right upper lobe pneumonia 03/18/2024. * Family History:??Father: dec eased, diagnosed with Unspecified heart disease.??Mother: , diagnosed with Unspecified heart disease.??2 sister(s) . 1 daughter(s) . .?? * Social History:?Tobacco Use:??Tobacco Use/Smoking??Are you a??former smoker.?quit 45 years ago smoked for 20 years 1 pack ???ETOH: None ???Lives by self. 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 ???Health Care Proxy: Rehana Barnett - [phone]. * Medications:??Taking guaiFEN esin ER 600 MG Tablet Extended Release 12 Hour 1 tablet as needed Orally every 12 hrs , Taking Atorvastatin Calcium 40 MG Tablet 1 tablet Orally Once a day , Taking Calcium 600 MG Tablet 1 tablet with meals Orally Twice a day , Taking Multivitamin Adult - Tablet as directed Orally , Taking Qvar RediHaler 80 MCG/ACT Aerosol Breath Activated Inhalation , Taking Ipratropium [place] 0.06 % Solution PLEASE SEE ATTACHED FOR DETAILED DIRECTIONS Nasal , Taking Azelastine HCl 137 MCG/SPRAY Solution Nasal , Taking Eliquis 5 MG Tablet TAKE 1 TABLET BY MOUTH TWICE A DAY , Taking Nirmatrelvir&Ritonavir 300/100 20 x 150 MG & 10 x 100MG Tablet Therapy Pack 3 tablets Orally Twice a day , Taking Metoprolol Succinate ER 25 MG Tablet Extended Release 24 Hour 1 tablet Orally Once a day , Taking Ipratropium [place] 0.03 % Solution USE 1 SPRAY IN EACH NOSTRIL TWICE DAILY , Taking Lisinopril 30 MG Tablet TAKE 1 TABLET BY MOUTH EVERY DAY , Taking Lisinopril 5 MG Tablet TAKE 1 TABLET BY MOUTH EVERY DAY , Discontinued Losartan Potassium 25 MG Tablet TAKE 1 TABLET BY MOUTH EVERY DAY FOR 30 DAYS , Medication List reviewed and reconciled with the patient * Allergies:??N.K.D.A. Objective: * Vitals:??HR: 79 /min, BP: 13 0/80 mm Hg, Wt: 155.2 lbs, BMI: 22.92 Index, Ht: 69 in, Oxygen sat %: 96 %. * Physical Examination:?Vitals reviewed. ?General: Age appropriate 84 year old male, well appearing, no acute distress, speaking in full sentences without respiratory compromise. Well groomed, well developed. Alert, Interactive. ?Skin: Warm, dry and intact. No lesions/rashes/erythema. ?HEENT: Normocephalic/atraumatic. EOMI intact. PERRLA. Vision intact. No ptosis or lid lag. Nares without discharge or inflammation. Oral cavity free of plaques or exudates. Dentition well maintained. No pharyngeal erythema. Ear canal with cerumen. ?Neck/Thyroid: Supple, with no lymphadenopathy. Full ROM. Thyroid free of nodules and nonenlarged. ?Lung: Clear to auscultation bilaterally, no wheezes, rales or rhonchi. Equal chest rise and fall bilaterally. ?Cardiac: S1 and S2 appreciated. No murmurs/rubs or gallops. DP pulses intact 2+ bilaterally. Capillary refill <2 seconds. ?Abdomen: Soft, nontender, normoactive bowel sounds. No rebound/guarding. No CVA tenderness. No Masses. ?Neuro: CN II-XI grossly intact. Steady gait with ambulation observed. Symmetric reflexes. ?Psych: Stable mood and affect. Assessment: * Assessment: 1.??Acute cough - R05.1 (Marcelle bauer)??2.??Essential hypertension - I10??3.??Atrial fibrillation, unspecified type - I48.91??4.??Cerebrovascular accident (CVA), unspecified mechanism - I63.9??5.??History of chronic cough - Z87.898?? Tae is an 84-year-old ma le present today for hospital follow-up /urgent visit. # On 07/29/2024 patient was seen at [facility] ER and diagnosed with dehydration secondary to influenza A. Received IV fluids and was discharged to continue with supportive care. Not able to prescribe Tamiflu due to patient presenting out of the treatment window. # Today patient reports productive cough, postnasal drip and generalized malaise. Denies any other symptoms as stated in HPI. Patient states he is able to hydrate well, denies any vision changes, dizziness or lightheadedness. States he has decreased appetite, but still eating appropriately. States he has been taking an utlj-zsd-upgzfej cough syrup of unknown name, purchased by daughter. States he overall feels the same, has not worsened or improved. Patient's lungs sound clear on auscultation. HEENT and abdominal exam unremarkable. Pulse ox in office of 96%, other vitals unremarkable. Patient not hypertensive or tachycardic. Patient viral swab in office today for COVID, RSV and flu. Will call regarding results. Plan to prescribe guaifenesin to use as needed as a mucolytic and continue with supportive care. Advised patient that coughing should not be suppressed as this will help eliminate mucus in lungs. Plan to order chest x-ray for further evaluation rule out pneumonia. Given recent diagnosis of influenza, most likely a viral infection and will defer antibiotic therapy at this time. Plan to continue monitor. Discussed ER protocol and if symptoms worsen or develops concern for dehydration to return to ER. # Chronic cough: Patient has been seen and evaluated by pulmonology. Pulmonology also initiated therapy with ipratropium nasal spray and a Qvar RediHaler to treat symptoms of cough/postnasal drip. The patient used ipratropium nasal spray twice before throwing it away due to a nosebleed. He uses the inhaler as prescribed. #Hypertension: Blood pressure stable. Patient recently switched from lisinopril to losartan due to concern for TANYA induced cough. Patient today reports he has not been taking losartan and has been taking lisinopril as prescribed. Patient has follow-up on 08/25 and will further discuss hypertension management as blood pressure is stable in office today. #A-fib: Continue metoprolol extended release 25 mg p.o. once daily. Continue Eliquis 5 mg twice daily. # History of CVA: continue atorvastatin 40 mg p.o. once daily. All questions answered to patients satisfaction. Patient verbalized understanding of diagnosis and treatments explained. To call sooner prior to next visit it any questions/concerns arise. Case discussed with collaborating physician Dr. Fernández who reviewed the assessment and plan. Chart, medications, labs, vital signs reviewed. Dictation was accomplished with the use of [employer] voice recognition software, prone to medical misidentifications and grammatical errors. This is unintentional and the practitioner does try to identify and correct these, but some could still be present. Please do not hesitate to contact practitioner for clarification. Plan: * Treatment: * Images: Billing Information: * Visit Code:?? 66792 Office Visit, Est Pt., Level 4. * Procedure Codes:?? Care Plan Details* * Sign off status: Completed true * Provider:??JAKE MARIN PA-C Date:??10/2024 History and Physical Notes * HPI (History of Present Illness) Category Sub-Category Detail Notes Category Not es Constitutional Tae is a 84-year-old male present today for urgent visit/ hospital follow up. Past medical history includes hypertension, iron deficiency anemia, hyperlipidemia, chronic A-fib, history of prostate cancer, gross hematuria, history of CVA, chronic cough, postnasal drip. Of note patient has had multiple upper respiratory infections in the past few months with last testing positive for COVID and seen via telehealth on 06/18 and prescribed Paxlovid. Patient was seen at [facility] ER on 07/29/2024, diagnosed with influenza A and dehydration. Patient received IV fluids and discharged with recommendations to continue supportive care. Patient today reports productive cough, postnasal drip and generalized malaise. Denies headache, fever, body aches, chills, sinus pressure, ear pain, sore throat, shortness of breath, trouble breathing, dizziness, lightheadedness, nausea, vomiting or abdominal pain. States at home he is taking a cough syrup, unknown name, purchased by daughter. States he is hydrating well. States he has a decreased appetite, but still eating appropriately. Overall patient states he feels the same since discharge, has not worsened or improved. Viral swab today in office for COVID, RSV and flu. Physical Examination Category Sub-Category Detail Notes Section Note s Vitals reviewed. General: Age appropriate 84 year old male, well appearing, no acute distress, speaking in full sentences without respiratory compromise. Well groomed, well developed. Alert, Interactive. Skin: Warm, dry and intact. No lesions/rashes/erythema. HEENT: Normocephalic/atraumatic. EOMI intact. PERRLA. Vision intact. No ptosis or lid lag. Nares without discharge or inflammation. Oral cavity free of plaques or exudates. Dentition well maintained. No pharyngeal erythema. Ear canal with cerumen. Neck/Thyroid: Supple, with no lymphadenopathy. Full ROM. Thyroid free of nodules and nonenlarged. Lung: Clear to auscultation bilaterally, no wheezes, rales or rhonchi. Equal chest rise and fall bilaterally. Cardiac: S1 and S2 appreciated. No murmurs/rubs or gallops. DP pulses intact 2+ bilaterally. Capillary refill <2 seconds. Abdomen: Soft, nontender, normoactive bowel sounds. No rebound/guarding. No CVA tenderness. No Masses. Neuro: CN II-XI grossly intact. Steady gait with ambulation observed. Symmetric reflexes. Psych: Stable mood and affect
--- OUTSIDE RECORDS SUMMARY | 2024-08-21 15:41 | XMS_ITS | Encounter Summary ---
Author Organization [facility] Address [address] [place] [address] Care Team Providers Care Salt Plant Operator Name Role Phone Sam Fernández MD Primary Care Provider [phone] Encounter Details Date Type Department Care Team (Latest Contact Info) Description 08/05/2024 9:32 AM EST - 08/05/2024 11:59 PM EST Hospital Encounter [facility] Xray [address] [place] [address] Acute cough Discharge Disposition: Home or Self Care Social History Tobacco Use Types Packs/Day Years [...] on file documented as of this encounter Medications at Time of Discharge atorvastatin (LIPITOR) 40 mg tablet TAKE 1 TABLET BY MOUTH EVERYDAY AT BEDTIME 90 tablet 3 07/28/2024 documented as of this encounter Discharge Disposition Disposition Code Departure Means Destination Home or Self Care documented in this encounter Plan of Treatment Not on file documented as of this encounter Procedures Procedure Name Priority Date/Time Associated Diagnosis Comments XR CHEST 2 VIEWS Routine 08/05/2024 9:41 AM EST Acute cough documented in this encounter Results * XR Chest 2 Views (08/05/2024 9:41 AM EST) Anatomical Region Laterality Modality Body Radiographic Alexandra ging 08/05/2024 9:44 AM EST Impressions 08/05/2024 9:46 AM EST Impression: No acute process identified in the chest. No significant change. Telerad PA ([id number]) -------- FINAL REPORT -------- Dictated By: Coco Zavala Dictated Date: 08/05/2024 09:44 ET Assigned Physician: Coco Zavala Reviewed and Electronically Signed By: Coco Zavala Signed Date: 08/05/2024 09:46 ET Workstation ID: [id number] Transcribed By: Self Edit Transcribed Date: 08/05/2024 09:44 ET Narrative 08/05/2024 9:46 AM EST History: Cough. Comparison: 04/08/24, thoracic CT 04/09/24 Findings: PA and lateral views. The cardiac silhouette remains normal in size. Atherosclerotic tortuosity the thoracic aorta is again seen. Hilar contours and pulmonary vascularity are within normal limits. Minimal subsegmental atelectasis at the left base is unchanged from the previous studies. The lungs are otherwise clear. The costophrenic angles are sharp. The regional skeleton is intact. A cardiac loop recorder is seen within the anterior subcutaneous soft tissues. Procedure Note Coco Zavala MD - 08/05/2024 History: Cough. Comparison: 04/08/24, thoracic CT 04/09/24 Findings: PA and lateral views. The cardiac silhouette remains normal in size.Atherosclerotic tortuosity the thoracic aorta is again seen. Hilarcontours and pulmonary vascularity are within normal limits. Minimalsubsegmental atelectasis at the left base is unchanged from the previousstudies. The lungs are otherwise clear. The costophrenic angles aresharp. The regional skeleton is intact. A cardiac loop recorder is seen withinthe anterior subcutaneous soft tissues. IMPRESSION: Impression: No acute process identified in the chest. No significant change. Telerad NINA ([id number]) -------- FINAL REPORT -------- Dictated By: Coco Zavala Dictated Date: 08/05/2024 09:44 ET Assigned Physician: Coco Zavala Reviewed and Electronically Signed By: Coco Zavala Signed Date: 08/05/2024 09:46 ET Workstation ID: [id number] Transcribed By: Self Edit Transcribed Date: 08/05/2024 09:44 ET us Sondra WOOD IMG XR PROCEDURES Sujata l Result documented in this encounter Visit Diagnoses Diagnosis Acute cough documented in this encounter Care Teams Salt Plant Operator Relationship Specialty Start Date End Date Sam Fernández MD PCP - General Internal Medicine 02/16/19 documented as of this encounter
--- OUTSIDE RECORDS SUMMARY | 2024-08-21 15:41 | XMS_ITS | Clinical Summary ---
Author Organization [facility] Address [address] [place] [address] Phone Care Team Providers Care Doctor Of Veterinary Medicine Name Role Phone Sam Fernández MD Primary Care Provider [phone] Medications atorvastatin (LIPITOR) 40 mg tablet TAKE 1 TABLET BY MOUTH EVERYDAY AT BEDTIME 90 tablet 3 Active atorvastatin (LIPITOR) 40 mg tablet Take 1 tablet (40 mg total) by mouth at bedtime. 07/28/19 25 Discontinu ed(Duplica te order) Encounters Date Type Department Care Team Description 08/05/2024 9:32 AM EST - 08/05/2024 11:59 PM EST Hospital Encounter [facility] Xray [address] [place] [address] Acute cough Discharge Disposition: Home or Self Care from Last 3 Months Surgical History Surgery Date Site/Laterality Comments OTHER [...] bleedi ng CVA (cerebral vascular accid ent) ([facility]/HCC) DX:CVA (cerebral vascular ac cident) ([facility]) Family History Medical History Relation Name Comments [...] Health Maintenance Due Date Last Done Comments Cholesterol Screening (Lipid Panel) 06/05/2022 Colorectal Cancer Screening: Colonoscopy 06/05/2022 Depression Screening 06/05/2022 Falls Risk Assessment 06/05/2022 Medicare Annual Wellness Visit 06/05/2022 Social Influencers of Health Screening 06/05/2022 Hypertension/CHF/CAD Annual BMP Blood Test 06/10/2022 DTaP,Tdap,and Td Vaccines (2 - Td or Tdap) 05/31/2034 05/31/2024 RSV Immunization Patients 60+ Years Old Completed 04/15/2023 Zoster Vaccines Completed 01/25/2024, 08/30/2023 COVID-19 Vaccine Completed 04/24/2024, , 07/14/2022, Additional history exists Influenza Vaccine Completed 04/24/2024, , 04/03/2018 Pneumococcal Vaccine: 50+ Years Completed 05/31/2024 HIB Vaccines Aged Out No longer eligi [...] patient's age to complete this topic Meningococcal B Vacine Aged Out No lo nger eligible based on patient's age to complete this topic RSV Immunization Patients Under 20 months Aged Out No longer eligible based on patient's age to complete this topic Varicella Vaccines Aged Out No longer eligible based on patient's age to complete this topic Procedures Procedure Name Priority Date/Time Associated Diagnosis Comments XR CHEST 2 VIEWS Routine 08/05/2024 9:41 AM EST Acute cough from Last 3 Months Results * XR Chest 2 Views (08/05/2024 9:41 AM EST) Anatomical Region Laterality Modality Body Radiographic Alexandra ging 08/05/2024 9:44 AM EST Impressions 08/05/2024 9:46 AM EST Impression: No acute process identified in the chest. No significant change. Telerad PA ([id number]) -------- FINAL REPORT -------- Dictated By: Coco Zavala Dictated Date: 08/05/2024 09:44 ET Assigned Physician: Coco Zavala Reviewed and Electronically Signed By: Coco Zavala Signed Date: 08/05/2024 09:46 ET Workstation ID: [id number] Transcribed By: Self Edit Transcribed Date: 08/05/2024 [...] the chest. No significant change. Telerad NINA ([id number]) -------- FINAL REPORT -------- Dictated By: Coco Zavala Dictated Date: 08/05/2024 09:44 ET Assigned Physician: Coco Zavala Reviewed and Electronically Signed By: Coco Zavala Signed Date: 08/05/2024 09:46 ET Workstation ID: [id number] Transcribed By: Self Edit Transcribed Date: 08/05/2024 09:44 ET Sondra WOOD IMG XR PROCEDURES Sujata l Result from Last 3 Months Insurance [employer] Care Teams Doctor Of Veterinary Medicine Relationship Specialty Start Date End Date Sam Fernández MD PCP - General Internal Medicine 02/16/19
--- OUTSIDE RECORDS SUMMARY | 2024-08-21 15:41 | XMS_ITS | Encounter Summary ---
Author Organization [facility] Address [address] [place] [address] Care Team Providers Care Health And Wellness Manager Name Role Phone Sam Fernández MD Primary Care Provider [phone] Encounter Details Date Type Department Care Team (Latest Contact Info) Description 04/08/2024 11:33 AM EDT Hospital Encounter TH HISTORIC ENCOUNTERS [facility] ONLY Kelby Hurst PA [address] [place] [address] Chronic obstructive pulmonary disease, unspecified (CMS/HCC) [...] documented in this encounter Results * DR MARIA DOLORES GOETZ 2 VIEWS (04/08/2024 12:12 PM EDT) Anatomical Region Laterality Modality Radiographic Alexandra ging 04/08/2024 11:3 8 AM EDT Narrative 04/08/2024 12:12 PM EDT [facility] Diagnostic Imaging Department [address] [place] [address] Patient: ??ESTEFANIBRENDA BEASLEY ?/Age/Sex: 1940 - 83 - M Unit#: ??[id number] ? Location/Status: ??SPDIGEN/REG CLI ? Mnemonic/Ordering Site: [...] Findings as above consistent with COPD. Code 10480 Dictating Physician: ??ASH BOBBY MD Electronically Signed by: ??ASH BOBBY MD Dic Date/Time: ??04/08/24 1208 Sign date/Time: ??04/08/24 1212 Procedure Note Ash Bobby MD - 04/28/2024 [facility] Diagnostic Imaging Department [address] [place] [address] Patient: BRENDA JARA D.O.B./Age/Sex: 1940 - 83 - M Unit#: [id number] Location/Status: SPDIGEN/REG CLI Mnemonic/Ordering Site: CHESTXR/SPDI Ordering [...] Findings as above consistent with COPD. Code 85142 Dictating Physician: ASH BOBBY MD Electronically Signed by: ASH BOBBY MD Dic Date/Time: 04/08/24 1208 Sign date/Time: 04/08/24 1212 Kelby WOOD IMG XR PROCEDURES Final Result documented in this encounter Visit Diagnoses Diagnosis Chronic obstructive pulmonary disease, unspecified (CMS/HCC) documented in this encounter Care Teams Health And Wellness Manager Relationship Specialty Start Date End Date Sam Fernández MD PCP - General Internal Medicine 02/16/19 documented as of this encounter
--- OUTSIDE RECORDS SUMMARY | 2024-08-21 15:41 | XMS_ITS ---
Author Organization [employer] [facility] Address [address] [place] [address] Care Team Providers Care Lead Web Developer Name Role Phone MOSES ROJO Unavailable [phone] Encounters Encounter Location Date Provider Diagnosis [facility] [address] [address] 08/05/2024 MOSES ROJO PLAN OF TREATMENT Next Appt Details Provider Name:MOSES ROJO, 08/25/2024 08:45:00 AM, [address], [place], [address], Progress Notes * Tae JARADOB: [birth year] (84 yo M)Acc No.[id number]:08/05/2024 Patient:??ESTEFANI Tae :1940?Age:84 Y?Sex:Winston crabtree Address:[address] [place] [address] * true * Date:??
--- OUTSIDE RECORDS SUMMARY | 2024-08-21 15:42 | XMS_ITS ---
Author Organization [employer] [facility] Address [address] [place] [address] Care Team Providers Care Fabrication Technician Name Role Phone MOSES ROJO Unavailable [phone] REASON FOR VISIT CCM - mammo/colonoscopy Encounters Encounter Location Date Provider Diagnosis [address] [address] 08/13/2024 MOSES ROJO PLAN OF TREATMENT Next Appt Details Provider Name:MOSES ROJO, 08/25/2024 08:45:00 AM, [address], [place], [address], Progress Notes * Tae JARADOB: [birth year] (84 yo M)Acc No.[id number]:08/13/2024 Patient:??Tae JARA :1940?Age:84 Y?Sex:Kaitlynn leyda Address:[place] [address] * true * Date:??
--- NOTE | 2024-08-21 15:43 | PFT_ITS ---
Flows: FEV1: 126 % of predicted at 3.54 L FVC: 140 % of predicted at 5.34 L FEV1/FVC: 66 % Bronchodilator response: Absent Volumes: Total lung capacity: 105 % of predicted at 7.39 L Residual volume: 81 % of predicted at 2.26 L Slow vital capacity: 128 % of predicted at 5.13 L Expiratory reserve volume: 150 % of predicted at 1.85 L Diffusion capacity: Mildly decreased Impression: Mild obstructive ventilatory defect with no bronchodilator response. Decreased diffusion capacity suggests emphysema. MTDD
== END 2024-08-21 15:39 | disposition home or self-care (01) ==
LOC: HO.RESP 15:38
PROVIDERS: PCP Internal Medicine; Visit Provider Hospitalist
DX: R05.3 Chronic cough (principal)
CPT/HCPCS: 94010; 94640; 94727; 94729

== ENCOUNTER → 2024-08-21 15:43 | Outpatient (BNV) | payer MEDICARE, SELFPAY | PROVIDERS: PCP Internal Medicine; Visit Provider Internal Medicine Pulmonary Disease | DX: R05.3 Chronic cough (principal) | CPT/HCPCS: 94060; 94727; 94729 ==

== ENCOUNTER 2025-01-14 09:26 | Outpatient (AMB) | payer MEDICARE, SELFPAY ==
--- OUTSIDE RECORDS SUMMARY | 2024-04-08 11:33 | XMS_ITS | Encounter Summary ---
Author Organization [facility] Address [address] [place] [address] Care Team Providers Care Betting Agency Counter Clerk Name Role Phone Sam Fernández MD Primary Care Provider [phone] Encounter Details Date Type Department Care Team (Latest Contact Info) Description 04/08/2024 11:33 AM EDT Hospital Encounter TH HISTORIC ENCOUNTERS [facility] ONLY Kelby Hurst PA [address] [facility] [address] [place] [address] Chronic obstructive pulmonary disease, unspecified [...] as of this encounter Plan of Treatment Upcoming Encounters Date Type Department Care Team (Late st Contact Info) Description 01/19/2025 7:50 AM EDT Office Visit [facility] [address] [facility] [address] [place] [address] Rey Hunter MD [address] [facility] [address] [place], [place] [id number] documented as of this encounter Procedures Procedure Name Priority Date/Time Associated Diagnosis Comments DR CHEST ROUTINE 2 VIEWS Routine 04/08/2024 12:12 PM EDT Chronic obstructive pulmonary disease, unspecified (CMS/HCC V24, CMS/[facility] V28) documented in this encounter Results * CHEST ROUTINE 2 VIEWS (04/08/2024 12:12 PM EDT) Anatomical Region Laterality Modality Radiographic Alexandra ging 04/08/2024 11:3 8 AM EDT Narrative 04/08/2024 12:12 PM EDT [facility] Diagnostic Imaging Department [address] [place], [place] [id number] Patient: BRENDA JARA D.O.B./Age/Sex: 1940 - 83 - M Unit#: [id number] Location/Status: SPDIGEN/REG CLI Mnemonic/Ordering Site: CHESTXR/SPDI Ordering Physician: KELBY HURST Chest Routine 2 Views - 04/08/24 - [...] Findings as above consistent with COPD. Code 96264 Dictating Physician: ASH BOBBY MD Electronically Signed by: ASH BOBYB MD Dic Date/Time: 04/08/24 1208 Sign date/Time: 04/08/24 1212 Procedure Note Ash Bobby MD - 04/28/2024 [facility] Diagnostic Imaging Department [address] [place] [address] Patient: BRENDA JARA /Age/Sex: 1940 - 83 - M Unit#: [id number] Location/Status: SPDIGEN/REG CLI Mnemonic/Ordering Site: CHESTXR/SPDI Ordering [...] Findings as above consistent with COPD. Code 43145 Dictating Physician: ASH BOBBY MD Electronically Signed by: ASH BOBBY MD Dic Date/Time: 04/08/24 1208 Sign date/Time: 04/08/24 1212 us Kelby WOOD IMG XR PROCEDURES Final Result documented in this encounter Visit Diagnoses Diagnosis Chronic obstructive pulmonary disease, unspecified (CMS/HCC V24, CMS/HCC V28) documented in this encounter Care Teams Betting Agency Counter Clerk Relationship Specialty Start Date End Date Sam Fernández MD PCP - General Internal Medicine 02/16/19 documented as of this encounter
[2025-01-14 09:43] VITALS: BP 110/60; PULSE 89; O2SAT 96; BMI 22.9
--- NOTE | 2025-01-14 09:43 | MHC.OFFVIS ---
Vital Signs 01/14/25 09:43 Height 5 ft 9 in Weight 155 lb 6.814 oz BMI 22.9 BP 110/60 Blood Pressure Location Lt brachial Position Sitting Pulse 89 Pulse Source Pulse Oximeter Pulse Oximetry (%) 96 Oxygen Delivery Method Room Air Intake Visit Reasons: Pneumonia/PFT Follow Up Nail Technician Required: No Accompanied by: Self / Same As Patient Allergies No Known Allergies Allergy (Verified 01/14/25 09:46) HPI Comments Details: The patient is an 84-year-old gentleman with a known history of atrial fibrillation on anticoagulation. She has been complaining of worsening respiratory symptoms since the summer. Apparently per the family he has been coughing now for the last month. He has also had some weight loss. The summertime he is having issues with shortness of breath cough and he went to the ER. He was initially evaluated in March. He was initially diagnosed with whooping cough. He was treated with azithromycin. The patient is no better develop worsening respiratory symptoms he went back to the hospital on March 18. Then he had a CTA which ruled out PE but the patient did have underlying is airspace disease in the lower lung zones in addition to the right upper lobe. The patient also has some bronchiectatic looking airways. He was placed on amoxicillin and then subsequently the patient was no better and he was subsequently placed on doxycycline. He was also started on cough syrup which helped him settle down the cough some degree. The patient has not significantly improved. He does throat area. He had a repeat CT scan on April 09 as a follow-up scan. This was done at [facility]. It appeared that the airspace disease improved although now he has a 1.5 nodular density in the right lower lobe. Did not clear if this is related to residual from an infection or if this is concerning process. 05/21/2024 the patient is here for a pulmonary follow-up visit. Overall the patient has been doing okay. His cough is better. He stopped taking the Asmanex since he felt that he did not need it anymore. Also was feel like it was developing some irritation from it. In addition to that he does complaint about his postnasal drip and nasal congestion. He has been using the Atrovent nasal spray. I had sent him the higher dose and then he had some issues with epistaxis and therefore he got a lower dose minutes primary care which is perfectly fine. Although he still having issues. He is taking it 4 times a day. Will see about back in weight to 2 times a day will add Astelin to the regimen. Will avoid nasal steroids because of bleeding. The patient is CT scans were also reviewed by me. I did get a copy of them. I can appreciate the nodular densities in the lower lung areas. There is some degree of inflammation and likely related to his previous infectious lower respiratory process. Therefore plan to repeat the CT scan sometime in early 2024 and will follow-up with the results. She continues to have the nodular densities and at that point he may need additional imaging or semi-invasive diagnostic interventions. Will follow-up then. 07/20/2024 the patient is here for a pulmonary follow-up visit. Overall he is better from the cough standpoint. After he recovered from pertussis and pneumonia he did develop COVID. The COVID fortunately did not affect his lungs. He denies any significant coughing although he does have still a postnasal drip and nasal congestion that bothers him regularly. On a daily basis. He is using the nasal rinse on a nightly basis with some partial improvement and does have the Astelin nasal spray. He also has a ipratropium nasal spray but does not use it as regularly. The patient did have a CT scan of the chest which we personally reviewed. Seems like the pulmonary nodules have completely subsided except for slight remnant likely some microscopic residual changes from the inflammatory effect. The consolidations have resolved. Otherwise no evidence of any parenchymal lung disease. Does have some chronic rhinitis issues and postnasal drip therefore will going to focus on treating that. Breathing das he is doing well no significant wheezing or rhonchi. He did have a reaction to the inhalers will hold off at this time. Will have him come back in around 6 months with PFTs. If he has any issues prior to that he will call for an earlier assessment. 01/14/2025 the patient is here for a pulmonary follow-up visit. Overall he is doing okay. His main complaints are mainly his nasal congestion. He has no better. He did start Xyzal antihistamine therapy in his helps some. He did not respond well to the antihistamine nasal spray. I did provide him the ipratropium nasal spray that he can use as needed in case the nasal secretions are related to a vasomotor process. The patient would like somebody to take a look. Will send him to ENT for laryngoscopy. In the meantime he also complains of difficulty swallowing. Sometimes he sitting rising food gets stuck in his esophagus. [id number] severity. Will go ahead and request a barium swallow. For now we talked about making sure that he alternates to liquids and solids to make sure that he clears what he is eating before he takes another solid by. He will follow-up in 4-6 months if he has any issues prior to this he will call for an earlier assessment. [facility] Medical History (Updated 01/14/25 @ 10:08 by Everardo Hendrickson MD) Chronic allergic rhinitis Chronic cough Pulmonary nodule 1 cm or greater in diameter Pertussis pneumonia Cough due to TANYA inhibitor Vasomotor rhinitis Bronchopneumonia Social History Patient Tobacco Use Status: Former Tobacco user Tobacco use type: Cigarette Years Smoked: 20+ Years Review of Systems Const Reports weight loss Eyes Reports no additional complaints ENT Reports dysphagia, Reports hearing loss, Reports post nasal drip and Denies throat swelling Card Denies chest pain Resp Denies chest congestion, Reports cough, Denies hemoptysis and Denies wheezing GI Reports dysphagia Musc Reports no additional complaints Skin/Breast Denies rash Sebastian/Lymph Reports no additional complaints Aller/Immun Denies throat swelling and Denies wheezing Physical Exam Vital Signs: Last Vital Signs Pulse 89 01/14/25 09:43 BP 110/60 01/14/25 09:43 Pulse Ox 96 01/14/25 09:43 Oxygen Delivery Method Room Air 01/14/25 09:43 BMI result Body Mass Index 22.9 Const General: comfortable HEENT General nose exam: Abnormal mucous membranes and turbinates present erythematous Throat: Yes cobblestoning Neck Neck: Yes supple Chest Chest palpation & inspection: normal inspection of the chest Resp Effort & Inspection: normal respiratory effort Auscultation: clear to auscultation bilaterally Skin General skin exam: no rashes or lesions noted Extrem General: Yes no clubbing, cyanosis or edema Assessment & Plan Assessment & Plan (1) 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 Category: Medical (2) Pertussis pneumonia: Comment: resolved Code(s): A37.91 - Whooping cough, unspecified species with pneumonia Category: Medical (3) Pulmonary nodule 1 cm or greater in diameter: Code(s): R91.1 - Solitary pulmonary nodule Category: Medical (4) Chronic cough: Code(s): R05.3 - Chronic cough Category: Medical (5) Chronic allergic rhinitis: Code(s): J30.9 - Allergic rhinitis, unspecified Category: Medical Plan ipratropium nasal spray BID continue xyzal ENT eval for laryngoscopy Barium swallow cough medicine F/U 4-6 months Orders: Orders [place] barium swallow Today K21.9 - Gastro-esophageal reflux disease without esophagitis Referrals Ear/Nose/Throat Referral J30.9 - Allergic rhinitis, unspecified, R05.3 - Chronic cough Medications: New levocetirizine (Xyzal) 5 mg PO DAILY 30 tabs 6RF 30 days benzonatate 200 mg PO BID PRN 60 caps 6RF cough 30 days ipratropium bromide administer into each nostril 2 sprays intranasal TID PRN 15 mL 6RF allergy symptoms Coding Level of Care Code Est Pt Level 4 (21100) Complex EM visit Add On G2211 Diagnoses Vasomotor rhinitis J30.0 Pertussis pneumonia A37.91 Pulmonary nodule 1 cm or greater in diameter R91.1 Chronic cough R05.3 Chronic allergic rhinitis J30.9 Time Spent (min) 16
--- OUTSIDE RECORDS SUMMARY | 2025-01-14 09:43 | XMS_ITS | Patient Health Record ---
Author Organization [facility] [address] Address [address] [place] [address] Care Team Providers Care Lock Operator Name Role Phone MOSES ROJO Unavailable [phone] FERNÁNDEZ, BIPINLILA Unavailable [phone] MIKEKELBY Unavailable [phone] TANIAJANEE FlemingLEY Unavailable [phone] CONYGABY Unavailable [phone] Allergies No Known Allergies Results Component Value Reference Range Notes Comp. Metabolic Panel [id number] Reviewed date:08/27/2024 07:59:20 AM Interpretation: Performing Lab:[facility] [place], [address] [place] [address], [place], Phone - [phone], Director - Milly Notes/Report: Glucose 107 70-99 mg/dL BUN 13 8-27 mg/dL Creatinine 1.12 0.76-1.27 mg/dL eGFR 66 >59 mL/min/1.73 BUN/Creatinine Ratio 12 10-24 Sodium 141 134-144 mmol/L Potassium 4.9 3.5-5.2 mmol/L Chloride 103 96-106 mmol/L Carbon Dioxide, Total 22 20-29 mmol/L Calcium 9.8 8.6-10.2 mg/dL Protein, Total 7.2 6.0-8.5 g/dL Albumin 4.0 3.7-4.7 g/dL Globulin, Total 3.2 1.5-4.5 g/dL Bilirubin, Total 0.7 0.0-1.2 mg/dL Alkaline Phosphatase 85 44-121 IU/L AST (SGOT) 25 0-40 IU/L ALT (SGPT) 19 0-44 IU/L CBC With Differential/Platel et-[id number] Reviewed date:08/27/2024 07:59:32 AM Interpretation: Performing Lab:[facility] [place], [address], [place], Phone - [phone], Director - Milly Notes/Report: WBC 6.0 3.4-10.8 x10E3/uL RBC 4.26 4.14-5.80 x10E6/uL Hemoglobin 13.0 13.0-17.7 g/dL Hematocrit 39.0 37.5-51.0 % MCV 92 79-97 fL MCH 30.5 26.6-33.0 pg MCHC 33.3 31.5-35.7 g/dL RDW 13.0 11.6-15.4 % Platelets 208 150-450 x10E3/uL Neutrophils 54 Not Estab. % Lymphs 34 Not Estab. % Monocytes 8 Not Estab. % Eos 3 Not Estab. % Basos 1 Not Estab. % Neutrophils (Absolute) 3.2 1.4-7.0 x10E3/uL Lymphs (Absolute) 2.0 0.7-3.1 x10E3/uL Monocytes(Absolute) 0.5 0.1-0.9 x10E3/uL Eos (Absolute) 0.2 0.0-0.4 x10E3/uL Baso (Absolute) 0.1 0.0-0.2 x10E3/uL Immature Granulocytes 0 Not Estab. % Immature Grans (Abs) 0.0 0.0-0.1 x10E3/uL Chest Routine 2 Views Reviewed date:03/12/2024 10:26:34 AM Interpretation: Performing Lab: Notes/Report: Original Ordering Provider: GHISLAINE FERNÁNDEZ MD [facility] L. pneumophila Serogp 1 Ur A g-[id number] Reviewed date:11/30/2024 08:08:24 AM Interpretation: Performing Lab:[facility], [address], [place], Phone - [phone], Director - Milly Notes/Report: Clinical Information:SRC:UR L. pneumophila Serogp 1 Ur Ag Negative Negative Presumptive negative for L. pneumophila serogroup 1 antigen in urine, suggesting no recent or current infection. Legionnaires' disease cannot be ruled out since other serogroups and species may also cause disease. CBC With Differential/Platel et-[id number] Reviewed date:12/01/2024 03:37:42 PM Interpretation: Performing Lab:[facility], [address] [facility], Phone - [phone], Director - Milly Notes/Report: Clinical Information:SRC:UR WBC 7.7 3.4-10.8 x10E3/uL RBC 3.79 4.14-5.80 x10E6/uL Hemoglobin 11.5 13.0-17.7 g/dL Hematocrit 34.7 37.5-51.0 % MCV 92 79-97 fL MCH 30.3 26.6-33.0 pg MCHC 33.1 31.5-35.7 g/dL RDW 11.9 11.6-15.4 % Platelets 328 150-450 x10E3/uL Neutrophils 50 Not Estab. % Lymphs 36 Not Estab. % Monocytes 11 Not Estab. % Eos 2 Not Estab. % Basos 1 Not Estab. % Neutrophils (Absolute) 3.9 1.4-7.0 x10E3/uL Lymphs (Absolute) 2.8 0.7-3.1 x10E3/uL Monocytes(Absolute) 0.8 0.1-0.9 x10E3/uL Eos (Absolute) 0.1 0.0-0.4 x10E3/uL Baso (Absolute) 0.1 0.0-0.2 x10E3/uL Immature Granulocytes 0 Not Estab. % Immature Grans (Abs) 0.0 0.0-0.1 x10E3/uL Comp. Metabolic Panel ([id number] Reviewed date:05/19/2024 08:01:29 AM Interpretation: Performing Lab:[facility], [address] [facility], Phone - [phone], Director - Milly Notes/Report: Glucose 101 70-99 [...] 44-121 IU/L AST (SGOT) 22 0-40 IU/L CBC With Differential/Platel et-[id number] Reviewed date:05/19/2024 08:00:44 AM Interpretation: Performing Lab:[facility], [address] [facility] [address], [place], Phone - [phone], Director - Milly Notes/Report: WBC 7.4 3.4-10.8 x10E3/uL RBC 4.06 4.14-5.80 x10E6/uL Hemoglobin 12.6 13.0-17.7 g/dL Hematocrit 37.8 37.5-51.0 % MCV 93 79-97 fL MCH 31.0 26.6-33.0 pg MCHC 33.3 31.5-35.7 g/dL RDW 12.2 11.6-15.4 % Platelets 218 150-450 x10E3/uL Neutrophils 60 Not Estab. % Lymphs 29 Not Estab. % Monocytes 8 Not Estab. % Eos 2 Not Estab. % Basos 1 Not Estab. % Neutrophils (Absolute) 4.5 1.4-7.0 x10E3/uL Lymphs (Absolute) 2.1 0.7-3.1 x10E3/uL Monocytes(Absolute) 0.6 0.1-0.9 x10E3/uL Eos (Absolute) 0.1 0.0-0.4 x10E3/uL Baso (Absolute) 0.1 0.0-0.2 x10E3/uL Immature Granulocytes 0 Not Estab. % Immature Grans (Abs) 0.0 0.0-0.1 x10E3/uL Chest Routine 2 Views Reviewed date:04/08/2024 01:11:33 PM Interpretation: Performing Lab: Notes/Report: Original Ordering Provider: KELBY [facility] COMPREHENSIVE METABOLIC LUCIO L Reviewed date:04/08/2024 04:07:47 PM Interpretation: Performing Lab: Notes/Report: Note Original Ordering Provider: KELBY CARDALE Wander, a member of [address] [address] Pharmacy Clerk - Andra Way MD GLUCOSE 101 70-100 [...] 42-121 U/L Note Original Ordering Provider: KELBY Sferra, [place] [address] Pharmacy Clerk - Andra Way MD CBC Reviewed date:04/09/2024 04:18:44 PM Interpretation: Performing Lab: Notes/Report: Note Original Ordering Provider: KELBY Sferra, a member of [address] [address] Pharmacy Clerk - Andra Way MD WBC 7.5 4.8-10.8 [...] <0.1 x10-3/uL Note Original Ordering Provider: KELBY Sferra, a member of [address] [address] Pharmacy Clerk - Andra Way MD EKG (Not yet reviewed by pro vider) Interpretation: Performing Lab: Notes/Report: ECGDiastolicBP 98 ECGHr 68 ECGPRInterval 190 ECGPWaveAxis 90 ECGQRSDuration 89 ECGQrsWaveAxis 12 ECGQTcInterval 414 ECGQTInterval 400 ECGSystolicBP 142 ECGTWaveAxis -1 RR_DiastolicBP 0 RR_MaxRRInterval 0 RR_MeanHR 0 RR_MeanRRInterval 0 RR_MinRRInterval 0 RR_NumBeats 0 RR_NumNormalBeats 0 RR_SystolicBP 0 XR CHEST 2 VIEWS Reviewed date:08/05/2024 01:57:01 PM Interpretation: Performing Lab: Notes/Report: Note See Note [facility], a member of [employer] Patient Name: TAE VELÁSQUEZ Date of : 1940 Reason for Exam: cough Exam Date: 08/05/2024 [id number] EST Report Status: Final Ordering Provider: JAKE MARIN PCP: GHISLAINE FERNÁNDEZ History: Cough. Comparison: 04/08/24, thoracic CT 04/09/24 Findings: PA and lateral views . The cardiac silhouette remains normal in size. Atherosclerotic tortuosity the thoracic aorta is again seen. Hilar contours and pulmonary vascularity are within normal limits. Minimal subsegmental atelectasis at the left base is unchanged from the previous studies. The lungs are otherwise clear. The costophrenic angles are sharp. The regional skeleto n is intact. A cardiac loop recorder is seen within the anterior subcutaneous soft tissues. IMPRESSION: Impression: No acute process identified in the chest. No significant change. [place] PA ([id number]) -------- FINAL REPOR T -------- Dictated By: Coco Lyons i Dictated Date: 08/05/2024 09:44 ET Assigned Physician: Coco Zavala Reviewed and Electronically Signed By: Coco Zavala Signed Date: 025 09:46 ET Workstation ID: [id number] Transcribed By: Self Edit Transcribed Date: 08/05/2024 09:[address] Chest WO Reviewed date:04/10/2024 11:04:37 AM Interpretation: Performing Lab: Notes/Report: Original Ordering Provider: KELBY [facility] Reason For Referral Reason Dr broussard Diagnosis 1 Cough, unspecified t ype (R05.9) Diagnosis 2 SOB (shortness of br eath) (R06.02) Diagnosis 3 Pneumonia due to inf ectious organism, unspecified laterality, unspecified part of lung (J18.9) Referral Organization [facility] Referring Provider First Name MOSES Referring Provider Last Name ALIA Referring Provider Speciality Internal M edicine Referred Provider Specialty Pulmonology General Notes RACHEL HORN 0 03/19/2024 03:25:11 PM >info sent over to dr berta broussard Clinical Notes Valeriy Diaz 08:15:38 AM > Rachel Crisostomo! Asking pls for the phone and fax number of the office so that I could make an update. Thank you!, RACHEL HORN 03/23/2024 08:36:41 AM > [phone], [phone], Valeriy Diaz 03/23/2024 08:49:07 AM > refaxedJoe Earl Adam 03/24/2024 09:57:01 AM > Confirmed receipt. Still under review and will call patient once all set. - Kang Parekh Redena 03/24/2024 10:12:26 AM > They need the discharge summaries from [facility] and a copy of his chest xray, RACHEL HORN 03/25/2024 08:59:38 AM >faxed yesterday all discharge summaries and chest xrKang johns Redena 03/25/2024 01:08:49 PM > The patient is scheduled for an appointment on 04/28/2024 at 3 pm. Pt is aware Referral Priority Routine Diagnosis 1 Chronic cough (R05.3 ) Diagnosis 2 Chronic iron deficie ncy anemia (D50.9) Referral Organization [facility] Referring Provider First Name GABY Referring Provider Last Name CONY Referring Provider Speciality Internal M edicine Referred Provider Specialty Immunology General Notes Allergy Immunology A [facility] , [address] [place] [address] Rd; [place] [address], P , F Clinical Notes Melly Aranda 2024 11:58:59 AM >Referral with notes, labs, and imaging sent to [facility]. TYJoe Earl Adam 12/10/2024 03:40:28 PM > Adeel Garcia referral sent 12/03/24. Called patient, but he doesn't have pen and paper with him, so, sent a msg about the phone and address., Valeriy Diaz 01/06/2025 03:33:44 PM > I called pt again and gave him again the number of the specialist. Referral Priority Routine Medications Medication SIG (Take, Route, Frequency, Duration) Notes Start Date End Date Status Lisinopril 5 MG TAKE 1 TABLET BY SHAZIA TH EVERY DAY; Duration: 90 Active Metoprolol Succinate ER 25 MG TAKE 1 TABLET BY MOUTH EVERY DAY; Duration: 90 Active Multivitamin Adult - as directed Orally Active Calcium 600 MG 1 tablet with meals Orally Twice a day Active Atorvastatin Calcium 40 MG 1 tablet Oral ly Once a day Active Eliquis 5 MG TAKE 1 TABLET BY SHAZIA TH TWICE A DAY; Duration: 90 Active Immunizations Vaccine Route Administration Date Status Comme nts influenza IM Intramuscular 04/07/2019 Administered influenza IM Intramuscular 04/21/2021 Administered influenza IM Intramuscular 03/30/2022 Administered Influenza, high dose seasonal IM Intramuscular 03/21/2023 Administered Td (adult) preservative free IM Intramuscular 03/21/2023 Administered Zoster Unknown 01/25/2024 Administered Social History Tobacco Use: Social History Observation Description Date Details (start date - stop date) Former Smoker NA - NA Tobacco Use/Smoking Question Answer Notes Are you [...] harness horses. 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 Health Care Proxy: Rehana Barnett [phone] quit 45 years ago smoked for 20 [...] harness horses. 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 Health Care Proxy: Rehana Barnett [phone] quit 45 years ago smoked for 20 [...] ago smoked for 20 years 1 pack Problems Problem Type SNOMED Code ICD Code Onset Dates Problem Status W/U Status Risk Notes Problem Vitamin B>12< deficiency anaemia (66235169) Vitamin B12 deficiency anemia, unspecified (D51.9) Active confirmed Problem Coagulation disorder (48420978) Coagulation defect, unspecified (D68.9) Active confirmed Problem Vitamin D deficiency (27286882) Vitamin D deficiency, unspecified (E55.9) Active confirmed Problem Hyperlipidemia (60692574) Hyperlipidemia, unspecified (E78.5) Active confirmed Problem Postoperative hypertension (1000927538981) Postprocedural hypertension (I97.3) Active confirmed Problem Functional urinary incontinence (881580209) Functional urinary incontinence (R39.81) Active confirmed Problem Adult health examination (809333904) Encounter for general adult medical examination without abnormal findings (Z00.00) Active confirmed Problem Screening for malignant neoplasm of prostate (316108198) Encounter for screening for malignant neoplasm of prostate (Z12.5) Active confirmed Problem Essential hypertension (27258302) Essential hypertension (I10) Active confirmed Problem Unsteady gait (90756567) Unsteady gait (R26.81) Active confirmed Problem Iron deficiency anemia (94197175) Other iron deficiency anemia (D50.8) Active confirmed Problem Urinary tract infectious disease (58475875) Urinary tract infection without hematuria, site unspecified (N39.0) Active confirmed Problem Hyperlipidaemia (46595333) Hyperlipidemia, unspecified hyperlipidemia type (E78.5) Active confirmed Problem Acquired hypothyroidism (281960838) Acquired hypothyroidism (E03.9) Active confirmed Problem Atrial fibrillation (29291123) Atrial fibrillation, unspecified type (I48.91) Active confirmed Problem Malignant tumor of prostate (050709197) Prostate cancer (C61) Active confirmed Problem Chronic sinusitis (55436661) Sinusitis, unspecified chronicity, unspecified location (J32.9) Active confirmed Problem Vitamin D deficiency (23288444) Vitamin D deficiency (E55.9) Active confirmed Problem Pulmonary nodule (452717157) Pulmonary nodule (R91.1) Active confirmed Problem Cerebrovascular accident (376838093) Cerebrovascular accident (CVA), unspecified mechanism (I63.9) Active confirmed Problem Use of anticoagulation (587199583) Chronic anticoagulation (Z79.01) Active confirmed Problem History of cerebrovascular accident without residual deficits (114424874) History of CVA (cerebrovascular accident) (Z86.73) Active confirmed Problem Frequency of urination (024356252) Frequency of urination (R35.0) Active confirmed Problem Iron deficiency anemia (54852607) Chronic iron deficiency anemia (D50.9) Active confirmed Problem History of malignant neoplasm of prostate (114946202) History of prostate cancer (Z85.46) Active confirmed Problem Advance care planning (876551717) Advance care planning (Z71.89) Active confirmed Problem Posterior rhinorrhea (01778397) Post-nasal drip (R09.82) Active confirmed Problem Acute cough (36592592405289274 4) Acute cough (R05.1) Active confirmed Problem Chronic cough (96632445) Chronic cough (R05.3) Active confirmed Problem Long-term current use of anticoagulant (896407289) Anticoagulated (Z79.01) Active confirmed Problem Pneumonia (279433574) Pneumonia of right upper lobe due to infectious organism (J18.9) Active confirmed Problem Abnormal metabolic state due to diabetes mellitus (419652627) 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) Active confirmed Problem Elevated fasting lipid profile (989574285454) Elevated lipids (E78.5) Active confirmed Problem Persistent cough (361976569) Persistent cough (R05.3) Active confirmed Problem Bordetella pertussis (1402846) 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) Active confirmed Problem History of pneumonia (070568532) History of recent pneumonia (Z87.01) Active confirmed Vital Signs Heart Rate 87 /min 12/01/2024 Temperature 96.8 degrees Fahrenheit 11/21/2024 Oximetry 94 % 12/01/2024 Blood pressure diastolic 70 mm Hg 12/01/2024 Height 69 in 12/01/2024 Blood pressure systolic 136 mm Hg 12/01/2024 Weight 157.4 lbs 12/01/2024 BMI 23.24 kg/m2 12/01/2024 Encounters Encounter Location Date Provider Diagnosis [facility] [address] [place] [address] 01/21/2024 MOSES ROJO Atrial fibrillation, unspecified type I48.91 ; Medicare annual wellness visit, subsequent Z00.00 ; Essential hypertension I10 ; Cerebrovascular accident (CVA), unspecified mechanism I63.9 ; Anemia D64.9 ; Elevated lipids E78.5 ; Vitamin B12 deficiency anemia, unspecified D51.9 ; Chronic anticoagulation Z79.01 ; Depression screening Z13.31 ; Encounter for screening for other disorder Z13.89 and Advanced care planning/counseling discussion Z71.89 [facility] [address] [place] [address] 03/05/2024 JAKE MARIN Close exposure to 2019-nCoV Z20.822 ; Cough R05.9 and Sore throat J02.9 [facility] [address] [address] 03/09/2024 JAKE TANIA Essential hypertensi on I10 and Acute cough R05.1 [facility] [address] [place] [address] 03/11/2024 JAKE TANIA SOB (shortness of breath) R06.02 and Acute cough R05.1 [facility] [address] [address] 03/25/2024 KELBY MCKEON Pneumonia of right u pper lobe due to infectious organism J18.9 ; Bordetella pertussis A37.00 ; Pulmonary nodule R91.1 ; Atrial fibrillation, unspecified type I48.91 ; Essential hypertension I10 ; History of CVA (cerebrovascular accident) Z86.73 ; Other iron deficiency anemia D50.8 and Advance care planning Z71.89 [facility] [address] [address] 03/27/2024 KELBY MCKEON Bordetella pertussis A37.00 ; Pneumonia of right upper lobe due to infectious organism J18.9 ; Pulmonary nodule R91.1 ; Atrial fibrillation, unspecified type I48.91 ; Essential hypertension I10 ; History of CVA (cerebrovascular accident) Z86.73 and Other iron deficiency anemia D50.8 [facility] [address] [address] 04/06/2024 KELBY MCKEON Bordetella pertussis A37.00 ; Pneumonia of right upper lobe due to infectious organism J18.9 ; Persistent cough R05.3 ; Pulmonary nodule R91.1 ; Atrial fibrillation, unspecified type I48.91 ; Essential hypertension I10 ; History of CVA (cerebrovascular accident) Z86.73 and Other iron deficiency anemia D50.8 [facility] [address] [address] 05/07/2024 KELBY MCKEON Persistent cough R05 .3 ; Post-nasal drip R09.82 ; History of recent pneumonia Z87.01 ; Pulmonary nodule R91.1 ; Atrial fibrillation, unspecified type I48.91 ; Essential hypertension I10 ; History of CVA (cerebrovascular accident) Z86.73 and Other iron deficiency anemia D50.[address] [facility] [address] [place] [address] 05/26/2024 MOSES ROJO Atrial fibrillation, unspecified type I48.91 ; Hyperlipidemia, unspecified E78.5 ; Cough R05.9 and Postnasal discharge R09.[address] [facility] [address] [place] [address] 06/18/2024 GABY CONY Acute COVID-19 U07.1 ; Post-nasal drip R09.82 ; Chronic cough R05.3 ; Hyperlipidemia, unspecified E78.5 ; Essential hypertension I10 and Atrial fibrillation, unspecified type I48.[address] [facility] [address] [place] [address] 08/05/2024 JAKE MARIN Acute cough R05.1 ; Essential hypertension I10 ; Atrial fibrillation, unspecified type I48.91 ; Cerebrovascular accident (CVA), unspecified mechanism I63.9 and History of chronic cough Z87.[address] [facility] [address] [place] [address] 08/25/2024 MOSES ROJO Atrial fibrillation, unspecified type I48.91 ; Hyperlipidemia, unspecified E78.5 ; Cough R05.9 and Postnasal discharge R09.[address] [facility] [address] [place] [address] 11/21/2024 GABY CONY Wheezing R06.2 and Cough, unspecified type R05.[address] [facility] [address] [place] [address] 12/01/2024 MOSES ROJO Hyperlipidemia, unspecified E78.5 ; Atrial fibrillation, unspecified type I48.91 ; Cough R05.9 ; Postnasal discharge R09.82 ; Encounter for examination of blood pressure without abnormal findings Z01.30 and Sore throat J02.9 [facility] [address] [facility] [address] [place] [address] 02/26/2024 MOSES ROJO [facility] [address] [facility] [address] [place], [place] 03/05/2024 MOSES ALIA [facility] [address] [facility] [address] [place] [address] 03/05/2024 MOSES ALIA [facility] [address] [address] 03/07/2024 GHISLAINE FERNÁNDEZ Cough R05 and Cough R05.[address] [facility] [address] [place] [address] 03/09/2024 GHISLAINE FERNÁNDEZ [facility] [address] [place] [address] 03/10/2024 GHISLAINE FERNÁNDEZ [facility] [address] [place] [address] 03/16/2024 NIDLILA GRUBBSAN [facility] [address] [facility] [address] [place] [address] 03/19/2024 GHISLAINE GRUBBSAN [facility] [address] [place] [address] 03/19/2024 MOSES ALIA [facility] [address] [facility] [address] [place] [address] 03/23/2024 MOSES ALIA [facility] [address] [facility] [address] [place] [address] 03/23/2024 MOSES ALIA [facility] [address] [facility] [address] [place] [address] 03/24/2024 MOSES ALIA [facility] [address] [facility] [address] [place] [address] 03/24/2024 MOSES ALIA [facility] [address] [facility] [address] [place] [address] 03/24/2024 MOSES ALIA [facility] [address] [facility] [address] [place] [address] 03/24/2024 MOSES ALIA [facility] [address] [facility] [address] [place] [address] 03/25/2024 MOSES ALIA [facility] [address] [facility] [address] [place] [address] 03/25/2024 MOSES ALIA [facility] [address] [facility] [address] [place] [address] 03/27/2024 MOSES ALIA [facility] [address] [facility] [address] [place] [address] 04/02/2024 KELBY MCKEON [facility] [address] [facility] [address] [place] [address] 04/07/2024 MOSES ALIA [facility] [address] [facility] [address] [place] [address] 04/10/2024 KELBY MCKEON [facility] [address] [facility] [address] [place] [address] 04/10/2024 KELBY MCKEON [facility] [address] [facility] [address] [place] 04/14/2024 MOSES ALIA [facility] [address] [facility] [address] [place] [address] 04/14/2024 MOSES ALIA [facility] [address] [facility] [address] [place], [place] 04/17/2024 KELBY MCKEON [facility] [address] [facility] [address] [place], [place] 05/12/2024 MOSES ALIA [facility] [address] [facility] [address] [place], [place] 05/20/2024 MOSES ALIA [facility] [address] [facility] [address] [place] 06/03/2024 MOSES ALIA [facility] [address] [facility] [address] [place] 06/18/2024 MOSES ALIA [facility] [address] [facility] [address] [place] 07/15/2024 MOSES ALIA [facility] [address] [place] [address] 08/03/2024 MOSES ALIA [facility] [address] [facility] [address] [place], [place] 08/04/2024 MOSES ALIA [facility] [address] [facility] [address] [place] 08/13/2024 MOSES ALIA [facility] [address] [place] [address] 10/05/2024 MOSES ALIA [facility] [address] [facility] [address] [place], [place] 11/20/2024 MOSES ALIA [facility] [address] [place] [address] 11/21/2024 GABY CONY Chronic cough R05.3 [facility] [address] [facility] [address] [place], [place] 11/21/2024 GABY CONY Wheezing R06.2 [facility] [address] [facility] [address] [place], [place] 11/21/2024 GABY CONY [facility] [address] [place] [address] 12/02/2024 MOSES ALIA [facility] [address] [place] [address] 08/05/2024 MOSES ROJO Assessments Encounter Date Diagnosis (ICD Code) Assessment Notes Treatment Notes Treatment Clinical Notes Section Notes 01/21/2024 Atrial fibrillation, unspecified type (ICD-10 - [...] log exercise and discussed fitness Apps like [employer] which can help keep log off calories [...] Dictation was accomplished with the use of [employer]ann[employer] voice recognition software, prone to medical misidentifications [...] log exercise and discussed fitness Apps like [employer] which can help keep log off calories [...] Dictation was accomplished with the use of [employer] voice recognition software, prone to medical misidentifications [...] Dictation was accomplished with the use of [employer] voice recognition software, prone to medical misidentifications [...] Dictation was accomplished with the use of [employer] voice recognition software, prone to medical misidentifications [...] Dictation was accomplished with the use of Ceannate voice recognition software, prone to medical misidentifications [...] Dictation was accomplished with the use of Ceann[employer] voice recognition software, prone to medical misidentifications [...] Dictation was accomplished with the use of Ceann[employer] voice recognition software, prone to medical misidentifications [...] Dictation was accomplished with the use of Ceann[employer] voice recognition software, prone to medical misidentifications [...] discharge 03/13. The patient again presented to [facility] ED 03/18 for worsening of symptoms. At which time he was found to have right upper lobe pneumonia. #Right upper lobe pneumonia: Patient with [facility] admission 03/11 to 03/13 at which time he was found to have infection with Bordetella pertussis and mild SAUL. Treated with IV fluids and azithromycin. Patient presented again to [facility] ED for worsening symptoms at which [...] reports they are working to establish with security specialist Dr. Hendrickson. #A-fib: Taking Eliquis 5 mg [...] for which she can be reached is [phone]. All questions answered to the patients satisfaction. Patient demonstrates understanding of diagnosis and treatments discussed. Follow-up at next scheduled appointment, sooner should any questions/concerns arise. Case discussed with collaborating physician Taylor Fernández who has reviewed the assessment/plan. Chart, medications, labs, and vital signs reviewed. Dictation completed with the use of Ceann[employer] voice recognition software, prone to medical misidentifications [...] discharge 03/13. The patient again presented to [facility] ED 03/18 for worsening of symptoms. At which time he was found to have right upper lobe pneumonia. #Right upper lobe pneumonia: Patient with [facility] admission 03/11 to 03/13 at which time he was found to have infection with Bordetella pertussis and mild SAUL. Treated with IV fluids and azithromycin. Patient presented again to [facility] ED for worsening symptoms at which [...] reports they are working to establish with security specialist Dr. Hendrickson. #A-fib: Taking Eliquis 5 mg [...] for which she can be reached is [phone]. All questions answered to the patients satisfaction. Patient demonstrates understanding of diagnosis and treatments discussed. Follow-up at next scheduled appointment, sooner should any questions/concerns arise. Case discussed with collaborating physician Taylor Fernández who has reviewed the assessment/plan. Chart, medications, labs, and vital signs reviewed. Dictation completed with the use of Ceann[employer] voice recognition software, prone to medical misidentifications [...] reviewed. Dictation completed with the use of [employer]ann[employer] voice recognition software, prone to medical misidentifications [...] reviewed. Dictation completed with the use of Ceannate voice recognition software, prone to medical misidentifications [...] hours, about 1 week ago. 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 Dictation completed with the use of [employer] voice recognition software, prone to medical misidentifications and grammatical errors. All errors are unintentional. Although the practitioner does try to identify and correct errors, some may be present. Please do not hesitate to contact the practitioner for clarification. 05/26/2024 Atrial fibrillation, unspecified type (ICD-10 - I48.91) [...] hours, about 1 week ago. 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 Dictation completed with the use of Ceann[employer] voice recognition software, prone to medical misidentifications [...] lisinopril to losartan due to concern for TAYNA induced cough. BP controlled at 140/70. Continue [...] reviewed. Dictation completed with the use of Ceann[employer] voice recognition software, prone to medical misidentifications [...] reviewed. Dictation completed with the use of [employer]annate voice recognition software, prone to medical misidentifications [...] Dictation was accomplished with the use of Ceannate voice recognition software, which is prone to [...] Dictation was accomplished with the use of Ceannate voice recognition software, which is prone to [...] # On 07/29/2024 patient was seen at [facility] ER and diagnosed with dehydration secondary to [...] appropriately. States he has been taking an adel-jae-exzisvs cough syrup of unknown name, purchased by [...] Dictation was accomplished with the use of Ceannate voice recognition software, prone to medical misidentifications and grammatical errors. This is unintentional and the practitioner does try to identify and correct these, but some could still be present. Please do not hesitate to contact practitioner for clarification. 08/25/2024 Hyperlipidemia, unspecified (ICD-10 - E78.5) Tae is an 83-year-old male with a past medical history of recent bordetella pertussis with subseuqent hospitalization (03/2024) for right upper lobe pneumonia with resultant chronic cough, atrial fibrillation, on Eliquis, Cerebrovascular accident, hypertension, and hyperlipidemia presenting to the clinic for follow-up. #Recent RUL PNA/Chronic Cough: Patient admitted in March 2024 for Bordetella pertussis with subsequent hospitalization for RUL pneumonia. He has subsequently had COVID and flu since. MIld post nasal gtt, improved with Xyzal. Followed by Everardo Hendrickson. #Pulmonary nodule CT scan obtained 03/18 reveals 5 mm pulmonary nodule at the posterior RLL. Recommending repeat imaging in 6 months to ensure stability. Patient establishing with pulmonology 04/17. #A-fib: Taking Eliquis 5 mg twice daily with compliance. Follows with Dr. Hunter annually. Endorses that he has had episode of a-fib, lasting about 8 hours, about 1 week ago. 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 Dictation completed with the use of Ceann[employer] voice recognition software, prone to medical misidentifications and grammatical errors. All errors are unintentional. Although the practitioner does try to identify and correct errors, some may be present. Please do not hesitate to contact the practitioner for clarification. 08/25/2024 Atrial fibrillation, unspecified type (ICD-10 - I48.91) Tae is an 83-year-old male with a past medical history of recent bordetella pertussis with subseuqent hospitalization (03/2024) for right upper lobe pneumonia with resultant chronic cough, atrial fibrillation, on Eliquis, Cerebrovascular accident, hypertension, and hyperlipidemia presenting to the clinic for follow-up. #Recent RUL PNA/Chronic Cough: Patient admitted in March 2024 for Bordetella pertussis with subsequent hospitalization for RUL pneumonia. He has subsequently had COVID and flu since. MIld post nasal gtt, improved with Xyzal. Followed by Everardo Hendrickson. #Pulmonary nodule CT scan obtained 03/18 reveals 5 mm pulmonary nodule at the posterior RLL. Recommending repeat imaging in 6 months to ensure stability. Patient establishing with pulmonology 04/17. #A-fib: Taking Eliquis 5 mg twice daily with compliance. Follows with Dr. Hunter annually. Endorses that he has had episode of a-fib, lasting about 8 hours, about 1 week ago. 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 Dictation completed with the use of [employer] voice recognition software, prone to medical misidentifications and grammatical errors. All errors are unintentional. Although the practitioner does try to identify and correct errors, some may be present. Please do not hesitate to contact the practitioner for clarification. 11/21/2024 Wheezing (ICD-10 - R06.2) Tae is a pleasant 84-year-old male who is medically complex that presents to the office today for an urgent visit. #Upper respiratory infection: Viral swab in office is negative.. obtaining chest x-ray..Bilateral lower lobes are with crackles, suggesting mucus buildup in the lungs. After patient does cough the mucus is not clearing. Giving DuoNeb in office.Treating with guanfacine codeine and azithromycin at this time.Given Trelegy inhaler sample, utilized in office today. To be utilized daily to help with mucus buildup and breakage. #Immunology: Referring to immunology at this time as patient has had multiple sicknesses within a short duration. All questions have been answered to patient's satisfaction. Patient verbalized understanding of diagnosis and treatments explained. Advised to call sooner prior to next visit it any questions/concerns arise. Case discussed with Taylor SALEH who reviewed the assessment and plan. Chart, medications, labs, vital signs reviewed. Dictation was accomplished with the use of Dragon voice recognition software, which is prone to medical misidentifications and grammatical errors. This are unintentional and the practitioner does try to identify and correct these, but some could still be present. Please do not hesitate to contact practitioner for clarification. 11/21/2024 Cough, unspecified type (ICD-10 - R05.9) Tae is a pleasant 84-year-old male who is medically complex that presents to the office today for an urgent visit. #Upper respiratory infection: Viral swab in office is negative.. obtaining chest x-ray..Bilateral lower lobes are with crackles, suggesting mucus buildup in the lungs. After patient does cough the mucus is not clearing. Giving DuoNeb in office.Treating with guanfacine codeine and azithromycin at this time.Given Trelegy inhaler sample, utilized in office today. To be utilized daily to help with mucus buildup and breakage. #Immunology: Referring to immunology at this time as patient has had multiple sicknesses within a short duration. All questions have been answered to patient's satisfaction. Patient verbalized understanding of diagnosis and treatments explained. Advised to call sooner prior to next visit it any questions/concerns arise. Case discussed with Taylor SALEH who reviewed the assessment and plan. Chart, medications, labs, vital signs reviewed. Dictation was accomplished with the use of [employer]ann[employer] voice recognition software, which is prone to medical misidentifications and grammatical errors. This are unintentional and the practitioner does try to identify and correct these, but some could still be present. Please do not hesitate to contact practitioner for clarification. 11/21/2024 Chronic cough (ICD-10 - R05.3) 11/21/2024 Wheezing (ICD-10 - R06.2) 12/01/2024 Hyperlipidemia, unspecified (ICD-10 - E78.5) Tae is an 84-year-old male with a past medical history of recent bordetella pertussis with subseuqent hospitalization (03/2024) for right upper lobe pneumonia with resultant chronic cough, atrial fibrillation, on Eliquis, Cerebrovascular accident, hypertension, and hyperlipidemia presenting to the clinic for follow-up. #Pulmonary nodule CT scan obtained 03/18 reveals 5 mm pulmonary nodule at the posterior RLL. Recommending repeat imaging in 6 months to ensure stability. Patient establishing with pulmonology 04/17. #A-fib: Taking Eliquis 5 mg twice daily with compliance. Follows with Dr. Hunter annually. Endorses that he has had episode of a-fib, lasting about 8 hours, about 1 week ago. 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 Dictation completed with the use of Ceann[employer] voice recognition software, prone to medical misidentifications and grammatical errors. All errors are unintentional. Although the practitioner does try to identify and correct errors, some may be present. Please do not hesitate to contact the practitioner for clarification. 08/05/2024 Acute cough (ICD-10 - R05.1) Tae is an 84-year-old male present today for hospital follow-up /urgent visit. # On 07/29/2024 patient was seen at [facility] ER and diagnosed with dehydration secondary to [...] appropriately. States he has been taking an oifx-sgv-jwwxisr cough syrup of unknown name, purchased by [...] Dictation was accomplished with the use of Ceannate voice recognition software, prone to medical misidentifications and grammatical errors. This is unintentional and the practitioner does try to identify and correct these, but some could still be present. Please do not hesitate to contact practitioner for clarification. 12/01/2024 Atrial fibrillation, unspecified type (ICD-10 - I48.91) Tae is an 84-year-old male with a past medical history of recent bordetella pertussis with subseuqent hospitalization (03/2024) for right upper lobe pneumonia with resultant chronic cough, atrial fibrillation, on Eliquis, Cerebrovascular accident, hypertension, and hyperlipidemia presenting to the clinic for follow-up. #Pulmonary nodule CT scan obtained 03/18 reveals 5 mm pulmonary nodule at the posterior RLL. Recommending repeat imaging in 6 months to ensure stability. Patient establishing with pulmonology 04/17. #A-fib: Taking Eliquis 5 mg twice daily with compliance. Follows with Dr. Hunter annually. Endorses that he has had episode of a-fib, lasting about 8 hours, about 1 week ago. 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 Dictation completed with the use of Ceannate voice recognition software, prone to medical misidentifications and grammatical errors. All errors are unintentional. Although the practitioner does try to identify and correct errors, some may be present. Please do not hesitate to contact the practitioner for clarification. 08/25/2024 Cough (ICD-10 - R05.9) Tae is an 83-year-old male with a past medical history of recent bordetella pertussis with subseuqent hospitalization (03/2024) for right upper lobe pneumonia with resultant chronic cough, atrial fibrillation, on Eliquis, Cerebrovascular accident, hypertension, and hyperlipidemia presenting to the clinic for follow-up. #Recent RUL PNA/Chronic Cough: Patient admitted in March 2024 for Bordetella pertussis with subsequent hospitalization for RUL pneumonia. He has subsequently had COVID and flu since. MIld post nasal gtt, improved with Xyzal. Followed by Everardo Hendrickson. #Pulmonary nodule CT scan obtained 03/18 reveals 5 mm pulmonary nodule at the posterior RLL. Recommending repeat imaging in 6 months to ensure stability. Patient establishing with pulmonology 04/17. #A-fib: Taking Eliquis 5 mg twice daily with compliance. Follows with Dr. Hunter annually. Endorses that he has had episode of a-fib, lasting about 8 hours, about 1 week ago. 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 Dictation completed with the use of Ceannate voice recognition software, prone to medical misidentifications and grammatical errors. All errors are unintentional. Although the practitioner does try to identify and correct errors, some may be present. Please do not hesitate to contact the practitioner for clarification. 08/05/2024 Atrial fibrillation, unspecified type (ICD-10 - I48.91) Tae is an 84-year-old male present today for hospital follow-up /urgent visit. # On 07/29/2024 patient was seen at [facility] ER and diagnosed with dehydration secondary to [...] appropriately. States he has been taking an uade-[id number]-[id number] cough syrup of unknown name, purchased by [...] Dictation was accomplished with the use of Ceannate voice recognition software, prone to medical misidentifications [...] Dictation was accomplished with the use of Ceannate voice recognition software, which is prone to [...] reviewed. Dictation completed with the use of Ceannate voice recognition software, prone to medical misidentifications [...] hours, about 1 week ago. 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 Dictation completed with the use of Ceannate voice recognition software, prone to medical misidentifications [...] reviewed. Dictation completed with the use of Ceannate voice recognition software, prone to medical misidentifications [...] reviewed. Dictation completed with the use of Ceannate voice recognition software, prone to medical misidentifications [...] reviewed. Dictation completed with the use of Ceannate voice recognition software, prone to medical misidentifications [...] reviewed. Dictation completed with the use of Ceannate voice recognition software, prone to medical misidentifications and grammatical errors. All errors are unintentional. Although the practitioner does try to identify and correct errors, some may be present. Please do not hesitate to contact the practitioner for clarification. 03/05/2024 Sore throat (ICD-10 - J02.9) Tae [...] Dictation was accomplished with the use of Ceannate voice recognition software, prone to medical misidentifications and grammatical errors. This is unintentional and the practitioner does try to identify and correct these, but some could still be present. Please do not hesitate to contact practitioner for clarification. 03/25/2024 Pulmonary nodule (ICD-10 [...] discharge 03/13. The patient again presented to [facility] ED 03/18 for worsening of symptoms. At which time he was found to have right upper lobe pneumonia. #Right upper lobe pneumonia: Patient with [facility] admission 03/11 to 03/13 at which time he was found to have infection with Bordetella pertussis and mild SAUL. Treated with IV fluids and azithromycin. Patient presented again to [facility] ED for worsening symptoms at which [...] reports they are working to establish with security specialist Dr. Hendrickson. #A-fib: Taking Eliquis 5 mg [...] for which she can be reached is [phone]. All questions answered to the patients satisfaction. Patient demonstrates understanding of diagnosis and treatments discussed. Follow-up at next scheduled appointment, sooner should any questions/concerns arise. Case discussed with collaborating physician Taylor Fernández who has reviewed the assessment/plan. Chart, medications, labs, and vital signs reviewed. Dictation completed with the use of Ceannate voice recognition software, prone to medical misidentifications and grammatical errors. All errors are unintentional. Although the practitioner does try to identify and correct errors, some may be present. Please do not hesitate to contact the practitioner for clarification. 03/07/2024 Cough (ICD-10 - R05.9) 01/21/2024 Essential hypertension (ICD-10 - I10) # [...] log exercise and discussed fitness Apps like [employer] which can help keep log off calories [...] Dictation was accomplished with the use of Ceannate voice recognition software, prone to medical misidentifications and grammatical errors. This is unintentional and the practitioner does try to identify and correct these, but some could still be present. Please do not hesitate to contact practitioner for clarification. All quetsions answered to patients satisfaction. Patient verbalized understanding of diagnosis and treatments explained. To call sooner prior to next visit it any questions/concerns arise. 12/01/2024 Cough (ICD-10 - R05.9) Tae is an 84-year-old male with a past medical history of recent bordetella pertussis with subseuqent hospitalization (03/2024) for right upper lobe pneumonia with resultant chronic cough, atrial fibrillation, on Eliquis, Cerebrovascular accident, hypertension, and hyperlipidemia presenting to the clinic for follow-up. #Pulmonary nodule CT scan obtained 03/18 reveals 5 mm pulmonary nodule at the posterior RLL. Recommending repeat imaging in 6 months to ensure stability. Patient establishing with pulmonology 04/17. #A-fib: Taking Eliquis 5 mg twice daily with compliance. Follows with Dr. Hunter annually. Endorses that he has had episode of a-fib, lasting about 8 hours, about 1 week ago. 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 Dictation completed with the use of Ceannate voice recognition software, prone to medical misidentifications and grammatical errors. All errors are unintentional. Although the practitioner does try to identify and correct errors, some may be present. Please do not hesitate to contact the practitioner for clarification. 12/01/2024 Postnasal discharge (ICD-10 - R09.82) Tae is an 84-year-old male with a past medical history of recent bordetella pertussis with subseuqent hospitalization (03/2024) for right upper lobe pneumonia with resultant chronic cough, atrial fibrillation, on Eliquis, Cerebrovascular accident, hypertension, and hyperlipidemia presenting to the clinic for follow-up. #Pulmonary nodule CT scan obtained 03/18 reveals 5 mm pulmonary nodule at the posterior RLL. Recommending repeat imaging in 6 months to ensure stability. Patient establishing with pulmonology 04/17. #A-fib: Taking Eliquis 5 mg twice daily with compliance. Follows with Dr. Hunter annually. Endorses that he has had episode of a-fib, lasting about 8 hours, about 1 week ago. 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 Dictation completed with the use of Ceann[employer] voice recognition software, prone to medical misidentifications and grammatical errors. All errors are unintentional. Although the practitioner does try to identify and correct errors, some may be present. Please do not hesitate to contact the practitioner for clarification. 01/21/2024 Cerebrovascular accident (CVA), unspecified mechanism (ICD-10 [...] log exercise and discussed fitness Apps like [employer] which can help keep log off calories [...] Dictation was accomplished with the use of Ceannate voice recognition software, prone to medical misidentifications [...] discharge 03/13. The patient again presented to [facility] ED 03/18 for worsening of symptoms. At which time he was found to have right upper lobe pneumonia. #Right upper lobe pneumonia: Patient with [facility] admission 03/11 to 03/13 at which time he was found to have infection with Bordetella pertussis and mild SAUL. Treated with IV fluids and azithromycin. Patient presented again to [facility] ED for worsening symptoms at which [...] reports they are working to establish with security specialist Dr. Hendrickson. #A-fib: Taking Eliquis 5 mg [...] for which she can be reached is [phone]. All questions answered to the patients satisfaction. Patient demonstrates understanding of diagnosis and treatments discussed. Follow-up at next scheduled appointment, sooner should any questions/concerns arise. Case discussed with collaborating physician Taylor Fernández who has reviewed the assessment/plan. Chart, medications, labs, and vital signs reviewed. Dictation completed with the use of Ceannate voice recognition software, prone to medical misidentifications [...] reviewed. Dictation completed with the use of [employer] voice recognition software, prone to medical misidentifications [...] reviewed. Dictation completed with the use of [employer] voice recognition software, prone to medical misidentifications and grammatical errors. All errors are unintentional. Although the practitioner does try to identify and correct errors, some may be present. Please do not hesitate to contact the practitioner for clarification. 05/07/2024 Pulmonary nodule (ICD-10 [...] reviewed. Dictation completed with the use of [employer] voice recognition software, prone to medical misidentifications [...] hours, about 1 week ago. 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 Dictation completed with the use of Ceann[employer] voice recognition software, prone to medical misidentifications [...] Dictation was accomplished with the use of Ceannate voice recognition software, which is prone to [...] # On 07/29/2024 patient was seen at [facility] ER and diagnosed with dehydration secondary to [...] appropriately. States he has been taking an [id number] cough syrup of unknown name, purchased by [...] Dictation was accomplished with the use of [employer] voice recognition software, prone to medical misidentifications and grammatical errors. This is unintentional and the practitioner does try to identify and correct these, but some could still be present. Please do not hesitate to contact practitioner for clarification. 08/25/2024 Postnasal discharge (ICD-10 - R09.82) Tae is an 83-year-old male with a past medical history of recent bordetella pertussis with subseuqent hospitalization (03/2024) for right upper lobe pneumonia with resultant chronic cough, atrial fibrillation, on Eliquis, Cerebrovascular accident, hypertension, and hyperlipidemia presenting to the clinic for follow-up. #Recent RUL PNA/Chronic Cough: Patient admitted in March 2024 for Bordetella pertussis with subsequent hospitalization for RUL pneumonia. He has subsequently had COVID and flu since. MIld post nasal gtt, improved with Xyzal. Followed by Everardo Hendrickson. #Pulmonary nodule CT scan obtained 03/18 reveals 5 mm pulmonary nodule at the posterior RLL. Recommending repeat imaging in 6 months to ensure stability. Patient establishing with pulmonology 04/17. #A-fib: Taking Eliquis 5 mg twice daily with compliance. Follows with Dr. Hunter annually. Endorses that he has had episode of a-fib, lasting about 8 hours, about 1 week ago. 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 Dictation completed with the use of [employer] voice recognition software, prone to medical misidentifications and grammatical errors. All errors are unintentional. Although the practitioner does try to identify and correct errors, some may be present. Please do not hesitate to contact the practitioner for clarification. 08/05/2024 History of chronic cough (ICD-10 - Z87.898) Tae is an 84-year-old male present today for hospital follow-up /urgent visit. # On 07/29/2024 patient was seen at [facility] ER and diagnosed with dehydration secondary to [...] appropriately. States he has been taking an [id number] cough syrup of unknown name, purchased by [...] Dictation was accomplished with the use of [employer] voice recognition software, prone to medical misidentifications and grammatical errors. This is unintentional and the practitioner does try to identify and correct these, but some could still be present. Please do not hesitate to contact practitioner for clarification. 12/01/2024 Encounter for examination of blood pressure without abnormal findings (ICD-10 - Z01.30) Tae is an 84-year-old male with a past medical history of recent bordetella pertussis with subseuqent hospitalization (03/2024) for right upper lobe pneumonia with resultant chronic cough, atrial fibrillation, on Eliquis, Cerebrovascular accident, hypertension, and hyperlipidemia presenting to the clinic for follow-up. #Pulmonary nodule CT scan obtained 03/18 reveals 5 mm pulmonary nodule at the posterior RLL. Recommending repeat imaging in 6 months to ensure stability. Patient establishing with pulmonology 04/17. #A-fib: Taking Eliquis 5 mg twice daily with compliance. Follows with Dr. Hunter annually. Endorses that he has had episode of a-fib, lasting about 8 hours, about 1 week ago. 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 Dictation completed with the use of [employer] voice recognition software, prone to medical misidentifications [...] Dictation was accomplished with the use of [employer] voice recognition software, which is prone to medical misidentifications and grammatical errors. This are unintentional and the practitioner does try to identify and correct these, but some could still be present. Please do not hesitate to contact practitioner for clarification. 04/06/2024 Atrial fibrillation, unspecified [...] reviewed. Dictation completed with the use of [employer] voice recognition software, prone to medical misidentifications [...] log exercise and discussed fitness Apps like [employer] which can help keep log off calories [...] Dictation was accomplished with the use of [employer] voice recognition software, prone to medical misidentifications [...] next visit it any questions/concerns arise. 03/27/2024 Essential hypertension (ICD-10 - I10) Tae [...] reviewed. Dictation completed with the use of [employer] voice recognition software, prone to medical misidentifications and grammatical errors. All errors are unintentional. Although the practitioner does try to identify and correct errors, some may be present. Please do not hesitate to contact the practitioner for clarification. 03/25/2024 Essential hypertension (ICD-10 - I10) Tae [...] discharge 03/13. The patient again presented to [facility] ED 03/18 for worsening of symptoms. At which time he was found to have right upper lobe pneumonia. #Right upper lobe pneumonia: Patient with [facility] admission 03/11 to 03/13 at which time he was found to have infection with Bordetella pertussis and mild SAUL. Treated with IV fluids and azithromycin. Patient presented again to [facility] ED for worsening symptoms at which [...] reports they are working to establish with security specialist Dr. Hendrickson. #A-fib: Taking Eliquis 5 mg [...] for which she can be reached is [phone]. All questions answered to the patients satisfaction. Patient demonstrates understanding of diagnosis and treatments discussed. Follow-up at next scheduled appointment, sooner should any questions/concerns arise. Case discussed with collaborating physician Taylor Fernández who has reviewed the assessment/plan. Chart, medications, labs, and vital signs reviewed. Dictation completed with the use of [employer] voice recognition software, prone to medical misidentifications and grammatical errors. All errors are unintentional. Although the practitioner does try to identify and correct errors, some may be present. Please do not hesitate to contact the practitioner for clarification. 05/07/2024 Atrial fibrillation, unspecified [...] reviewed. Dictation completed with the use of [employer] voice recognition software, prone to medical misidentifications and grammatical errors. All errors are unintentional. Although the practitioner does try to identify and correct errors, some may be present. Please do not hesitate to contact the practitioner for clarification. 01/21/2024 Elevated lipids (ICD-10 - E78.5) # [...] log exercise and discussed fitness Apps like [employer] which can help keep log off calories [...] Dictation was accomplished with the use of [employer] voice recognition software, prone to medical misidentifications [...] next visit it any questions/concerns arise. 03/25/2024 History of CVA (cerebrovascular accident) (ICD-10 [...] discharge 03/13. The patient again presented to [facility] ED 03/18 for worsening of symptoms. At which time he was found to have right upper lobe pneumonia. #Right upper lobe pneumonia: Patient with [facility] admission 03/11 to 03/13 at which time he was found to have infection with Bordetella pertussis and mild SAUL. Treated with IV fluids and azithromycin. Patient presented again to [facility] ED for worsening symptoms at which [...] reports they are working to establish with security specialist Dr. Hendrickson. #A-fib: Taking Eliquis 5 mg [...] for which she can be reached is [phone]. All questions answered to the patients satisfaction. Patient demonstrates understanding of diagnosis and treatments discussed. Follow-up at next scheduled appointment, sooner should any questions/concerns arise. Case discussed with collaborating physician Taylor Fernández who has reviewed the assessment/plan. Chart, medications, labs, and vital signs reviewed. Dictation completed with the use of [employer] voice recognition software, prone to medical misidentifications [...] reviewed. Dictation completed with the use of [employer] voice recognition software, prone to medical misidentifications and grammatical errors. All errors are unintentional. Although the practitioner does try to identify and correct errors, some may be present. Please do not hesitate to contact the practitioner for clarification. 03/27/2024 History of CVA (cerebrovascular accident) (ICD-10 [...] reviewed. Dictation completed with the use of [employer] voice recognition software, prone to medical misidentifications [...] Dictation was accomplished with the use of [employer] voice recognition software, which is prone to [...] reviewed. Dictation completed with the use of [employer] voice recognition software, prone to medical misidentifications and grammatical errors. All errors are unintentional. Although the practitioner does try to identify and correct errors, some may be present. Please do not hesitate to contact the practitioner for clarification. 12/01/2024 Sore throat (ICD-10 - J02.9) Tae is an 84-year-old male with a past medical history of recent bordetella pertussis with subseuqent hospitalization (03/2024) for right upper lobe pneumonia with resultant chronic cough, atrial fibrillation, on Eliquis, Cerebrovascular accident, hypertension, and hyperlipidemia presenting to the clinic for follow-up. #Pulmonary nodule CT scan obtained 03/18 reveals 5 mm pulmonary nodule at the posterior RLL. Recommending repeat imaging in 6 months to ensure stability. Patient establishing with pulmonology 04/17. #A-fib: Taking Eliquis 5 mg twice daily with compliance. Follows with Dr. Hunter annually. Endorses that he has had episode of a-fib, lasting about 8 hours, about 1 week ago. 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 Dictation completed with the use of [employer] voice recognition software, prone to medical misidentifications [...] reviewed. Dictation completed with the use of [employer] voice recognition software, prone to medical misidentifications [...] reviewed. Dictation completed with the use of [employer] voice recognition software, prone to medical misidentifications [...] reviewed. Dictation completed with the use of [employer] voice recognition software, prone to medical misidentifications [...] discharge 03/13. The patient again presented to [facility] ED 03/18 for worsening of symptoms. At which time he was found to have right upper lobe pneumonia. #Right upper lobe pneumonia: Patient with [facility] admission 03/11 to 03/13 at which time he was found to have infection with Bordetella pertussis and mild SAUL. Treated with IV fluids and azithromycin. Patient presented again to [facility] ED for worsening symptoms at which [...] reports they are working to establish with security specialist Dr. Hendrickson. #A-fib: Taking Eliquis 5 mg [...] for which she can be reached is [phone]. All questions answered to the patients satisfaction. Patient demonstrates understanding of diagnosis and treatments discussed. Follow-up at next scheduled appointment, sooner should any questions/concerns arise. Case discussed with collaborating physician Taylor Fernández who has reviewed the assessment/plan. Chart, medications, labs, and vital signs reviewed. Dictation completed with the use of [employer] voice recognition software, prone to medical misidentifications and grammatical errors. All errors are unintentional. Although the practitioner does try to identify and correct errors, some may be present. Please do not hesitate to contact the practitioner for clarification. 01/21/2024 Vitamin B12 deficiency anemia, unspecified (ICD-10 [...] log exercise and discussed fitness Apps like [employer] which can help keep log off calories [...] Dictation was accomplished with the use of [employer] voice recognition software, prone to medical misidentifications [...] log exercise and discussed fitness Apps like [employer] which can help keep log off calories [...] Dictation was accomplished with the use of [employer] voice recognition software, prone to medical misidentifications [...] discharge 03/13. The patient again presented to [facility] ED 03/18 for worsening of symptoms. At which time he was found to have right upper lobe pneumonia. #Right upper lobe pneumonia: Patient with [facility] admission 03/11 to 03/13 at which time he was found to have infection with Bordetella pertussis and mild SAUL. Treated with IV fluids and azithromycin. Patient presented again to [facility] ED for worsening symptoms at which [...] reports they are working to establish with security specialist Dr. Hendrickson. #A-fib: Taking Eliquis 5 mg [...] for which she can be reached is [phone]. All questions answered to the patients satisfaction. Patient demonstrates understanding of diagnosis and treatments discussed. Follow-up at next scheduled appointment, sooner should any questions/concerns arise. Case discussed with collaborating physician Taylor Fernández who has reviewed the assessment/plan. Chart, medications, labs, and vital signs reviewed. Dictation completed with the use of [employer] voice recognition software, prone to medical misidentifications [...] reviewed. Dictation completed with the use of [employer] voice recognition software, prone to medical misidentifications [...] reviewed. Dictation completed with the use of [employer] voice recognition software, prone to medical misidentifications [...] log exercise and discussed fitness Apps like [employer] which can help keep log off calories [...] Dictation was accomplished with the use of [employer] voice recognition software, prone to medical misidentifications [...] log exercise and discussed fitness Apps like [employer] which can help keep log off calories [...] Dictation was accomplished with the use of [employer] voice recognition software, prone to medical misidentifications [...] log exercise and discussed fitness Apps like [employer] which can help keep log off calories [...] Dictation was accomplished with the use of [employer] voice recognition software, prone to medical misidentifications and grammatical errors. This is unintentional and the practitioner does try to identify and correct these, but some could still be present. Please do not hesitate to contact practitioner for clarification. All quetsions answered to patients satisfaction. Patient verbalized understanding of diagnosis and treatments explained. To call sooner prior to next visit it any questions/concerns arise. Plan Of Treatment Pending Test Test Name Order Date X ray : Chest 11/21/2024 X ray : Chest with 2 views 08/05/2024 Hematocrit 04/21/2021 Lipid Panel 07/26/2020 Comp. Metabolic Panel (14) 09/12/2020 Basic Metabolic Panel (8) 07/26/2020 CBC 07/26/2020 Urine Culture and Sensitivity 10/17/2020 EKG 03/09/2024 ALBUMIN 06/26/2022 BASIC METABOLIC PANEL 07/10/2018 CBC (COMPLETE BLOOD COUNT) 07/10/2018 CBC (COMPLETE BLOOD COUNT) 04/06/2024 COMPREHENSIVE METABOLIC PANEL 04/06/2024 FECAL OCCULT BLOOD, IMMUNOCHEMICAL 04/21 LEGIONELLA ANTIGEN 11/21/2024 LIPID PANEL 07/10/2018 LYME DISEASE WESTERN BLOT 12/28/2021 MYCOPLASMA PNEUMONIAE PCR 11/21/2024 PSA, SCREEN 07/10/2018 TRANSFERRIN 11/12/2022 URINALYSIS, COMPLETE 01/20/2019 Chest 2 Views Frontal and Lat 04/06/2024 Magnesium Level 04/25/2020 Strep pneumoniae Antigen Urine Culture Urine 10/21/2020 CT Chest w/o Contrast 03/27/2024 XR Chest 2 Views 03/07/2024 XR Chest 2 Views 07/25/2018 PT/INR 03/21/2023 LIPID PANEL, STANDARD 03/21/2023 LIPID PANEL, STANDARD 11/17/2021 COMPREHENSIVE METABOLIC PANEL 06/16/2021 COMPREHENSIVE METABOLIC PANEL 11/17/2021 COMPREHENSIVE METABOLIC PANEL 03/21/2023 COMPREHENSIVE METABOLIC PANEL 01/21/2024 COMPREHENSIVE METABOLIC PANEL 08/25/2024 COMPREHENSIVE METABOLIC PANEL 12/01/2024 BUN/CREATININE RATIO 06/26/2022 CBC (INCLUDES DIFF/PLT) 11/21/2024 CBC (INCLUDES DIFF/PLT) 12/01/2024 CBC (INCLUDES DIFF/PLT) 08/25/2024 CBC (INCLUDES DIFF/PLT) 01/21/2024 CBC (INCLUDES DIFF/PLT) 03/21/2023 CBC (INCLUDES DIFF/PLT) 11/17/2021 CBC (INCLUDES DIFF/PLT) 06/16/2021 HEMOGLOBIN 04/21/2021 URINALYSIS, COMPLETE 03/21/2023 URINALYSIS, COMPLETE 12/01/2024 HEMOGLOBIN A1c 12/01/2024 HEMOGLOBIN A1c 03/21/2023 VITAMIN B12 12/01/2024 PSA (FREE AND TOTAL) 12/01/2024 PSA, TOTAL 03/21/2023 TSH 03/21/2023 TSH 12/01/2024 VITAMIN D,25-OH,TOTAL,IA 12/01/2024 VITAMIN D,25-OH,TOTAL,IA 03/21/2023 VITAMIN D,25-OH,TOTAL,IA 06/16/2021 PPC Strep Test 12/01/2024 Next Appt Details Provider Name:MOSES ROJO, 01/25/2025 09:00:00 AM, [address], [place], [address], Insurance Providers Payer Name Payer Address Payer Phone Subscriber Number Group Number Insured Name Patient Relationship to Insured Coverage Start Date Coverage End Date [employer] Preferred [address] [place] [phone] [id number] Tae Velásquez Self - patient is the insured 8 Medical (General) History Medical History History ICD Code Essential (primary) [...]
== END 2025-01-14 10:08 | disposition home or self-care (01) ==
LOC: HO.HPS 09:26
PROVIDERS: PCP Physician Assistant Medical; Visit Provider Hospitalist
DX: J30.0 Vasomotor rhinitis (principal); A37.91 Whooping cough, unspecified species with pneumonia; R91.1 Solitary pulmonary nodule; R05.3 Chronic cough; J30.9 Allergic rhinitis, unspecified
CPT/HCPCS: 99214; G2211

== ENCOUNTER → 2025-01-14 09:26 | Outpatient (BNVA) | payer MEDICARE, SELFPAY | PROVIDERS: PCP Physician Assistant Medical; Visit Provider Hospitalist | DX: R91.1 Solitary pulmonary nodule (principal); J30.0 Vasomotor rhinitis; A37.91 Whooping cough, unspecified species with pneumonia; J30.9 Allergic rhinitis, unspecified; K21.9 Gastro-esophageal reflux disease without esophagitis | CPT/HCPCS: 99212 ==

== ENCOUNTER 2025-05-06 08:42 | Outpatient (REF) | payer MEDICARE, SELFPAY ==
--- OUTSIDE RECORDS SUMMARY | 2024-04-08 10:33 | XMS_ITS | Encounter Summary ---
Author Organization [facility] Address [address] [place] [address] Care Team Providers Care Apprentice Photographer Name Role Phone Sam Fernández MD Primary Care Provider [phone] Encounter Details Date Type Department Care Team (Latest Contact Info) Description 04/08/2024 11:33 AM EDT Hospital Encounter TH HISTORIC ENCOUNTERS [facility] ONLY Kelby Hurst PA [address] [place] [address] [address] [place] [address] Chronic obstructive pulmonary disease, unspecified (CMS/HCC V24, CMS/HCC V28) Social History Tobacco Use Types Packs/Day Years Used Date Smoking Tobacco: Former Cigarettes Q uit: 08/24/1970 Smokeless Tobacco: Never Alcohol Use Standard Drinks/Week Comments No 0 (1 standard drink = 0.6 oz pur e alcohol) Sex and Gender Information Value Date Recorded Sex Assigned at Not on file Legal Sex Male 8:35 AM EST Gender Identity Not on file Sexual Orientation Not on file documented as of this encounter Plan of Treatment Not on file documented as of this encounter Procedures Procedure Name Priority Date/Time Associated Diagnosis Comments DR WHITTEN ROUTINE 2 VIEWS Routine 04/08/2024 12:12 PM EDT Chronic obstructive pulmonary disease, unspecified (CMS/HCC V24, CMS/HCC V28) documented in this encounter Results * DR WHITTEN ROUTINE 2 VIEWS (04/08/2024 12:12 PM EDT) Anatomical Region Laterality Modality Radiographic Alexandra ging 04/08/2024 11:3 8 AM EDT Narrative 04/08/2024 12:12 PM EDT [facility] Diagnostic Imaging Department [address] [place] [address] Patient: CHRISTENBRENDAIZZY Chavez./Age/Sex: 1940 - 83 - M Unit#: [id number] Location/Status: SPDIGEN/REG CLI Mnemonic/Ordering Site: CHESTXR/SPDI Ordering Physician: KELBY HURST DR Chest Routine 2 Views - 04/08/24 - 1152 Report Status:Signed HISTORY: The patient is an 83-year-old male with a faint infiltrate at the base of the right upper lobe seen on CT scan performed 03/18/2024. Note that this was not visible on radiography performed earlier the same day. FINDINGS: PA and lateral radiographs of the chest again demonstrate the presence of a wireless cardiac pacemaker versus an implanted loop recorder in the soft tissues anterior to the medial aspect of the left hemithorax, also present on prior studies most recently 03/18/2024. Degenerative changes of the thoracic spine are again noted. The cardiac and mediastinal contours remain within normal limits. The lungs are again seen to be hyperinflated with flattening of the diaphragm consistent with chronic obstructive pulmonary disease. There is no consolidation, mass, pulmonary vascular congestion, or pleural effusion. Discoid atelectasis at the left lung base has improved since the prior study. The lungs are otherwise clear. In particular, no infiltrate is seen in the right upper lobe. IMPRESSION: No acute pulmonary disease. Mild discoid atelectasis at the left lung base has improved since 03/18/2024. No infiltrate is seen in the right upper lobe. Findings as above consistent with COPD. Code 85222 Dictating Physician: ASH BOBBY MD Electronically Signed by: ASH BOBBY MD Dic Date/Time: 04/08/24 1208 Sign date/Time: 04/08/24 1212 Procedure Note Ash Bobby MD - 04/28/2024 [facility] Diagnostic Imaging Department [address] [place] [address] Patient: BRENDA JARA /Age/Sex: 1940 - 83 - M Unit#: [id number] Location/Status: SPDIGEN/REG CLI Mnemonic/Ordering Site: CHESTXR/SPDI Ordering Physician: KELBY HURST DR Chest Routine 2 Views - 04/08/24 - 1152 Report Status:Signed HISTORY: The patient is an 83-year-old male with a faint infiltrate at thebase of the right upper lobe seen on CT scan performed 03/18/2024. Note thatthis was not visible on radiography performed earlier the same day. FINDINGS: PA and lateral radiographs of the chest again demonstrate the presence of a wireless cardiac pacemaker versus an implanted loop recorderin the soft tissues anterior to the medial aspect of the left hemithorax,also present on prior studies most recently 03/18/2024. Degenerative changes ofthe thoracic spine are again noted. The cardiac and mediastinal contoursremain within normal limits. The lungs are again seen to be hyperinflated with flattening of the diaphragm consistent with chronic obstructivepulmonary disease. There is no consolidation, mass, pulmonary vascular congestion,or pleural effusion. Discoid atelectasis at the left lung base has improvedsince the prior study. The lungs are otherwise clear. In particular, noinfiltrate is seen in the right upper lobe. IMPRESSION: No acute pulmonary disease. Mild discoid atelectasis at theleft lung base has improved since 03/18/2024. No infiltrate is seen in the rightupper lobe. Findings as above consistent with COPD. Code 38200 Dictating Physician: ASH BOBBY MD Electronically Signed by: ASH BOBBY MD Dic Date/Time: 04/08/24 1208 Sign date/Time: 04/08/24 1212 Kelby WOOD IMG XR PROCEDURES Final Result documented in this encounter Visit Diagnoses Diagnosis Chronic obstructive pulmonary disease, unspecified (CMS/HCC V24, CMS/HCC V28) documented in this encounter Care Teams Apprentice Photographer Relationship Specialty Start Date End Date Sam Fernández MD PCP - General Internal Medicine 02/16/19 01/18/25 documented as of this encounter
--- NOTE | ~2025-05-06 | FL_ITS ---
EXAMINATION: XR BARIUM SWALLOW CLINICAL INFORMATION: Gastroesophageal reflux disease without esophagitis. COMPARISON: None available. TECHNIQUE: Routine upright barium swallow was performed with thick barium and barium coated saltine crackers. Thin barium was administered in prone lying position. FINDINGS: Following oral administration of thick barium and effervescent granules is normal propagation bolus from the oral cavity through the pharynx, esophagus into stomach without obstruction, narrowing or stricture. There is no extrinsic compression. On oral administration of saltine crackers and barium paste there is normal oral mastication propagation of bolus from the oral cavity through the pharynx, esophagus and stomach. Is decreased peristalsis in the mid to distal esophagus and temporary holdup of solid food in mid esophagus which cleared with subsequent oral administration of thin barium. 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 On placing patient prone lying and oral administration of barium there is normal antegrade flow from the oral cavity, pharynx, esophagus into stomach without obstruction, narrowing or stricture. There is decreased peristalsis seen in the distal esophagus. No intraluminal filling defect or narrowing seen. FLUOROSCOPY TIME: 1 minute 57 seconds DOSE AREA PRODUCT: 1317 uGy-m2 (microgray-meter squared) FL/FL barium swallow IMPRESSION: No obstruction or narrowing seen in the esophagus. 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 This is likely related to patient's age. No intrinsic or extrinsic mass or obstruction seen. Electronically signed by: Omid Khan MD 05/06/2025 10:37 AM [facility]
--- OUTSIDE RECORDS SUMMARY | 2025-05-06 09:10 | XMS_ITS | Patient Health Record ---
Author Organization [facility] [place] Address [address] [place] [address] Care Team Providers Care Digital Campaign Manager Name Role Phone Jolene SALEH, Sam Primary Care Provider Randy Ang Unavailable [phone] Allergies Allergen (clinical drug ingredient) Drug/Non Drug Allergy documented on EMR Reaction Allergy Type Onset Date Status aspirin Aspirin bleeding Drug Allergy Active Reason For Referral Diagnosis 1 Pain in unspecified foot (M79.673) Referring Provider First Name [facility] Referring Provider Last Name Jolene [facility] [place] Referred Provider Randy Samuel Referred Address [address] ,[place], [place],[address], Referred Provider Specialty Podiatry Referral Priority Routine Medications Medication SIG (Take, Route, Frequency, Duration) Notes Start Date End Date Status Lisinopril 5 MG 2 tablets Orally Once a day Active Eliquis 5 MG as directed Orally Active Levocetirizine Dihydrochloride 5 MG 1 tablet in the evening Orally Once a day Active Walking Boot/Pneumatic As directed Wear Daily; Duration: Until further notice 04/02/2025 Active Atorvastatin Calcium 40 MG 1 tablet Orally Once a day Active Levi Mag Zinc +D3 Act [facility] Vision Shield Active Metoprolol Succinate 25 MG 1 capsule Orally Once a day Active Multivitamin Active Immunizations Vaccine Route Administration Date Status Comme nts Influenza Unknown 03/29/2025 Administered Social History Tobacco Use: Social History Observation Description Date Details (start date - stop date) Never Smoker NA - NA Tobacco Control (Standard) Question Answer Notes Tobacco use: Nonsmoker Additional Findings: Tobacco non-user Current no nsmoker AUDIT-C (Standard) Question Answer Notes Did you have a drink containing alcohol in the p ast year? No Points 0 Interpretation Negative Problems Problem Type SNOMED Code ICD Code Onset Dates Problem Status W/U Status Risk Notes Problem Bilateral atherosclerosis of arteries of lower limbs (disorder) ([id number] ) Atherosclerosis of artery of both lower extremities (I70.203) Active confirmed Q7(A), Q8(2B), Q9(1B,2 C) Vital Signs Blood pressure diastolic 65 mm Hg 03/31/2025 Height 5ft 10in in 03/31/2025 Blood pressure systolic 130 mm Hg 03/31/2025 Weight 160 lbs 03/31/2025 BMI 22.96 kg/m2 03/31/2025 Encounters Encounter [facility] [address] [facility]25 Randy Samuel Atherosclerosis of artery of both lower extremities I70.203 ; Pain in left foot M79.672 ; Contusion of left foot, initial encounter S90.32XA and Closed fracture of left foot, initial encounter S92.902A [address] [address] 03/31/2025 Randy Samuel [address] [address] 04/01/2025 Randy Samuel Assessments Encounter Date Diagnosis (ICD Code) Assessment Notes Treatment Notes Treatment Clinical Notes Section Notes 03/31/2025 Pain in left foot (ICD-10 - M79.672) 03/31/2025 Atherosclerosis of artery of both lower extremities (ICD-10 - I70.203) Q7(A), Q8(2B), Q9(1B,2C) 03/31/2025 Contusion of left foot, initial encounter (ICD-10 - S90.32XA) 03/31/2025 Closed fracture of left foot, initial encounter (ICD-10 - S92.902A) Plan Of Treatment Pending Test Test Name Order Date X ray : Foot, left 3V 03/31/2025 Next Appt Details Provider Name:Randy Samuel , 05/11/2025 10:15:00 AM, [address] [place], [address], Insurance Providers Payer Name Payer Address Payer Phone Subscriber Number Group Number Insured Name Patient Relationship to Insured Coverage Start Date Coverage End Date [facility] [address] [place] [address] [id number] Tae Jara Self - patient is the insured 4 Medical (General) History Medical History History ICD Code Cancer High Blood Pressure Macular degeneration Hypercholesterolemia Surgical History Surgery Date(Month/Year) colorectal cancer surgery 12/2014
--- OUTSIDE RECORDS SUMMARY | 2025-05-06 09:11 | XMS_ITS ---
Author Name [facility] Organization Unknown Problems Problem Status Onset Date Problem Type Date of Resoluti on Source Chronic cough active EncounterDiagnosisAct HHCCT Care Team Organization Name Specialty Phone Email Start Date End Da te [facility] GHISLAINE BELCHER Primary Care 01/16/2024 04/16/2024
--- OUTSIDE RECORDS SUMMARY | 2025-05-06 09:11 | XMS_ITS | Clinical Summary ---
Author Organization [facility] Address [address] [place] [address] Phone Care Team Providers Care Automotive Quality Manager Name Role Phone Sam Fernández MD Primary Care Provider [phone] Allergies Active Allergy Reactions Criticality Noted Date Comments Bee Venom Protein (Honey Bee) 2024 Medications atorvastatin (LIPITOR) 40 mg tablet TAKE 1 TABLET BY MOUTH EVERYDAY AT BEDTIME 90 tablet 3 5 Active Eliquis 5 mg tablet Take 1 tablet (5 mg total) by mouth 2 (two) times a day. Active ferrous gluconate (FERGON) 324 mg (38 mg iron) tablet Take 324 mg by mouth daily (with breakfast). Active calcium carbonate/vitam in D3 (CALCIUM 600 + D,3, ORAL) Take by mouth. Active lisinopriL (PRINIVIL,ZESTR IL) 20 mg tablet Take 1 tablet (20 mg total) by mouth 1 (one) time each day. 1 Active multivitamin (MULTIPLE VITAMINS ORAL) Take by mouth. Active carvediloL (COREG) 6.25 mg tablet Take 1 tablet (6.25 mg total) by mouth 2 (two) times a day with meals. 180 each 3 5 04/22/20 26 Active carvediloL (COREG) 6.25 mg tablet Take 1 tablet (6.25 mg total) by mouth 2 (two) times a day with meals. 180 each 5 04/22/20 25 Discontinu ed(Reorder ) Active Problems Problem Noted Date Diagnosed Date Cerebrovascular accident (CVA) (CMS/HCC V24, [facility] /[facility] V28) 11/21/2020 PSVT (paroxysmal supraventri cular tachycardia) ([facility] V24) 11/17/2020 Atrial fibrillation ([facility] V24, [facility] V28) 1 Overview (08/27/2024): Anticoagulated with apixaban Flecainide and beta-darion PVI September [address] Rg Last Assessment & Plan: Patient continues with brief episodes of paroxysmal atrial fibrillation through his ILR that are asymptomatic to him. He remains anticoagulated with apixaban [address] Hunter recommended aspirin after his CVA however he had epistaxis within a couple days of starting it and he therefore declined taking it. He is not interested in seeking ENT evaluation. For now, continue beta-darion and anticoagulation at current dose. We will continue to follow his A. fib burden through his ILR. Assessment & Plan (01/19/2025 8:28 AM EDT): Orders: ECG 12 lead Colon polyps 04/23/2019 Essential hypertension 04/23/2019 Overview (08/27/2024): Last Assessment & Plan: Patient's blood pressures well controlled on current dose of beta-darion and TANYA inhibitor. Continue the same. Hyperlipidemia 04/23/2019 Overview (08/27/2024): Last Assessment & Plan: Patient's LDL is well controlled on current dose statin. Continue Encounters Date Type Department Care Team Description 04/22/2025 Telephone [facility] [address] [place] [address] Rey Hunter MD 02/10/2025 9:30 AM EDT Clinical Support [facility] [address] [place] [id number] 02/04/2025 Telephone [facility] [address] [place] [id number] Rey Hunter MD 02/03/2025 9:30 AM EDT Clinical Support [facility] [address] [facility] [address] [place] [address] Atrial fibrillation, unspecified type (CMS/HCC V24, CMS/HCC V28) (Primary Dx) from Last 3 Months Surgical History Surgery [...] w/Seeds Hyperlipidemia 04/23/2019 DX:Hyperlipidemi a Atrial fibrillation ([facility] V24, [facility] V28) 04/23/2019 DX:Atrial fibrillation ([facility]) Hypertension 04/23/2019 DX:Hypertension Colon polyps 04/23/2019 DX:Colon polyps Rectal bleeding DX:Rectal bleedi ng CVA (cerebral vascular accid ent) (CMS/HCC V24, CMS/HCC V28) DX:CVA (cerebral vascular a ccident) ([facility]) Family History Medical History Relation Name Comments [...] Sign Reading Time Taken Comments Blood Pressure 120/70 02/10/2025 10:28 AM EDT Pulse 81 02/10/2025 10:28 AM EDT Temperature - - Respiratory Rate - - Oxygen Saturation 98% 01/19/2025 7:51 AM EDT Inhaled Oxygen Concentration - - Weight 70.8 kg (156 lb) 01/19/2025 7:51 AM EDT Height 177.8 cm (5' 10 ) 01/19/2025 7:51 AM EDT Body Mass Index 22.38 01/19/2025 7:51 AM EDT Plan of Treatment Health Maintenance Due Date Last Done Comments Diabetes: Annual Foot Exam 1950 Diabetes: Annual Retina Eye Exam 1950 Colorectal Cancer Screening: Colonoscopy 03/19/2022 03/19/2017 Falls Risk Assessment 06/05/2022 Medicare Annual Wellness Visit 06/05/2022 Social Influencers of Health Screening 06/05/2022 Depression Screening 07/01/2024 Diabetes: Annual Urine Albumin-Creatinine Ratio (uACR) 01/19/2025 COVID-19 Vaccine ( season) 2025 04/24/2024, 04/15/2023, 07/14/2022, Additional history exists Influenza Vaccine (#1) 2025 , 03/21/2023, 03/30/2022, Additional history exists Diabetes: Blood Sugar Control Test (HGBA1C) 07/22/2025 01/19/2025 Diabetes: Annual GFR (Glomerular Filtration Rate) 01/19/2026 01/19/2025, 08/20/2022 Hypertension/CHF/CAD Annual BMP Blood Test 01/19/2026 01/19/2025, 08/20/2022 Cholesterol Screening (Lipid Panel) 08/26/2029 08/26/2024, 10/29/2022 DTaP,Tdap,and Td Vaccines (3 - Td or Tdap) 05/31/2034 05/31/2024, 03/21/2023 RSV Immunization Adult Patients Completed 04/15/2023 Zoster Vaccines Completed 01/25/2024, 08/30/2023 Pneumococcal Vaccine: 50+ Years Completed 05/31/2024 HIB [...] age to complete this topic Meningococcal B Vaccine Aged Out No l onger eligible based on patient's age to complete this topic RSV Immunization Patients Under 20 months Aged Out No longer eligible based on patient's age to complete this topic Varicella Vaccines Aged Out No longer eligible based on patient's age to complete this topic Procedures Procedure Name Priority Date/Time Associated Diagnosis Comments FIT OCCULT BLOOD STOOL, IMMUNOASSAY Routine 02/05/2025 9:58 AM EDT Hemoglobin decreased Anemia, unspecified ECG 12-LEAD Routine 02/03/2025 9:36 AM EDT Atrial fibrillation, unspecified type ([facility] V24, [facility] V28) COMPREHENSIVE METABOLIC PANEL Routine 01/19/2025 8:53 AM EDT Diabetes mellitus ([facility] V24, [facility] V28) Special screening for malignant neoplasm of prostate Avitaminosis D Routine general medical examination at a health care facility Vitamin B12 deficiency anemia Acquired hypothyroidism HEMOGLOBIN A1C Routine 01/19/2025 8:53 AM EDT Diabetes mellitus ([facility] V24, [facility] V28) Special screening for malignant neoplasm of prostate Avitaminosis D Routine general medical examination at a health care facility Vitamin B12 deficiency anemia Acquired hypothyroidism LIPID PANEL Routine 08/26/2024 8:59 AM EST Hyperlipidemia, unspecified hyperlipidemia type COLONOSCOPY Routine 03/19/2017 from Last 3 Months or Most Recently Relevant to Health Maintenance Results * FIT occult blood stool, immunoassay (02/05/2025 9:58 AM EDT) Fecal Occult Blood by Immunoassay (FIT) #1 Negative Negative 02/05/2025 11:30 AM EDT [facility] Comment:Collected 02/03/25 Fecal Occult Blood by Immunoassay (FIT) #2 Negative Negative 02/05/2025 11:30 AM EDT [facility] Comment:Collected 02/04/25 Stool Rectum structure / Unknown Non-blood Collection / Unknown 02/05/2025 9:58 AM EDT 02/05/2025 10:28 AM EDT [facility] BODY FLUIDS AND STOOLS ORDER AMANUEL Final Result Performing Organization Address City/[facility]/ZIP Co de Phone Number [facility] [address] [place] [address], [place] [phone] * ECG 12 lead (02/03/2025 9:36 AM EDT) Ventricular Rate ECG 97 BPM GEMUSE Atrial Rate 97 BPM GEMUSE P-R Interval 172 ms GEMUSE QRS Duration 84 ms GEMUSE Q-T Interval 356 ms GEMUSE QTc 452 ms GEMUSE P Wave [place] 80 degrees GEMUSE R [place] 34 degrees GEMUSE T [place] 70 degrees GEMUSE ECG Interpretation Sinus rhythm with Premature atrial complexes Nonspecific T wave abnormality Abnormal ECG When compared with ECG of 19-JAN-2025 07:59, Premature atrial complexes are now Present Confirmed by MD Dale, Rey ([id number]) on 02/08/2025 2:04:28 PM GEMUSE 02/03/2025 9:36 AM EDT 02/08/2025 2:04 PM EDT Rey Hunter MD ECG ORDERABLES Final Res ult GEMUSE * Hemoglobin A1c (01/19/2025 8:53 AM EDT) Hemoglobin A1C 5.8 <6.5 % LAB CHEMISTRY METHOD 01/19/2025 1:23 PM EDT [facility] Mean Bld Glu Estim. 120 mg/dL LAB CHEMISTRY METHOD 01/19/2025 1:23 PM EDT [facility] Blood Venous blood specimen / Unknown Venipuncture / Unknown 01/19/2025 8:53 AM EDT 01/19/2025 9:22 AM EDT us [facility] BLOOD ORDERABLES Final Resul t [facility] [address] [place] [address], [place] [phone] * (ABNORMAL) Comprehensive metabolic panel (01/19/2025 8:53 AM EDT) Sodium 140 133 - 145 mmol/L LAB CHEMISTRY METHOD 01/19/2025 10:41 AM [facility] Potassium 3.9 3.5 - 5.5 mmol/L LAB CHEMISTRY METHOD 01/19/2025 10:41 AM [facility] Chloride 107 96 - 110 mmol/L LAB CHEMISTRY METHOD 01/19/2025 10:41 AM [facility] CO2 28 21 - 32 mmol/L LAB CHEMISTRY METHOD 01/19/2025 10:41 AM [facility] Anion Gap 5 3 - 11 LAB CHEMISTRY METHOD 01/19/2025 10:41 AM [facility] Glucose 107(H) 70 - 100 mg/dL LAB CHEMISTRY METHOD 01/19/2025 10:41 AM [facility] BUN 14 5 - 25 mg/dL LAB CHEMISTRY METHOD 01/19/2025 10:41 AM [facility] Creatinine 1.18 0.70 - 1.30 mg/dL LAB CHEMISTRY METHOD 01/19/2025 10:41 AM [facility] eGFR 62 >=60 mL/min/1. 73m2 LAB CHEMISTRY METHOD 01/19/2025 10:41 AM [facility] Comment:Calculation based on the Chronic Kidney Disease Epidemiology Collaboration (CKD-EPI) equation refit without adjustment for race. BUN/Creatinine Ratio 11.9 LAB CHEMISTRY METHOD 01/19/2025 10:41 AM [facility] Calcium 9.6 8.5 - 10.5 mg/dL LAB CHEMISTRY METHOD 01/19/2025 10:41 AM [facility] AST (SGOT) 27 10 - 42 unit/L LAB CHEMISTRY METHOD 01/19/2025 10:41 AM [facility] ALT (SGPT) 37 10 - 60 unit/L LAB CHEMISTRY METHOD 01/19/2025 10:41 AM [facility] Alkaline Phosphatase 88 42 - 121 unit/L LAB CHEMISTRY METHOD 01/19/2025 10:41 AM [facility] Total Protein 7.3 6.0 - 8.0 g/dL LAB CHEMISTRY METHOD 01/19/2025 10:41 AM [facility] Albumin 3.5 3.2 - 5.0 g/dL LAB CHEMISTRY METHOD 01/19/2025 10:41 AM [facility] Total Bilirubin 0.9 0.0 - 1.4 mg/dL LAB CHEMISTRY METHOD 01/19/2025 10:41 AM [facility] Blood Venous blood specimen / Unknown Venipuncture / Unknown 01/19/2025 8:53 AM EDT 01/19/2025 9:21 AM EDT us [facility] BLOOD ORDERABLES Final Resul t [facility] [address] [place] [address], * Lipid panel (08/26/2024 8:59 AM EST) Cholesterol Total 145 100 - 199 mg/dL [facility] Triglycerides 65 0 - 149 mg/dL [facility] HDL Cholesterol 66 >39 mg/dL [facility] VLDL Cholesterol Calculated 13 5 - 40 mg/dL [facility] LDL Chol Calc (NIH) 66 0 - 99 mg/dL [facility] Blood Venous blood specimen / Unknown 08/26/2024 8:59 AM EST 08/26/2024 Narrative [facility] 1 - 08/27/2024 1:06 AM EST Performed at: 01 - [facility] [address] [id number] Breaker Machine Tender: Rosario Cardenas MD, Phone: [phone] Radha Gonzalez SPECIAL NEEDS LIBRARIAN LAB BLOOD ORDERABLES Final R esult [facility] 1 * Colonoscopy (03/19/2017) HM Colonoscopy no interpretation , abstracted Anatomical Region Laterality Modality Other Historical Provider HEALTH MAINTENANCE Final Result from Last 3 Months or Most Recently Relevant to Health Maintenance Insurance [address] [place] [address] [employer] Care Teams Automotive Quality Manager Relationship Specialty Start Date End Date Sam Fernández MD [address] [place] [address] PCP - General Internal Medicine 01/19/25
--- OUTSIDE RECORDS SUMMARY | 2025-05-06 09:11 | XMS_ITS | Patient Health Record ---
Author Organization [facility] [address] Address [address] [place] [address] Care Team Providers Care Cable Installation Manager Name Role Phone MOSES RJOO Unavailable [phone] KELBY MCKEON Unavailable [phone] TANIAJANEE FlemingLEY Unavailable [phone] CONYGABY Romeo Unavailable [phone] Allergies No Known Allergies Results Component Value Reference Range Notes Ferritin-[id number] Reviewed date:04/23/2025 08:07:19 AM Interpretation: Performing Lab:[facility], [address] [place] [address], Phone - [phone], Director - Milly Notes/Report: Ferritin 51 30-400 ng/mL Iron and TIBC-[id number] Reviewed date:04/23/2025 08:07:19 AM Interpretation: Performing Lab:[facility], [address] [facility], Phone - [phone], Director - MDRonald Notes/Report: Iron Bind.Cap.(TIBC) 270 250-450 ug/dL UIBC 209 111-343 ug/dL Iron 61 38-169 ug/dL Iron Saturation 23 15-55 % RETICULOCYTE COUNT Reviewed date:02/02/2025 10:56:37 AM Interpretation: Performing Lab: Notes/Report: Retic Ct Abs 0.090 0.030-0.090 M/mcL Retic Ct Pct 2.7 0.7-1.7 % Immature Retic Fract 17.5 2.3-15.9 % Reticulocyte Hemoglobin 32.8 >29.0 pcg URINALYSIS WITH REFLEX MICRO SCOPIC Reviewed date:02/02/2025 10:56:42 AM Interpretation: Performing Lab: Notes/Report: Specific [place] Urine 1.011 1.003-1.030 pH, Urine 6.0 5.0-8.0 pH Leukocytes, Urine Negative Negative Nitrite, Urine Negative Negative Protein, Urine Trace <=Trace mg/dL Glucose, Urine Negative Negative mg/dL Ketones, Urine Negative Negative mg/dL Urobilinogen, Urine 0.2 0.2-1.0 mg/dL Bilirubin, Urine Negative Negative Blood, Urine Negative Negative L. pneumophila Serogp 1 Ur A g-[id number] Reviewed date:11/30/2024 08:08:24 AM Interpretation: Performing Lab:[facility], [address] [place] [address], Phone - [phone], Director - [facility] Notes/Report: Clinical Information:SRC:UR L. pneumophila Serogp 1 Ur Ag Negative Negative Presumptive negative for L. pneumophila serogroup 1 antigen in urine, suggesting no recent or current infection. Legionnaires' disease cannot be ruled out since other serogroups and species may also cause disease. CBC With Differential/Platel et-[id number] Reviewed date:12/01/2024 03:37:42 PM Interpretation: Performing Lab:[facility] [place], [address] [place] [address], [place], Phone - [phone], [facility] Notes/Report: Clinical Information:SRC:UR WBC 7.7 3.4-10.8 x10E3/uL [...] (Abs) 0.0 0.0-0.1 x10E3/uL Comp. Metabolic Panel (14)-[id number] Reviewed date:08/27/2024 07:59:20 AM Interpretation: Performing Lab:[facility] [place], [address] [facility], Phone - [phone], Director - MDJodry Notes/Report: Glucose 107 70-99 mg/dL BUN 13 [...] (SGPT) 19 0-44 IU/L CBC With Differential/Platel et-[id number] Reviewed date:08/27/2024 07:59:32 AM Interpretation: Performing [facility], [address] [facility], Phone - [phone], Director - MDJodry Notes/Report: WBC 6.0 3.4-10.8 x10E3/uL RBC 4.26 [...] % Immature Grans (Abs) 0.0 0.0-0.1 x10E3/uL XR CHEST 2 VIEWS Reviewed date:08/05/2024 01:57:01 PM Interpretation: Performing Lab: Notes/Report: Note See Note [facility], a member of [facility] Patient Name: TAE VELÁSQUEZ Date of : 1940 Reason for Exam: cough Exam Date: 08/05/2024 [id number] EST Report Status: Final Ordering Provider: JAKE [...] the chest. No significant change. T[place] PA ([id number]) -------- FINAL REPOR T -------- Dictated By: Coco Lyons i Dictated Date: 08/05/2024 09:44 ET Assigned Physician: Coco Zavala Reviewed and Electronically Signed By: Coco Zavala Signed Date: 09:46 ET Workstation ID: [id number] Transcribed By: Self Edit Transcribed Date: 08/05/2024 09:44 ET Comp. Metabolic Panel ([id number] Reviewed date:05/19/2024 08:01:29 AM Interpretation: Performing Lab:[facility], [address] [facility], Phone - [phone], Director - Milly Notes/Report: Glucose 101 70-99 [...] (SGOT) 22 0-40 IU/L CBC With Differential/Platel et-[id number] Reviewed date:05/19/2024 08:00:44 AM Interpretation: Performing Lab:[facility], [address] [facility], [place], Phone - [phone], Director - Milly Notes/Report: WBC 7.4 3.4-10.8 [...] % Immature Grans (Abs) 0.0 0.0-0.1 x10E3/uL VITAMIN B12 Reviewed date:01/19/2025 04:30:18 PM Interpretation: Performing Lab: Notes/Report: Vitamin B-12 432 250-900 pcg/mL PROSTATE SPECIFIC ANTIGEN OMKAR MONTGOMERY Reviewed date:01/19/2025 04:30:18 PM Interpretation: Performing Lab: Notes/Report: The Siemens Advia Raynforestaur Chemiluminescent Immunoassay is used. Results obtained with different assay methods or kits cannot be used interchangeably. Results cannot be interpreted as absolute evidence of the presence or absence of malignant disease. PSA <0.06 0.00-4.00 ng/mL HEMOGLOBIN A1C Reviewed date:01/19/2025 04:30:18 PM Interpretation: Performing Lab: Notes/Report: Hemoglobin A1C 5.8 <6.5 % Mean Bld Glu Estim. 120 COMPREHENSIVE METABOLIC PANE L Reviewed date:01/19/2025 04:30:10 PM Interpretation: Performing Lab: Notes/Report: Sodium 140 133-145 mmol/L Potassium 3.9 3.5-5.5 mmol/L Chloride 107 96-110 mmol/L CO2 28 21-32 mmol/L Anion Gap 5 3-11 Glucose 107 70-100 mg/dL BUN 14 5-25 mg/dL Creatinine 1.18 0.70-1.30 mg/dL eGFR 62 >=60 mL/min/1.73m2 Calculation based on the Chronic Kidney Disease Epidemiology Collaboration (CKD-EPI) equation refit without adjustment for race. BUN/Creatinine Ratio 11.9 Calcium 9.6 8.5-10.5 mg/dL AST (SGOT) 27 10-42 unit/L ALT (SGPT) 37 10-60 unit/L Alkaline Phosphatase 88 42-121 unit/L Total Protein 7.3 6.0-8.0 g/dL Albumin 3.5 3.2-5.0 g/dL Total Bilirubin 0.9 0.0-1.4 mg/dL THYROID STIMULATING HORMONE Reviewed date:01/19/2025 04:30:18 PM Interpretation: Performing Lab: Notes/Report: TSH 1.79 0.40-4.00 mcIU/mL VITAMIN D 25 HYDROXY Reviewed date:01/19/2025 04:30:18 PM Interpretation: Performing Lab: Notes/Report: Vit D, 25-Hydroxy 35.3 30.0-80.0 ng/mL CBC WITH AUTO DIFFERENTIAL Reviewed date:01/19/2025 04:30:04 PM Interpretation: Performing Lab: Notes/Report: WBC 5.2 4.8-10.8 K/mcL RBC 3.70 4.50-5.50 M/mcL Hemoglobin 10.9 13.5-17.5 g/dL Hematocrit 32.9 42.0-54.0 % MCV 89.9 79.0-98.0 FL MCH 29.8 27.0-32.0 pcg MCHC 33.1 32.0-37.0 g/dL RDW 13.4 11.0-15.0 % Platelets 189 130-400 K/mcL MPV 9.5 7.0-11.0 FL NRBC 0.0 <1.0 % NRBC Absolute 0.00 <0.10 K/mcL Neutrophils Relative 58.8 Lymphocytes Relative 27.5 Monocytes Relative 11.9 Eosinophils Relative 1.0 Basophils Relative 0.6 Immature Granulocytes Relative 0.2 Neutrophils Absolute 3.06 1.50-7.00 K/mcL Lymphocytes Absolute 1.43 1.00-5.00 K/mcL Monocytes Absolute 0.62 0.20-1.00 K/mcL Eosinophils Absolute 0.05 0.00-0.50 K/mcL Basophils Absolute 0.03 0.00-0.20 K/mcL Immature Granulocytes Absolute 0.01 0.00-0.03 K/mcL Prothrombin Time (PT)-[id number] Reviewed date:04/22/2025 04:46:07 PM Interpretation: Performing Lab:[facility], [address] [place] [address], Phone - [phone], Director - [facility] Notes/Report: INR 1.1 0.9-1.1 Prothrombin Time 11.9 9.2-11.4 SEC OCCULT BLOOD STOOL, IMMUNOAS SAY Reviewed date:02/05/2025 11:43:33 AM Interpretation: Performing Lab: Notes/Report: Fecal Occult Blood by Immunoassay (FIT) #1 Negative Negative Collected 02/03/25 Fecal Occult Blood by Immunoassay (FIT) #2 Negative Negative Collected 02/04/25 IRON AND TIBC Reviewed date:02/02/2025 01:04:03 PM Interpretation: Performing Lab: Notes/Report: Iron 78 50-160 mcg/dL TIBC 260 250-450 mcg/dL Iron Saturation 30 20-50 % CBC WITH AUTO DIFFERENTIAL Reviewed date:02/02/2025 01:18:37 PM Interpretation: Performing Lab: Notes/Report: WBC 6.5 4.8-10.8 K/mcL RBC 3.30 4.50-5.50 M/mcL Hemoglobin 9.7 13.5-17.5 g/dL Hematocrit 29.8 42.0-54.0 % MCV 89.5 79.0-98.0 FL MCH 29.1 27.0-32.0 pcg MCHC 32.6 32.0-37.0 g/dL RDW 15.2 11.0-15.0 % Platelets 125 130-400 K/mcL MPV 10.1 7.0-11.0 FL NRBC 0.0 <1.0 % NRBC Absolute 0.00 <0.10 K/mcL Reason For Referral Diagnosis 1 Chronic cough (R05.3 ) Diagnosis 2 Chronic iron deficie ncy anemia (D50.9) Referral Organization [facility] [address] Referring Provider First Name GABY Referring Provider Last Name CONY Referring Provider Speciality Internal M edicine Referred Provider Specialty Immunology General Notes Allergy Immunology A [facility] , [address] [place] [address] Rd; [place] [address], P , F Clinical Notes Melly Aranda 2024 11:58:59 AM >Referral with notes, labs, and imaging sent to [facility]. TYJoe Earl Adam 12/10/2024 03:40:28 PM > Adeel Garcia referral sent 12/03/24. Called patient, but he doesn't have pen and paper with him, so, sent a msg about the phone and address.Joe Earl Adam 01/06/2025 03:33:44 PM > I called pt again and gave him again the number of the specialist.Joe Earl Adam 02/04/2025 03:46:18 PM > pt already went to [facility] Referral Priority Routine Medications Medication SIG (Take, Route, Frequency, Duration) Notes Start Date End Date Status Ipratropium [place] 0.06 % SPRAY 2 TIMES INTO EACH NOSTRIL 3 TIMES A DAY NEEDED FOR ALLERGY Nasal; Duration: 30 Days Active Carvedilol 12.5 MG Oral; Duration: 90 Days Active Lisinopril 5 MG TAKE 1 TABLET BY SHAZIA TH EVERY DAY; Duration: 90 Active Eliquis 5 MG TAKE 1 TABLET BY SHAZIA TH TWICE A DAY; Duration: 90 Active Multivitamin Adult - as directed Orally Active Calcium 600 MG 1 tablet with meals Orally Twice a day Active Atorvastatin Calcium 40 MG 1 tablet Orally Once a day Active Metoprolol Succinate ER 25 MG TAKE 1 TABLET BY MOUTH EVERY DAY; Duration: 90 Not-Taki ng Immunizations Vaccine Route Administration Date Status Comme [...] horses. 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 Health Care Proxy: Rehana Barnett - [phone] quit 45 years ago smoked for 20 [...] horses. Health Care Proxy: Rehana Barnett - [phone] quit 45 years ago smoked for 20 [...] horses. Health Care Proxy: Rehana Barnett - [phone] quit 45 years ago smoked for 20 [...] horses. 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 Health Care Proxy: Rehana Barnett - [phone] quit 45 years ago smoked for 20 [...] Risk Notes Problem Vitamin B>12< deficiency anaemia (13842707) Vitamin B12 deficiency anemia, unspecified (D51.9) Active confirmed Problem Coagulation disorder (67240626) Coagulation defect, unspecified (D68.9) Active confirmed Problem Vitamin D deficiency (91240792) Vitamin D deficiency, unspecified (E55.9) Active confirmed Problem Hyperlipidemia (41739342) Hyperlipidemia, unspecified (E78.5) Active confirmed Problem Postoperative hypertension (4072812438201) Postprocedural hypertension (I97.3) Active confirmed Problem Functional urinary incontinence (081928629) Functional urinary incontinence (R39.81) Active confirmed Problem Adult health examination (139940988) Encounter for general adult medical examination without abnormal findings (Z00.00) Active confirmed Problem Abnormal blood pressure (44376737) Encounter for examination of blood pressure with abnormal findings (Z01.31) Active confirmed Problem Screening for malignant neoplasm of prostate (190577227) Encounter for screening for malignant neoplasm of prostate (Z12.5) Active confirmed Problem Essential hypertension (58444824) Essential hypertension (I10) Active confirmed Problem Unsteady gait (75680394) Unsteady gait (R26.81) Active confirmed Problem Iron deficiency anemia (16918145) Other iron deficiency anemia (D50.8) Active confirmed Problem Urinary tract infectious disease (49454647) Urinary tract infection without hematuria, site unspecified (N39.0) Active confirmed Problem Hyperlipidaemia (62786409) Hyperlipidemia, unspecified hyperlipidemia type (E78.5) Active confirmed Problem Acquired hypothyroidism (234748337) Acquired hypothyroidism (E03.9) Active confirmed Problem Atrial fibrillation (14169796) Atrial fibrillation, unspecified type (I48.91) Active confirmed Problem Malignant tumor of prostate (863797538) Prostate cancer (C61) Active confirmed Problem Chronic sinusitis (87601784) Sinusitis, unspecified chronicity, unspecified location (J32.9) Active confirmed Problem Vitamin D deficiency (62616347) Vitamin D deficiency (E55.9) Active confirmed Problem Pulmonary nodule (029585468) Pulmonary nodule (R91.1) Active confirmed Problem Cerebrovascular accident (661716381) Cerebrovascular accident (CVA), unspecified mechanism (I63.9) Active confirmed Problem Use of anticoagulation (252990131) Chronic anticoagulation (Z79.01) Active confirmed Problem History of cerebrovascular accident without residual deficits (624199571) History of CVA (cerebrovascular accident) (Z86.73) Active confirmed Problem Hemoglobin low (001496518) Low hemoglobin (D64.9) Active confirmed Problem Frequency of urination (611425171) Frequency of urination (R35.0) Active confirmed Problem Iron deficiency anemia (78428510) Chronic iron deficiency anemia (D50.9) Active confirmed Problem History of malignant neoplasm of prostate (002831515) History of prostate cancer (Z85.46) Active confirmed Problem Advance care planning (047634576) Advance care planning (Z71.89) Active confirmed Problem Posterior rhinorrhea (08590100) Post-nasal drip (R09.82) Active confirmed Problem Acute cough (61959739064177682 4) Acute cough (R05.1) Active confirmed Problem Chronic cough (67277407) Chronic cough (R05.3) Active confirmed Problem Long-term current use of anticoagulant (080952622) Anticoagulated (Z79.01) Active confirmed Problem Pneumonia (622797022) Pneumonia of right upper lobe due to infectious organism (J18.9) Active confirmed Problem Abnormal metabolic state due to diabetes mellitus (334133603) 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) Active confirmed Problem Elevated fasting lipid profile (768214032015) Elevated lipids (E78.5) Active confirmed Problem Anemia (585955402) Anemia (D64.9) Active confir med Problem Persistent cough (669518726) Persistent cough (R05.3) Active confirmed Problem Bordetella pertussis (2315914) 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) Active confirmed Problem History of pneumonia (063093425) History of recent pneumonia (Z87.01) Active confirmed Vital Signs Heart Rate 78 /min 04/29/2025 Temperature 96.8 degrees Fahrenheit 11/21/2024 Oximetry 95 % 04/29/2025 Blood pressure diastolic 80 mm Hg 04/29/2025 Height 69 in 04/29/2025 Blood pressure systolic 122 mm Hg 04/29/2025 Weight 161.7 lbs 04/29/2025 BMI 23.88 kg/m2 04/29/2025 Encounters Encounter Location Date Provider Diagnosis [facility] [address] [place] [id number] 05/07/2024 KELBY IBARRAHAM Persistent cough R05 .3 ; Post-nasal drip R09.82 ; History of recent pneumonia Z87.01 ; Pulmonary nodule R91.1 ; Atrial fibrillation, unspecified type I48.91 ; Essential hypertension I10 ; History of CVA (cerebrovascular accident) Z86.73 and Other iron deficiency anemia D50.[address] [place] [address] 05/26/2024 MOSES ROJO Atrial fibrillation, unspecified type I48.91 ; Hyperlipidemia, unspecified E78.5 ; Cough R05.9 and Postnasal discharge R09.[address] [address] [place] [address] 06/18/2024 GABY DONNELLY Acute COVID-19 U07.1 ; Post-nasal drip R09.82 ; Chronic cough R05.3 ; Hyperlipidemia, unspecified E78.5 ; Essential hypertension I10 and Atrial fibrillation, unspecified type I48.[address] [place], [place] 08/05/2024 JAKE MARIN Acute cough R05.1 ; Essential hypertension I10 ; Atrial fibrillation, unspecified type I48.91 ; Cerebrovascular accident (CVA), unspecified mechanism I63.9 and History of chronic cough Z87.[address] [facility] [place], [place] 08/25/2024 MOSES ROJO Atrial fibrillation, unspecified type I48.91 ; Hyperlipidemia, unspecified E78.5 ; Cough R05.9 and Postnasal discharge R09.[address] [place], [place] 11/21/2024 GABY CONY Wheezing R06.2 and Cough, unspecified type R05.[address] [place], [place] 12/01/2024 MOSES ROJO Hyperlipidemia, unspecified E78.5 ; Atrial fibrillation, unspecified type I48.91 ; Cough R05.9 ; Postnasal discharge R09.82 ; Encounter for examination of blood pressure without abnormal findings Z01.30 and Sore throat J02.[address] [facility] [address] [place], [place] 01/25/2025 MOSES ROJO Atrial fibrillation, unspecified type I48.91 ; Medicare annual wellness visit, subsequent Z00.00 ; Essential hypertension I10 ; Cerebrovascular accident (CVA), unspecified mechanism I63.9 ; Anemia D64.9 ; Chronic anticoagulation Z79.01 ; Depression screening Z13.31 ; Encounter for screening for other disorder Z13.89 ; Advanced care planning/counseling discussion Z71.89 and Encounter for examination of blood pressure with abnormal findings Z01.[address] [place], [place] 04/29/2025 MOSES ROJO Atrial fibrillation, unspecified type I48.91 ; Chronic coughing R05.3 ; Essential hypertension I10 ; Cerebrovascular accident (CVA), unspecified mechanism I63.9 ; Anemia D64.9 ; Chronic anticoagulation Z79.01 and Encounter for examination of blood pressure with abnormal findings Z01.31 [address] 05/12/2024 MOSES ALIA [facility] [address] [address] [place], [place] 05/20/2024 MOSES ALIA [facility] [address] [facility] [address] [place], [place] 06/03/2024 MOSES ALIA [facility] [address] [facility] [address] [place], [place] 06/18/2024 MOSES ALIA [facility] [address] [facility] [address] [place], [place] 07/15/2024 MOSES ALIA [facility] [address] [place], [place] 08/03/2024 MOSES ALIA [facility] [address] [facility] [address] [place], [place] 08/04/2024 MOSES ALIA [facility] [address] [facility] [address] [place], [place] 08/13/2024 MOSES ALIA [facility] [address] [place], [place] 10/05/2024 MOSES ALIA [facility] [address] [facility] [address] [place], [place] 11/20/2024 MOSES ALIA [facility] [address] [place], [place] 11/21/2024 GABY CONY Chronic cough R05.[address] [facility] [address] [facility] [address] [place], [place] 11/21/2024 GABY CONY Wheezing R06.2 [facility] [address] [facility] [address] [place], [place] 11/21/2024 GABY CONY [facility] [address] [place], [place] 12/02/2024 MOSES ALIA [facility] [address] [place], [place] 02/01/2025 MOSES ALIA Anemia D64.9 and Fatigue, unspecified type R53.[address] [facility] [place] [address] 02/02/2025 MOSES ALIA Hematuria, unspecifi ed R31.[address] [facility] [place], [place] 02/02/2025 MOSES ROJO Precipitous drop in hematocrit R71.0 and Low hemoglobin D64.[address] [place], [place] 02/09/2025 MOSES MAJORA [facility] [address] [place], [place] 03/30/2025 MOSES ALIA [facility] [address] [place], [place] 03/30/2025 MOSES ALIA [facility] [address] [place], [place] 04/09/2025 MOSES ALIA [facility] [address] [place], [place] 05/05/2025 MOSES ROJO [facility] [address] [address] 08/05/2024 MOSES ROJO Assessments Encounter Date Diagnosis (ICD Code) Assessment Notes Treatment Notes Treatment Clinical Notes Section Notes 05/26/2024 Hyperlipidemia, unspecified (ICD-10 - E78.5) Tae [...] hours, about 1 week ago. Currently sees cardiology technologist once a year but is considering following [...] reviewed. Dictation completed with the use of [employer] voice recognition software, prone to medical misidentifications [...] hours, about 1 week ago. Currently sees cardiology technologist once a year but is considering following [...] reviewed. Dictation completed with the use of [employer] voice recognition software, prone to medical misidentifications [...] Dictation was accomplished with the use of [employer] voice recognition software, which is prone to [...] Dictation was accomplished with the use of [employer] voice recognition software, which is prone to [...] # On 07/29/2024 patient was seen at [facility] ER and diagnosed with dehydration secondary to [...] appropriately. States he has been taking an [id number] cough syrup of unknown name, purchased by [...] Dictation was accomplished with the use of [employer] voice recognition software, prone to medical misidentifications [...] hours, about 1 week ago. Currently sees cardiology technologist once a year but is considering following [...] reviewed. Dictation completed with the use of [employer] voice recognition software, prone to medical misidentifications [...] hours, about 1 week ago. Currently sees cardiology technologist once a year but is considering following [...] reviewed. Dictation completed with the use of [employer] voice recognition software, prone to medical misidentifications [...] Dictation was accomplished with the use of [employer] voice recognition software, which is prone to [...] Dictation was accomplished with the use of [employer] voice recognition software, which is prone to [...] hours, about 1 week ago. Currently sees cardiology technologist once a year but is considering following [...] reviewed. Dictation completed with the use of [employer] voice recognition software, prone to medical misidentifications and grammatical errors. All errors are unintentional. Although the practitioner does try to identify and correct errors, some may be present. Please do not hesitate to contact the practitioner for clarification. 08/05/2024 Acute cough (ICD-10 - R05.1) Tae is an 84-year-old male present today for hospital follow-up /urgent visit. # On 07/29/2024 patient was seen at [facility] ER and diagnosed with dehydration secondary to [...] appropriately. States he has been taking an [id number]-[id number] cough syrup of unknown name, purchased by [...] Dictation was accomplished with the use of [employer] voice recognition software, prone to medical misidentifications [...] hours, about 1 week ago. Currently sees cardiology technologist once a year but is considering following [...] reviewed. Dictation completed with the use of [employer] voice recognition software, prone to medical misidentifications and grammatical errors. All errors are unintentional. Although the practitioner does try to identify and correct errors, some may be present. Please do not hesitate to contact the practitioner for clarification. 01/25/2025 Atrial fibrillation, unspecified type (ICD-10 - I48.91) # AFib. Followed by Dr. Hunter. Last seen Jan 2025. Changed Metoprolol to Carvedilol 12.5 mg po BID. ON eliquis 5 mg po BID # Hx of prostate ca. PSA neg. No hematuria. # HTN. Resume Lisinopril and Coreg # Anemia. Denies blood in stool. Check iron studies/ H and H. Discussed warning signs of anemia, and if BRBPR/black stool occurs to come to office. Colonoscopy unremarkable 2016. # CVA. Hx of. No residual deficits. On statin/ASA # Screenings: UTD # HCP: daughter, Rehana Khan Men Patient seen and examined. Comprehensive discussion [...] log exercise and discussed fitness Apps like [employer] which can help keep log off calories [...] Dictation was accomplished with the use of [employer] voice recognition software, prone to medical misidentifications and grammatical errors. This is unintentional and the practitioner does try to identify and correct these, but some could still be present. Please do not hesitate to contact practitioner for clarification. All quetsions answered to patients satisfaction. Patient verbalized understanding of diagnosis and treatments explained. To call sooner prior to next visit it any questions/concerns arise. 01/25/2025 Medicare annual wellness visit, subsequent (ICD-10 - Z00.00) # AFib. Followed by Dr. Hunter. Last seen Jan 2025. Changed Metoprolol to Carvedilol 12.5 mg po BID. ON eliquis 5 mg po BID # Hx of prostate ca. PSA neg. No hematuria. # HTN. Resume Lisinopril and Coreg # Anemia. Denies blood in stool. Check iron studies/ H and H. Discussed warning signs of anemia, and if BRBPR/black stool occurs to come to office. Colonoscopy unremarkable 2016. # CVA. Hx of. No residual deficits. On statin/ASA # Screenings: UTD # HCP: daughter, Rehana Physical Men Patient seen and examined. Comprehensive [...] log exercise and discussed fitness Apps like [employer] which can help keep log off calories [...] Dictation was accomplished with the use of [employer] voice recognition software, prone to medical misidentifications and grammatical errors. This is unintentional and the practitioner does try to identify and correct these, but some could still be present. Please do not hesitate to contact practitioner for clarification. All quetsions answered to patients satisfaction. Patient verbalized understanding of diagnosis and treatments explained. To call sooner prior to next visit it any questions/concerns arise. 02/01/2025 Anemia (ICD-10 - D64.9) 02/02/2025 Hematuria, unspecified (ICD-10 - R31.9) 02/02/2025 Precipitous drop in hematocrit (ICD-10 - R71.0) 04/29/2025 Atrial fibrillation, unspecified type (ICD-10 - I48.91) # Chronic cough. Patient has an appoint with ENT in May. If this does not improve his chronic cough, consider change of lisinopril. # AFib. Followed by Dr. Hunter. Last seen Jan 2025. Changed Metoprolol to Carvedilol 12.5 mg po BID. ON eliquis 5 mg po BID # Hx of prostate ca. PSA neg. No hematuria. # HTN. Resume Lisinopril and Coreg # Anemia. Denies blood in stool. Check iron studies/ H and H. Discussed warning signs of anemia, and if BRBPR/black stool occurs to come to office. Colonoscopy unremarkable 2016. # CVA. Hx of. No residual deficits. On statin/ASA # Screenings: UTD # HCP: daughter, Rehana Case discussed with collaborating physician Maggie Fernández who reviewed the assessment and plan. Chart, medications, labs, vital signs reviewed. Dictation was accomplished with the use of [employer] voice recognition software, prone to medical misidentifications and grammatical errors. This is unintentional and the practitioner does try to identify and correct these, but some could still be present. Please do not hesitate to contact practitioner for clarification. All quetsions answered to patients satisfaction. Patient verbalized understanding of diagnosis and treatments explained. To call sooner prior to next visit it any questions/concerns arise. 04/29/2025 Chronic coughing (ICD-10 - R05.3) # Chronic cough. Patient has an appoint with ENT in May. If this does not improve his chronic cough, consider change of lisinopril. # AFib. Followed by Dr. Hunter. Last seen Jan 2025. Changed Metoprolol to Carvedilol 12.5 mg po BID. ON eliquis 5 mg po BID # Hx of prostate ca. PSA neg. No hematuria. # HTN. Resume Lisinopril and Coreg # Anemia. Denies blood in stool. Check iron studies/ H and H. Discussed warning signs of anemia, and if BRBPR/black stool occurs to come to office. Colonoscopy unremarkable 2016. # CVA. Hx of. No residual deficits. On statin/ASA # Screenings: UTD # HCP: daughter, Rehana Case discussed with collaborating physician Maggie Fernández who reviewed the assessment and plan. Chart, medications, labs, vital signs reviewed. Dictation was accomplished with the use of [employer] voice recognition software, prone to medical misidentifications and grammatical errors. This is unintentional and the practitioner does try to identify and correct these, but some could still be present. Please do not hesitate to contact practitioner for clarification. All quetsions answered to patients satisfaction. Patient verbalized understanding of diagnosis and treatments explained. To call sooner prior to next visit it any questions/concerns arise. 05/07/2024 Post-nasal drip (ICD-10 - R09.82) Tae [...] reviewed. Dictation completed with the use of [employer] voice recognition software, prone to medical misidentifications [...] reviewed. Dictation completed with the use of [employer] voice recognition software, prone to medical misidentifications and grammatical errors. All errors are unintentional. Although the practitioner does try to identify and correct errors, some may be present. Please do not hesitate to contact the practitioner for clarification. 05/07/2024 History of recent [...] reviewed. Dictation completed with the use of [employer] voice recognition software, prone to medical misidentifications and grammatical errors. All errors are unintentional. Although the practitioner does try to identify and correct errors, some may be present. Please do not hesitate to contact the practitioner for clarification. 04/29/2025 Essential hypertension (ICD-10 - I10) # Chronic cough. Patient has an appoint with ENT in May. If this does not improve his chronic cough, consider change of lisinopril. # AFib. Followed by Dr. Hunter. Last seen Jan 2025. Changed Metoprolol to Carvedilol 12.5 mg po BID. ON eliquis 5 mg po BID # Hx of prostate ca. PSA neg. No hematuria. # HTN. Resume Lisinopril and Coreg # Anemia. Denies blood in stool. Check iron studies/ H and H. Discussed warning signs of anemia, and if BRBPR/black stool occurs to come to office. Colonoscopy unremarkable 2016. # CVA. Hx of. No residual deficits. On statin/ASA # Screenings: UTD # HCP: daughter, Rehana Case discussed with collaborating physician Maggie Fernández who reviewed the assessment and plan. Chart, medications, labs, vital signs reviewed. Dictation was accomplished with the use of [employer] voice recognition software, prone to medical misidentifications and grammatical errors. This is unintentional and the practitioner does try to identify and correct these, but some could still be present. Please do not hesitate to contact practitioner for clarification. All quetsions answered to patients satisfaction. Patient verbalized understanding of diagnosis and treatments explained. To call sooner prior to next visit it any questions/concerns arise. 02/01/2025 Fatigue, unspecified type (ICD-10 - R53.83) 02/02/2025 Low hemoglobin (ICD-10 - D64.9) 12/01/2024 Cough (ICD-10 - R05.9) Tae is [...] hours, about 1 week ago. Currently sees cardiology technologist once a year but is considering following [...] reviewed. Dictation completed with the use of [employer] voice recognition software, prone to medical misidentifications and grammatical errors. All errors are unintentional. Although the practitioner does try to identify and correct errors, some may be present. Please do not hesitate to contact the practitioner for clarification. 01/25/2025 Essential hypertension (ICD-10 - I10) # AFib. Followed by Dr. Hunter. Last seen Jan 2025. Changed Metoprolol to Carvedilol 12.5 mg po BID. ON eliquis 5 mg po BID # Hx of prostate ca. PSA neg. No hematuria. # HTN. Resume Lisinopril and Coreg # Anemia. Denies blood in stool. Check iron studies/ H and H. Discussed warning signs of anemia, and if BRBPR/black stool occurs to come to office. Colonoscopy unremarkable 2016. # CVA. Hx of. No residual deficits. On statin/ASA # Screenings: UTD # HCP: daughter, Rehana Physical Men Patient seen and examined. Comprehensive [...] log exercise and discussed fitness Apps like [employer] which can help keep log off calories [...] Dictation was accomplished with the use of [employer] voice recognition software, prone to medical misidentifications and grammatical errors. This is unintentional and the practitioner does try to identify and correct these, but some could still be present. Please do not hesitate to contact practitioner for clarification. All quetsions answered to patients satisfaction. Patient verbalized understanding of diagnosis and treatments explained. To call sooner prior to next visit it any questions/concerns arise. 08/25/2024 Cough (ICD-10 - R05.9) Tae is [...] hours, about 1 week ago. Currently sees cardiology technologist once a year but is considering following [...] reviewed. Dictation completed with the use of [employer] voice recognition software, prone to medical misidentifications [...] # On 07/29/2024 patient was seen at [facility] ER and diagnosed with dehydration secondary to [...] appropriately. States he has been taking an [id number] cough syrup of unknown name, purchased by [...] Dictation was accomplished with the use of [employer] voice recognition software, prone to medical misidentifications [...] Dictation was accomplished with the use of [employer] voice recognition software, which is prone to medical misidentifications and grammatical errors. This are unintentional and the practitioner does try to identify and correct these, but some could still be present. Please do not hesitate to contact practitioner for clarification. 05/26/2024 Cough (ICD-10 - [...] hours, about 1 week ago. Currently sees cardiology technologist once a year but is considering following [...] reviewed. Dictation completed with the use of [employer] voice recognition software, prone to medical misidentifications [...] hours, about 1 week ago. Currently sees cardiology technologist once a year but is considering following [...] reviewed. Dictation completed with the use of [employer] voice recognition software, prone to medical misidentifications [...] Dictation was accomplished with the use of [employer] voice recognition software, which is prone to [...] # On 07/29/2024 patient was seen at [facility] ER and diagnosed with dehydration secondary to [...] appropriately. States he has been taking an [id number] cough syrup of unknown name, purchased by [...] Dictation was accomplished with the use of [employer] voice recognition software, prone to medical misidentifications [...] hours, about 1 week ago. Currently sees cardiology technologist once a year but is considering following [...] reviewed. Dictation completed with the use of [employer] voice recognition software, prone to medical misidentifications [...] twice daily with compliance. Follows with Dr. Huntre annually. Endorses that he has had episode of a-fib, lasting about 8 hours, about 1 week ago. Currently sees cardiology technologist once a year but is considering following [...] reviewed. Dictation completed with the use of [employer] voice recognition software, prone to medical misidentifications and grammatical errors. All errors are unintentional. Although the practitioner does try to identify and correct errors, some may be present. Please do not hesitate to contact the practitioner for clarification. 01/25/2025 Cerebrovascular accident (CVA), unspecified mechanism (ICD-10 - I63.9) # AFib. Followed by Dr. Hunter. Last seen Jan 2025. Changed Metoprolol to Carvedilol 12.5 mg po BID. ON eliquis 5 mg po BID # Hx of prostate ca. PSA neg. No hematuria. # HTN. Resume Lisinopril and Coreg # Anemia. Denies blood in stool. Check iron studies/ H and H. Discussed warning signs of anemia, and if BRBPR/black stool occurs to come to office. Colonoscopy unremarkable 2016. # CVA. Hx of. No residual deficits. On statin/ASA # Screenings: UTD # HCP: daughter, Rehana Khan Men Patient seen and examined. Comprehensive discussion [...] log exercise and discussed fitness Apps like [employer] which can help keep log off calories [...] Dictation was accomplished with the use of [employer] voice recognition software, prone to medical misidentifications and grammatical errors. This is unintentional and the practitioner does try to identify and correct these, but some could still be present. Please do not hesitate to contact practitioner for clarification. All quetsions answered to patients satisfaction. Patient verbalized understanding of diagnosis and treatments explained. To call sooner prior to next visit it any questions/concerns arise. 04/29/2025 Cerebrovascular accident (CVA), unspecified mechanism (ICD-10 - I63.9) # Chronic cough. Patient has an appoint with ENT in May. If this does not improve his chronic cough, consider change of lisinopril. # AFib. Followed by Dr. Hunter. Last seen Jan 2025. Changed Metoprolol to Carvedilol 12.5 mg po BID. ON eliquis 5 mg po BID # Hx of prostate ca. PSA neg. No hematuria. # HTN. Resume Lisinopril and Coreg # Anemia. Denies blood in stool. Check iron studies/ H and H. Discussed warning signs of anemia, and if BRBPR/black stool occurs to come to office. Colonoscopy unremarkable 2016. # CVA. Hx of. No residual deficits. On statin/ASA # Screenings: UTD # HCP: daughter, Rehana Case discussed with collaborating physician Maggie Fernández who reviewed the assessment and plan. Chart, medications, labs, vital signs reviewed. Dictation was accomplished with the use of [employer] voice recognition software, prone to medical misidentifications and grammatical errors. This is unintentional and the practitioner does try to identify and correct these, but some could still be present. Please do not hesitate to contact practitioner for clarification. All quetsions answered to patients satisfaction. Patient verbalized understanding of diagnosis and treatments explained. To call sooner prior to next visit it any questions/concerns arise. 05/07/2024 Pulmonary nodule (ICD-10 - R91.1) Tae [...] reviewed. Dictation completed with the use of [employer] voice recognition software, prone to medical misidentifications [...] reviewed. Dictation completed with the use of [employer] voice recognition software, prone to medical misidentifications and grammatical errors. All errors are unintentional. Although the practitioner does try to identify and correct errors, some may be present. Please do not hesitate to contact the practitioner for clarification. 04/29/2025 Anemia (ICD-10 - D64.9) # Chronic cough. Patient has an appoint with ENT in May. If this does not improve his chronic cough, consider change of lisinopril. # AFib. Followed by Dr. Hunter. Last seen Jan 2025. Changed Metoprolol to Carvedilol 12.5 mg po BID. ON eliquis 5 mg po BID # Hx of prostate ca. PSA neg. No hematuria. # HTN. Resume Lisinopril and Coreg # Anemia. Denies blood in stool. Check iron studies/ H and H. Discussed warning signs of anemia, and if BRBPR/black stool occurs to come to office. Colonoscopy unremarkable 2016. # CVA. Hx of. No residual deficits. On statin/ASA # Screenings: UTD # HCP: daughterRehana Case discussed with collaborating physician Maggie Fernández who reviewed the assessment and plan. Chart, medications, labs, vital signs reviewed. Dictation was accomplished with the use of [employer] voice recognition software, prone to medical misidentifications and grammatical errors. This is unintentional and the practitioner does try to identify and correct these, but some could still be present. Please do not hesitate to contact practitioner for clarification. All quetsions answered to patients satisfaction. Patient verbalized understanding of diagnosis and treatments explained. To call sooner prior to next visit it any questions/concerns arise. 01/25/2025 Anemia (ICD-10 - D64.9) # AFib. Followed by Dr. Hunter. Last seen Jan 2025. Changed Metoprolol to Carvedilol 12.5 mg po BID. ON eliquis 5 mg po BID # Hx of prostate ca. PSA neg. No hematuria. # HTN. Resume Lisinopril and Coreg # Anemia. Denies blood in stool. Check iron studies/ H and H. Discussed warning signs of anemia, and if BRBPR/black stool occurs to come to office. Colonoscopy unremarkable 2016. # CVA. Hx of. No residual deficits. On statin/ASA # Screenings: UTD # HCP: Rehana pryor Physical Men Patient seen and examined. Comprehensive [...] log exercise and discussed fitness Apps like [employer] which can help keep log off calories [...] Dictation was accomplished with the use of [employer] voice recognition software, prone to medical misidentifications and grammatical errors. This is unintentional and the practitioner does try to identify and correct these, but some could still be present. Please do not hesitate to contact practitioner for clarification. All quetsions answered to patients satisfaction. Patient verbalized understanding of diagnosis and treatments explained. To call sooner prior to next visit it any questions/concerns arise. 08/05/2024 History of chronic cough (ICD-10 - Z87.898) Tae is an 84-year-old male present today for hospital follow-up /urgent visit. # On 07/29/2024 patient was seen at [facility] ER and diagnosed with dehydration secondary to [...] appropriately. States he has been taking an [id number] cough syrup of unknown name, purchased by [...] Dictation was accomplished with the use of [employer] voice recognition software, prone to medical misidentifications [...] hours, about 1 week ago. Currently sees cardiology technologist once a year but is considering following [...] reviewed. Dictation completed with the use of [employer] voice recognition software, prone to medical misidentifications [...] Dictation was accomplished with the use of [employer] voice recognition software, which is prone to [...] Dictation was accomplished with the use of [employer] voice recognition software, which is prone to medical misidentifications and grammatical errors. This are unintentional and the practitioner does try to identify and correct these, but some could still be present. Please do not hesitate to contact practitioner for clarification. 12/01/2024 Sore throat (ICD-10 [...] hours, about 1 week ago. Currently sees cardiology technologist once a year but is considering following [...] reviewed. Dictation completed with the use of [employer] voice recognition software, prone to medical misidentifications and grammatical errors. All errors are unintentional. Although the practitioner does try to identify and correct errors, some may be present. Please do not hesitate to contact the practitioner for clarification. 04/29/2025 Chronic anticoagulation (ICD-10 - Z79.01) # Chronic cough. Patient has an appoint with ENT in May. If this does not improve his chronic cough, consider change of lisinopril. # AFib. Followed by Dr. Hunter. Last seen Jan 2025. Changed Metoprolol to Carvedilol 12.5 mg po BID. ON eliquis 5 mg po BID # Hx of prostate ca. PSA neg. No hematuria. # HTN. Resume Lisinopril and Coreg # Anemia. Denies blood in stool. Check iron studies/ H and H. Discussed warning signs of anemia, and if BRBPR/black stool occurs to come to office. Colonoscopy unremarkable 2016. # CVA. Hx of. No residual deficits. On statin/ASA # Screenings: UTD # HCP: daughter, Rehana Case discussed with collaborating physician Maggie Fernández who reviewed the assessment and plan. Chart, medications, labs, vital signs reviewed. Dictation was accomplished with the use of [employer] voice recognition software, prone to medical misidentifications and grammatical errors. This is unintentional and the practitioner does try to identify and correct these, but some could still be present. Please do not hesitate to contact practitioner for clarification. All quetsions answered to patients satisfaction. Patient verbalized understanding of diagnosis and treatments explained. To call sooner prior to next visit it any questions/concerns arise. 01/25/2025 Chronic anticoagulation (ICD-10 - Z79.01) # AFib. Followed by Dr. Hunter. Last seen Jan 2025. Changed Metoprolol to Carvedilol 12.5 mg po BID. ON eliquis 5 mg po BID # Hx of prostate ca. PSA neg. No hematuria. # HTN. Resume Lisinopril and Coreg # Anemia. Denies blood in stool. Check iron studies/ H and H. Discussed warning signs of anemia, and if BRBPR/black stool occurs to come to office. Colonoscopy unremarkable 2016. # CVA. Hx of. No residual deficits. On statin/ASA # Screenings: UTD # HCP: daughter, Rehana Khan Men Patient seen and examined. Comprehensive discussion [...] log exercise and discussed fitness Apps like [employer] which can help keep log off calories [...] Dictation was accomplished with the use of [employer] voice recognition software, prone to medical misidentifications and grammatical errors. This is unintentional and the practitioner does try to identify and correct these, but some could still be present. Please do not hesitate to contact practitioner for clarification. All quetsions answered to patients satisfaction. Patient verbalized understanding of diagnosis and treatments explained. To call sooner prior to next visit it any questions/concerns arise. 05/07/2024 Essential hypertension (ICD-10 - I10) Tae [...] reviewed. Dictation completed with the use of [employer] voice recognition software, prone to medical misidentifications [...] reviewed. Dictation completed with the use of [employer] voice recognition software, prone to medical misidentifications and grammatical errors. All errors are unintentional. Although the practitioner does try to identify and correct errors, some may be present. Please do not hesitate to contact the practitioner for clarification. 01/25/2025 Depression screening (ICD-10 - Z13.31) # AFib. Followed by Dr. Hunter. Last seen Jan 2025. Changed Metoprolol to Carvedilol 12.5 mg po BID. ON eliquis 5 mg po BID # Hx of prostate ca. PSA neg. No hematuria. # HTN. Resume Lisinopril and Coreg # Anemia. Denies blood in stool. Check iron studies/ H and H. Discussed warning signs of anemia, and if BRBPR/black stool occurs to come to office. Colonoscopy unremarkable 2016. # CVA. Hx of. No residual deficits. On statin/ASA # Screenings: UTD # HCP: daughter, Rehana Khan Men Patient seen and examined. Comprehensive discussion [...] log exercise and discussed fitness Apps like [employer] which can help keep log off calories [...] Dictation was accomplished with the use of [employer] voice recognition software, prone to medical misidentifications and grammatical errors. This is unintentional and the practitioner does try to identify and correct these, but some could still be present. Please do not hesitate to contact practitioner for clarification. All quetsions answered to patients satisfaction. Patient verbalized understanding of diagnosis and treatments explained. To call sooner prior to next visit it any questions/concerns arise. 04/29/2025 Encounter for examination of blood pressure with abnormal findings (ICD-10 - Z01.31) # Chronic cough. Patient has an appoint with ENT in May. If this does not improve his chronic cough, consider change of lisinopril. # AFib. Followed by Dr. Hunter. Last seen Jan 2025. Changed Metoprolol to Carvedilol 12.5 mg po BID. ON eliquis 5 mg po BID # Hx of prostate ca. PSA neg. No hematuria. # HTN. Resume Lisinopril and Coreg # Anemia. Denies blood in stool. Check iron studies/ H and H. Discussed warning signs of anemia, and if BRBPR/black stool occurs to come to office. Colonoscopy unremarkable 2016. # CVA. Hx of. No residual deficits. On statin/ASA # Screenings: UTD # HCP: daughterRehana Case discussed with collaborating physician Maggie Fernández who reviewed the assessment and plan. Chart, medications, labs, vital signs reviewed. Dictation was accomplished with the use of [employer] voice recognition software, prone to medical misidentifications and grammatical errors. This is unintentional and the practitioner does try to identify and correct these, but some could still be present. Please do not hesitate to contact practitioner for clarification. All quetsions answered to patients satisfaction. Patient verbalized understanding of diagnosis and treatments explained. To call sooner prior to next visit it any questions/concerns arise. 01/25/2025 Encounter for screening for other disorder (ICD-10 - Z13.89) # AFib. Followed by Dr. Hunter. Last seen Jan 2025. Changed Metoprolol to Carvedilol 12.5 mg po BID. ON eliquis 5 mg po BID # Hx of prostate ca. PSA neg. No hematuria. # HTN. Resume Lisinopril and Coreg # Anemia. Denies blood in stool. Check iron studies/ H and H. Discussed warning signs of anemia, and if BRBPR/black stool occurs to come to office. Colonoscopy unremarkable 2016. # CVA. Hx of. No residual deficits. On statin/ASA # Screenings: UTD # HCP: Rehana pryor Physical Men Patient seen and examined. Comprehensive [...] log exercise and discussed fitness Apps like [employer] which can help keep log off calories [...] Dictation was accomplished with the use of [employer] voice recognition software, prone to medical misidentifications and grammatical errors. This is unintentional and the practitioner does try to identify and correct these, but some could still be present. Please do not hesitate to contact practitioner for clarification. All quetsions answered to patients satisfaction. Patient verbalized understanding of diagnosis and treatments explained. To call sooner prior to next visit it any questions/concerns arise. 05/07/2024 Other iron deficiency anemia (ICD-10 - [...] reviewed. Dictation completed with the use of [employer] voice recognition software, prone to medical misidentifications and grammatical errors. All errors are unintentional. Although the practitioner does try to identify and correct errors, some may be present. Please do not hesitate to contact the practitioner for clarification. 01/25/2025 Advanced care planning/counselin g discussion (ICD-10 - Z71.89) # AFib. Followed by Dr. Hunter. Last seen Jan 2025. Changed Metoprolol to Carvedilol 12.5 mg po BID. ON eliquis 5 mg po BID # Hx of prostate ca. PSA neg. No hematuria. # HTN. Resume Lisinopril and Coreg # Anemia. Denies blood in stool. Check iron studies/ H and H. Discussed warning signs of anemia, and if BRBPR/black stool occurs to come to office. Colonoscopy unremarkable 2016. # CVA. Hx of. No residual deficits. On statin/ASA # Screenings: UTD # HCP: daughter, Rehana Physical Men Patient seen and examined. Comprehensive [...] log exercise and discussed fitness Apps like [employer] which can help keep log off calories [...] Dictation was accomplished with the use of [employer] voice recognition software, prone to medical misidentifications and grammatical errors. This is unintentional and the practitioner does try to identify and correct these, but some could still be present. Please do not hesitate to contact practitioner for clarification. All quetsions answered to patients satisfaction. Patient verbalized understanding of diagnosis and treatments explained. To call sooner prior to next visit it any questions/concerns arise. 01/25/2025 Encounter for examination of blood pressure with abnormal findings (ICD-10 - Z01.31) # AFib. Followed by Dr. Hunter. Last seen Jan 2025. Changed Metoprolol to Carvedilol 12.5 mg po BID. ON eliquis 5 mg po BID # Hx of prostate ca. PSA neg. No hematuria. # HTN. Resume Lisinopril and Coreg # Anemia. Denies blood in stool. Check iron studies/ H and H. Discussed warning signs of anemia, and if BRBPR/black stool occurs to come to office. Colonoscopy unremarkable 2016. # CVA. Hx of. No residual deficits. On statin/ASA # Screenings: UTD # HCP: daughter, Rehana Khan Men Patient seen and examined. Comprehensive discussion [...] log exercise and discussed fitness Apps like [employer] which can help keep log off calories [...] Dictation was accomplished with the use of [employer] voice recognition software, prone to medical misidentifications [...] METABOLIC PANEL 04/06/2024 FECAL OCCULT BLOOD, IMMUNOCHEMICAL 02/02 FECAL OCCULT BLOOD, IMMUNOCHEMICAL 04/21 LEGIONELLA ANTIGEN 11/21/2024 LIPID PANEL 07/10/2018 LYME DISEASE [place]ST[place] BLOT 12/28/2021 MYCOPLASMA PNEUMONIAE PCR 11/21/2024 PSA, SCREEN 07/10/2018 TRANSFERRIN 11/12/2022 URINALYSIS, COMPLETE 01/20/2019 Chest 2 Views Frontal and Lat 04/06/2024 Magnesium Level 04/25/2020 Strep pneumoniae Antigen Urine Culture Urine 10/21/2020 CT Chest w/o Contrast 03/27/2024 XR Chest 2 Views 03/07/2024 XR Chest 2 Views 07/25/2018 PT/INR 01/25/2025 PT/INR 03/21/2023 LIPID PANEL, STANDARD 03/21/2023 LIPID PANEL, STANDARD 11/17/2021 IRON, TIBC AND FERRITIN PANEL 01/25/2025 COMPREHENSIVE METABOLIC PANEL 06/16/2021 COMPREHENSIVE METABOLIC PANEL 11/17/2021 COMPREHENSIVE METABOLIC PANEL 01/21/2024 COMPREHENSIVE METABOLIC PANEL 03/21/2023 COMPREHENSIVE METABOLIC PANEL 08/25/2024 COMPREHENSIVE METABOLIC PANEL 12/01/2024 COMPREHENSIVE METABOLIC PANEL 04/29/2025 BUN/CREATININE RATIO 06/26/2022 IRON AND TOTAL IRON BINDING CAPACITY 09/2024 CBC (INCLUDES DIFF/PLT) 02/01/2025 CBC (INCLUDES DIFF/PLT) 01/25/2025 CBC (INCLUDES DIFF/PLT) 06/16/2021 CBC (INCLUDES DIFF/PLT) 11/21/2024 CBC (INCLUDES DIFF/PLT) 01/21/2024 CBC (INCLUDES DIFF/PLT) 11/17/2021 CBC (INCLUDES DIFF/PLT) 04/29/2025 CBC (INCLUDES DIFF/PLT) 12/01/2024 CBC (INCLUDES DIFF/PLT) 08/25/2024 CBC (INCLUDES DIFF/PLT) 03/21/2023 HEMOGLOBIN 04/21/2021 URINALYSIS, COMPLETE 03/21/2023 URINALYSIS, COMPLETE 12/01/2024 URINALYSIS, COMPLETE W/REFLEX TO CULTURE 02/02/2025 HEMOGLOBIN A1c 12/01/2024 HEMOGLOBIN A1c 03/21/2023 VITAMIN B12 12/01/2024 PSA (FREE AND TOTAL) 12/01/2024 PSA, TOTAL 03/21/2023 TSH 12/01/2024 TSH 03/21/2023 VITAMIN D,25-OH,TOTAL,IA 12/01/2024 VITAMIN D,25-OH,TOTAL,IA 03/21/2023 VITAMIN D,25-OH,TOTAL,IA 06/16/2021 RETICULOCYTE COUNT 02/01/2025 PPC Strep Test 12/01/2024 Next Appt Details Provider Name:MOSES ROJO, 08/10/2025 08:00:00 AM, [address], [place], [address], Insurance Providers Payer Name Payer Address Payer Phone Subscriber Number Group Number Insured Name Patient Relationship to Insured Coverage Start Date Coverage End Date [employer] Preferred [address] [place] [address] [id number] Tae Velásquez Self - patient is the [...] this was done a few years ago ) Hospitalization History Reason Date(Month/Year) right upper lobe pneumonia 03/18/2024 Bordetella pertussis 03/11/2024
== END 2025-05-06 08:43 | disposition home or self-care (01) ==
LOC: HO.XRAY 08:42
PROVIDERS: PCP Internal Medicine; Visit Provider Hospitalist
DX: K21.9 Gastro-esophageal reflux disease without esophagitis (principal)
CPT/HCPCS: 74220

== ENCOUNTER → 2025-05-06 08:46 | Outpatient (BNV) | payer MEDICARE, SELFPAY | PROVIDERS: PCP Internal Medicine; Visit Provider Radiology Diagnostic Radiology | DX: K21.9 Gastro-esophageal reflux disease without esophagitis (principal) | CPT/HCPCS: 74221 ==

== ENCOUNTER 2025-06-10 08:32 | Outpatient (AMB) | payer MEDICARE, SELFPAY ==
[2025-06-10 08:34] VITALS: BP 122/60; PULSE 75; O2SAT 96; BMI 24.1
--- NOTE | 2025-06-10 08:34 | A.OFFVIS_ITS ---
Vital Signs 06/10/25 08:34 Height 5 ft 9 in Weight 163 lb 2.273 oz BMI 24.1 BP 122/60 Blood Pressure Location Rt brachial Position Sitting Pulse 75 Pulse Source Pulse Oximeter Pulse Oximetry (%) 96 Oxygen Delivery Method Room Air Intake Visit Reasons: Pneumonia [place] Required: No Accompanied by: Self / Same As Patient Allergies No Known Allergies Allergy (Verified 06/10/25 08:38) HPI Comments Details: The patient is an 85-year-old gentleman with a known history of atrial fibrillation on anticoagulation. She has been complaining of worsening respiratory symptoms since the summer. Apparently per the family he has been coughing now for the last month. He has also had some weight loss. The summertime he is having issues with shortness of breath cough and he went to the ER. He was initially evaluated in March. He was initially diagnosed with whooping cough. He was treated with azithromycin. The patient is no better develop worsening respiratory symptoms he went back to the hospital on March 18. Then he had a CTA which ruled out PE but the patient did have underlying is airspace disease in the lower lung zones in addition to the right upper lobe. The patient also has some bronchiectatic looking airways. He was placed on amoxicillin and then subsequently the patient was no better and he was subsequently placed on doxycycline. He was also started on cough syrup which helped him settle down the cough some degree. The patient has not significantly improved. He does throat area. He had a repeat CT scan on April 09 as a follow-up scan. This was done at [facility]. It appeared that the airspace disease improved although now he has a 1.5 nodular density in the right lower lobe. Did not clear if this is related to residual from an infection or if this is concerning process. 05/21/2024 the patient is here for a pulmonary follow-up visit. Overall the patient has been doing okay. His cough is better. He stopped taking the Asmanex since he felt that he did not need it anymore. Also was feel like it was developing some irritation from it. In addition to that he does complaint about his postnasal drip and nasal congestion. He has been using the Atrovent nasal spray. I had sent him the higher dose and then he had some issues with epistaxis and therefore he got a lower dose minutes primary care which is perfectly fine. Although he still having issues. He is taking it 4 times a day. Will see about back in weight to 2 times a day will add Astelin to the regimen. Will avoid nasal steroids because of bleeding. The patient is CT scans were also reviewed by me. I did get a copy of them. I can appreciate the nodular densities in the lower lung areas. There is some degree of inflammation and likely related to his previous infectious lower respiratory process. Therefore plan to repeat the CT scan sometime in early 2024 and will follow-up with the results. She continues to have the nodular densities and at that point he may need additional imaging or semi-invasive diagnostic interventions. Will follow-up then. 07/20/2024 the patient is here for a pulmonary follow-up visit. Overall he is better from the cough standpoint. After he recovered from pertussis and pneumonia he did develop COVID. The COVID fortunately did not affect his lungs. He denies any significant coughing although he does have still a postnasal drip and nasal congestion that bothers him regularly. On a daily basis. He is using the nasal rinse on a nightly basis with some partial improvement and does have the Astelin nasal spray. He also has a ipratropium nasal spray but does not use it as regularly. The patient did have a CT scan of the chest which we personally reviewed. Seems like the pulmonary nodules have completely subsided except for slight remnant likely some microscopic residual changes from the infl ammatory effect. The consolidations have resolved. Otherwise no evidence of any parenchymal lung disease. Does have some chronic rhinitis issues and postnasal drip therefore will going to focus on treating that. Breathing das he is doing well no significant wheezing or rhonchi. He did have a reaction to the inhalers will hold off at this time. Will have him come back in around 6 months with PFTs. If he has any issues prior to that he will call for an earlier assessment. 01/14/2025 the patient is here for a pulmonary follow-up visit. Overall he is doing okay. His main complaints are mainly his nasal congestion. He has no better. He did start Xyzal antihistamine therapy in his helps some. He did not respond well to the antihistamine nasal spray. I did provide him the ipratropiu m nasal spray that he can use as needed in case the nasal secretions are related to a vasomotor process. The patient would like somebody to take a look. Will send him to ENT for laryngoscopy. In the meantime he also complains of difficulty swallowing. Sometimes he sitting rising food gets stuck in his esophagus. [id number] severity. Will go ahead and request a barium swallow. For now we talked about making sure that he alternates to liquids and solids to make sure that he clears what he is eating before he takes another solid by. He will follow-up in 4-6 months if he has any issues prior to this he will call for an earlier assessment. 06/10/2025 the patient is here for pulmonary follow-up visit. Overall he is doing okay. Does complain about the nasal drip. Significant. The nasal sprays only cause bleeding. Again, I gave him a triple nasal spray I wrote down for him to make sure that he only uses the ipratropium been no nasal steroids. The patient will try that again to see if it provides relief. Also he is getting some relief from the Bentson needs for the cough. I will go ahead and send them to the pharmacy. In the meantime he is taking lisinopril. Explained to that he may benefit from switching the OLAF inhibitor to an ARB especially if his cough persists. His swallow is okay although sometimes he chokes up on certain foods such as rice. He also has a significant difficulty with certain other foods. We did do a barium swallow demonstrating tertiary contractions suggesting dysmotility and also diverticulum of the esophagus which may be contributing as well. Sometimes he feels like food gets stuck right where those diverticula are documented on the report. Otherwise the patient is doing well will go ahead and refer him to GI to get that further evaluated. In the meantime he is going to continue with the nasal spray ipratropium and also continue with the [place]. When he sees his primary care that can talk about switching him over from an OLAF inhibitor to an ARB. [facility] Medical History (Updated 06/10/25 @ 22:15 by Everardo Hendrickson MD) Abnormal barium swallow Dysphagia Chronic allergic rhinitis Chronic cough Pulmonary nodule 1 cm or greater in diameter Pertussis pneumonia Cough due to OLAF inhibitor Vasomotor rhinitis Bronchopneumonia Social History Patient Tobacco Use Status: Former Tobacco user Tobacco use type: Cigarette Years Smoked: 20+ Years Review of Systems Const Reports weight loss Eyes Reports no additional complaints ENT Reports dysphagia, Reports hearing loss, Reports post nasal drip and Denies throat swelling Card Denies chest pain Resp Denies chest congestion, Reports cough, Denies hemoptysis and Denies wheezing GI Reports dysphagia Musc Reports no additional complaints Skin/Breast Denies rash Sebastian/Lymph Reports no additional complaints Aller/Immun Denies throat swelling and Denies wheezing Physical Exam Vital Signs: Last Vital Signs Pulse 75 06/10/25 08:34 BP 122/60 06/10/25 08:34 Pulse Ox 96 06/10/25 08:34 Oxygen Delivery Method Room Air 06/10/25 08:34 BMI result Body Mass Index 24.1 Const General: comfortable HEENT General nose exam: Abnormal mucous membranes and turbinates present erythematous Throat: Yes cobblestoning Neck Neck: Yes supple Chest Chest palpation & inspection: normal inspection of the chest Resp Effort & Inspection: normal respiratory effort Auscultation: clear to auscultation bilaterally Skin General skin exam: no rashes or lesions noted Extrem General: Yes no clubbing, cyanosis or edema Assessment & Plan Assessment & Plan (1) 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 Category: Medical (2) Pertussis pneumonia: Comment: resolved Code(s): A37.91 - Whooping cough, unspecified species with pneumonia Category: Medical (3) Pulmonary nodule 1 cm or greater in diameter: Code(s): R91.1 - Solitary pulmonary nodule Category: Medical (4) Chronic cough: Code(s): R05.3 - Chronic cough Category: Medical (5) Chronic allergic rhinitis: Code(s): J30.9 - Allergic rhinitis, unspecified Category: Medical (6) Dysphagia: Code(s): R13.10 - Dysphagia, unspecified Category: Medical Qualifiers: Dysphagia type: unspecified Qualified Code(s): R13.10 - Dysphagia, unspecified (7) Abnormal barium swallow: Code(s): R93.3 - Abnormal findings on diagnostic imaging of other parts of digestive tract Category: Medical Plan ipratropium nasal spray BID continue xyzal GI eval for abnormal barium swallow cough medicine F/U 6-8 months Orders: Referrals Gastroenterology Referral R13.10 - Dysphagia, unspecified, R93.3 - Abnormal findings on diagnostic imaging of other parts of digestive tract Medications: New benzonatate 200 mg PO BID PRN 60 caps 6RF cough 30 days ipratropium bromide administer into each nostril 2 sprays intranasal TID PRN 15 mL 6RF allergy symptoms Coding Level of Care Code Add On Preventative Visit Only Diagnoses Vasomotor rhinitis J30.0 Pertussis pneumonia A37.91 Pulmonary nodule 1 cm or greater in diameter R91.1 Chronic cough R05.3 Chronic allergic rhinitis J30.9 Dysphagia, unspecified type R13.10 Dysphagia type: unspecified Abnormal barium swallow R93.3 Time Spent (min) 17
== END 2025-06-10 09:00 | disposition home or self-care (01) ==
LOC: HO.HPS 08:33
PROVIDERS: PCP Physician Assistant Medical; Visit Provider Hospitalist
DX: J30.0 Vasomotor rhinitis (principal); A37.91 Whooping cough, unspecified species with pneumonia; R91.1 Solitary pulmonary nodule; R05.3 Chronic cough; J30.9 Allergic rhinitis, unspecified; R13.10 Dysphagia, unspecified; R93.3 Abnormal findings on diagnostic imaging of other parts of digestive tract
CPT/HCPCS: 99214; G2211

== ENCOUNTER → 2025-06-10 08:32 | Outpatient (BNVA) | payer MEDICARE, SELFPAY | PROVIDERS: PCP Physician Assistant Medical; Visit Provider Hospitalist | DX: J30.0 Vasomotor rhinitis (principal); A37.91 Whooping cough, unspecified species with pneumonia; R91.1 Solitary pulmonary nodule; R05.3 Chronic cough; R13.10 Dysphagia, unspecified; R93.3 Abnormal findings on diagnostic imaging of other parts of digestive tract; Z79.899 Other long term (current) drug therapy; Z87.891 Personal history of nicotine dependence | CPT/HCPCS: 99212 ==